=== PATIENT | male | born 1950 | race Caucasian/White ===

== ENCOUNTER 2018-05-18 09:31 | Observation (INO) ==
[2018-05-18] MEDS ORDERED: MIDAZOLAM HCL 1 MG/ML 2ML VIAL ONE (12:40)
[2018-05-18] MEDS ORDERED: HEPARIN (PORCINE) 1000 UNIT/ML 10 ML (CATH LAB USE ONLY) ONE (12:41)
[2018-05-18] MEDS ORDERED: NiCARDipine HCL INJ 2.5 MG/ML 10 ML AMP ONE (12:41)
[2018-05-18] MEDS ORDERED: fentaNYL citrate 100 MCG/2 ML VIAL ONE (12:41)
[2018-05-18] MEDS ORDERED: NITROGLYCERIN/D5W 100MCG/ML 20ML SYR ONE (12:42)
[2018-05-18] MEDS ORDERED: LIDOCAINE HCL 1% 20 ML VIAL ONE (12:46)
[2018-05-18] MEDS ORDERED: NOREPINEPHRINE BITARTRATE 1 MG/ML 4 ML VIAL (CATH LAB USE ONLY) ONE (14:02)
[2018-05-18] MEDS ORDERED: DOPamine 400MG / 250ML D5W (CATH LAB USE ONLY) ONE (14:03)
--- NOTE | 2018-05-18 15:32 | History & Physical Bridge Note ---
Date of Service May 18, 2018 History & Physical Bridge Note I have examined the patient, reviewed the History & Physical and in the interval since the performance of the History & Physical I have noted the following changes of clinical significance: no changes noted
--- NOTE | 2018-05-18 15:33 | Post Anesthesia Assessment ---
Date of Service May 18, 2018 Post Sedation Assessment Vital Signs Temp Pulse Resp BP Pulse Ox 05/18/18 09:52 36.5 C 99 H 16 145/89 H 97 Recovery Score Activity: Moves 4 extremities Respiration: Deep Breath/Cough Circulation: +/-20% PreAnes Value Consciousness: Fully Awake Oxygen Saturation: O2 needed for >90% Discharge Sedation Level of Care: Fast Track Phase II Post Sedation Plan On clinical assessment, the patient appears to have tolerated the sedation without complications. Patient is recovering as anticipated. Patient will continue to be monitored by nursing and may be discharged when sedation discharge criteria are met per below protocol. Upon Completions of procedure and additional 15 minutes continue every 5 minute vital signs and the P.A.R. score; then discharge to a Phase I or Fast Track to Phase II per the following guidelines: * Discharge Patient to appropriate Phase II area if PAR is 8 or greater or return to pre- procedure baseline. The post - procedure orders will be as directed. * If PAR score is less than 8 or not return to pre-procedure baseline then patient will follow Phase I monitoring till PAR is reached for Phase II. The Phase I may be done in procedure room or may call to secure a Phase I area. * If naloxone or flumazenil are used for reversal, hold in Phase I for continued monitoring from when last reversal dose was given for a minimum of 60 minutes or longer pending the nurse and/or physician discretion of patient condition before discharge to Phase II. Please call the Sedation Physician to re-evaluate and complete post-note for discharge to Phase II area. Do NOT discharge from procedure sedation or Phase 1 until post- sedation evaluation note is complete by procedure /sedation MD Sedation Discharge Instructions to be given to the patient at discharge to home.
--- NOTE | 2018-05-18 15:33 | Pre Anesthesia Assessment ---
Date of Service May 18, 2018 Pre Sedation Assessment Vital Signs Temp Pulse Resp BP Pulse Ox 05/18/18 09:52 36.5 C 99 H 16 145/89 H 97 Cardiovascular RRR, no murmur, no edema Respiratory normal respiratory effort, lungs clear to auscultation Pre-Sedation Airway Assessment Smoking Status: Never smoker Hx Sleep Apnea: No Hx Difficult Intubation: No Short, Thick Neck: No Thyromental Distance: > or= 3.5 Finger Breadths Oral Cavity: + WNL Mallampati Class: III ASA: ASA3 NPO Status Date of Last Intake of Fluids: 05/17/18 Time of Last Intake of Fluids: 23:59 Date of Last Intake of Solid Food: 05/17/18 Time of Last Intake of Solid Foods: 23:59 Procedure Planning Contraindications for Sedation: none Current Medications Reviewed: Yes Notes The planned sedation has been discussed with the patient. Informed Consent was obtained. I have identified the patient, determined the appropriateness of sedation and have assessed the patient immediately prior to the procedure. All medicine(s) and interventions are by my order.
[2018-05-18] MEDS ORDERED: ONDANSETRON INJ 2 MG/ML 2 ML VIAL IV PRN (15:34)
[2018-05-18] MEDS ORDERED: ACETAMINOPHEN 325 MG TAB PO PRN (15:34)
[2018-05-18] MEDS ORDERED: FUROSEMIDE 20 MG in SYRINGE 0 ML IV ONE (15:38)
[2018-05-18] MEDS ORDERED: NITROGLYCERIN 0.3 MG/1 TAB 100 TAB BTL SL PRN (15:45)
--- NOTE | 2018-05-18 15:56 | Cardiac Catheterization ---
Cardiac Cath Procedure Full Procedure Date May 18, 2018 Pre-Procedure Diagnosis Pre-Procedure Diagnosis: CAD AUC Score AUC Score: 7 Post-Procedure Diagnosis Post-Procedure Diagnosis: Severe CAD and Successful PCI Procedure(s) Performed Procedure(s) Performed: Coronary Angiography, PTCA and Drug Eluting Stent Armament Mechanic Brandon Singh MD [employer] Quality Control Technician(s) Samson Hassan Estimated Blood Loss Estimated Blood Loss: 15 Medication(s) Medication(s): Fentanyl, Heparin, Lidocaine 1%, Nicardipine, Nitroglycerin and Versed Summary of Findings Indication: Staged PCI of severe RCA disease Access: 6Fr left radial artery Catheters: JR4 guide -- PCI -- Antithrombotic therapy: Heparin, Ticagrelor Procedure: RCA cannulated with JR4 guide Open Cut Examiner 50 wire passed across lesion into distal vessel Mid to proximal lesion predilated with 2.5 and 2.75 compliant balloons Dilated lesion stented with 3.0 x 38 mm [place] KHRIS With the aide of a guideliner stent post-dilated with 3.5 noncompliant balloon IC vasodilators administered for spasm Post procedure LETA 3 flow, stent well expanded with minimal residual stenosis and no apparent cardiac complications. Arterial Closure: TR Band Summary: 1. Successful PCI of proximal to mid RCA with single KHRIS (3.0 x 38 [place] KHRIS; post-dilated with 3.5 NC). 2. Elevated left sided filling pressures. Recommendations: To PCU for continued monitoring Continue dual-antiplatelet therapy for at least 1 year, likely indefinitely Gentle diuresis Continue guideline directed medical therapy for cardiomyopathy Continue statin, and ASCVD risk factor modification Consult cardiac Rehab Hemodynamics Rest Ao:: 86/50/68 Final Ao: 103/59/78 LV: 90/30 Recommendations Recommendations: PCI without planned CABG Specimens Specimens: None Radiation Exposure (mGy) 2796 Contrast (mls) 70 opti Fluids (cc crystalloids) Fluids (cc crystalloids): 100 NS Drains Drains: None Anesthesia Moderate Procedural Complication(s) None Disposition PCU ACC Data: Director Trading Cardiac Status Clinical evaluation leading to the procedure CAD Presenation: STEMI Anginal Classification: CCS III Heart Failure: No Cardiogenic Shock within 24 Hours: No Cardiac Arrest within 24 Hours: No Imaging Studies Past 6 Months: Yes Stress Studies Past 6 Months: No Diagnostic Physicians Name: Brandon Singh MD Status: Elective Closure Device Percutaneous Entry Location: Radial Closure Device: Radial Band Recommendations: PCI without planned CABG PCI Indication: Staged PCI Lesion Segment Name: proximal to mid RCA Culprit Artery: No Stenosis Prior to Rx (%): 80-90% Chronic Total Occlusion: No IVUS: No FFR: No Pre-Procedure LETA Flow: 3 Previously Treated Lesion: No Lesion Complexity: Non-High/Non-C Lesion Length (mm): 35 Thrombus Present: No Bifurcation Lesion: No Guidewire Across Lesion: Stenosis Post-Procedure (%): 0 Post-Procedure LETA Flow : 3 Devices(s) Deployed: Yes Yes Intraprocedure Events Significant Disection: No Perforation: No
[2018-05-18] MEDS ORDERED: DIGOXIN 0.125 MG TAB PO SCH (16:00)
[2018-05-18] MEDS: TICAGRELOR 90 MG TAB PO SCH (19:41)
[2018-05-18] MEDS ORDERED: METOPROLOL TARTRATE 50 MG TAB PO SCH (20:00)
[2018-05-19 06:55] LABS: Basophils # (auto) 0.02 K/uL (0-0.2); Basophils % (auto) 0.2 %; Eosinophils # (auto) 0.09 K/uL (0-0.5); Eosinophils % (auto) 0.9 %; Hematocrit (blood only) 37.3 % (42-52); Hemoglobin 12.6 g/dL (14.0-18.0); Immature Granulocytes # (auto) 0.07 K/uL (0.00-0.02); Immature Granulocytes % (auto) 0.7 %; Lymphocytes # (auto) 1.82 K/uL (1.2-3.4); Lymphocytes % (auto) 19.1 %; Mean Corpuscular Hgb Conc 33.8 g/dL (32-36); Mean Corpuscular Volume 95.2 fL (80-100); Mean Platelet Volume 10.5 fL (7.4-10.4); Monocytes # (auto) 0.99 K/uL (0.11-0.59); Monocytes % (auto) 10.4 %; Neutrophils # (auto) 6.56 K/uL (1.4-6.5); Neutrophils % (auto) 68.7 %; Platelet Count 370 K/uL (130-400); RDW Coefficient of Variation 13.1 % (11.5-14.5); RDW Standard Deviation 44.3 fL (36.4-46.3); Red Blood Count 3.92 M/uL (4.7-6.1); White Blood Count 9.55 K/uL (4.8-10.8)
[2018-05-19 07:32] LABS: BUN Creatinine Ratio 22.1 (10-20); Calcium 8.5 mg/dl (8.5-10.1); Creatinine Clr Calc Pharmacy 85.1 ml/min; Est GFR (African American) 89.2; Potassium 3.8 mmol/L (3.5-5.1)
[2018-05-19] MEDS: TICAGRELOR 90 MG TAB PO SCH (08:26)
[2018-05-19] MEDS ORDERED: MULTIVITAMIN TAB PO SCH (09:00)
[2018-05-19] MEDS ORDERED: ASPIRIN 81 MG ECTAB PO SCH (09:00)
[2018-05-19] MEDS ORDERED: METOPROLOL SUCC 50MG EXT REL TAB PO SCH (09:00)
[2018-05-19] MEDS ORDERED: ATORVASTATIN 40 MG TAB PO SCH (09:00)
[2018-05-19] MEDS ORDERED: SPIRONOLACTONE 25 MG TAB PO SCH (09:00)
--- NOTE | 2018-05-20 11:56 | Discharge Summary ---
Date of Service May 19, 2018 Admission HPI Per Admitting Provider Patient was admitted on 05/09/2018 in the setting of anterior STEMI. He underwent primary PCI and drug-eluting stenting of the culprit LAD lesion during initial catheterization and then returned to the lab for PCI, drug- eluting stent of the complex circumflex obtuse marginal lesion on 05/11/2018. Course complicated by acute systolic heart failure requiring diuresis. Noted to have new severe LV dysfunction and discharged on guideline directed medical therapy with LifeVest in place. Patient returns today for staged PCI of residual high-grade RCA lesion. Specialty Data Cardiology PCI 05/18/2018: 1. Successful PCI of proximal to mid RCA with single KHRIS (3.0 x 38 [place] KHRIS; post-dilated with 3.5 NC). 2. Elevated left sided filling pressures. Discharge Data Procedures Performed Operation Date: 05/18/18 11:00 Actual Procedures p Drug Eluting Stent SGl Vessel - Iraj Singh MD s Cineradiography w/Routine Exam - Iraj Singh MD Hospital Course (1) Multi-vessel coronary artery stenosis: Patient underwent left heart catheterization via left radial artery. Was noted to have elevated filling pressures with LVEDP of 30. PCI of RCA was completed without complication. He had a single drug-eluting stent (3.0 x 38 mm [place] postdilated with 3.5 NC) placed from his mid to proximal RCA. Post procedure he was admitted to telemetry for further monitoring. He received 1 dose of IV Lasix for elevated left-sided filling pressures. His home metoprolol dose was increased from 50-100 mg daily due to sinus tachycardia. He was continued on dual antiplatelet therapy with aspirin and Brilinta. He remained asymptomatic during observation and had no significant arrhythmia on telemetry. He was discharged home on hospital day [address] He will follow-up with cardiology in 1 week. Discharge Instructions Home Medications MULTIPLE VITAMIN (MULTIVITAMIN) 1 tab PO DAILY #0 tab 01/18/12 [History Confirmed 05/18/18] aspirin [Ecotrin Low Strength] 81 mg PO QAM #30 tab 05/15/18 [Rx Confirmed 05/18] atorvastatin 80 mg PO QAM 30 Days #60 tab 05/15/18 [Rx Confirmed 05/18/18] digoxin 0.125 mg PO DAILY@1600 30 Days #30 tab 05/15/18 [Rx Confirmed 05/18/18] nitroglycerin [Nitrostat] 0.3 mg SUBLINGUAL UD #10 tab 05/15/18 [Rx Confirmed ] spironolactone 12.5 mg PO DAILY 30 Days #15 tab 05/15/18 [Rx Confirmed 05/18/18] ticagrelor [Brilinta] 90 mg PO BID 30 Days #60 tab 05/15/18 [Rx Confirmed ] metoprolol succinate [Toprol XL] 100 mg PO DAILY #30 tab 05/19/18 [Rx]
== END 2018-05-19 10:32 | disposition home or self-care (01) ==
LOC: 2E 09:31 → CC 09:31

== ENCOUNTER 2021-01-07 11:36 | Inpatient (IN) ==
[2021-01-07 12:27] LABS: Basophils # (auto) 0.03 K/uL (0-0.2); Basophils % (auto) 0.3 %; Eosinophils # (auto) 0.01 K/uL (0-0.5); Eosinophils % (auto) 0.1 %; Hematocrit (blood only) 38.7 % (42-52); Hemoglobin 13.4 g/dL (14.0-18.0); Immature Granulocytes # (auto) 0.02 K/uL (0.00-0.02); Immature Granulocytes % (auto) 0.2 %; Lymphocytes # (auto) 0.73 K/uL (1.2-3.4); Mean Corpuscular Hemoglobin 32.6 pg (25-34); Mean Corpuscular Hgb Conc 34.6 g/dL (32-36); Mean Corpuscular Volume 94.2 fL (80-100); Mean Platelet Volume 9.9 fL (7.4-10.4); Monocytes # (auto) 0.82 K/uL (0.11-0.59); Monocytes % (auto) 7.9 %; Neutrophils # (auto) 8.81 K/uL (1.4-6.5); Neutrophils % (auto) 84.5 %; Platelet Count 323 K/uL (130-400); RDW Coefficient of Variation 12.9 % (11.5-14.5); RDW Standard Deviation 44.5 fL (36.4-46.3); Red Blood Count 4.11 M/uL (4.7-6.1); White Blood Count 10.42 K/uL (4.8-10.8)
--- NOTE | 2021-01-07 12:36 | XRay Report ---
XR chest 1V portable INDICATION: MN ^Y ^Dyspnea . TECHNIQUE: Single frontal radiograph of the chest was obtained. Comparison: Comparison is made to chest one view 05/12/2018 FINDINGS: Diffuse interstitial thickening is noted with emphysematous changes most prominent in the upper lobes . The cardiomediastinal silhouette is normal. No evidence of pleural effusion or pneumothorax. IMPRESSION: Chronic emphysema and scarring without evidence of acute abnormality. ACT 112: Negative or not required by law. Electronically signed by: Wilfredo Holbrook M.D. 01/07/2021 12:34 PM
[2021-01-07 12:44] LABS: Alanine Aminotransferase 60 U/L (12-78); Albumin Level 2.8 gm/dl (3.4-5.0); Aspartate Aminotransferase 72 U/L (15-37); BUN Creatinine Ratio 14.5 (10-20); Blood Urea Nitrogen 15 mg/dl (7-18); Calcium 9.4 mg/dl (8.5-10.1); Carbon Dioxide 25 mmol/L (21-32); Chloride 108 mmol/L (98-107); Est GFR (African American) 83.9 ml/min; Est GFR (Non-African American) 72.4 ml/min; Glucose 109 mg/dl (70-99); Potassium 4.1 mmol/L (3.5-5.1); Sodium 139 mmol/L (136-145)
[2021-01-07 12:49] LABS: Albumin Globulin Ratio 0.6 (0.9-2); Alkaline Phosphatase 83 U/L (45-117); Bilirubin,Total 1.1 mg/dl (0.2-1); Globulin 4.7 gm/dl (2.5-4.0); NT Pro B Type Natriuretic Pept 1061 pg/ml (0-900); Total Protein 7.5 gm/dl (6.4-8.2); Troponin I 0.016 ng/ml (0-0.045)
--- NOTE | 2021-01-07 12:49 | Emergency Department Note ---
Impression & Plan COVID-19, Acute respiratory failure with hypoxia ED Provider Note INFORMANT: Patient ED PROVIDER(S): Jose Raul Payan MD CHIEF COMPLAINT: Shortness of breath PLAN: Disposition: Admitted Condition: Guarded Outpatient prescription management: none Referral: None MEDICAL DECISION MAKING: Patient presented with acute shortness of breath. He was placed in isolation. He underwent a work-up. He was given Solu-Medrol and DuoNeb. The patient was requiring significant nasal cannula oxygen which then was transitioned to anoxia mask. Patient then required transition to a nonrebreather. He was still having issues with maintaining saturations. CT imaging of the chest and chest x-ray p erformed. Findings consistent with a Covid pneumonia were noted. The patient also has no evidence of PE but there was a possible apical thrombus noted. Covid testing is positive. Patient has already received IV Solu-Medrol in an adequate dose. The patient did require transition to high flow oxygen. [facility] Patient was evaluated by the team in the ER and admitted for further management. Triage Nursing notes reviewed and agree them. Vital Signs: reviewed and remarkable for hypoxia Differential diagnosis: Reactive airway disease, pneumonia, pneumothorax, COPD, CHF, infections, cardiac ischemia, pulmonary embolism, musculoskeletal, gastrointestinal, as well as other pathologies. Diagnostics interpreted by me: ECG: Twelve-lead ECG reveals normal sinus rhythm at 97 bpm. Left atrial enlargement present. Right bundle branch block present. Anteroseptal infarct present. No ST elevation or depression. Cardiac Monitoring: Cardiac monitoring ordered by me: The patient was placed on continuous cardiac monitoring and observed. It revealed a normal sinus rhythm at 99 beats per minute without ectopy or evidence of dysrhythmia Imaging studies: Chest x-ray and CT scans as above. I refer you to the EMR for further details. HPI: The patient is a 70 year old male who presents to the Emergency Room with complaints of shortness of breath. This started 9 days ago and is worsening. The patient also notes the following associated symptoms, none. The patient has found no relieving factors. Current pain is rated as 0/10. Patient called ambulance today. When they arrived his pulse oximetry read 70% on room air. He was 88% on 6 L. After arrival in the ER he is 91% on 6 L nasal cannula. Patient is not immunized against Covid. No known exposure. No travel. He does have a cardiac history with an MO in the past. Pt denies LOC, headache, fevers, chills, diaphoresis, visual changes, neck pain, chest pain, nausea, vomiting, abdominal pain, back pain, melena, hematochezia, urinary symptoms, numbness, weakness, lymphadenopathy, rash, or other complaints. ROS: See above HPI for pertinent positives & negatives. A total of 10 systems reviewed and were otherwise negative. PAST MEDICAL HISTORY:See Below , CAD PAST SURGICAL HISTORY:See Below, FAMILY HISTORY:See Below SOCIAL HISTORY:See Below, quit smoking years ago HOME MEDICATIONS:See Below ALLERGIES:See Below VITALS:See Below PHYSICAL EXAMINATION: GENERAL: Awake, alert, dyspneic-appearing, in no distress HENT: Normocephalic, atraumatic. Oropharynx unremarkable. EYES: Normal conjunctiva. Sclera non-icteric. NECK: Inspection normal. Non-tender. Supple. No nuchal rigidity. FROM. No masses. RESPIRATORY: Few scattered crackles otherwise clear to auscultation. No wheezes. Increased respiratory effort. CARDIAC: Normal rate. Normal rhythm. No murmurs. No rubs. Extremities warm and well perfused. Pulses equal. No JVD. GI: Soft, non-distended. No tenderness to palpation. No rebound or guarding. No masses. RECTAL: Deferred. MUSCULOSKELETAL: Atraumatic. Chest examination reveals no tenderness. The back is symmetrical on inspection without obvious abnormality. There is no CVA tenderness to palpation. No joint edema. LOWER EXTREMITIES: Calves are equal size bilaterally and non-tender. No edema. No discoloration. NEURO: Normal sensorium. No sensory or motor deficits noted. SKIN: No rash or jaundice noted. CRITICAL CARE: I have personally spent greater than 35 minutes of critical care time in the direct management of this patient. This includes bedside care, interpretation of diagnostic studies, and testing, discussion with consultants, patient,and other required patient management activities. These minutes are in excess of all separately billable procedures. Jose Raul Payan MD Past Med/Surg History Medical History (Updated 01/07/21 @ 17:00 by Jose Raul Payan MD) Anxiety Borderline diabetes CAD (coronary artery disease) --Anterior STEMI 04/2018 post primary PCI with 2 KHRIS to proximal to mid LAD --post staged PCI to circumflex/OM and RCA 04/2018 2. Ischemic cardiomyopathy--EF 40-45% 04/2019 Chronic HFrEF (heart failure with reduced ejection fraction) HLD (hyperlipidemia) Ischemic cardiomyopathy Multi-vessel coronary artery stenosis Pre-diabetes Surgical History (Updated 01/07/21 @ 15:16 by Jelena Little PA-C) History of coronary artery stent placement History of hernia repair Family History (Updated 01/07/21 @ 14:10 by Jelena Little PA-C) Father Coronary heart disease Myocardial infarction Mother Diabetes Social History Smoking Status: Former smoker Years Smoked: 40; Smoking End Date: 1991; Second Hand Exposure: No; Do You Dip or Chew Tobacco: No; Hx Alcohol Use: Yes Hx Substance Use: No Preferred Language: Gambian Communication Ability: Effective Visual Impairment: No Limitations 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: 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 Beliefs That Will Affect Care: None Current Living Situation: Spouse current occupation: [employer] Safe at Home: Yes Assistive Devices: Glasses Allergies Allergies Allergy/AdvReac Type Severity Reaction Status Date / Time No Known Drug Allergies Allergy nkda Verified 01/07/21 12:57 Home Meds Home Medications Medication Instructions Recorded Confirmed Lactobacillus acidophilus 1 1,000 mmu cells PO DAILY PRN tab 12/06/18 01/07/21 billion cell tablet albuterol sulfate 90 mcg/actuation 2 puffs INHALATION ONCE PRN gm 12/06/18 01/07/21 aerosol inhaler cholecalciferol (vitamin D3) 25 1,000 units PO DAILY cap 12/06/18 01/07/21 mcg (1,000 unit) capsule clindamycin phosphate 1 % topical 1 appln TOPICAL BID PRN #1 ml 12/06/18 01/07/21 solution desonide 0.05 % lotion 1 appln TOPICAL BID PRN #1 ml 12/06/18 01/07/21 fluocinonide 0.05 % topical 1 appln TOPICAL BID PRN #3 gm 12/06/18 01/07/21 ointment fluticasone propionate 50 2 sprays INTRANASAL BID PRN #3 gm 12/06/18 01/07/21 mcg/actuation nasal spray,suspension hydrocortisone acetate 25 mg 25 mg [place] DAILY PRN ea 12/06/18 01/07/21 rectal suppository meclizine 25 mg tablet 25 mg PO TID PRN tab 12/06/18 01/07/21 mometasone 0.1 % topical ointment 1 appln TOPICAL BID PRN #1 gm 12/06/18 01/07/21 [id number]-lycopen-lutein See Rx Instructions PO DAILY 05/16/19 01/07/21 [Centrum Silver Men] aspirin 81 mg tablet,delayed 81 mg PO DAILY 11/14/19 01/07/21 release omega-3 fatty acids 1,000 mg 1,000 mg PO DAILY 12/15/20 01/07/21 capsule (Fish Oil Concentrate) acetaminophen 500 mg tablet 1,000 mg PO Q6H PRN 01/07/21 01/07/21 (Tylenol Extra Strength) furosemide 20 mg tablet 20 mg PO DAILY 01/07/21 01/07/21 Previous Rx's Medication Instructions Recorded nitroglycerin 0.3 mg sublingual 0.3 mg SUBLINGUAL UD #10 tab 05/15/18 tablet (Nitrostat) atorvastatin 80 mg tablet 80 mg PO DAILY #90 tab 02/10/20 lisinopril 10 mg tablet 10 mg PO DAILY #90 tab 03/17/20 metoprolol succinate 100 mg 100 mg PO DAILY #90 tab 10/05/20 tablet,extended release 24 hr (Toprol XL) ticagrelor 60 mg tablet 60 mg PO BID #180 tab 11/17/20 Results & Data (ED) Vital Signs Vital Signs - 24 hr 01/07/21 11:44 01/07/21 11:58 01/07/21 12:00 Temperature 36.9 C Temperature Source Oral Pulse Rate 99 H 100 H 99 H Pulse Rate [Apical] Pulse Rate from SpO2 Sensor 99 H 99 H Pulse Rhythm Regular Pulse Strength Normal Respiratory Rate 36 H 28 H 36 H Respiratory Effort / Characteristics Spontaneous Short of Breath SOB on Exertion Respiratory Depth Normal Respiratory Pattern Tachypnea Blood Pressure 134/76 134/76 131/87 Blood Pressure Mean 95 95 101 Blood Pressure Position Sitting Pulse Oximetry 88 L 86 L 93 Oxygen Delivery Method Nasal Cannula Room Air Nasal Cannula Oxygen Flow Rate 6 6 6 Fraction of Inspired Oxygen Sepsis Recent Fever Within 48 Hours No Sepsis New/Unexplained Change in Mental Status No Sepsis Action Taken by Nursing No Action Required Oxygen Flow Rate - Titration 6 Pulse Oximetry Post Tiitration 91 01/07/21 12:30 01/07/21 13:00 01/07/21 13:23 Temperature Temperature Source Pulse Rate 100 H 105 H Pulse Rate [Apical] 100 H Pulse Rate from SpO2 Sensor 99 H 94 H Pulse Rhythm Pulse Strength Respiratory Rate 33 H 39 H 24 Respiratory Effort / Characteristics Spontaneous Respiratory Depth Respiratory Pattern Blood Pressure 133/82 131/84 Blood Pressure Mean 99 99 Blood Pressure Position Pulse Oximetry 91 93 92 Oxygen Delivery Method Nasal Cannula Nasal Cannula Oxygen Flow Rate 6 6 6 Fraction of Inspired Oxygen Sepsis Recent Fever Within 48 Hours Sepsis New/Unexplained Change in Mental Status Sepsis Action Taken by Nursing Oxygen Flow Rate - Titration Pulse Oximetry Post Tiitration 01/07/21 13:30 01/07/21 14:12 01/07/21 14:30 Temperature Temperature Source Pulse Rate 105 H 116 H 109 H Pulse Rate [Apical] Pulse Rate from SpO2 Sensor 106 H 116 H 110 H Pulse Rhythm Pulse Strength Respiratory Rate 28 H 40 H 22 Respiratory Effort / Characteristics Respiratory Depth Respiratory Pattern Blood Pressure 125/82 Blood Pressure Mean 96 Blood Pressure Position Pulse Oximetry 86 L 96 87 L Oxygen Delivery Method Oxymask Oxygen Flow Rate 15 Fraction of Inspired Oxygen Sepsis Recent Fever Within 48 Hours Sepsis New/Unexplained Change in Mental Status Sepsis Action Taken by Nursing Oxygen Flow Rate - Titration Pulse Oximetry Post Tiitration 01/07/21 15:00 01/07/21 15:30 01/07/21 15:39 Temperature Temperature Source Pulse Rate 96 H 103 H Pulse Rate [Apical] 102 H Pulse Rate from SpO2 Sensor 97 H 102 H Pulse Rhythm Pulse Strength Respiratory Rate 44 H 26 H 28 H Respiratory Effort / Characteristics Spontaneous Respiratory Depth Respiratory Pattern Blood Pressure 139/75 131/78 Blood Pressure Mean 96 95 Blood Pressure Position Pulse Oximetry 91 93 92 Oxygen Delivery Method High Flow Nasal Cannula Oxygen Flow Rate 30 Fraction of Inspired Oxygen 80 Sepsis Recent Fever Within 48 Hours Sepsis New/Unexplained Change in Mental Status Sepsis Action Taken by Nursing Oxygen Flow Rate - Titration Pulse Oximetry Post Tiitration 01/07/21 16:00 01/07/21 16:30 Temperature Temperature Source Pulse Rate 102 H Pulse Rate [Apical] Pulse Rate from SpO2 Sensor 102 H Pulse Rhythm Pulse Strength Respiratory Rate 34 H Respiratory Effort / Characteristics Respiratory Depth Respiratory Pattern Blood Pressure 129/84 129/87 Blood Pressure Mean 99 101 Blood Pressure Position Pulse Oximetry 92 Oxygen Delivery Method Oxygen Flow Rate Fraction of Inspired Oxygen Sepsis Recent Fever Within 48 Hours Sepsis New/Unexplained Change in Mental Status Sepsis Action Taken by Nursing Oxygen Flow Rate - Titration Pulse Oximetry Post Tiitration Laboratory Data Result diagrams: 01/07/21 12:08 01/07/21 12:08 Lab Results 01/07/21 01/07/21 01/07/21 Range/Units 12:08 12:08 12:08 WBC 10.42 (4.8-10.8) K/uL RBC 4.11 L (4.7-6.1) M/uL Hgb 13.4 L (14.0-18.0) g/dL Hct 38.7 L (42-52) % MCV 94.2 (80-100) fL MCH 32.6 (25-34) pg MCHC 34.6 (32-36) g/dL RDW Std Deviation 44.5 (36.4-46.3) fL RDW Coeff of Tatiana 12.9 (11.5-14.5) % Plt Count 323 (130-400) K/uL MPV 9.9 (7.4-10.4) fL Immature Gran % (Auto) 0.2 % Neut % (Auto) 84.5 % Lymph % (Auto) 7.0 % [place] % (Auto) 7.9 % Eos % (Auto) 0.1 % Baso % (Auto) 0.3 % Neut # (Auto) 8.81 H (1.4-6.5) K/uL Lymph # (Auto) 0.73 L (1.2-3.4) K/uL [place] # (Auto) 0.82 H (0.11-0.59) K/uL Eos # (Auto) 0.01 (0-0.5) K/uL Baso # (Auto) 0.03 (0-0.2) K/uL Immature Gran # (Auto) 0.02 (0.00-0.02) K/uL ESR 60 H (0-20) mm/hr ABG pH (7.35-7.45) ABG pCO2 (35-46) mmHg ABG pO2 (80-95) mmHg ABG HCO3 (19-24) mmol/L ABG O2 Saturation (90-95) % ABG Base Excess (-9-1.8) mEq/L Keron Test (Pos) Barometric Pressure mm/Hg Oxygen Given Sodium 139 (136-145) mmol/L Potassium 4.1 (3.5-5.1) mmol/L Chloride 108 H (98-107) mmol/L Carbon Dioxide 25 (21-32) mmol/L Anion Gap 6.0 (3-11) BUN 15 (7-18) mg/dl Creatinine 1.04 (0.6-1.4) mg/dl Est Cr Clr Drug Dosing Not Reportable Est GFR ( Amer) 83.9 ml/min Est GFR (Non-Af Amer) 72.4 ml/min BUN/Creatinine Ratio 14.5 (10-20) Glucose 109 H (70-99) mg/dl Calcium 9.4 (8.5-10.1) mg/dl Total Bilirubin 1.1 H (0.2-1) mg/dl AST 72 H (15-37) U/L ALT 60 (12-78) U/L Alkaline Phosphatase 83 (45-117) U/L Troponin I 0.016 (0-0.045) ng/ml NT-Pro-B Natriuret Pep 1061 H (0-900) pg/ml Total Protein 7.5 (6.4-8.2) gm/dl Albumin 2.8 L (3.4-5.0) gm/dl Globulin 4.7 H (2.5-4.0) gm/dl Albumin/Globulin Ratio 0.6 L (0.9-2) Procalcitonin (0-0.5) ng/ml COVID-19 Eval Order SARS-CoV-2 (PCR) (Negative) 01/07/21 01/07/21 01/07/21 Range/Units 12:08 12:10 12:10 WBC (4.8-10.8) K/uL RBC (4.7-6.1) M/uL Hgb (14.0-18.0) g/dL Hct (42-52) % MCV (80-100) fL MCH (25-34) pg MCHC (32-36) g/dL RDW Std Deviation (36.4-46.3) fL RDW Coeff of Tatiana (11.5-14.5) % Plt Count (130-400) K/uL MPV (7.4-10.4) fL Immature Gran % (Auto) % Neut % (Auto) % Lymph % (Auto) % [place] % (Auto) % Eos % (Auto) % Baso % (Auto) % Neut # (Auto) (1.4-6.5) K/uL Lymph # (Auto) (1.2-3.4) K/uL [place] # (Auto) (0.11-0.59) K/uL Eos # (Auto) (0-0.5) K/uL Baso # (Auto) (0-0.2) K/uL Immature Gran # (Auto) (0.00-0.02) K/uL ESR (0-20) mm/hr ABG pH (7.35-7.45) ABG pCO2 (35-46) mmHg ABG pO2 (80-95) mmHg ABG HCO3 (19-24) mmol/L ABG O2 Saturation (90-95) % ABG Base Excess (-9-1.8) mEq/L Keron Test (Pos) Barometric Pressure mm/Hg Oxygen Given Sodium (136-145) mmol/L Potassium (3.5-5.1) mmol/L Chloride (98-107) mmol/L Carbon Dioxide (21-32) mmol/L Anion Gap (3-11) BUN (7-18) mg/dl Creatinine (0.6-1.4) mg/dl Est Cr Clr Drug Dosing Est GFR ( Amer) ml/min Est GFR (Non-Af Amer) ml/min BUN/Creatinine Ratio (10-20) Glucose (70-99) mg/dl Calcium (8.5-10.1) mg/dl Total Bilirubin (0.2-1) mg/dl AST (15-37) U/L ALT (12-78) U/L Alkaline Phosphatase (45-117) U/L Troponin I (0-0.045) ng/ml NT-Pro-B Natriuret Pep (0-900) pg/ml Total Protein (6.4-8.2) gm/dl Albumin (3.4-5.0) gm/dl Globulin (2.5-4.0) gm/dl Albumin/Globulin Ratio (0.9-2) Procalcitonin 0.09 (0-0.5) ng/ml COVID-19 Eval Order Covid19 at [facility] SARS-CoV-2 (PCR) POSITIVE A* (Negative) 01/07/21 Range/Units 16:06 WBC (4.8-10.8) K/uL RBC (4.7-6.1) M/uL Hgb (14.0-18.0) g/dL Hct (42-52) % MCV (80-100) fL MCH (25-34) pg MCHC (32-36) g/dL RDW Std Deviation (36.4-46.3) fL RDW Coeff of Tatiana (11.5-14.5) % Plt Count (130-400) K/uL MPV (7.4-10.4) fL Immature Gran % (Auto) % Neut % (Auto) % Lymph % (Auto) % [place] % (Auto) % Eos % (Auto) % Baso % (Auto) % Neut # (Auto) (1.4-6.5) K/uL Lymph # (Auto) (1.2-3.4) K/uL [place] # (Auto) (0.11-0.59) K/uL Eos # (Auto) (0-0.5) K/uL Baso # (Auto) (0-0.2) K/uL Immature Gran # (Auto) (0.00-0.02) K/uL ESR (0-20) mm/hr ABG pH 7.48 H (7.35-7.45) ABG pCO2 27 L (35-46) mmHg ABG pO2 89 (80-95) mmHg ABG HCO3 20 (19-24) mmol/L ABG O2 Saturation 97.4 H (90-95) % ABG Base Excess -2.1 (-9-1.8) mEq/L Keron Test POS (Pos) Barometric Pressure 736.2 mm/Hg Oxygen Given 15 Sodium (136-145) mmol/L Potassium (3.5-5.1) mmol/L Chloride (98-107) mmol/L Carbon Dioxide (21-32) mmol/L Anion Gap (3-11) BUN (7-18) mg/dl Creatinine (0.6-1.4) mg/dl Est Cr Clr Drug Dosing Est GFR ( Amer) ml/min Est GFR (Non-Af Amer) ml/min BUN/Creatinine Ratio (10-20) Glucose (70-99) mg/dl Calcium (8.5-10.1) mg/dl Total Bilirubin (0.2-1) mg/dl AST (15-37) U/L ALT (12-78) U/L Alkaline Phosphatase (45-117) U/L Troponin I (0-0.045) ng/ml NT-Pro-B Natriuret Pep (0-900) pg/ml Total Protein (6.4-8.2) gm/dl Albumin (3.4-5.0) gm/dl Globulin (2.5-4.0) gm/dl Albumin/Globulin Ratio (0.9-2) Procalcitonin (0-0.5) ng/ml COVID-19 Eval Order SARS-CoV-2 (PCR) (Negative) Administered Medications Discontinued Medications Albuterol (Albut/Ipratrop 3mg/0.5mg Neb 3 Ml Vial) 3 ml NEB NOW STA Stop: 01/07/21 12:51 Last Admin: 01/07/21 13:21 Dose: 3 ml Documented by: [id number] Furosemide (Furosemide 40 Mg/4 Ml Vial) 40 mg IV NOW STA Stop: 01/07/21 15:09 Last Admin: 01/07/21 16:34 Dose: 40 mg Documented by: [id number] Ioversol (Optiray 320 125ml) 120 ml IV ONCE ONE Stop: 01/07/21 14:01 Last Admin: 01/07/21 14:00 Dose: 120 ml Documented by: [id number] Methylprednisolone (Methylprednisolone 125 Mg/2 Ml Vial) 125 mg IV NOW STA Stop: 01/07/21 12:51 Last Admin: 01/07/21 13:47 Dose: 125 mg Documented by: [id number] Imaging Data Radiologist's Impression: Chest X-Ray 01/07/21 12:09 XR chest 1V portable INDICATION: MN ^Y ^Dyspnea . TECHNIQUE: Single frontal radiograph of the chest was obtained. Comparison: Comparison is made to chest one view 05/12/2018 FINDINGS: Diffuse interstitial thickening is noted with emphysematous changes most prominent in the upper lobes. The cardiomediastinal silhouette is normal. No evidence of pleural effusion or pneumothorax. IMPRESSION: Chronic emphysema and scarring without evidence of acute abnormality. ACT 112: Negative or not required by law. Electronically signed by: Wilfredo Holbrook M.D. 01/07/2021 12:34 PM Chest CTA 01/07/21 12:34 CT angio chest PE protocol CT DOSE: 558.40 mGycm HISTORY: 70 years-old Male with hypoxia, SOB. Acute shortness of breath with hypoxia TECHNIQUE: Multiple CTA images of the chest were obtained after the intravenous administration of 120 ml Optiray. Coronal and sagittal MIPS were obtained from the axial data set and were submitted for review. All measurements were obtained according to NASCET criteria. A dose lowering technique was utilized adhering to the principles of ALARA. COMPARISON: Chest radiograph of same day and also 05/12/2018, CTA chest 01/23/2012. FINDINGS: CTA: 1.9 x 1.0 cm hypodense focus is noted within the left ventricular apex on image 83 series 4. Myocardial thickening of the left ventricular apex is also noted with extensive coronary artery calcifications. Mild cardiomegaly. No thoracic aortic aneurysm or dissection. Descending thoracic aortic tortuosity. Unre markable pulmonary artery. No pulmonary emboli identified. CT CHEST: Unremarkable thyroid. Enlarged mediastinal lymph nodes include precarinal 2.3 x 1.5 cm lymph node. Enlarged right hilar lymph nodes measure up to 2.6 x 1.6 cm. No axillary adenopathy. No pneumothorax or pleural effusion. Emphysema with chronic fibrotic changes. Bronchial wall thickening suggestive of bronchitis. Intermixed bilateral groundglass densities with mild intralobular septal thickening. Mild linear scarring/atelectasis of the inferior segment lingula. 6 mm solid nodule of the right middle lobe on image 130 previously measured 4 mm and is suggestive of a benign lymph node. Mild tracheobronchial secretions. No acute process of the imaged upper abdomen. Tiny hiatal hernia with mild distal esophageal wall thickening. Unremarkable soft tissues. There is no acute fracture. Right shoulder rotator cuff calcific tendinosis. IMPRESSION: 1. No pulmonary emboli. 2. Emphysema with chronic fibrotic changes. 3. Intermixed groundglass opacities with intralobular septal thickening is suggestive of pulmonary edema versus a nonspecific infectious or inflammatory pneumonitis. 4. Mediastinal and hilar adenopathy. 5. Cardiomegaly with suggested thrombus of the left ventricular apex measuring up to 1.9 cm. Correlation with echocardiogram is recommended. ACT 112: Negative or not required by law. The above report was generated using voice recognition software. It may contain grammatical, syntax or spelling errors. Electronically signed by: Jm Timmons M.D. 01/07/2021 2:44 PM Discharge Plan Visit Data Chief Complaint: Shortness of Breath/Dyspnea Stated Complaint: SOB ED Provider: Jose Raul Payan Discharge Problem: COVID-19, Acute respiratory failure with hypoxia Discharge Instructions Interventions: ED Discharge Assessment Last Done: 01/07/21 16:34 Forms Stand Alone Forms: My [facility] [employer] Prescriptions Prescriptions: No Action atorvastatin 80 mg tablet 80 mg PO DAILY Qty: 90 RF: 3 lisinopril 10 mg tablet 10 mg PO DAILY Qty: 90 RF: 3 metoprolol succinate [Toprol XL] 100 mg tablet extended release 24 hr 100 mg PO DAILY Qty: 90 RF: 3 ticagrelor 60 mg tablet 60 mg PO BID Qty: 180 RF: 3 albuterol sulfate 90 mcg/actuation HFA aerosol inhaler 2 puffs inhalation ONCE PRN (Reason: Shortness Of Breath Or Wheezing) RF: 0 clindamycin phosphate 1 % solution 1 appln topical BID PRN (Reason: flare up) Qty: 1 RF: 0 desonide 0.05 % lotion 1 appln topical BID PRN (Reason: ..) Qty: 1 RF: 0 fluocinonide 0.05 % ointment 1 appln topical BID PRN (Reason: flare up) Qty: 3 RF: 0 fluticasone propionate 50 mcg/actuation spray,suspension 2 sprays intranasal BID PRN (Reason: allergies) Qty: 3 RF: 0 hydrocortisone acetate 25 mg suppository 25 mg [place] DAILY PRN (Reason: ..) RF: 0 mometasone 0.1 % ointment 1 appln topical BID PRN (Reason: flare up) Qty: 1 RF: 0 Lactobacillus acidophilus 1 billion cell tablet 1,000 mmu cells PO DAILY PRN (Reason: ..) RF: 0 cholecalciferol (vitamin D3) 1,000 unit capsule 1,000 units PO DAILY RF: 0 meclizine 25 mg tablet 25 mg PO TID PRN (Reason: dizzy) RF: 0 aspirin 81 mg tablet,delayed release (DR/EC) 81 mg PO DAILY RF: 0 [id number]-tna-QW-lycopen-lutein See Rx Instructions PO DAILY RF: 0 omega-3 fatty acids [Fish Oil Concentrate] 1,000 mg capsule 1,000 mg PO DAILY RF: 0 nitroglycerin [Nitrostat] 0.3 mg tablet, sublingual 0.3 mg Sublingual UD Qty: 10 RF: 1 acetaminophen [Tylenol Extra Strength] 500 mg Tablet 1,000 mg PO Q6H PRN (Reason: Pain) RF: 0 furosemide 20 mg tablet 20 mg PO DAILY RF: 0 Referrals Referrals: Robert Garcia MD [Primary Care Provider] -
[2021-01-07] MEDS ORDERED: ALBUT/IPRATROP 3MG/0.5MG NEB 3 ML VIAL NEB STA (12:50)
[2021-01-07] MEDS ORDERED: methylPREDNISolone 125 MG/2 ML VIAL IV STA (12:50)
[2021-01-07] MEDS ORDERED: OPTIRAY 320 125ml IV ONE (14:00)
--- NOTE | 2021-01-07 14:08 | History & Physical Report ---
Date of Service January 07, 2021 Assessment & Plan (1) Sepsis: Plan: Pt meets Sepsis criteria based on current vital signs including tachycardia and tachypnea. Evidence of viral infection 2/2 to covid -19. (2) COVID-19: (3) Acute respiratory failure with hypoxia: Plan: This is a 70-year-old male who has significant past medical history of CAD, chronic HFrEF, nonischemic cardiomyopathy, HTN, HLD, prediabetes who presents to ED secondary to URI x9 days. Pt meets Sepsis criteria based on current vital signs including tachycardia and tachypnea. Evidence of viral infection 2/2 to covid -19. Fluids not administered due to concern for pulmonary edema and blood pressure 120s systolic. 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 CT CHEST: 1. No pulmonary emboli. 2. Emphysema with chronic fibrotic changes. 3. Intermixed groundglass opacities with intralobular septal thickening is suggestive of pulmonary edema versus a nonspecific infectious or inflammatory pneumonitis. 4. Mediastinal and hilar adenopathy. 5. Cardiomegaly with suggested thrombus of the left ventricular apex measuring up to 1.9 cm. Correlation with echocardiogram is recommended. Pt with acute hypoxic respiratory failure and + Sars-COV2 admit to PCU covid unit currently requiring high flow nasal cannula, obtain ABG IV dexamethasone 6mg daily IV remdesivir 200mg x 1 now and 100mg daily Lovenox BID for dvt ppx consult pulmonlogy obtain STAT echo given concern for LV thrombus - discussed with Dr. Dalton who feels does not require IV heparin at this time unless actively embolizing. Feels it looks laminated. Per cards they discussed this with pt in past. Will not give IV heparin at this time. daily labs (4) CAD (coronary artery disease): (5) Chronic HFrEF (heart failure with reduced ejection fraction): (6) Ischemic cardiomyopathy: Plan: Follows [facility] [place] cardiology hx of Anterior STEMI 04/2018 with PCI and 2 KHRIS to prox to mid LAD; staged PCI to circumflex/OM Echo 04/2019 EF 40-45% strict I and O daily weights give 40mg IV lasix x 1 now given concern for pulm edema, elevated pro-bnp - re evaluate daily need for further IV diuresis hold home dose of 20mg of lasix - resume when appropriate continue ASA, brilinta, Statin, metoprolol and lisinopril stat echo ordered (7) Pre-diabetes: Plan: Last A1c 6.4 on 12/21/2020 Monitor fasting glucose with initiation of steroid (8) DVT prophylaxis: Plan: SQ Lovenox 40mg Q12h Dispo: PCU PCP: Jose FULL CODE - pt is hesitant on whether or not he would want to be intubated, but for now wishes for full code Pt was seen and examined in collaboration with Dr. Daniel, please see addendum Please contact via [place] text with questions or concerns to Jelena Paulino ([place]). History of Present Illness Chief Complaint: URI sx x 9 days. Primary Care Provider: Robert Garcia MD This is a 70-year-old male who has significant past medical history of CAD, chronic HFrEF, nonischemic cardiomyopathy, HTN, HLD, prediabetes who presents to ED secondary to URI x9 days. He complains of cough, occasionally productive, shortness of breath with exertion, wheezing, myalgias, fatigue and loss of appetite. He denies any documented fever, as well as chills, sweats, chest pain, lightheadedness, dizziness, hemoptysis, nausea, vomiting, abdominal pain, loss of taste or smell, change in his bowel or urinary habits. He was seen in clinic today due to URI symptoms and found to be hypoxic. He is not vaccinated and suspicion was high for Covid pneumonia; therefore directed to ED. He denies any known exposure or known sick contacts. He lives at home with his . In ED patient was found to be hypoxic requiring 15 L nonrebreather. Chest x-ray showed emphysematous changes but no acute cardiopulmonary disease. Chest CTA reveals intermixed ground glass opacities with interlobular septal thickening suggestive of pulmonary edema versus nonspecific infectious or inflammatory pneumonitis, mediastinal and hilar adenopathy, cardiomegaly with suggested thrombus of the left ventricular apex measuring up to 1.9 cm. In ED he received 125 mg dexamethasone as well as albuterol. He feels mildly improved since being in ED. Allergies Allergy/AdvReac Type Severity Reaction Status Date / Time No Known Drug Allergies Allergy nkda Verified 01/07/21 12:57 Home Medications Medication Instructions Recorded Confirmed Type nitroglycerin 0.3 mg sublingual 0.3 mg SUBLINGUAL UD #10 tab 05/15/18 01/07/21 Rx tablet (Nitrostat) Lactobacillus acidophilus 1 1,000 mmu cells PO DAILY PRN tab 12/06/18 01/07/21 History billion cell tablet albuterol sulfate 90 mcg/actuation 2 puffs INHALATION ONCE PRN gm 12/06/18 01/07/21 History aerosol inhaler cholecalciferol (vitamin D3) 25 1,000 units PO DAILY cap 12/06/18 01/07/21 History mcg (1,000 unit) capsule clindamycin phosphate 1 % topical 1 appln TOPICAL BID PRN #1 ml 12/06/18 01/07/21 History solution desonide 0.05 % lotion 1 appln TOPICAL BID PRN #1 ml 12/06/18 01/07/21 History fluocinonide 0.05 % topical 1 appln TOPICAL BID PRN #3 gm 12/06/18 01/07/21 History ointment fluticasone propionate 50 2 sprays INTRANASAL BID PRN #3 gm 12/06/18 01/07/21 History mcg/actuation nasal spray,suspension hydrocortisone acetate 25 mg 25 mg AL DAILY PRN ea 12/06/18 01/07/21 History rectal suppository meclizine 25 mg tablet 25 mg PO TID PRN tab 12/06/18 01/07/21 History mometasone 0.1 % topical ointment 1 appln TOPICAL BID PRN #1 gm 12/06/18 01/07/21 History cxhosxfe-kss-HT-lycopen-lutein See Rx Instructions PO DAILY 05/16/19 01/07/21 History [Centrum Silver Men] aspirin 81 mg tablet,delayed 81 mg PO DAILY 11/14/19 01/07/21 History release atorvastatin 80 mg tablet 80 mg PO DAILY #90 tab 02/10/20 01/07/21 Rx lisinopril 10 mg tablet 10 mg PO DAILY #90 tab 03/17/20 01/07/21 Rx metoprolol succinate 100 mg 100 mg PO DAILY #90 tab 10/05/20 01/07/21 Rx tablet,extended release 24 hr (Toprol XL) ticagrelor 60 mg tablet 60 mg PO BID #180 tab 11/17/20 01/07/21 Rx omega-3 fatty acids 1,000 mg 1,000 mg PO DAILY 12/15/20 01/07/21 History capsule (Fish Oil Concentrate) acetaminophen 500 mg tablet 1,000 mg PO Q6H PRN 01/07/21 01/07/21 History (Tylenol Extra Strength) furosemide 20 mg tablet 20 mg PO DAILY 01/07/21 01/07/21 History Past Med/Surg History Medical History (Updated 01/07/21 @ 17:00 by Jose Raul Payan MD) Anxiety Borderline diabetes CAD (coronary artery disease) --Anterior STEMI 04/2018 post primary PCI with 2 KHRIS to proximal to mid LAD --post staged PCI to circumflex/OM and RCA 04/2018 2. Ischemic cardiomyopathy--EF 40-45% 04/2019 Chronic HFrEF (heart failure with reduced ejection fraction) HLD (hyperlipidemia) Ischemic cardiomyopathy Multi-vessel coronary artery stenosis Pre-diabetes Surgical History (Updated 01/07/21 @ 15:16 by Jelena Little PA-C) History of coronary artery stent placement History of hernia repair Family History (Updated 01/07/21 @ 14:10 by Jelena Little PA-C) Father Coronary heart disease Myocardial infarction Mother Diabetes Social History Smoking Status: Former smoker Years Smoked: 40; Smoking End Date: 1991; Second Hand Exposure: No; Do You Dip or Chew Tobacco: No; Tobacco Cessation Education Requested by Patient: No Hx Alcohol Use: No Hx Substance Use: No Preferred Language: Pashto Communication Ability: Effective Visual Impairment: No Limitations Manager Metrology Required: No Beliefs That Will Affect Care: None Current Living Situation: Spouse current occupation: [employer] Other Information That Helps Us Care for You: No Feels Safe at Home: Yes Safety Concerns: Feels Safe At This Time Assistive Devices: Denture - Upper, Denture - Lower and Oxygen - Continuous Review of Systems Review of Systems: All systems reviewed & are unremarkable except as noted in HPI & below Physical Exam Physical Exam: Constitutional: WD/WN, vitals as above, NAD, sitting up in bed, pleasant, nontoxic but apprehensive, conversing easily Head: Normocephalic, Atraumatic Eyes: PERRL, conjunctivae normal, anicteric sclerae ENMT: external ear and nose normal, oropharynx normal Neck: trachea midline, no thyromegaly normal visual inspection Respiratory: on 15L non rebreather, normal respiratory effort, lungs clear to auscultation, bibasilar rales, no wheeze, or rhonchi. Normal insp/exp effort, no accessory muscle use Cardiovascular: RRR, no murmur, no edema Vessels: no JVD or carotid bruit Chest: normal inspection of chest Abdomen: normal bowel sounds, soft, nontender, no hepatosplenomegaly Musculoskeletal: no cyanosis or clubbing, extremities motor strength 5/5 Skin: no rashes, warm and dry normal turgor Neurologic: PERRL, EOMI, accommodation nl, no face palsy, no dysarthria CN's II-XI intact bilaterally and moves all extremities Psychiatric: A+Ox3, euthymic affect Lymphatic: no cervical or axillary lymphadenopathy : deferred Results & Data Results & Data ([facility]) Vital Signs (Past 12 Hours) Vital Signs Temp Pulse Pulse Resp BP Pulse Ox 01/07/21 13:30 105 H 28 H 125/82 86 L 01/07/21 13:23 100 H 24 92 01/07/21 13:00 105 H 39 H 131/84 93 01/07/21 12:30 100 H 33 H 133/82 91 01/07/21 12:00 99 H 36 H 131/87 93 01/07/21 11:58 36.9 C 100 H 28 H 134/76 86 L 01/07/21 11:44 99 H 36 H 134/76 88 L Diagnostic Findings Chest X-Ray 01/07/21 12:09 XR chest 1V portable INDICATION: MN ^Y ^Dyspnea . TECHNIQUE: Single frontal radiograph of the chest was obtained. Comparison: Comparison is made to chest one view 05/12/2018 FINDINGS: Diffuse interstitial thickening is noted with emphysematous changes most prominent in the upper lobes. The cardiomediastinal silhouette is normal. No evidence of pleural effusion or pneumothorax. IMPRESSION: Chronic emphysema and scarring without evidence of acute abnormality. ACT 112: Negative or not required by law. Electronically signed by: Wilfredo Holbrook M.D. 01/07/2021 12:34 PM Chest CTA 01/07/21 12:34 CT angio chest PE protocol CT DOSE: 558.40 mGycm HISTORY: 70 years-old Male with hypoxia, SOB. Acute shortness of breath with hypoxia TECHNIQUE: Multiple CTA images of the chest were obtained after the intravenous administration of 120 ml Optiray. Coronal and sagittal MIPS were obtained from the axial data set and were submitted for review. All measurements were obtained according to NASCET criteria. A dose lowering technique was utilized adhering to the principles of ALARA. COMPARISON: Chest radiograph of same day and also 05/12/2018, CTA chest 01/23/2012. FINDINGS: CTA: 1.9 x 1.0 cm hypodense focus is noted within the left ventricular apex on image 83 series 4. Myocardial thickening of the left ventricular apex is also noted with extensive coronary artery calcifications. Mild cardiomegaly. No thoracic aortic aneurysm or dissection. Descending thoracic aortic tortuosity. Unremarkable pulmonary artery. No pulmonary emboli identified. CT CHEST: Unremarkable thyroid. Enlarged mediastinal lymph nodes include precarinal 2.3 x 1.5 cm lymph node. Enlarged right hilar lymph nodes measure up to 2.6 x 1.6 cm. No axillary adenopathy. No pneumothorax or pleural effusion. Emphysema with chronic fibrotic changes. Bronchial wall thickening suggestive of bronchitis. Intermixed bilateral groundglass densities with mild intralobular septal thickening. Mild linear scarring/atelectasis of the inferior segment lingula. 6 mm solid nodule of the right middle lobe on image 130 previously measured 4 mm and is suggestive of a benign lymph node. Mild tracheobronchial secretions. No acute process of the imaged upper abdomen. Tiny hiatal hernia with mild distal esophageal wall thickening. Unremarkable soft tissues. There is no acute fracture. Right shoulder rotator cuff calcific tendinosis. IMPRESSION: 1. No pulmonary emboli. 2. Emphysema with chronic fibrotic changes. 3. Intermixed groundglass opacities with intralobular septal thickening is suggestive of pulmonary edema versus a nonspecific infectious or inflammatory pneumonitis. 4. Mediastinal and hilar adenopathy. 5. Cardiomegaly with suggested thrombus of the left ventricular apex measuring up to 1.9 cm. Correlation with echocardiogram is recommended. ACT 112: Negative or not required by law. The above report was generated using voice recognition software. It may contain grammatical, syntax or spelling errors. Electronically signed by: Jm Timmons M.D. 01/07/2021 2:44 PM Medications Administered Medication List Discontinued Medications Albuterol (Albut/Ipratrop 3mg/0.5mg Neb 3 Ml Vial) 3 ml NEB NOW STA Stop: 01/07/21 12:51 Last Admin: 01/07/21 13:21 Dose: 3 ml Documented by: [id number] Ioversol (Optiray 320 125ml) 120 ml IV ONCE ONE Stop: 01/07/21 14:01 Last Admin: 01/07/21 14:00 Dose: 120 ml Documented by: [id number] Methylprednisolone (Methylprednisolone 125 Mg/2 Ml Vial) 125 mg IV NOW STA Stop: 01/07/21 12:51 Last Admin: 01/07/21 13:47 Dose: 125 mg Documented by: [id number] ECG Rate (beats per minute): 97 Rhythm: normal sinus COVID-19 Results Results COVID-19 Adm Lab Results: RBC 4.11 M/uL (4.7-6.1) L 01/07/21 WBC 10.42 K/uL (4.8-10.8) 01/07/21 Hgb 13.4 g/dL (14.0-18.0) L 01/07/21 Hct 38.7 % (42-52) L 01/07/21 Plt Count 323 K/uL (130-400) 01/07/21 Neutrophils (%) (Auto) 84.5 % 01/07/21 Lymphocytes (%) (Auto) 7.0 % 01/07/21 Monocytes # (Auto) 0.82 K/uL (0.11-0.59) H 01/07/21 Eosinophils # (Auto) 0.01 K/uL (0-0.5) 01/07/21 Immature Granulocyte % (Auto) 0.2 % 01/07/21 Neutrophils # (Auto) 8.81 K/uL (1.4-6.5) H 01/07/21 Lymphocytes # (Auto) 0.73 K/uL (1.2-3.4) L 01/07/21 Monocytes # (Auto) 0.82 K/uL (0.11-0.59) H 01/07/21 Eosinophils # (Auto) 0.01 K/uL (0-0.5) 01/07/21 Basophils # (Auto) 0.03 K/uL (0-0.2) 01/07/21 Immature Granulocyte # (Auto) 0.02 K/uL (0.00-0.02) 01/07/21 Na 139 mmol/L (136-145) 01/07/21 K 4.1 mmol/L (3.5-5.1) 01/07/21 Cl 108 mmol/L (98-107) H 01/07/21 CO2 25 mmol/L (21-32) 01/07/21 Anion Gap 6.0 (3-11) 01/07/21 BUN 15 mg/dl (7-18) 01/07/21 Creatinine 1.04 mg/dl (0.6-1.4) 01/07/21 BUN/Creatinine Ratio 14.5 (10-20) 01/07/21 Glucose Level 109 mg/dl (70-99) H 01/07/21 Ca 9.4 mg/dl (8.5-10.1) 01/07/21 Total Bilirubin 1.1 mg/dl (0.2-1) H 01/07/21 AST/SGOT 72 U/L (15-37) H 01/07/21 ALT/SGPT 60 U/L (12-78) 01/07/21 Alkaline Phosphatase 83 U/L (45-117) 01/07/21 Total Protein 7.5 gm/dl (6.4-8.2) 01/07/21 Albumin 2.8 gm/dl (3.4-5.0) L 01/07/21 Globulin 4.7 gm/dl (2.5-4.0) H 01/07/21 Albumin/Globulin Ratio 0.6 (0.9-2) L 01/07/21 Troponin I 0.016 ng/ml (0-0.045) 01/07/21 MS-Dbi-M-Type Natriuretic Pep 1061 pg/ml (0-900) H 01/07/21 CRP 13.70 mg/dl (0-0.29) H 01/07/21 Procalcitonin 0.09 ng/ml (0-0.5) 01/07/21 COVID-19 PCR POSITIVE (Negative) A* 01/07/21 ABG pH 7.48 (7.35-7.45) H 01/07/21 ABG pCO2 27 mmHg (35-46) L 01/07/21 ABG pO2 89 mmHg (80-95) 01/07/21 ABG HCO3 20 mmol/L (19-24) 01/07/21 ABG O2 Saturation 97.4 % (90-95) H 01/07/21 ABG Base Excess -2.1 mEq/L (-9-1.8) 01/07/21 Chest X-Ray 01/07/21 Code Status & VTE Plan Code Status Full Code VTE Prophylaxis Plan VTE Prophylaxis will be ordered: Yes Supervising Physician Co-Signing Physician Notes Attending addendum: The patient was seen and examined in telemetry unit and in the Covid room He has been feeling a lot better and still requiring high flow oxygen to maintain saturation He denies any cough, chest pain and/or palpitation On examination Lying in bed without any acute distress Hemodynamically stable Chest-decreased breath sounds at the bases with occasional crackles Heart-S1-S2, regular Abdomen-benign Extremities-negative for any edema His admission labs, EKG and imaging studies reviewed Has COVID-19 pneumonia with increasing CRP Has been requiring high flow oxygen to maintain saturation 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
--- NOTE | 2021-01-07 14:46 | CT Scan Report ---
CT angio chest PE protocol CT DOSE: 558.40 mGycm HISTORY: 70 years-old Male with hypoxia, SOB. Acute shortness of breath with hypoxia TECHNIQUE: Multiple CTA images of the chest were obtained after the intravenous administration of 120 ml Optiray. Coronal and sagittal MIPS were obtained from the axial data set and were submitted for review. All measurements were obtained according to NASCET criteria. A dose lowering technique was u tilized adhering to the principles of ALARA. COMPARISON: Chest radiograph of same day and also 05/12/2018, CTA chest 01/23/2012. FINDINGS: CTA: 1.9 x 1.0 cm hypodense focus is noted within the left ventricular apex on image 83 series 4. Myocardi al thickening of the left ventricular apex is also noted with extensive coronary artery calcification s. Mild cardiomegaly. No thoracic aortic aneurysm or dissection. Descending thoracic aortic tortuosit y. Unremarkable pulmonary artery. No pulmonary emboli identified. CT CHEST: Unremarkable thyroid. Enlarged mediastinal lymph nodes include precarinal 2.3 x 1.5 cm lymph node. En larged right hilar lymph nodes measure up to 2.6 x 1.6 cm. No axillary adenopathy. No pneumothorax or pleural effusion. Emphysema with chronic fibrotic changes. Bronchial wall thickeni ng suggestive of bronchitis. Intermixed bilateral groundglass densities with mild intralobular septal thickening. Mild linear scarring/atelectasis of the inferior segment lingula. 6 mm solid nodule of t he right middle lobe on image 130 previously measured 4 mm and is suggestive of a benign lymph node. Mild tracheobronchial secretions. No acute process of the imaged upper abdomen. Tiny hiatal hernia with mild distal esophageal wall thi ckening. Unremarkable soft tissues. There is no acute fracture. Right shoulder rotator cuff calcific tendinosis. IMPRESSION: 1. No pulmonary emboli. 2. Emphysema with chronic fibrotic changes. 3. Intermixed groundglass opacities with intralobular septal thickening is suggestive of pulmonary ed anibal versus a nonspecific infectious or inflammatory pneumonitis. 4. Mediastinal and hilar adenopathy. 5. Cardiomegaly with suggested thrombus of the left ventricular apex measuring up to 1.9 cm. Correlat ion with echocardiogram is recommended. ACT 112: Negative or not required by law. The above report was generated using voice recognition software. It may contain grammatical, syntax o r spelling errors. Electronically signed by: Jm Timmons M.D. 01/07/2021 2:44 PM
[2021-01-07] MEDS ORDERED: REMDESIVIR 200 MG in SODIUM CHLORIDE 0.9% 210 ML IV STA (15:04)
[2021-01-07] MEDS ORDERED: FUROSEMIDE 40 MG/4 ML VIAL IV STA (15:08)
[2021-01-07 16:27] LABS: Base Excess ABG -2.1 mEq/L (-9-1.8); HCO3 ABG 20 mmol/L (19-24); Oxygen Saturation ABG 97.4 % (90-95); PCO2 ABG 27 mmHg (35-46); PO2 ABG 89 mmHg (80-95); pH ABG 7.48 (7.35-7.45)
[2021-01-07 16:44] LABS: Allen Test POS (Pos)
[2021-01-07] MEDS ORDERED: POLYETHYLENE (MIRALAX) 17 GM PACK PO PRN (17:30)
[2021-01-07] MEDS ORDERED: ALUMINUM/MAGNESIUM SUSP 30 ML UDC PO PRN (17:30)
[2021-01-07] MEDS ORDERED: ONDANSETRON INJ 2 MG/ML 2 ML VIAL IV PRN (17:30)
[2021-01-07] MEDS ORDERED: FLUTICASONE PROPIONATE NA SPR 16 GM BTL PRN (17:30)
[2021-01-07] MEDS ORDERED: MAGNESIUM HYDROXIDE SUSP 30 ML UDC PO PRN (17:30)
[2021-01-07] MEDS ORDERED: ACETAMINOPHEN 325 MG TAB PO PRN (17:30)
[2021-01-07] MEDS: ALBUTEROL HFA 8 GM INHALER INH SCH ×2 (18:13→21:11)
[2021-01-07] MEDS ORDERED: TOCILIZUMAB 400 MG, TOCILIZUMAB 200 MG, TOCILIZUMAB 80 MG in 0.9 % SODIUM CHLORIDE 66 ML IV ONE (20:00)
[2021-01-07] MEDS: guaiFENesin 600 MG TABCR PO SCH (21:00)
[2021-01-07] MEDS: ENOXAPARIN INJ 40 MG/0.4 ML SYR SQ SCH (21:44)
--- NOTE | 2021-01-07 23:23 | XCELERA ---
[id number]
[2021-01-08 06:22] LABS: Basophils # (auto) 0.03 K/uL (0-0.2); Basophils % (auto) 0.3 %; Hematocrit (blood only) 38.2 % (42-52); Hemoglobin 13.4 g/dL (14.0-18.0); Immature Granulocytes # (auto) 0.04 K/uL (0.00-0.02); Immature Granulocytes % (auto) 0.4 %; Lymphocytes # (auto) 0.91 K/uL (1.2-3.4); Lymphocytes % (auto) 8.1 %; Mean Corpuscular Hemoglobin 32.8 pg (25-34); Mean Corpuscular Hgb Conc 35.1 g/dL (32-36); Mean Corpuscular Volume 93.4 fL (80-100); Mean Platelet Volume 10.1 fL (7.4-10.4); Monocytes # (auto) 0.59 K/uL (0.11-0.59); Monocytes % (auto) 5.2 %; Neutrophils # (auto) 9.68 K/uL (1.4-6.5); Platelet Count 330 K/uL (130-400); RDW Standard Deviation 44.2 fL (36.4-46.3); Red Blood Count 4.09 M/uL (4.7-6.1); White Blood Count 11.25 K/uL (4.8-10.8)
--- NOTE | 2021-01-08 06:35 | Electrocardiogram Report ---
Test Reason : Blood Pressure : / mmHG Vent. Rate : 097 BPM Atrial Rate : 097 BPM P-R Int : 148 ms QRS Dur : 124 ms QT Int : 404 ms P-R-T Axes : 046 019 005 degrees QTc Int : 513 ms Normal sinus rhythm Possible Left atrial enlargement Right bundle branch block Anteroseptal infarct (cited on or before 09-MAY-2018) Abnormal ECG When compared with ECG of 18-MAY-2018 16:19, QRS axis Shifted left T wave inversion less evident in Anterior leads Confirmed by Darrick Dalton ([id number]) on 01/08/2021 6:34:34 AM Referred By: SELF Confirmed By:Darrick Dalton
[2021-01-08 07:00] LABS: BUN Creatinine Ratio 21.4 (10-20); Calcium 9.3 mg/dl (8.5-10.1); Creatinine Clr Calc Pharmacy 71.8 ml/min; Est GFR (African American) 85.9 ml/min; Est GFR (Non-African American) 74.1 ml/min; Magnesium 2.1 mg/dl (1.8-2.4); Potassium 3.3 mmol/L (3.5-5.1)
[2021-01-08] MEDS ORDERED: POTASSIUM CHLORIDE CRTAB 20 MEQ TABCR PO STA ×2 (07:18→09:37)
[2021-01-08] MEDS: ALBUTEROL HFA 8 GM INHALER INH SCH ×4 (07:31→19:43)
[2021-01-08] MEDS: CEROVITE ADV FORMULA TAB PO SCH (08:35)
[2021-01-08] MEDS: PANTOprazole 40 MG TAB PO SCH (08:35)
[2021-01-08] MEDS: CHOLECALCIFEROL 1,000 UNITS 25 MCG TAB PO SCH (08:35)
[2021-01-08] MEDS: lisinopril 10 MG TAB PO SCH (08:35)
[2021-01-08] MEDS: ASPIRIN 81 MG ECTAB PO SCH (08:35)
[2021-01-08] MEDS: METOPROLOL SUCC 50MG EXT REL TAB PO SCH (08:35)
[2021-01-08] MEDS: dexAMETHasone 6 MG in SYRINGE 0 ML IV SCH (08:35)
[2021-01-08] MEDS: OMEGA-3 (PURIFIED FISH OIL) 1 GM CAP PO SCH (08:36)
[2021-01-08] MEDS: guaiFENesin 600 MG TABCR PO SCH ×2 (08:36→21:02)
[2021-01-08] MEDS: ATORVASTATIN 40 MG TAB PO SCH (08:36)
[2021-01-08] MEDS: ENOXAPARIN INJ 40 MG/0.4 ML SYR SQ SCH ×2 (10:11→21:01)
[2021-01-08 11:15] LABS: Appearance Urine Clear (Clear); Bacteria Urine Automated Negative (Negative); Bilirubin Urine Negative (Negative); Blood Urine 1+ (Negative); Color Urine Dark Yellow; Glucose Urine UA Negative (Negative); Ketones Urine Negative (Negative); Leukocyte Esterase Urine Negative (Negative); Nitrite Urine Negative (Negative); Protein Urine 2+ (Negative); Specific Gravity Urine 1.034 (1.000-1.030); Urobilinogen Urine Negative (Negative)
--- NOTE | 2021-01-08 14:30 | Hospitalist Progress Note ---
Date of Service January 08, 2021 Assessment & Plan (1) Sepsis: Plan: Pt meets Sepsis criteria based on current vital signs including tachycardia and tachypnea. Evidence of viral infection 2/2 to covid -19. Fluids not administered due to concern for pulmonary edema and blood pressure 120s systolic. Given covid want to keep on snuff drier side. (2) COVID-19: Plan: As documented below (3) Acute respiratory failure with hypoxia: Plan: This is a 70-year-old male who has significant past medical history of CAD, chronic HFrEF, nonischemic cardiomyopathy, HTN, HLD, prediabetes who presents to ED secondary to URI x9 days. CT CHEST: 1. No pulmonary emboli. 2. Emphysema with chronic fibrotic changes. 3. Intermixed groundglass opacities with intralobular septal thickening is suggestive of pulmonary edema versus a nonspecific infectious or inflammatory pneumonitis. 4. Mediastinal and hilar adenopathy. 5. Cardiomegaly with suggested thrombus of the left ventricular apex measuring up to 1.9 cm. Correlation with echocardiogram is recommended. Pt with acute hypoxic respiratory failure and + Sars-COV2 Started with IV dexamethasone 6mg daily IV remdesivir 200mg x 1 now and 100mg daily Discussed with the pulmonology and Tocilizumab was administered as CRP was more than 13 Clinically a little better today and will continue current management (4) CAD (coronary artery disease): (5) Chronic HFrEF (heart failure with reduced ejection fraction): Plan: Remains euvolemic and will try to keep him on the snuff drier side (6) Ischemic cardiomyopathy: Plan: [place] [facility] [place] hx of Anterior STEMI 04/2018 with PCI and 2 KHRIS to prox to mid LAD; staged PCI to circumflex/OM Echo 04/2019 EF 40-45% give 40mg IV lasix x 1 now given concern for pulm edema, elevated pro-bnp - re evaluate daily need for further IV diuresis hold home dose of 20mg of lasix - resume when appropriate continue ASA, brilinta, Statin, metoprolol and lisinopril ECHO showed-grossly normal LV size H and mildly to moderately reduced systolic function. Akinetic apex with hypokinetic mid anteroseptum. No significant left ventricular hypertrophy. Small laminated apical thrombus suggested. Compared with prior study on 05/16/2019 apical thrombus is suggested on current study (7) Pre-diabetes: Plan: Last A1c 6.4 on 12/21/2020 Monitor fasting glucose with initiation of steroid (8) DVT prophylaxis: Plan: SQ Lovenox 40mg Q12h Dispo: PCU PCP: Jose FULL CODE - pt is hesitant on whether or not he would want to be intubated, but for now wishes for full code Admission and Anticipated Discharge Date Admission Date: January 07, 2021 Subjective 01/08/2021 The patient was seen and examined in telemetry unit and in the Covid room He has been feeling much better but is still requiring high flow nasal cannula oxygen to maintain saturation Still has cough and very shortness of breath with minimal exertion Review of Systems Review of Systems: All systems reviewed and are unremarkable except as noted below Respiratory: Mild to moderate shortness of breath at rest with cough Physical Exam Physical Exam: Lying in bed with moderate respiratory distress Constitutional: well developed, well nourished and + ill appearing Eyes: PERRL, conjunctivae normal, anicteric sclerae ENMT: external ear and nose normal, oropharynx normal Neck: trachea midline, no thyromegaly Respiratory: + respiratory distress (Mild to moderate respiratory distress at rest) Auscultation: + diminished lung sounds and + crackles (Bibasilar crackles) Cardiovascular: Rate/Rhythm: regular rate and regular rhythm; not tachycardic Heart Sounds: normal S1 and normal S2; no murmur Extremities: no edema Gastrointestinal (Abdomen): Inspection/Auscultation: normal bowel sounds; abdomen not distended Percussion/Palpation: abdomen soft; abdomen nontender Musculoskeletal: No acute arthritis in any joint Neurologic: Alert, awake and oriented x3. Generally weak but no focal sensory and motor deficit appreciated Psychiatric: A+Ox3, euthymic affect Lymphatic: no cervical or axillary lymphadenopathy Results & Data Results & Data ([facility]) Vital Signs (Past 12 Hours) Vital Signs Temp Pulse Pulse Resp BP Pulse Ox Pulse Ox 01/08/21 11:06 36.5 C 87 22 96/69 L 93 01/08/21 11:04 85 18 92 01/08/21 07:49 83 01/08/21 07:32 82 20 89 L 01/08/21 07:29 36.6 C 80 23 128/72 91 01/08/21 06:00 92 01/08/21 03:25 86 20 93 01/08/21 03:04 36.5 C 79 20 116/68 88 L Laboratory Results Short CBC 01/08/21 Range/Units 05:24 WBC 11.25 H (4.8-10.8) K/uL Hgb 13.4 L (14.0-18.0) g/dL Hct 38.2 L (42-52) % Plt Count 330 (130-400) K/uL BMP 01/08/21 05:24 Sodium 140 Potassium 3.3 L D Chloride 108 H Carbon Dioxide 23 BUN 22 H Creatinine 1.02 Glucose 161 H Calcium 9.3 Urine 01/08/21 Range/Units 10:30 Urine Color Dark Yellow Urine Appearance Clear (Clear) Urine pH 5.0 (4.5-7.5) Ur Specific [place] 1.034 H (1.000-1.030) Urine Protein 2+ H (Negative) Urine Glucose (UA) Negative (Negative) Medications Administered Current Inpatient Medications Acetaminophen (Acetaminophen 325 Mg Tab) 650 mg PO Q4H PRN PRN Reason: Pain or Fever Stop: 02/06/21 17:29 Al Hydrox/Mg Hydrox/Simethicone (Aluminum/Magnesium Susp 30 Ml Udc) 15 ml PO Q4H PRN PRN Reason: Dyspepsia Stop: 02/06/21 17:29 Albuterol (Albuterol Hfa 8 Gm Inhaler) 2 puffs INH Q4HWA [facility] Stop: 02/06/21 17:29 Last Admin: 01/08/21 11:02 Dose: 2 puffs Documented by: Aspirin (Aspirin 81 Mg Ectab) 81 mg PO DAILY [facility] Stop: 02/07/21 08:59 Last Admin: 01/08/21 08:35 Dose: 81 mg Documented by: Atorvastatin Calcium (Atorvastatin 40 Mg Tab) 80 mg PO DAILY KIM Stop: 02/07/21 08:59 Last Admin: 01/08/21 08:36 Dose: 80 mg Documented by: Enoxaparin Sodium (Enoxaparin Inj 40 Mg/0.4 Ml Syr) 40 mg SQ Q12H KIM Stop: 02/06/21 21:59 Last Admin: 01/08/21 10:11 Dose: 40 mg Documented by: Fish Oil ([place]-3 (Purified Fish Oil) 1 Gm Cap) 1 gm PO DAILY [facility] Stop: 02/07/21 08:59 Last Admin: 01/08/21 08:36 Dose: 1 gm Documented by: Fluticasone Propionate (Fluticasone Propionate Na Spr 16 Gm Btl) 2 sprays NA BID PRN PRN Reason: allergies Stop: 02/06/21 17:29 Guaifenesin (Guaifenesin 600 Mg Tabcr) 1,200 mg PO Q12 KIM Stop: 02/06/21 20:59 Last Admin: 01/08/21 08:36 Dose: 1,200 mg Documented by: Remdesivir 100 mg/ Sodium (Chloride) 250 mls @ 250 mls/hr IV Q24H KIM; Protocol Stop: 01/11/21 20:59 Dexamethasone 6 mg/ Syringe 1.5 mls @ 1 mls/min IV DAILY [facility] Stop: 01/18/21 08:59 Last Admin: 01/08/21 08:35 Dose: 1 mls/min Documented by: Lisinopril (Lisinopril 10 Mg Tab) 10 mg PO DAILY [facility] Stop: 02/07/21 08:59 Last Admin: 01/08/21 08:35 Dose: 10 mg Documented by: Magnesium Hydroxide (Magnesium Hydroxide Susp 30 Ml Udc) 30 ml PO Q12H PRN PRN Reason: Constipation Stop: 02/06/21 17:29 Metoprolol Succinate (Metoprolol Succ 50mg Ext Rel Tab) 100 mg PO DAILY [facility] Stop: 02/07/21 08:59 Last Admin: 01/08/21 08:35 Dose: 100 mg Documented by: Miscellaneous (Ticagrelor 60 Mg Tablet~Order Awaiting Action) 1 ea N/A QS [facility] Stop: 02/07/21 00:00 Last Admin: 01/08/21 08:35 Dose: Not Given Documented by: Multivitamins/Minerals (Cerovite Adv Formula Tab) 1 tab PO DAILY [facility] Stop: 02/07/21 08:59 Last Admin: 01/08/21 08:35 Dose: 1 tab Documented by: Ondansetron HCl (Ondansetron Inj 2 Mg/Ml 2 Ml Vial) 4 mg IV Q6H PRN PRN Reason: Nausea Stop: 02/06/21 17:29 Pantoprazole Sodium (Pantoprazole 40 Mg Tab) 40 mg PO QAM [facility] Stop: 02/07/21 08:59 Last Admin: 01/08/21 08:35 Dose: 40 mg Documented by: Polyethylene Glycol (Polyethylene (Miralax) 17 Gm Pack) 17 gm PO DAILY PRN PRN Reason: Constipation Stop: 02/06/21 17:29 Sodium Chloride (Sodium Chloride 0.9% 10ml Flush) 30 ml IV Q24H KIM Stop: 01/12/21 21:01 Vitamin D (Cholecalciferol 1,000 Units 25 Mcg Tab) 1,000 units PO DAILY [facility]IM Stop: 02/07/21 08:59 Last Admin: 01/08/21 08:35 Dose: 1,000 units Documented by:
[2021-01-08] MEDS: REMDESIVIR 100 MG in SODIUM CHLORIDE 0.9% 230 ML IV SCH (20:00)
[2021-01-08] MEDS: SODIUM CHLORIDE 0.9% 10ML FLUSH IV SCH (21:01)
[2021-01-08] MEDS: BRILINTA 60 MG PO SCH (21:02)
[2021-01-09 05:38] LABS: Basophils # (auto) 0.03 K/uL (0-0.2); Basophils % (auto) 0.2 %; Hemoglobin 13.6 g/dL (14.0-18.0); Immature Granulocytes # (auto) 0.07 K/uL (0.00-0.02); Immature Granulocytes % (auto) 0.4 %; Lymphocytes # (auto) 1.24 K/uL (1.2-3.4); Lymphocytes % (auto) 7.4 %; Mean Corpuscular Hemoglobin 32.7 pg (25-34); Mean Corpuscular Hgb Conc 34.9 g/dL (32-36); Mean Corpuscular Volume 93.8 fL (80-100); Mean Platelet Volume 9.8 fL (7.4-10.4); Monocytes # (auto) 0.63 K/uL (0.11-0.59); Monocytes % (auto) 3.8 %; Neutrophils # (auto) 14.82 K/uL (1.4-6.5); Neutrophils % (auto) 88.2 %; Platelet Count 405 K/uL (130-400); RDW Coefficient of Variation 13.1 % (11.5-14.5); RDW Standard Deviation 44.7 fL (36.4-46.3); Red Blood Count 4.16 M/uL (4.7-6.1); White Blood Count 16.79 K/uL (4.8-10.8)
[2021-01-09 05:50] LABS: Base Excess ABG -0.6 mEq/L (-9-1.8); HCO3 ABG 21 mmol/L (19-24); Oxygen Saturation ABG 90.1 % (90-95); PCO2 ABG 28 mmHg (35-46); PO2 ABG 56 mmHg (80-95)
[2021-01-09 06:19] LABS: Allen Test Pos (Pos)
[2021-01-09 06:20] LABS: Albumin Globulin Ratio 0.6 (0.9-2); Albumin Level 2.5 gm/dl (3.4-5.0); BUN Creatinine Ratio 31.3 (10-20); Bilirubin,Total 0.7 mg/dl (0.2-1); C Reactive Protein 9.05 mg/dl (0-0.29); Calcium 8.8 mg/dl (8.5-10.1); Creatinine Clr Calc Pharmacy 77.9 ml/min; Est GFR (African American) 94.8 ml/min; Est GFR (Non-African American) 81.8 ml/min; Globulin 4.4 gm/dl (2.5-4.0); Potassium 4.2 mmol/L (3.5-5.1); Total Protein 6.9 gm/dl (6.4-8.2)
[2021-01-09] MEDS: ALBUTEROL HFA 8 GM INHALER INH SCH ×4 (07:51→19:15)
[2021-01-09] MEDS ORDERED: FUROSEMIDE 40 MG in SYRINGE 0 ML IV ONE (08:15)
[2021-01-09] MEDS: lisinopril 10 MG TAB PO SCH (08:30)
[2021-01-09] MEDS: guaiFENesin 600 MG TABCR PO SCH ×2 (08:30→21:04)
[2021-01-09] MEDS: BRILINTA 60 MG PO SCH ×2 (08:30→21:05)
[2021-01-09] MEDS: METOPROLOL SUCC 50MG EXT REL TAB PO SCH (08:30)
[2021-01-09] MEDS: ATORVASTATIN 40 MG TAB PO SCH (08:30)
[2021-01-09] MEDS: PANTOprazole 40 MG TAB PO SCH (08:30)
[2021-01-09] MEDS: dexAMETHasone 6 MG in SYRINGE 0 ML IV SCH (08:30)
[2021-01-09] MEDS: OMEGA-3 (PURIFIED FISH OIL) 1 GM CAP PO SCH (08:30)
[2021-01-09] MEDS: CEROVITE ADV FORMULA TAB PO SCH (08:30)
[2021-01-09] MEDS: CHOLECALCIFEROL 1,000 UNITS 25 MCG TAB PO SCH (08:30)
[2021-01-09] MEDS: ASPIRIN 81 MG ECTAB PO SCH (08:30)
[2021-01-09] MEDS: ENOXAPARIN INJ 40 MG/0.4 ML SYR SQ SCH ×2 (12:13→21:05)
--- NOTE | 2021-01-09 13:58 | Hospitalist Progress Note ---
Date of Service January 09, 2021 Assessment & Plan (1) Sepsis: Plan: Pt meets Sepsis criteria based on current vital signs including tachycardia and tachypnea. Evidence of viral infection 2/2 to covid -19. Fluids not administered due to concern for pulmonary edema and blood pressure 120s systolic. 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 (2) COVID-19: Plan: As documented below (3) Acute respiratory failure with hypoxia: Plan: This is a 70-year-old male who has significant past medical history of CAD, chronic HFrEF, nonischemic cardiomyopathy, HTN, HLD, prediabetes who presents to ED secondary to URI x9 days. CT CHEST: 1. No pulmonary emboli. 2. Emphysema with chronic fibrotic changes. 3. Intermixed groundglass opacities with intralobular septal thickening is suggestive of pulmonary edema versus a nonspecific infectious or inflammatory pneumonitis. 4. Mediastinal and hilar adenopathy. 5. Cardiomegaly with suggested thrombus of the left ventricular apex measuring up to 1.9 cm. Correlation with echocardiogram is recommended. 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 Akinetic apex with hypokinetic mid anteroseptum. No significant left ventricular hypertrophy. Small laminated apical thrombus suggested. Compared with prior study on 05/16/2019 apical thrombus is suggested on current study (7) Pre-diabetes: Plan: Last A1c 6.4 on 12/21/2020 Monitor fasting glucose with initiation of steroid (8) DVT prophylaxis: Plan: SQ Lovenox 40mg Q12h Dispo: PCU PCP: Jose FULL CODE - pt is hesitant on whether or not he would want to be intubated, but for now wishes for full code Admission and Anticipated Discharge Date Admission Date: January 07, 2021 Subjective 01/08/2021 The patient was seen and examined in telemetry unit and in the Covid room He has been feeling much better but is still requiring high flow nasal cannula oxygen to maintain saturation Still has cough and very shortness of breath with minimal exertion 01/09/2021 The patient was seen and examined in telemetry unit and in the Covid room He has been feeling much better but is still requiring high flow oxygen of 50 L/min Still has cough and generalized weakness No fever and no chills Review of Systems Review of Systems: All systems reviewed and are unremarkable except as noted below Respiratory: Mild to moderate shortness of breath at rest with cough Physical Exam Physical Exam: Lying in bed with moderate respiratory distress Constitutional: well developed, well nourished and + ill appearing Eyes: PERRL, conjunctivae normal, anicteric sclerae ENMT: external ear and nose normal, oropharynx normal Neck: trachea midline, no thyromegaly Respiratory: + respiratory distress (Mild to moderate respiratory distress at rest) Auscultation: + diminished lung sounds and + crackles (Bibasilar crackles) Cardiovascular: Rate/Rhythm: regular rate and regular rhythm; not tachycardic Heart Sounds: normal S1 and normal S2; no murmur Extremities: no edema Gastrointestinal (Abdomen): Inspection/Auscultation: normal bowel sounds; abdomen not distended Percussion/Palpation: abdomen soft; abdomen nontender Musculoskeletal: No acute arthritis in any joint Neurologic: Alert, awake and oriented x3. Generally weak but no focal sensory and motor deficit appreciated Psychiatric: A+Ox3, euthymic affect Lymphatic: no cervical or axillary lymphadenopathy Results & Data Results & Data ([facility]) Vital Signs (Past 12 Hours) Vital Signs Temp Pulse Pulse Resp BP Pulse Ox Pulse Ox 01/09/21 11:26 36.6 C 88 20 98/76 L 89 L 01/09/21 11:20 87 32 H 92 01/09/21 11:18 85 32 H 91 01/09/21 07:51 93 H 32 H 92 01/09/21 07:30 36.5 C 80 28 H 107/69 92 01/09/21 06:00 90 01/09/21 03:08 36.9 C 75 22 106/63 95 01/09/21 02:27 84 22 90 Laboratory Results Short CBC 01/09/21 Range/Units 05:26 WBC 16.79 H (4.8-10.8) K/uL Hgb 13.6 L (14.0-18.0) g/dL Hct 39.0 L (42-52) % Plt Count 405 H (130-400) K/uL BMP 01/09/21 05:26 Sodium 140 Potassium 4.2 D Chloride 110 H Carbon Dioxide 23 BUN 29 H Creatinine 0.94 Glucose 137 H Calcium 8.8 Liver Function 01/09/21 Range/Units 05:26 Total Bilirubin 0.7 (0.2-1) mg/dl AST 61 H (15-37) U/L ALT 62 (12-78) U/L Alkaline Phosphatase 102 (45-117) U/L Albumin 2.5 L (3.4-5.0) gm/dl Medications Administered Current Inpatient Medications Acetaminophen (Acetaminophen 325 Mg Tab) 650 mg PO Q4H PRN PRN Reason: Pain or Fever Stop: 02/06/21 17:29 Al Hydrox/Mg Hydrox/Simethicone (Aluminum/Magnesium Susp 30 Ml Udc) 15 ml PO Q4H PRN PRN Reason: Dyspepsia Stop: 02/06/21 17:29 Albuterol (Albuterol Hfa 8 Gm Inhaler) 2 puffs INH Q4HWA [facility]IM Stop: 02/06/21 17:29 Last Admin: 01/09/21 11:17 Dose: 2 puffs Documented by: Aspirin (Aspirin 81 Mg Ectab) 81 mg PO DAILY KIM Stop: 02/07/21 08:59 Last Admin: 01/09/21 08:30 Dose: 81 mg Documented by: Atorvastatin Calcium (Atorvastatin 40 Mg Tab) 80 mg PO DAILY [facility] Stop: 02/07/21 08:59 Last Admin: 09/18/21 08:30 Dose: 80 mg Documented by: Enoxaparin Sodium (Enoxaparin Inj 40 Mg/0.4 Ml Syr) 40 mg SQ Q12H [facility]IM Stop: 02/06/21 21:59 Last Admin: 01/09/21 12:13 Dose: 40 mg Documented by: Fish Oil ([place]-3 (Purified Fish Oil) 1 Gm Cap) 1 gm PO DAILY [facility]IM Stop: 02/07/21 08:59 Last Admin: 01/09/21 08:30 Dose: 1 gm Documented by: Fluticasone Propionate (Fluticasone Propionate Na Spr 16 Gm Btl) 2 sprays NA BID PRN PRN Reason: allergies Stop: 02/06/21 17:29 Guaifenesin (Guaifenesin 600 Mg Tabcr) 1,200 mg PO Q12 KIM Stop: 02/06/21 20:59 Last Admin: 01/09/21 08:30 Dose: 1,200 mg Documented by: Remdesivir 100 mg/ Sodium (Chloride) 250 mls @ 250 mls/hr IV Q24H KIM; Protocol Stop: 01/11/21 20:59 Last Infusion: 01/09/21 07:43 Dose: Infused Documented by: Dexamethasone 6 mg/ Syringe 1.5 mls @ 1 mls/min IV DAILY [facility]IM Stop: 01/18/21 08:59 Last Admin: 01/09/21 08:30 Dose: 1 mls/min Documented by: Lisinopril (Lisinopril 10 Mg Tab) 10 mg PO DAILY [facility]IM Stop: 02/07/21 08:59 Last Admin: 01/09/21 08:30 Dose: 10 mg Documented by: Magnesium Hydroxide (Magnesium Hydroxide Susp 30 Ml Udc) 30 ml PO Q12H PRN PRN Reason: Constipation Stop: 02/06/21 17:29 Metoprolol Succinate (Metoprolol Succ 50mg Ext Rel Tab) 100 mg PO DAILY [facility]IM Stop: 02/07/21 08:59 Last Admin: 01/09/21 08:30 Dose: 100 mg Documented by: Multivitamins/Minerals (Cerovite Adv Formula Tab) 1 tab PO DAILY KIM Stop: 02/07/21 08:59 Last Admin: 01/09/21 08:30 Dose: 1 tab Documented by: Brilinta 60mg: Non- Formulary Patient's Own Med 1 ea PO BID KIM Stop: 02/07/21 20:59 Last Admin: 01/09/21 08:30 Dose: 1 ea Documented by: Ondansetron HCl (Ondansetron Inj 2 Mg/Ml 2 Ml Vial) 4 mg IV Q6H PRN PRN Reason: Nausea Stop: 02/06/21 17:29 Pantoprazole Sodium (Pantoprazole 40 Mg Tab) 40 mg PO QAM KIM Stop: 02/07/21 08:59 Last Admin: 01/09/21 08:30 Dose: 40 mg Documented by: Polyethylene Glycol (Polyethylene (Miralax) 17 Gm Pack) 17 gm PO DAILY PRN PRN Reason: Constipation Stop: 02/06/21 17:29 Sodium Chloride (Sodium Chloride 0.9% 10ml Flush) 30 ml IV Q24H KIM Stop: 01/12/21 21:01 Last Admin: 01/08/21 21:01 Dose: 30 ml Documented by: Vitamin D (Cholecalciferol 1,000 Units 25 Mcg Tab) 1,000 units PO DAILY [facility]IM Stop: 02/07/21 08:59 Last Admin: 01/09/21 08:30 Dose: 1,000 units Documented by:
[2021-01-09] MEDS: REMDESIVIR 100 MG in SODIUM CHLORIDE 0.9% 230 ML IV SCH (20:26)
[2021-01-09] MEDS: SODIUM CHLORIDE 0.9% 10ML FLUSH IV SCH (21:02)
[2021-01-10 06:57] LABS: BUN Creatinine Ratio 29.5 (10-20); Calcium 9.2 mg/dl (8.5-10.1); Creatinine Clr Calc Pharmacy 68.4 ml/min; Est GFR (African American) 81.1 ml/min; Magnesium 2.4 mg/dl (1.8-2.4); Potassium 3.9 mmol/L (3.5-5.1)
[2021-01-10 06:58] LABS: Phosphorus 3.6 mg/dl (2.5-4.9)
[2021-01-10] MEDS: ALBUTEROL HFA 8 GM INHALER INH SCH ×4 (07:14→19:05)
[2021-01-10] MEDS: ASPIRIN 81 MG ECTAB PO SCH (09:04)
[2021-01-10] MEDS: OMEGA-3 (PURIFIED FISH OIL) 1 GM CAP PO SCH (09:04)
[2021-01-10] MEDS: ATORVASTATIN 40 MG TAB PO SCH (09:04)
[2021-01-10] MEDS: CHOLECALCIFEROL 1,000 UNITS 25 MCG TAB PO SCH (09:04)
[2021-01-10] MEDS: dexAMETHasone 6 MG in SYRINGE 0 ML IV SCH (09:05)
[2021-01-10] MEDS: lisinopril 10 MG TAB PO SCH (09:05)
[2021-01-10] MEDS: guaiFENesin 600 MG TABCR PO SCH ×2 (09:05→21:32)
[2021-01-10] MEDS: PANTOprazole 40 MG TAB PO SCH (09:05)
[2021-01-10] MEDS: CEROVITE ADV FORMULA TAB PO SCH (09:05)
[2021-01-10] MEDS: ENOXAPARIN INJ 40 MG/0.4 ML SYR SQ SCH ×2 (09:05→21:31)
[2021-01-10] MEDS: METOPROLOL SUCC 50MG EXT REL TAB PO SCH (09:05)
[2021-01-10] MEDS: BRILINTA 60 MG PO SCH ×2 (09:06→21:33)
--- NOTE | 2021-01-10 13:23 | Hospitalist Progress Note ---
Date of Service January 10, 2021 Assessment & Plan (1) Sepsis: Plan: Pt meets Sepsis criteria based on current vital signs including tachycardia and tachypnea. Evidence of viral infection 2/2 to covid -19. Fluids not administered due to concern for pulmonary edema and blood pressure 120s systolic. Given covid want to keep on fish drier side. (2) COVID-19: Plan: As documented below (3) Acute respiratory failure with hypoxia: Plan: This is a 70-year-old male who has significant past medical history of CAD, chronic HFrEF, nonischemic cardiomyopathy, HTN, HLD, prediabetes who presents to ED secondary to URI x9 days. CT CHEST: 1. No pulmonary emboli. 2. Emphysema with chronic fibrotic changes. 3. Intermixed groundglass opacities with intralobular septal thickening is suggestive of pulmonary edema versus a nonspecific infectious or inflammatory pneumonitis. 4. Mediastinal and hilar adenopathy. 5. Cardiomegaly with suggested thrombus of the left ventricular apex measuring up to 1.9 cm. Correlation with echocardiogram is recommended. Pt with acute hypoxic respiratory failure and + Sars-COV2 Started with IV dexamethasone 6mg daily IV remdesivir 200mg x 1 now and 100mg daily Discussed with the pulmonology and Tocilizumab was administered as CRP was more than 13 CRP level is down to 9.05 with normal prolactin as of 01/09/2021 Clinically better but is still requiring high flow oxygen at 50 L/min to maintain saturation Condition has not been improved and is still requiring high flow oxygen as above but the patient clinically feels better We will continue current management (4) CAD (coronary artery disease): Plan: No acute cardiac symptoms (5) Chronic HFrEF (heart failure with reduced ejection fraction): Plan: Remains euvolemic and will try to keep him on the fish drier side (6) Ischemic cardiomyopathy: Plan: Follows [facility] cardiology hx of Anterior STEMI 04/2018 with PCI and 2 KHRIS to prox to mid LAD; staged PCI to circumflex/OM Echo 04/2019 EF 40-45% give 40mg IV lasix x 1 now given concern for pulm edema, elevated pro-bnp - re evaluate daily need for further IV diuresis hold home dose of 20mg of lasix - resume when appropriate continue ASA, brilinta, Statin, metoprolol and lisinopril ECHO showed-grossly normal LV size H and mildly to moderately reduced systolic function. Akinetic apex with hypokinetic mid anteroseptum. No significant left ventricular hypertrophy. Small laminated apical thrombus suggested. Compared with prior study on 05/16/2019 apical thrombus is suggested on current study No acute cardiac symptoms (7) Pre-diabetes: Plan: Last A1c 6.4 on 12/21/2020 Monitor fasting glucose with initiation of steroid (8) DVT prophylaxis: Plan: SQ Lovenox 40mg Q12h Dispo: PCU PCP: Jose FULL CODE - pt is hesitant on whether or not he would want to be intubated, but for now wishes for full code Admission and Anticipated Discharge Date Admission Date: January 07, 2021 Subjective 01/08/2021 The patient was seen and examined in telemetry unit and in the Covid room He has been feeling much better but is still requiring high flow nasal cannula oxygen to maintain saturation Still has cough and very shortness of breath with minimal exertion 01/09/2021 The patient was seen and examined in telemetry unit and in the Covid room He has been feeling much better but is still requiring high flow oxygen of 50 L/min Still has cough and generalized weakness No fever and no chills 01/10/2021 The patient was seen and examined in telemetry unit and in the Covid room He says that he feels much better but still requiring 50 L/min and 100% FiO2 to maintain saturation He has cough with nonproductive cough Denies any chest pain and/or palpitation Review of Systems Review of Systems: All systems reviewed and are unremarkable except as noted below Respiratory: Mild to moderate shortness of breath at rest with cough Physical Exam Physical Exam: Lying in bed with moderate respiratory distress Constitutional: well developed, well nourished and + ill appearing Eyes: PERRL, conjunctivae normal, anicteric sclerae ENMT: external ear and nose normal, oropharynx normal Neck: trachea midline, no thyromegaly Respiratory: + respiratory distress (Mild to moderate respiratory distress at rest) Auscultation: + diminished lung sounds and + crackles (Bibasilar crackles) Cardiovascular: Rate/Rhythm: regular rate and regular rhythm; not tachycardic Heart Sounds: normal S1 and normal S2; no murmur Extremities: no edema Gastrointestinal (Abdomen): Inspection/Auscultation: normal bowel sounds; abdomen not distended Percussion/Palpation: abdomen soft; abdomen nontender Musculoskeletal: No acute arthritis in any joint Neurologic: Alert, awake and oriented x3. Generally weak but no focal sensory and motor deficit appreciated Psychiatric: A+Ox3, euthymic affect Lymphatic: no cervical or axillary lymphadenopathy Results & Data Results & Data ([facility]) Vital Signs (Past 12 Hours) Vital Signs Temp Pulse Pulse Pulse Resp BP Pulse Ox 01/10/21 11:34 75 28 H 89 L 01/10/21 11:00 36.6 C 85 18 104/88 90 01/10/21 07:11 66 18 93 01/10/21 06:55 36.6 C 84 18 92/57 L 93 01/10/21 06:00 01/10/21 05:17 88 28 H 91 01/10/21 03:45 78 23 92 Pulse Ox 01/10/21 11:34 01/10/21 11:00 01/10/21 07:11 01/10/21 06:55 01/10/21 06:00 92 01/10/21 05:17 01/10/21 03:45 Laboratory Results [facility] 01/10/21 05:27 Sodium 140 Potassium 3.9 Chloride 107 Carbon Dioxide 26 BUN 32 H Creatinine 1.07 Glucose 109 H Calcium 9.2 Liver Function 01/10/21 Range/Units 05:27 AST 68 H (15-37) U/L ALT 71 (12-78) U/L Medications Administered Current Inpatient Medications Acetaminophen (Acetaminophen 325 Mg Tab) 650 mg PO Q4H PRN PRN Reason: Pain or Fever Stop: 02/06/21 17:29 Al Hydrox/Mg Hydrox/Simethicone (Aluminum/Magnesium Susp 30 Ml Udc) 15 ml PO Q4H PRN PRN Reason: Dyspepsia Stop: 02/06/21 17:29 Albuterol (Albuterol Hfa 8 Gm Inhaler) 2 puffs INH Q4HWA KIM Stop: 02/06/21 17:29 Last Admin: 01/10/21 11:34 Dose: 2 puffs Documented by: Aspirin (Aspirin 81 Mg Ectab) 81 mg PO DAILY [facility] Stop: 02/07/21 08:59 Last Admin: 01/10/21 09:04 Dose: 81 mg Documented by: Atorvastatin Calcium (Atorvastatin 40 Mg Tab) 80 mg PO DAILY [facility] Stop: 02/07/21 08:59 Last Admin: 01/10/21 09:04 Dose: 80 mg Documented by: Enoxaparin Sodium (Enoxaparin Inj 40 Mg/0.4 Ml Syr) 40 mg SQ Q12H KIM Stop: 02/06/21 21:59 Last Admin: 01/10/21 09:05 Dose: 40 mg Documented by: Fish Oil ([place]-3 (Purified Fish Oil) 1 Gm Cap) 1 gm PO DAILY KIM Stop: 02/07/21 08:59 Last Admin: 01/10/21 09:04 Dose: 1 gm Documented by: Fluticasone Propionate (Fluticasone Propionate Na Spr 16 Gm Btl) 2 sprays NA BID PRN PRN Reason: allergies Stop: 02/06/21 17:29 Last Admin: 01/09/21 21:03 Dose: 2 sprays Documented by: Guaifenesin (Guaifenesin 600 Mg Tabcr) 1,200 mg PO Q12 KIM Stop: 02/06/21 20:59 Last Admin: 01/10/21 09:05 Dose: 1,200 mg Documented by: Remdesivir 100 mg/ Sodium (Chloride) 250 mls @ 250 mls/hr IV Q24H [facility]; Protocol Stop: 01/11/21 20:59 Last Infusion: 01/09/21 22:27 Dose: Infused Documented by: Dexamethasone 6 mg/ Syringe 1.5 mls @ 1 mls/min IV DAILY [facility] Stop: 01/18/21 08:59 Last Admin: 01/10/21 09:05 Dose: 1 mls/min Documented by: Lisinopril (Lisinopril 10 Mg Tab) 10 mg PO DAILY KIM Stop: 02/07/21 08:59 Last Admin: 01/10/21 09:05 Dose: 10 mg Documented by: Magnesium Hydroxide (Magnesium Hydroxide Susp 30 Ml Udc) 30 ml PO Q12H PRN PRN Reason: Constipation Stop: 02/06/21 17:29 Metoprolol Succinate (Metoprolol Succ 50mg Ext Rel Tab) 100 mg PO DAILY [facility] Stop: 02/07/21 08:59 Last Admin: 01/10/21 09:05 Dose: 100 mg Documented by: Multivitamins/Minerals (Cerovite Adv Formula Tab) 1 tab PO DAILY [facility] Stop: 02/07/21 08:59 Last Admin: 01/10/21 09:05 Dose: 1 tab Documented by: Brilinta 60mg: Non- Formulary Patient's Own Med 1 ea PO BID KIM Stop: 02/07/21 20:59 Last Admin: 01/10/21 09:06 Dose: 1 ea Documented by: Ondansetron HCl (Ondansetron Inj 2 Mg/Ml 2 Ml Vial) 4 mg IV Q6H PRN PRN Reason: Nausea Stop: 02/06/21 17:29 Pantoprazole Sodium (Pantoprazole 40 Mg Tab) 40 mg PO QAM [facility] Stop: 02/07/21 08:59 Last Admin: 01/10/21 09:05 Dose: 40 mg Documented by: Polyethylene Glycol (Polyethylene (Miralax) 17 Gm Pack) 17 gm PO DAILY PRN PRN Reason: Constipation Stop: 02/06/21 17:29 Sodium Chloride (Sodium Chloride 0.9% 10ml Flush) 30 ml IV Q24H KIM Stop: 01/12/21 21:01 Last Admin: 01/09/21 21:02 Dose: 30 ml Documented by: Vitamin D (Cholecalciferol 1,000 Units 25 Mcg Tab) 1,000 units PO DAILY KIM Stop: 02/07/21 08:59 Last Admin: 01/10/21 09:04 Dose: 1,000 units Documented by:
[2021-01-10] MEDS: REMDESIVIR 100 MG in SODIUM CHLORIDE 0.9% 230 ML IV SCH (21:31)
[2021-01-10] MEDS: SODIUM CHLORIDE 0.9% 10ML FLUSH IV SCH (21:31)
[2021-01-11] MEDS: ALBUTEROL HFA 8 GM INHALER INH SCH ×4 (07:15→19:04)
[2021-01-11 07:34] LABS: Albumin Level 2.7 gm/dl (3.4-5.0); BUN Creatinine Ratio 28.6 (10-20); Calcium 9.1 mg/dl (8.5-10.1); Creatinine Clr Calc Pharmacy 75.5 ml/min; Est GFR (African American) 91.3 ml/min; Est GFR (Non-African American) 78.8 ml/min; Magnesium 2.7 mg/dl (1.8-2.4); Potassium 4.2 mmol/L (3.5-5.1)
[2021-01-11 07:38] LABS: Albumin Globulin Ratio 0.6 (0.9-2); Bilirubin,Total 0.9 mg/dl (0.2-1); C Reactive Protein 2.46 mg/dl (0-0.29); Globulin 4.2 gm/dl (2.5-4.0); Phosphorus 3.8 mg/dl (2.5-4.9); Total Protein 6.9 gm/dl (6.4-8.2)
[2021-01-11] MEDS: ATORVASTATIN 40 MG TAB PO SCH (08:31)
[2021-01-11] MEDS: ASPIRIN 81 MG ECTAB PO SCH (08:31)
[2021-01-11] MEDS: CHOLECALCIFEROL 1,000 UNITS 25 MCG TAB PO SCH (08:32)
[2021-01-11] MEDS: dexAMETHasone 6 MG in SYRINGE 0 ML IV SCH (08:32)
[2021-01-11] MEDS: PANTOprazole 40 MG TAB PO SCH (08:34)
[2021-01-11] MEDS: OMEGA-3 (PURIFIED FISH OIL) 1 GM CAP PO SCH (08:34)
[2021-01-11] MEDS: guaiFENesin 600 MG TABCR PO SCH ×2 (08:34→21:00)
[2021-01-11] MEDS: BRILINTA 60 MG PO SCH ×2 (08:35→21:16)
[2021-01-11] MEDS: METOPROLOL SUCC 50MG EXT REL TAB PO SCH (09:47)
[2021-01-11] MEDS: ENOXAPARIN INJ 40 MG/0.4 ML SYR SQ SCH ×2 (11:25→21:21)
[2021-01-11] MEDS: CEROVITE ADV FORMULA TAB PO SCH (11:26)
[2021-01-11] MEDS: lisinopril 10 MG TAB PO SCH (12:49)
--- NOTE | 2021-01-11 16:13 | Hospitalist Progress Note ---
Date of Service January 11, 2021 Assessment & Plan (1) Sepsis: Plan: Pt meets Sepsis criteria based on current vital signs including tachycardia and tachypnea. Evidence of viral infection 2/2 to covid -19. Fluids not administered due to concern for pulmonary edema and blood pressure 120s systolic. Given covid want to keep on port drier side. (2) COVID-19: Plan: As documented below (3) Acute respiratory failure with hypoxia: Plan: This is a 70-year-old male who has significant past medical history of CAD, chronic HFrEF, nonischemic cardiomyopathy, HTN, HLD, prediabetes who presents to ED secondary to URI x9 days. CT CHEST: 1. No pulmonary emboli. 2. Emphysema with chronic fibrotic changes. 3. Intermixed groundglass opacities with intralobular septal thickening is suggestive of pulmonary edema versus a nonspecific infectious or inflammatory pneumonitis. 4. Mediastinal and hilar adenopathy. 5. Cardiomegaly with suggested thrombus of the left ventricular apex measuring up to 1.9 cm. Correlation with echocardiogram is recommended. Pt with acute hypoxic respiratory failure and + Sars-COV2 Started with IV dexamethasone 6mg daily IV remdesivir 200mg x 1 now and 100mg daily Discussed with the pulmonology and Tocilizumab was administered as CRP was more than 13 CRP level is down to 9.05 with normal prolactin as of 01/09/2021 Clinically better but is still requiring high flow oxygen at 50 L/min to maintain saturation Condition has not been improved and is still requiring high flow oxygen as above but the patient clinically feels better Condition is a little worse today and requiring high flow nasal cannula oxygen at the rate of 60 L/min Trying proning as tolerated We will continue current management-electrolytes and inflammatory markers are down (4) CAD (coronary artery disease): Plan: No acute cardiac symptoms (5) Chronic HFrEF (heart failure with reduced ejection fraction): Plan: Remains euvolemic and will try to keep him on the port drier side (6) Ischemic cardiomyopathy: Plan: Follows [facility] cardiology hx of Anterior STEMI 04/2018 with PCI and 2 KHRIS to prox to mid LAD; staged PCI to circumflex/OM Echo 04/2019 EF 40-45% give 40mg IV lasix x 1 now given concern for pulm edema, elevated pro-bnp - re evaluate daily need for further IV diuresis hold home dose of 20mg of lasix - resume when appropriate continue ASA, brilinta, Statin, metoprolol and lisinopril ECHO showed-grossly normal LV size H and mildly to moderately reduced systolic function. Akinetic apex with hypokinetic mid anteroseptum. No significant left ventricular hypertrophy. Small laminated apical thrombus suggested. Compared with prior study on 05/16/2019 apical thrombus is suggested on current study No acute cardiac symptoms (7) Pre-diabetes: Plan: Last A1c 6.4 on 12/21/2020 Monitor fasting glucose with initiation of steroid (8) DVT prophylaxis: Plan: SQ Lovenox 40mg Q12h Dispo: PCU PCP: Jose FULL CODE - pt is hesitant on whether or not he would want to be intubated, but for now wishes for full code Will discuss with the family members Admission and Anticipated Discharge Date Admission Date: January 07, 2021 Subjective 01/08/2021 The patient was seen and examined in telemetry unit and in the Covid room He has been feeling much better but is still requiring high flow nasal cannula oxygen to maintain saturation Still has cough and very shortness of breath with minimal exertion 01/09/2021 The patient was seen and examined in telemetry unit and in the Covid room He has been feeling much better but is still requiring high flow oxygen of 50 L/min Still has cough and generalized weakness No fever and no chills 01/10/2021 The patient was seen and examined in telemetry unit and in the Covid room He says that he feels much better but still requiring 50 L/min and 100% FiO2 to maintain saturation He has cough with nonproductive cough Denies any chest pain and/or palpitation 01/11/2021 The patient was seen and examined in telemetry unit and in the Covid room He has been feeling well today and is still requiring high flow nasal cannula at 6 L/min to maintain saturation Any kind of activities make the saturation to go down to 70s Denies any pain in the chest, any abdominal pain, nausea and or vomiting Review of Systems Review of Systems: All systems reviewed and are unremarkable except as noted below Respiratory: Mild to moderate shortness of breath at rest with cough Physical Exam Physical Exam: Lying in bed with moderate respiratory distress Constitutional: well developed, well nourished and + ill appearing Eyes: PERRL, conjunctivae normal, anicteric sclerae ENMT: external ear and nose normal, oropharynx normal Neck: trachea midline, no thyromegaly Respiratory: + respiratory distress (Mild to moderate respiratory distress at rest) Auscultation: + diminished lung sounds and + crackles (Bibasilar crackles) Cardiovascular: Rate/Rhythm: regular rate and regular rhythm; not tachycardic Heart Sounds: normal S1 and normal S2; no murmur Extremities: no edema Gastrointestinal (Abdomen): Inspection/Auscultation: normal bowel sounds; abdomen not distended Percussion/Palpation: abdomen soft; abdomen nontender Musculoskeletal: No acute arthritis in any joint Neurologic: Alert, awake and oriented x3. Generally weak and lethargic Psychiatric: A+Ox3, euthymic affect Lymphatic: no cervical or axillary lymphadenopathy Results & Data Results & Data ([facility]) Vital Signs (Past 12 Hours) Vital Signs Temp Pulse Pulse Resp BP BP Pulse Ox 01/11/21 15:54 36.4 C L 82 22 103/51 L 94 01/11/21 15:29 69 26 H 88 L 01/11/21 11:44 101 H 24 91 01/11/21 11:24 36.5 C 95 H 22 97/69 L 92 01/11/21 09:47 103 H 104/71 86 L 01/11/21 07:16 100 H 24 91 01/11/21 07:13 36.5 C 91 H 24 97/53 L 96 01/11/21 06:00 01/11/21 04:19 36.8 C 74 21 109/64 95 Pulse Ox 01/11/21 15:54 01/11/21 15:29 01/11/21 11:44 01/11/21 11:24 01/11/21 09:47 01/11/21 07:16 01/11/21 07:13 01/11/21 06:00 92 01/11/21 04:19 Laboratory Results [facility] 01/11/21 05:52 Sodium 140 Potassium 4.2 Chloride 108 H Carbon Dioxide 22 BUN 28 H Creatinine 0.97 Glucose 102 H Calcium 9.1 Liver Function 01/11/21 Range/Units 05:52 Total Bilirubin 0.9 (0.2-1) mg/dl AST 78 H (15-37) U/L ALT 73 (12-78) U/L Alkaline Phosphatase 129 H (45-117) U/L Albumin 2.7 L (3.4-5.0) gm/dl Medications Administered Current Inpatient Medications Acetaminophen (Acetaminophen 325 Mg Tab) 650 mg PO Q4H PRN PRN Reason: Pain or Fever Stop: 02/06/21 17:29 Al Hydrox/Mg Hydrox/Simethicone (Aluminum/Magnesium Susp 30 Ml Udc) 15 ml PO Q4H PRN PRN Reason: Dyspepsia Stop: 02/06/21 17:29 Albuterol (Albuterol Hfa 8 Gm Inhaler) 2 puffs INH Q4HWA KIM Stop: 02/06/21 17:29 Last Admin: 01/11/21 15:29 Dose: 2 puffs Documented by: Aspirin (Aspirin 81 Mg Ectab) 81 mg PO DAILY KIM Stop: 02/07/21 08:59 Last Admin: 01/11/21 08:31 Dose: 81 mg Documented by: Atorvastatin Calcium (Atorvastatin 40 Mg Tab) 80 mg PO DAILY KIM Stop: 02/07/21 08:59 Last Admin: 01/11/21 08:31 Dose: 80 mg Documented by: Enoxaparin Sodium (Enoxaparin Inj 40 Mg/0.4 Ml Syr) 40 mg SQ Q12H KIM Stop: 02/06/21 21:59 Last Admin: 01/11/21 11:25 Dose: 40 mg Documented by: Fish Oil ([place]-3 (Purified Fish Oil) 1 Gm Cap) 1 gm PO DAILY KIM Stop: 02/07/21 08:59 Last Admin: 01/11/21 08:34 Dose: 1 gm Documented by: Fluticasone Propionate (Fluticasone Propionate Na Spr 16 Gm Btl) 2 sprays NA BID PRN PRN Reason: allergies Stop: 02/06/21 17:29 Last Admin: 01/09/21 21:03 Dose: 2 sprays Documented by: Guaifenesin (Guaifenesin 600 Mg Tabcr) 1,200 mg PO Q12 KIM Stop: 02/06/21 20:59 Last Admin: 01/11/21 08:34 Dose: 1,200 mg Documented by: Remdesivir 100 mg/ Sodium (Chloride) 250 mls @ 250 mls/hr IV Q24H KIM; Protocol Stop: 01/11/21 20:59 Last Infusion: 01/11/21 07:14 Dose: Infused Documented by: Dexamethasone 6 mg/ Syringe 1.5 mls @ 1 mls/min IV DAILY KIM Stop: 01/18/21 08:59 Last Admin: 01/11/21 08:32 Dose: 1 mls/min Documented by: Lisinopril (Lisinopril 10 Mg Tab) 10 mg PO DAILY KIM Stop: 02/07/21 08:59 Last Admin: 01/11/21 12:49 Dose: Not Given Documented by: Magnesium Hydroxide (Magnesium Hydroxide Susp 30 Ml Udc) 30 ml PO Q12H PRN PRN Reason: Constipation Stop: 02/06/21 17:29 Metoprolol Succinate (Metoprolol Succ 50mg Ext Rel Tab) 100 mg PO DAILY KIM Stop: 02/07/21 08:59 Last Admin: 01/11/21 09:47 Dose: 100 mg Documented by: Multivitamins/Minerals (Cerovite Adv Formula Tab) 1 tab PO DAILY KIM Stop: 02/07/21 08:59 Last Admin: 01/11/21 11:26 Dose: 1 tab Documented by: Brilinta 60mg: Non- Formulary Patient's Own Med 1 ea PO BID KIM Stop: 02/07/21 20:59 Last Admin: 01/11/21 08:35 Dose: 1 ea Documented by: Ondansetron HCl (Ondansetron Inj 2 Mg/Ml 2 Ml Vial) 4 mg IV Q6H PRN PRN Reason: Nausea Stop: 02/06/21 17:29 Pantoprazole Sodium (Pantoprazole 40 Mg Tab) 40 mg PO QAM KIM Stop: 02/07/21 08:59 Last Admin: 01/11/21 08:34 Dose: 40 mg Documented by: Polyethylene Glycol (Polyethylene (Miralax) 17 Gm Pack) 17 gm PO DAILY PRN PRN Reason: Constipation Stop: 02/06/21 17:29 Sodium Chloride (Sodium Chloride 0.9% 10ml Flush) 30 ml IV Q24H KIM Stop: 01/12/21 21:01 Last Admin: 01/10/21 21:31 Dose: 30 ml Documented by: Vitamin D (Cholecalciferol 1,000 Units 25 Mcg Tab) 1,000 units PO DAILY KIM Stop: 02/07/21 08:59 Last Admin: 01/11/21 08:32 Dose: 1,000 units Documented by:
[2021-01-11] MEDS ORDERED: FUROSEMIDE 40 MG/4 ML VIAL IV STA (17:43)
[2021-01-11] MEDS ORDERED: FUROSEMIDE 40 MG in SYRINGE 0 ML IV ONE (17:45)
[2021-01-11] MEDS: REMDESIVIR 100 MG in SODIUM CHLORIDE 0.9% 230 ML IV SCH (21:14)
[2021-01-11] MEDS: SODIUM CHLORIDE 0.9% 10ML FLUSH IV SCH (21:15)
[2021-01-12 06:23] LABS: Basophils # (auto) 0.02 K/uL (0-0.2); Basophils % (auto) 0.1 %; Eosinophils % (auto) 0.7 %; Hematocrit (blood only) 46.8 % (42-52); Hemoglobin 16.3 g/dL (14.0-18.0); Immature Granulocytes # (auto) 0.05 K/uL (0.00-0.02); Immature Granulocytes % (auto) 0.3 %; Lymphocytes # (auto) 0.56 K/uL (1.2-3.4); Lymphocytes % (auto) 3.7 %; Mean Corpuscular Hemoglobin 32.8 pg (25-34); Mean Corpuscular Hgb Conc 34.8 g/dL (32-36); Mean Corpuscular Volume 94.2 fL (80-100); Mean Platelet Volume 9.8 fL (7.4-10.4); Monocytes % (auto) 1.3 %; Neutrophils # (auto) 14.24 K/uL (1.4-6.5); Neutrophils % (auto) 93.9 %; Platelet Count 481 K/uL (130-400); RDW Coefficient of Variation 12.9 % (11.5-14.5); RDW Standard Deviation 44.3 fL (36.4-46.3); Red Blood Count 4.97 M/uL (4.7-6.1); White Blood Count 15.17 K/uL (4.8-10.8)
[2021-01-12 06:49] LABS: BUN Creatinine Ratio 26.5 (10-20); C Reactive Protein 1.71 mg/dl (0-0.29); Calcium 9.2 mg/dl (8.5-10.1); Creatinine Clr Calc Pharmacy 61.5 ml/min; Est GFR (African American) 71.3 ml/min; Est GFR (Non-African American) 61.5 ml/min; Potassium 4.1 mmol/L (3.5-5.1)
[2021-01-12] MEDS: ALBUTEROL HFA 8 GM INHALER INH SCH (07:24)
[2021-01-12] MEDS: guaiFENesin 600 MG TABCR PO SCH ×2 (09:12→22:08)
[2021-01-12] MEDS: METOPROLOL SUCC 50MG EXT REL TAB PO SCH (09:13)
[2021-01-12] MEDS: ATORVASTATIN 40 MG TAB PO SCH (09:13)
[2021-01-12] MEDS: ENOXAPARIN INJ 40 MG/0.4 ML SYR SQ SCH ×2 (09:13→22:08)
[2021-01-12] MEDS: CHOLECALCIFEROL 1,000 UNITS 25 MCG TAB PO SCH (09:13)
[2021-01-12] MEDS: dexAMETHasone 6 MG in SYRINGE 0 ML IV SCH (09:13)
[2021-01-12] MEDS: OMEGA-3 (PURIFIED FISH OIL) 1 GM CAP PO SCH (09:14)
[2021-01-12] MEDS: PANTOprazole 40 MG TAB PO SCH (09:14)
[2021-01-12] MEDS: lisinopril 10 MG TAB PO SCH (09:14)
[2021-01-12] MEDS: ASPIRIN 81 MG ECTAB PO SCH (09:14)
[2021-01-12] MEDS: CEROVITE ADV FORMULA TAB PO SCH (09:14)
[2021-01-12] MEDS: BRILINTA 60 MG PO SCH ×2 (09:50→22:06)
[2021-01-12] MEDS ORDERED: ALBUTEROL HFA 8 GM INHALER INH PRN (10:45)
--- NOTE | 2021-01-12 13:49 | Hospitalist Progress Note ---
Date of Service January 12, 2021 Assessment & Plan (1) Sepsis: Plan: Pt meets Sepsis criteria based on current vital signs including tachycardia and tachypnea. Evidence of viral infection 2/2 to covid -19. Fluids not administered due to concern for pulmonary edema and blood pressure 120s systolic. 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 (2) COVID-19: Plan: As documented below (3) Acute respiratory failure with hypoxia: Plan: This is a 70-year-old male who has significant past medical history of CAD, chronic HFrEF, nonischemic cardiomyopathy, HTN, HLD, prediabetes who presents to ED secondary to URI x9 days. CT CHEST: 1. No pulmonary emboli. 2. Emphysema with chronic fibrotic changes. 3. Intermixed groundglass opacities with intralobular septal thickening is suggestive of pulmonary edema versus a nonspecific infectious or inflammatory pneumonitis. 4. Mediastinal and hilar adenopathy. 5. Cardiomegaly with suggested thrombus of the left ventricular apex measuring up to 1.9 cm. Correlation with echocardiogram is recommended. Pt with acute hypoxic respiratory failure and + Sars-COV2 Started with IV dexamethasone 6mg daily IV remdesivir 200mg x 1 now and 100mg daily Discussed with the pulmonology and Tocilizumab was administered as CRP was more than 13 CRP level is down to 9.05 with normal prolactin as of 01/09/2021 Clinically better but is still requiring high flow oxygen at 50 L/min to maintain saturation Condition has not been improved and is still requiring high flow oxygen as above but the patient clinically feels better Condition is a little worse today and requiring high flow nasal cannula oxygen at the rate of 60 L/min Feels a little better but he still requires very high flow nasal cannula oxygen to maintain saturation Trying to be in prone position as much as he can can We will get chest x-ray and if needed will ask pulmonary to evaluate (4) CAD (coronary artery disease): Plan: No acute cardiac symptoms (5) Chronic HFrEF (heart failure with reduced ejection fraction): Plan: Remains euvolemic and will try to 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 Akinetic apex with hypokinetic mid anteroseptum. No significant left ventricular hypertrophy. Small laminated apical thrombus suggested. Compared with prior study on 05/16/2019 apical thrombus is suggested on current study No acute cardiac symptoms (7) Pre-diabetes: Plan: Last A1c 6.4 on 12/21/2020 Monitor fasting glucose with initiation of steroid (8) DVT prophylaxis: Plan: SQ Lovenox 40mg Q12h Dispo: PCU PCP: Jose FULL CODE - pt is hesitant on whether or not he would want to be intubated, but for now wishes for full code Will discuss with the family members Admission and Anticipated Discharge Date Admission Date: January 07, 2021 Subjective 01/08/2021 The patient was seen and examined in telemetry unit and in the Covid room He has been feeling much better but is still requiring high flow nasal cannula oxygen to maintain saturation Still has cough and very shortness of breath with minimal exertion 01/09/2021 The patient was seen and examined in telemetry unit and in the Covid room He has been feeling much better but is still requiring high flow oxygen of 50 L/min Still has cough and generalized weakness No fever and no chills 01/10/2021 The patient was seen and examined in telemetry unit and in the Covid room He says that he feels much better but still requiring 50 L/min and 100% FiO2 to maintain saturation He has cough with nonproductive cough Denies any chest pain and/or palpitation 01/11/2021 The patient was seen and examined in telemetry unit and in the Covid room He has been feeling well today and is still requiring high flow nasal cannula at 6 L/min to maintain saturation Any kind of activities make the saturation to go down to 70s Denies any pain in the chest, any abdominal pain, nausea and or vomiting 01/12/2021 The patient was seen and examined in telemetry unit and in the Covid room His condition has not improved and is still requiring high flow nasal cannula oxygen to maintain saturation He is saturation improves with prone position Denies any fever and/or chills and clinically feels better at rest and doing nothing Review of Systems Review of Systems: All systems reviewed and are unremarkable except as noted below Respiratory: Mild to moderate shortness of breath at rest with cough Physical Exam Physical Exam: Lying in bed with moderate respiratory distress Constitutional: well developed, well nourished and + ill appearing Eyes: PERRL, conjunctivae normal, anicteric sclerae ENMT: external ear and nose normal, oropharynx normal Neck: trachea midline, no thyromegaly Respiratory: + respiratory distress (Mild to moderate respiratory distress at rest) Auscultation: + diminished lung sounds and + crackles (Bibasilar crackles) Cardiovascular: Rate/Rhythm: regular rate and regular rhythm; not tachycardic Heart Sounds: normal S1 and normal S2; no murmur Extremities: no edema Gastrointestinal (Abdomen): Inspection/Auscultation: normal bowel sounds; abdomen not distended Percussion/Palpation: abdomen soft; abdomen nontender Musculoskeletal: No acute arthritis in any joint Neurologic: Alert, awake and oriented x3 Psychiatric: A+Ox3, euthymic affect Lymphatic: no cervical or axillary lymphadenopathy Results & Data Results & Data ([facility]) Vital Signs (Past 12 Hours) Vital Signs Temp Pulse Pulse Resp BP Pulse Ox 01/12/21 11:35 36.8 C 93 H 24 93/60 L 98 01/12/21 08:00 91 H 01/12/21 07:24 92 H 22 99 01/12/21 07:02 36.5 C 102 H 24 100/73 93 01/12/21 04:25 36.6 C 91 H 17 90/50 L 96 01/12/21 03:01 22 95 Laboratory Results Short CBC 01/12/21 Range/Units 05:29 WBC 15.17 H (4.8-10.8) K/uL Hgb 16.3 (14.0-18.0) g/dL Hct 46.8 (42-52) % Plt Count 481 H (130-400) K/uL BMP 01/12/21 05:29 Sodium 139 Potassium 4.1 Chloride 108 H Carbon Dioxide 24 BUN 32 H Creatinine 1.19 Glucose 136 H Calcium 9.2 Liver Function 01/12/21 Range/Units 05:29 AST 85 H (15-37) U/L ALT 79 H (12-78) U/L Medications Administered Current Inpatient Medications Acetaminophen (Acetaminophen 325 Mg Tab) 650 mg PO Q4H PRN PRN Reason: Pain or Fever Stop: 02/06/21 17:29 Al Hydrox/Mg Hydrox/Simethicone (Aluminum/Magnesium Susp 30 Ml Udc) 15 ml PO Q4H PRN PRN Reason: Dyspepsia Stop: 02/06/21 17:29 Albuterol (Albuterol Hfa 8 Gm Inhaler) 2 puffs INH Q4R PRN PRN Reason: Wheezing Stop: 02/11/21 10:44 Aspirin (Aspirin 81 Mg Ectab) 81 mg PO DAILY KIM Stop: 02/07/21 08:59 Last Admin: 01/12/21 09:14 Dose: 81 mg Documented by: Atorvastatin Calcium (Atorvastatin 40 Mg Tab) 80 mg PO DAILY KIM Stop: 02/07/21 08:59 Last Admin: 01/12/21 09:13 Dose: 80 mg Documented by: Enoxaparin Sodium (Enoxaparin Inj 40 Mg/0.4 Ml Syr) 40 mg SQ Q12H KIM Stop: 02/06/21 21:59 Last Admin: 01/12/21 09:13 Dose: 40 mg Documented by: Fish Oil ([place]-3 (Purified Fish Oil) 1 Gm Cap) 1 gm PO DAILY KIM Stop: 02/07/21 08:59 Last Admin: 01/12/21 09:14 Dose: 1 gm Documented by: Fluticasone Propionate (Fluticasone Propionate Na Spr 16 Gm Btl) 2 sprays NA BID PRN PRN Reason: allergies Stop: 02/06/21 17:29 Last Admin: 01/09/21 21:03 Dose: 2 sprays Documented by: Guaifenesin (Guaifenesin 600 Mg Tabcr) 1,200 mg PO Q12 KIM Stop: 02/06/21 20:59 Last Admin: 01/12/21 09:12 Dose: 1,200 mg Documented by: Dexamethasone 6 mg/ Syringe 1.5 mls @ 1 mls/min IV DAILY KIM Stop: 01/18/21 08:59 Last Admin: 01/12/21 09:13 Dose: 1 mls/min Documented by: Lisinopril (Lisinopril 10 Mg Tab) 10 mg PO DAILY KIM Stop: 02/07/21 08:59 Last Admin: 01/12/21 09:14 Dose: Not Given Documented by: Magnesium Hydroxide (Magnesium Hydroxide Susp 30 Ml Udc) 30 ml PO Q12H PRN PRN Reason: Constipation Stop: 02/06/21 17:29 Metoprolol Succinate (Metoprolol Succ 50mg Ext Rel Tab) 100 mg PO DAILY KIM Stop: 02/07/21 08:59 Last Admin: 01/12/21 09:13 Dose: 100 mg Documented by: Multivitamins/Minerals (Cerovite Adv Formula Tab) 1 tab PO DAILY KIM Stop: 02/07/21 08:59 Last Admin: 01/12/21 09:14 Dose: 1 tab Documented by: Brilinta 60mg: Non- Formulary Patient's Own Med 1 ea PO BID KIM Stop: 02/07/21 20:59 Last Admin: 01/12/21 09:50 Dose: 1 ea Documented by: Ondansetron HCl (Ondansetron Inj 2 Mg/Ml 2 Ml Vial) 4 mg IV Q6H PRN PRN Reason: Nausea Stop: 02/06/21 17:29 Pantoprazole Sodium (Pantoprazole 40 Mg Tab) 40 mg PO QAM KIM Stop: 02/07/21 08:59 Last Admin: 01/12/21 09:14 Dose: 40 mg Documented by: Polyethylene Glycol (Polyethylene (Miralax) 17 Gm Pack) 17 gm PO DAILY PRN PRN Reason: Constipation Stop: 02/06/21 17:29 Sodium Chloride (Sodium Chloride 0.9% 10ml Flush) 30 ml IV Q24H KIM Stop: 01/12/21 21:01 Last Admin: 01/11/21 21:15 Dose: 30 ml Documented by: Vitamin D (Cholecalciferol 1,000 Units 25 Mcg Tab) 1,000 units PO DAILY IKM Stop: 02/07/21 08:59 Last Admin: 01/12/21 09:13 Dose: 1,000 units Documented by:
--- NOTE | 2021-01-12 15:58 | XRay Report ---
SINGLE VIEW CHEST CLINICAL HISTORY: Covid pneumonia. FINDINGS: 2 AP, portable, upright chest radiographs are compared to chest x-ray and chest CT dated . The examination is degraded by portable technique and patient rotation. The heart is top nor mal in size noting atherosclerotic calcification of the thoracic aorta. Emphysema and chronic interst itial thickening are similar to previous. Asymmetric airspace opacities are again seen throughout bot h lungs. No large pleural effusion or pneumothorax is seen. The skeletal structures are osteopenic. T he bony thorax is grossly intact. IMPRESSION: 1. Emphysema. 2. Bilateral airspace opacities are unchanged. Differential considerations remain mild pulmonary dory a and/or an infectious/inflammatory pneumonitis. Clinical correlation will be required. Electronically signed by: Douglas Saavedra M.D. 01/12/2021 3:56 PM
[2021-01-12] MEDS: SODIUM CHLORIDE 0.9% 10ML FLUSH IV SCH (22:06)
[2021-01-12] MEDS ORDERED: LORazepam 0.25 MG/0.5 ML VIAL IV STA (23:15)
[2021-01-13 02:54] LABS: Allen Test Pos (Pos); Base Excess ABG -3.3 mEq/L (-9-1.8); HCO3 ABG 19 mmol/L (19-24); Oxygen Saturation ABG 95.5 % (90-95); PCO2 ABG 30 mmHg (35-46); PO2 ABG 74 mmHg (80-95); pH ABG 7.43 (7.35-7.45)
[2021-01-13] MEDS ORDERED: STAT IV Infusion **Titration per Protocol STA ×2 (04:28→04:30)
[2021-01-13] MEDS ORDERED: RAPID SEQUENCE INDUCTION BAG ONE (04:28)
[2021-01-13] MEDS: MIDAZOLAM HCL 125 MG/250 ML BAG IV PRN (05:15)
[2021-01-13] MEDS: MIDAZOLAM BOLUS FROM BAG IV PRN ×2 (05:15→06:24)
[2021-01-13] MEDS: fentaNYL DRIP 1,250 MCG/250 ML BAG IV SCH ×2 (05:15→23:45)
[2021-01-13] MEDS: NOREPINEPHRINE/D5W 8 MG/508 ML BAG IV SCH ×3 (05:25→18:52)
--- NOTE | 2021-01-13 05:54 | Procedure Note ---
Procedure Note Date of Service January 13, 2021 Note APC: Solomon Garza PA-C. Attending: Dr. White A time-out was completed verifying correct patient, procedure, site, positioning. Patient was evaluated and required intubation for hypoxic respiratory failure in the setting of COVID-19 pneumonia. Sedative agent used: Etomidate Paralysis agent used: Succinylcholine Emergent consent was implied given patients rapidly declining clinical status and need for airway protection. The patient was prepared in the appropriate fashion. Sedation was achieved utilizing etomidate and succinylcholine, per Dr. White administration. The patient was easily ventilated using [id number] to achieve adequate oxygenation. A 7.5 Persian endotracheal tube was placed using Glidescope to 22 cm at the lip. The stylette was removed and balloon was inflated with 10mL of air. Appropriate Colorimetric change was appreciated. Bilateral breath sounds were heard without air sounds in the abdomen. Dr. White was present for the entire procedure. Post Intubation Chest X-ray confirms placement without pneumothorax. Patient tolerated the procedure well and there were no immediate complications. Supervising Physician Co-Signing Physician Notes Physician Call Worker Person Supervision Note: I directly supervised Soolmon Garza PA-C during intubation. I was immediately available throughout the procedure. Pt was given succinylcholine 100 mg and etomidate 20 mg for RSI. ET tube placement was confirmed by auscultation, CO2 color changer and pulse oximetry. Chest x-ray was performed and reveals the ET tube in good position to my interpretation. Please refer to the procedure note for further details. Documented By: Karrie White MD Coding CPT Codes Resuscitation - Resuscitation: [id number] Endotracheal Intubation, emergency ([id number]) [facility] [place]Charges) Resuscitation Resuscitation: [id number] Endotracheal Intubation, emergency
--- NOTE | 2021-01-13 05:55 | Procedure Note ---
Procedure Note Date of Service January 13, 2021 Note Procedure: Arterial Line Placement Attending: Dr. Segura APC: Solomon Garza PA-C Indication: Hemodynamic monitoring Anesthesia: Lidocaine 1% Emergent Consent implied in the setting of clinical deterioration and need for close hemodynamic monitoring, ABG monitoring, frequent lab draws, etc. A time-out was completed verifying correct patient, procedure, site, positioning, and implant(s) or special equipment if applicable. Allens test was performed to ensure adequate perfusion. Patients RIGHT wrist was prepped and draped in the usual sterile fashion. Ultrasound guidance was used to aid needle placement. A 20g Arrow arterial line was introduced into the RIGHT Radial artery. Catheter was threaded, and the needle was removed with appropriate blood return. Good waveform was observed. The patient tolerated the procedure well. Confirmation of placement with ultrasound. Blood Loss: Minimal Complications: None Procedural Ultrasound Guidance: Procedure Date: 01/13/2021 Indication: Hemodynamic Monitoring, Frequent ABGs/Lab draws. Attending: Dr. Segura APC: Solomon Garza PA-C Artery Identified: YES Line confirmed in Artery with ultrasound: YES Complications: NONE Patient tolerated procedure: WELL Coding CPT Codes Tubes, Drains, and Vasc Access - Tubes, Drains, and Vasc Access: [id number] Place Catheter In Artery ([id number]) [facility] [place] Procedure Codes (Charges) Tubes, Drains, and Vasc Access Procedure 1: Tubes, Drains, and Vasc Access: [id number] Place Catheter In Artery
[2021-01-13 06:05] LABS: iSTAT Art Bld Gas pCO2 Correct 52 mmHg (35-46); iSTAT Arterial Blood Gas HCO3 23 meg/L (19-24); iSTAT Arterial Blood Gas pCO2 50 mmHg (35-46); iSTAT Arterial Blood Gas pH 7.27 (7.35-7.45); iSTAT Arterial Blood Gas pO2 86 mmHg (80-95); iSTAT Arterial Blood Gas pO2 C 91; iSTAT Carbon Dioxide 24 mmol/L (24-31); iSTAT FiO2 100 %; iSTAT Hematocrit 50 % (42-52); iSTAT Potassium 4.2 mmol/L (3.3-5.0); iSTAT Site Art Line; iSTAT Sodium 143 mmol/L (135-144)
[2021-01-13] MEDS ORDERED: ICU PROTOCOL FOR HYPERGLYCEMIA PRN (06:13)
[2021-01-13 06:46] LABS: Hematocrit (blood only) 48.2 % (42-52); Hemoglobin 16.6 g/dL (14.0-18.0); Mean Corpuscular Hemoglobin 33.1 pg (25-34); Mean Corpuscular Hgb Conc 34.4 g/dL (32-36); Mean Platelet Volume 10.3 fL (7.4-10.4); Platelet Count 535 K/uL (130-400); RDW Coefficient of Variation 13.2 % (11.5-14.5); Red Blood Count 5.02 M/uL (4.7-6.1); White Blood Count 20.77 K/uL (4.8-10.8)
--- NOTE | 2021-01-13 06:51 | Critical Care Consultation ---
Date of Consultation January 13, 2021 Assessment & Plan (1) Admitted to intensive care unit: Reason Critically Ill: 70-year-old male with COVID-19 pneumonia and worsening hypoxic respiratory failure requiring emergent endotracheal intubation for ongoing management of underlying illness. NEURO - * CAM ICU: Initially, the patient was somnolent after receiving Ativan, however on repeat assessment, the patient is awake, alert, and oriented and CAM negative. * Agitation: * Apparently, patient had not been compliant with proning previously and was agitated with attempts. He received Ativan which had not apparently help much. * Likely become encephalopathic in the setting of acuity disease as well as ongoing hypoxia and work of breathing. CARDIAC/VASCULAR - * Coronary artery disease: * Status post PTCI with KHRIS x4. * Continue current medications. * Echocardiogram earlier this visits demonstrates EF of 40 to 45% with apical thrombus. * Patient may require heparin drip given location of thrombus and risk for dislodgment with thromboembolic process. * Monitor on telemetry. RESPIRATORY - * Hypoxic respiratory failure in the setting of COVID-19 pneumonia: * Patient is maxed out on noninvasive therapies. * Clinically, the patient appears unwell. He is tachypneic and appears generally weak. * I am concerned the patient is progressing toward the point where he may likely respiratory arrest. Initially, patient was unwilling to undergo intubation, however he did agree after he reports becoming increasingly tired. * Patient intubated. Please see separate note. * Patient has already received Tocilizumab, remdesivir, and Decadron. * We will see how the patient improves with intubation. He may likely require proning therapy as well as aggressive ventilator settings. GI/NUTRITION - * Will place OG tube. * Start trickle feedings once in place. RENAL/LYTES - * No significant electrolyte derangements * Hold on IV fluids and a net negative fluid balance - * Silva in place - Strict I&Os. ENDO - * No history of diabetes or thyroid disease * BSGs per unit protocol. ISS --> gtt per unit policy. HEME - * Stable H&H ID - * COVID-19 pneumonia: * Recently finished remdesivir. Received Tocilizumab earlier in visit. LINES/IV ACCESS - * PIVs x2 * ET tube * Silva catheter * RIGHT radial arterial line DVT PROPHYLAXIS - * Lovenox * SCDs I have personally spent 80 minutes of critical care time in the direct management of this patient. This is a life/limb threatening event. This includes time spent evaluating patient, direct bedside care, chart review, placing orders, interpretation of diagnostic studies, discussion with consultants, patient, and family members, as well as other required patient management activities. This time is exclusive of all separately billable procedures, and teaching time and separate from and in addition to any other critical care service time. Thank you for allowing us to participate in the care of this patient. Please refer to my attending physician's documentation for any further recommendations. (2) Acute respiratory failure with hypoxia: (3) COVID-19: (4) Ischemic cardiomyopathy: (5) Chronic HFrEF (heart failure with reduced ejection fraction): (6) CAD (coronary artery disease): (7) Left ventricular apical thrombus: Supervising Physician Co-Signing Physician Notes I have seen and evaluated the patient and agree with the assessment and plan of Oumar Garza Consideration was given to pronation therapy however the patient's oxygen saturation has been consistently above 92% we will continue to observe the patient at this time. History of Present Illness Attending Physician: Jocelyn Daniel MD History of Present Illness Patient is a 70-year-old male with a significant past medical history of coronary artery disease status post PTCI with stenting x4, ischemic cardiomyopathy, hypertension, heart failure with reduced ejection fraction with an EF 40 to 45%, significant get his. Patient had to the emergency department on 01/07 with significant shortness of breath. The patient had been previously diagnosed with COVID-19 prior to arrival. Patient was found to be significantly hypoxic. He was initially placed on high flow and has been rotating between high flow and BiPAP. Patient had received Tocilizumab as well as remdesivir and is currently on steroids as well. Apparently, the patient has not been tolerating proning very well. He apparently does well when prone, however he refused to do so on most occasions. I was contacted by hospitalist as the patient was increasingly agitated and required dose of Ativan as he was pulling off his BiPAP mask which was causing desaturation. There was concern for possible need for intubation. Upon assessment bedside, the patient is somnolent, but does awaken and answer simple questions. He appears restless and tachypneic. I did contact the patient's , Constanza Mejia ([phone]), to provide update of his status. She reports that she was aware that he was not cooperating with proning or wearing his mask. We did discuss that he would likely require intubation. She agrees with any/all procedures necessary moving forward. I presented again at bedside and patient is more awake and talkative at this point. I explained the patient is requiring intubation at this point secondary to increasing oxygen requirement and work of breathing. Patient is adamant that he does not wish to be intubated this point. At this point, the patient is awake, alert, and oriented. He is, by all assessment, capable of making his own decisions. I stressed that it would be best to the patient underwent intubation at this time given his worsening respiratory status and risk for wearing out and need for intubation on more of an emergent basis. He still adamantly declines. We agreed that I would reassess him in 1 hour. Did receive phone call from nursing staff as the patient then reports that he is ready to be intubated and is concerned that his breathing pattern is changed as well. I presented immediately to bedside. Allergies Allergy/AdvReac Type Severity Reaction Status Date / Time No Known Drug Allergies Allergy nkda Verified 01/07/21 12:57 Home Medications Medication Instructions Recorded Confirmed Type nitroglycerin 0.3 mg sublingual 0.3 mg SUBLINGUAL UD #10 tab 05/15/18 01/07/21 Rx tablet (Nitrostat) Lactobacillus acidophilus 1 1,000 mmu cells PO DAILY PRN tab 12/06/18 01/07/21 History billion cell tablet albuterol sulfate 90 mcg/actuation 2 puffs INHALATION ONCE PRN gm 12/06/18 01/07/21 History aerosol inhaler cholecalciferol (vitamin D3) 25 1,000 units PO DAILY cap 12/06/18 01/07/21 History mcg (1,000 unit) capsule clindamycin phosphate 1 % topical 1 appln TOPICAL BID PRN #1 ml 12/06/18 01/07/21 History solution desonide 0.05 % lotion 1 appln TOPICAL BID PRN #1 ml 12/06/18 01/07/21 History fluocinonide 0.05 % topical 1 appln TOPICAL BID PRN #3 gm 12/06/18 01/07/21 History ointment fluticasone propionate 50 2 sprays INTRANASAL BID PRN #3 gm 12/06/18 01/07/21 History mcg/actuation nasal spray,suspension hydrocortisone acetate 25 mg 25 mg MA DAILY PRN ea 12/06/18 01/07/21 History rectal suppository meclizine 25 mg tablet 25 mg PO TID PRN tab 12/06/18 01/07/21 History mometasone 0.1 % topical ointment 1 appln TOPICAL BID PRN #1 gm 12/06/18 01/07/21 History duhrccjf-kdc-LL-lycopen-lutein See Rx Instructions PO DAILY 05/16/19 01/07/21 History [Centrum Silver Men] aspirin 81 mg tablet,delayed 81 mg PO DAILY 11/14/19 01/07/21 History release atorvastatin 80 mg tablet 80 mg PO DAILY #90 tab 02/10/20 01/07/21 Rx lisinopril 10 mg tablet 10 mg PO DAILY #90 tab 03/17/20 01/07/21 Rx metoprolol succinate 100 mg 100 mg PO DAILY #90 tab 10/05/20 01/07/21 Rx tablet,extended release 24 hr (Toprol XL) ticagrelor 60 mg tablet 60 mg PO BID #180 tab 11/17/20 01/07/21 Rx omega-3 fatty acids 1,000 mg 1,000 mg PO DAILY 12/15/20 01/07/21 History capsule (Fish Oil Concentrate) acetaminophen 500 mg tablet 1,000 mg PO Q6H PRN 01/07/21 01/07/21 History (Tylenol Extra Strength) furosemide 20 mg tablet 20 mg PO DAILY 01/07/21 01/07/21 History Patient History Medical History (Updated 01/13/21 @ 06:44 by Solomon Garza PA-C) Anxiety Borderline diabetes CAD (coronary artery disease) --Anterior STEMI 04/2018 post primary PCI with 2 KHRIS to proximal to mid LAD --post staged PCI to circumflex/OM and RCA 04/2018 2. Ischemic cardiomyopathy--EF 40-45% 04/2019 Chronic HFrEF (heart failure with reduced ejection fraction) HLD (hyperlipidemia) Ischemic cardiomyopathy Multi-vessel coronary artery stenosis Pre-diabetes Surgical History (Updated 01/07/21 @ 15:16 by Jelena Little PA-C) History of coronary artery stent placement History of hernia repair Family History (Updated 01/07/21 @ 14:10 by Jelena Little PA-C) Father Coronary heart disease Myocardial infarction Mother Diabetes Social History Smoking Status: Former smoker Years Smoked: 40; Smoking End Date: 1991; Second Hand Exposure: No; Do You Dip or Chew Tobacco: No; Tobacco Cessation Education Requested by Patient: No Hx Alcohol Use: No Hx Substance Use: No Preferred Language: Maldivian Communication Ability: Effective Visual Impairment: No Limitations 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 GENERAL - 70-year-old male appearing his stated age who is in moderate respiratory distress. Initially, patient was somnolent, but on reevaluation, he was awake, alert, and oriented and communicated well. SKIN - Without rashes. HEAD - NC/AT. EYES - PERRL with EOMI bilaterally. Sclera anicteric. EARS - No deformities of external structures noted on gross examination bilaterally. NOSE - Midline and without cyanosis. No epistaxis or purulent drainage noted. MOUTH/OROPHARYNX - Without perioral cyanosis. Buccal mucosa pink and dry. NECK - Neck with FROM. Supple to palpation. No lymphadenopathy noted. No nuchal rigidity. LUNGS -tachypneic with coarse breath sounds throughout. CARDIAC - RRR with S1/S2. No murmur, rubs, or gallops appreciated. ABDOMEN - Abdominal contour scaphoid without pulsations or visible masses. BS normoactive all four quadrants. No tenderness, palpable masses, hepatosplenomegaly, or ascites noted. EXTREMITIES - No clubbing or peripheral cyanosis. No pretibial edema present. +3/5 radial and dorsalis pedis pulses palpated throughout. +5/5 strength noted in UE/LE bilaterally. NEUROLOGIC - Cranial nerves II through XII grossly intact. Patellar reflexes +2/4. PSYCH - A&Ox3 and cooperates fully with examiner. Had lengthy discussion with the patient regarding risks and benefits of intubation. I stressed my concerns the patient is likely require intubation at this point secondary to worsening respiratory status. He initially declines, but eventually concedes as he had worsening breathing and poor oxygenation. Results & Data Results & Data ([facility]) Vital Signs (Past 12 Hours) Vital Signs Temp Pulse Pulse Resp BP BP Pulse Ox 01/13/21 05:47 34 H 01/13/21 05:10 115 H 36 H 94 01/13/21 03:32 105 H 36 H 95 01/13/21 02:18 98 H 34 H 93 01/12/21 22:13 37.2 C 89 24 109/62 91 01/12/21 21:59 90 26 H 95 01/12/21 19:29 88 22 94 01/12/21 18:40 36.4 C L 92 H 20 98/64 L 92 Coding Level of Care Code Critical Care 1st 30-74 mins Diagnoses Admitted to intensive care unit Z78.9 Acute respiratory failure with hypoxia J96.01 COVID-19 U07.1 Ischemic cardiomyopathy I25.5 Chronic HFrEF (heart failure with reduced ejection fraction) I50.22 CAD (coronary artery disease) I25.10 Left ventricular apical thrombus I51.3 Time Spent (min) 80
[2021-01-13 07:13] LABS: BUN Creatinine Ratio 34.3 (10-20); Calcium 9.3 mg/dl (8.5-10.1); Creatinine Clr Calc Pharmacy 57.6 ml/min; Est GFR (African American) 65.9 ml/min; Est GFR (Non-African American) 56.9 ml/min; Potassium 4.3 mmol/L (3.5-5.1)
[2021-01-13 07:19] LABS: Acanthocytes 1+; Basophils # (auto) 0.03 K/uL (0-0.2); Basophils % (auto) 0.1 %; Eosinophils # (auto) 0.01 K/uL (0-0.5); Immature Granulocytes # (auto) 0.13 K/uL (0.00-0.02); Immature Granulocytes % (auto) 0.6 %; Lymphocytes # (auto) 0.57 K/uL (1.2-3.4); Lymphocytes % (auto) 2.7 %; Monocytes # (auto) 0.27 K/uL (0.11-0.59); Monocytes % (auto) 1.3 %; Neutrophils # (auto) 19.76 K/uL (1.4-6.5); Neutrophils % (auto) 95.3 %; Toxic Granulation 1+
[2021-01-13] MEDS ORDERED: ETOMIDATE 2 MG/ML 20 ML VIAL IV ONE (08:06)
--- NOTE | 2021-01-13 09:20 | XRay Report ---
XR chest 1V portable HISTORY: 70 years-old Male s/p central line placement status post placement of a left IJ central ramón ous catheter COMPARISON: Chest radiograph of same day at 4:47 AM TECHNIQUE: Portable AP view of the chest FINDINGS: Endotracheal tube overlies the midline, 7 cm superior to the leroy. Enteric tube courses below the d iaphragm outside the [id number]. Left IJ central venous catheter has been placed with distal tip t erminating to the right of midline in the expected location of the brachiocephalic SVC confluence. No pneumothorax or large pleural effusion. Emphysema with bilateral reticular opacities redemonstrated, stable to mildly improved from comparison. Degenerative changes of the shoulders and spine. IMPRESSION: 1. Lines and tubes as above. No pneumothorax. 2. Emphysema with mildly improved reticular interstitial opacities. ACT 112: Negative or not required by law. The above report was generated using voice recognition software. It may contain grammatical, syntax o r spelling errors. Electronically signed by: Jm Timmons M.D. 01/13/2021 9:18 AM
--- NOTE | 2021-01-13 09:34 | XRay Report ---
XR KUB/Abdomen 1 view INDICATION: MN ^s/p OG tube placement. TECHNIQUE: 1 view of the abdomen was obtained. Comparison: None available at the time of this dictation. FINDINGS: Enteric tube side-port and tip are within the stomach. The osseous structures are grossly unremarkabl e. The bowel gas pattern is nonobstructive. A moderate amount of stool is noted within the large donna l. IMPRESSION: Satisfactory placement of enteric tube. ACT 112: Negative or not required by law. Electronically signed by: Wilfredo Holbrook M.D. 01/13/2021 9:32 AM
[2021-01-13] MEDS: guaiFENesin 600 MG TABCR PO SCH ×2 (10:08→20:45)
[2021-01-13] MEDS: lisinopril 10 MG TAB PO SCH (10:08)
[2021-01-13] MEDS: OMEGA-3 (PURIFIED FISH OIL) 1 GM CAP PO SCH (10:08)
--- NOTE | 2021-01-13 10:15 | Procedure Note ---
Procedure Note Date of Service January 13, 2021 Note Procedure date: Noted above Procedure: Central venous access Pre-procedure indication: Need for vasoactive medication administration Post-procedure Diagnosis: same as above Prior to Procedure: Informed Consent: Emergent consent implied. Attending Staff: Sophia Segura DO Resident/APC: Not applicable Skin Prep: Chlorhexidine Anesthesia: 4 mL 1% lidocaine without epinephrine The identity of the patient was confirmed and a bedside time out was performed. Description of Procedure: After sterile prep and sterile drape utilizing standard sterile technique the superficial skin of the left internal jugular area was anesthetized. The target vessel was identified with dynamic ultrasound guidance and entered with an 18-gauge needle. Dark venous blood return was noted. A guidewire was inserted through the needle and into the vessel. The needle was withdrawn and a skin dru was made. A tissue dilator was advanced via Seldinger technique and removed. A triple lumen catheter was inserted via Seldinger technique and the guidewire removed. All ports iesha and flushed easily. A Biopatch was placed, and the catheter was secured via silk suture. A sterile dressing was then applied. Complications: None Estimated blood loss: Trace Patient tolerated the procedure well. Coding
--- NOTE | 2021-01-13 10:30 | XRay Report ---
XR chest 1V portable CLINICAL HISTORY: s/p intubation COMPARISON STUDY: January 12, 2021 FINDINGS: No pneumothorax. No pleural effusion. Redemonstration of diffuse reticular and hazy opacities throughout bilateral lungs are unchanged sinc e prior. Cardiomediastinal silhouette is within normal limits in size. Menisci vasculature is obscured.. Aorta is calcified. Osseous structures: Degenerative changes of the spine. Interval placement of an the tracheal tube with tip projecting 5.0 cm above leroy. IMPRESSION: 1. Interval placement of endotracheal tube with tip projecting 5.1 cm above leroy. 2. Unchanged bilateral mixed reticular and hazy opacities throughout bilateral lungs which might rep resent pneumonia. ACT 112: Negative or not required by law. The above report was generated using voice recognition software. It may contain grammatical, syntax o r spelling errors. Electronically signed by: Jonelle Hernandez DO 01/13/2021 10:28 AM
[2021-01-13] MEDS ORDERED: Heparin IV Adult Wt-Based Standard WITH Bolus Protocol IV SCH (10:47)
[2021-01-13] MEDS ORDERED: GLUCAGON FOR INJ 1 MG VIAL SQ PRN (11:00)
[2021-01-13] MEDS ORDERED: CARBOHYDRATES FOR HYPOGLYCEMIA PO PRN (11:00)
[2021-01-13] MEDS ORDERED: GLUCOSE 10 TABS/TUBE PO PRN (11:00)
[2021-01-13] MEDS ORDERED: GLUCOSE 40% GEL 15 GM TUBE PO PRN (11:00)
[2021-01-13] MEDS ORDERED: DEXTROSE 50% 50 ML SYRINGE IV PRN (11:00)
[2021-01-13] MEDS ORDERED: HEPARIN SOD (PORCINE) 1000 UNIT/ML IV ONE (11:01)
[2021-01-13] MEDS ORDERED: ACETAMINOPHEN 1,000 MG/100 ML VIAL IV PRN (11:10)
[2021-01-13] MEDS: METOPROLOL SUCC 50MG EXT REL TAB PO SCH (11:29)
[2021-01-13] MEDS: ATORVASTATIN 40 MG TAB PO SCH (11:29)
[2021-01-13] MEDS: BRILINTA 60 MG PO SCH ×2 (11:29→20:45)
[2021-01-13] MEDS: dexAMETHasone 6 MG in SYRINGE 0 ML IV SCH (11:29)
[2021-01-13] MEDS: CHOLECALCIFEROL 1,000 UNITS 25 MCG TAB PO SCH (11:29)
[2021-01-13] MEDS: PANTOprazole 40 MG in SYRINGE 0 ML IV SCH (11:30)
[2021-01-13] MEDS: INSULIN ASPART 100 UNITS/ML 3 ML PEN SC SCH ×3 (11:30→20:32)
[2021-01-13] MEDS: CEROVITE ADV FORMULA TAB PO SCH (11:33)
[2021-01-13] MEDS: PANTOprazole 40 MG TAB PO SCH (11:33)
[2021-01-13] MEDS: ASPIRIN 81 MG ECTAB PO SCH (11:33)
[2021-01-13] MEDS: ENOXAPARIN INJ 40 MG/0.4 ML SYR SQ SCH (11:34)
[2021-01-13] MEDS: HEPARIN SODIUM/DEXTROSE 25,000 UNITS/500 ML BAG IV SCH (14:20)
--- NOTE | 2021-01-13 14:38 | Hospitalist Progress Note ---
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 He is not vaccinated against Covid and was found to have Covid in the ED and required 15 L nonrebreather. Is currently in the critical care unit for the following: #. Sepsis with shock requiring pressors #. COVID Pneumonia #. Acute Hypoxic Respiratory failure #. Leukocytosislikely secondary to steroid on the background of respiratory distress, procalcitonin negative. Patient meets sepsis criteria. 01/13 AM, patient desaturated and was tachypneic on high flow nasal cannula, became lethargic, and was intubated, currently on mechanical ventilation. Patient on Levophed Admitting CXR: Chronic emphysema and scaring without evidence of acute abnormality. Admitting CTA chest: No PE, emphysema with chronic fibrotic changes, findings suggestive of pulmonary edema versus inflammatory pneumonitis, cardiomegaly with left ventricular apex thrombus up to 1.9 cm. Admitting echo: Technically difficult study. Grossly normal LV size with mild to moderate reduced systolic function. EF 40 to 45%. Akinetic apex with small laminated apical thrombus. Status post remdesivir and Tocilizumab [01/07 CRP 13.7> trended down to 1.71 on 01/12], continue with dexamethasone 01/08 Continue with supportive management. Management per ICU care. #. Apical thrombus See imaging above Patient on heparin drip 01/13. #. CAD #. Chronic heart failure with reduced ejection fraction #. Ischemic cardiomyopathy Anterior STEMI 04/2018 with PCI and 2 KHRIS to proximal to mid LAD; staged PCI to circumflex/OM Echo 04/2019 EF 40 to 45% Admitting BNP 1061, lower than the previous BNP. Follow [facility] Currently being managed for sepsis criteria. Hold antihypertensives. #. Prediabetes 12/21/2020 A1c 6.4 Continue with insulin sliding scale #. DVT prophylaxis: Patient on heparin drip Disposition: Continue critical care Full code Patient's Constanza was updated on patient's condition on 01/13 and voiced understanding and agreement with plan of care. Admission and Anticipated Discharge Date Admission Date: January 07, 2021 Subjective Patient seen in ICU room, mechanically ventilated and sedated, ROS could not be obtained due to patient's condition. Physical Exam Physical Exam: GENERAL: Mechanical ventilation, sedation HEENT: No pallor, no icterus. Pupils equal, round and reactive to light. Oral mucosa dry. NECK: No JVD, no neck masses. HEART: S1 and S2 heard. Regular rate and rhythm. No murmur, no gallop. RESPIRATORY SYSTEM: Normal AP diameter. No accessory muscle use. No wheezing, no crackles. Decreased breath sounds bilateral. ABDOMEN: Soft, bowel sounds present, no distention. Neuro: Patient sedated. EXTREMITIES: No edema, no erythema seen. 01/13 left IJ and right radial art line. 01/13 mechanical ventilation and enteric tube placement Results & Data Results & Data ([facility]) Vital Signs (Past 12 Hours) Vital Signs Temp Pulse Resp BP Pulse Ox 01/13/21 14:02 37.8 C H 101 H 87/68 L 94 01/13/21 13:02 38.1 C H 99 H 109/68 94 01/13/21 12:39 101 H 39 H 93 01/13/21 12:02 38.1 C H 98 H 101/72 93 01/13/21 11:00 38.1 C H 104 H 92 01/13/21 10:00 97 H 100/71 93 01/13/21 09:30 94 H 93/65 L 93 01/13/21 09:13 91 H 01/13/21 09:01 94 H 24 100/70 92 01/13/21 08:31 94 H 20 103/67 95 01/13/21 08:01 93 H 22 98/59 L 94 01/13/21 07:31 93 H 26 H 91/64 L 93 01/13/21 07:10 91 H 38 H 92 01/13/21 07:01 91 H 39 H 97/63 L 94 01/13/21 06:46 91 H 35 H 97/68 L 86 L 01/13/21 06:31 93 H 29 H 86/62 L 94 01/13/21 06:15 89 25 H 89/66 L 87 L 01/13/21 06:13 37.6 C H 91 H 01/13/21 06:00 91 H 28 H 91/67 L 92 01/13/21 05:47 34 H 01/13/21 05:45 103 H 42 H 88/63 L 95 01/13/21 05:30 101 H 29 H 90/60 L 94 01/13/21 05:15 117 H 42 H 151/105 H 95 01/13/21 05:10 115 H 36 H 94 01/13/21 05:00 108 H 38 H 102/73 96 01/13/21 04:55 113 H 39 H 130/84 92 01/13/21 04:31 100 H 28 H 109/71 89 L 01/13/21 03:46 97 H 24 98/68 L 96 01/13/21 03:32 105 H 36 H 95 01/13/21 02:18 98 H 34 H 93
--- NOTE | 2021-01-13 14:38 | Communication Note ---
Date of Service: January 13, 2021 Patient oozing at CVL insertion site placed one 3-0 silk suture around the area and resterilized and redressed the triple-lumen. Oozing appears to be stopped at this time Coding Level of Care Code None
[2021-01-13] MEDS ORDERED: HEPARIN IV BOLUS 6,000 UNITS in SYRINGE 0 ML IV SCH (15:00)
[2021-01-13] MEDS: Double Conc 32mcg/mL; 16mg in 500mL IV SCH (18:52)
[2021-01-13] MEDS ORDERED: SODIUM BICARB 8.4% INJ 50 MEQ/50 ML SYR IV STA (20:07)
[2021-01-13 20:14] LABS: iSTAT Arterial Blood Gas HCO3 21 meg/L (19-24); iSTAT Arterial Blood Gas pCO2 53 mmHg (35-46); iSTAT Arterial Blood Gas pO2 80 mmHg (80-95); iSTAT Carbon Dioxide 22 mmol/L (24-31); iSTAT FiO2 90 %; iSTAT Site Art Line
[2021-01-13 20:42] LABS: Hematocrit (blood only) 47.9 % (42-52); Hemoglobin 16.3 g/dL (14.0-18.0); Mean Corpuscular Hemoglobin 33.2 pg (25-34); Mean Corpuscular Volume 97.6 fL (80-100); Mean Platelet Volume 10.2 fL (7.4-10.4); Platelet Count 477 K/uL (130-400); RDW Coefficient of Variation 13.2 % (11.5-14.5); RDW Standard Deviation 47.4 fL (36.4-46.3); Red Blood Count 4.91 M/uL (4.7-6.1)
[2021-01-13 20:52] LABS: INR 1.4 (0.9-1.1); Prothrombin Time 13.5 Seconds (9.0-12.0)
[2021-01-13 21:05] LABS: BUN Creatinine Ratio 23.7 (10-20); Calcium 8.7 mg/dl (8.5-10.1); Creatinine Clr Calc Pharmacy 24.7 ml/min; Est GFR (African American) 23.7 ml/min; Est GFR (Non-African American) 20.4 ml/min; Magnesium 2.9 mg/dl (1.8-2.4); Potassium 4.9 mmol/L (3.5-5.1)
[2021-01-13 21:39] LABS: Phosphorus 11.1 mg/dl (2.5-4.9)
[2021-01-13 21:55] LABS: Partial Thromboplastin Ratio > 5.3
[2021-01-13 21:58] LABS: Partial Thromboplastin Time > 139.0 Seconds (21.0-31.0)
[2021-01-14] MEDS: INSULIN ASPART 100 UNITS/ML 3 ML PEN SC SCH ×6 (00:03→23:12)
[2021-01-14 00:07] LABS: INR 1.4 (0.9-1.1); Prothrombin Time 13.5 Seconds (9.0-12.0)
[2021-01-14 00:38] LABS: Partial Thromboplastin Ratio > 5.3
[2021-01-14 00:45] LABS: Partial Thromboplastin Time > 139.0 Seconds (21.0-31.0)
[2021-01-14] MEDS ORDERED: SODIUM BICARB 8.4% INJ 50 MEQ/50 ML SYR IV ONE ×3 (01:42→10:19)
[2021-01-14 02:08] LABS: iSTAT Art Bld Gas pCO2 Correct 47 mmHg (35-46); iSTAT Art Bld Gas pH Corrected 7.399 (7.35-7.45); iSTAT Arterial Blood Gas HCO3 29 meg/L (19-24); iSTAT Arterial Blood Gas pCO2 46 mmHg (35-46); iSTAT Arterial Blood Gas pH 7.41 (7.35-7.45); iSTAT Arterial Blood Gas pO2 65 mmHg (80-95); iSTAT Arterial Blood Gas pO2 C 67; iSTAT Carbon Dioxide 30 mmol/L (24-31); iSTAT FiO2 90 %; iSTAT Hematocrit 46 % (42-52); iSTAT Hemoglobin 15.6 g/dl (14.0-18.0); iSTAT Site Art Line; iSTAT Sodium 144 mmol/L (135-144)
[2021-01-14 02:41] LABS: Partial Thromboplastin Time 52.9 Seconds (21.0-31.0)
[2021-01-14] MEDS: Double Conc 32mcg/mL; 16mg in 500mL IV SCH ×3 (02:54→16:26)
[2021-01-14] MEDS ORDERED: VANCOMYCIN CONSULT ACTIVE PRN (03:36)
[2021-01-14] MEDS ORDERED: VANCOMYCIN HCL 1,750 MG in SODIUM CHLORIDE 0.9% 500 ML IV ONE (03:45)
[2021-01-14] MEDS ORDERED: CEFEPIME 2,000 MG in SYRINGE 0 ML IV STA (03:48)
[2021-01-14 03:51] LABS: iSTAT Art Bld Gas pCO2 Correct 46 mmHg (35-46); iSTAT Art Bld Gas pH Corrected 7.363 (7.35-7.45); iSTAT Arterial Blood Gas HCO3 26 meg/L (19-24); iSTAT Arterial Blood Gas pCO2 45 mmHg (35-46); iSTAT Arterial Blood Gas pH 7.37 (7.35-7.45); iSTAT Arterial Blood Gas pO2 78 mmHg (80-95); iSTAT Arterial Blood Gas pO2 C 81; iSTAT Carbon Dioxide 27 mmol/L (24-31); iSTAT FiO2 90 %; iSTAT Hematocrit 48 % (42-52); iSTAT Hemoglobin 16.3 g/dl (14.0-18.0); iSTAT Potassium 4.2 mmol/L (3.3-5.0); iSTAT Site Art Line; iSTAT Sodium 141 mmol/L (135-144)
[2021-01-14 04:14] LABS: Hematocrit (blood only) 48.2 % (42-52); Hemoglobin 16.4 g/dL (14.0-18.0); Mean Corpuscular Hemoglobin 33.3 pg (25-34); Mean Corpuscular Volume 97.8 fL (80-100); Mean Platelet Volume 10.4 fL (7.4-10.4); Platelet Count 465 K/uL (130-400); RDW Coefficient of Variation 13.2 % (11.5-14.5); RDW Standard Deviation 47.3 fL (36.4-46.3); Red Blood Count 4.93 M/uL (4.7-6.1); White Blood Count 24.77 K/uL (4.8-10.8)
[2021-01-14] MEDS ORDERED: CEFEPIME CONSULT ACTIVE PRN (04:33)
[2021-01-14 04:34] LABS: Albumin Level 2.6 gm/dl (3.4-5.0); BUN Creatinine Ratio 25.3 (10-20); Bilirubin Direct 0.2 mg/dl (0-0.2); Calcium 8.4 mg/dl (8.5-10.1); Creatinine Clr Calc Pharmacy 24.3 ml/min; Est GFR (African American) 23.2 ml/min; Magnesium 2.7 mg/dl (1.8-2.4); Potassium 4.3 mmol/L (3.5-5.1)
[2021-01-14 04:48] LABS: Basophils # (auto) 0.04 K/uL (0-0.2); Basophils % (auto) 0.2 %; Dohle Bodies 2+; Echinocytes 1+; Eosinophils # (auto) 0.01 K/uL (0-0.5); Immature Granulocytes # (auto) 0.39 K/uL (0.00-0.02); Immature Granulocytes % (auto) 1.6 %; Lymphocytes # (auto) 0.66 K/uL (1.2-3.4); Lymphocytes % (auto) 2.7 %; Monocytes # (auto) 0.03 K/uL (0.11-0.59); Monocytes % (auto) 0.1 %; Neutrophils # (auto) 23.64 K/uL (1.4-6.5); Neutrophils % (auto) 95.4 %; Pappenheimer Bodies 1+; Toxic Granulation 3+
[2021-01-14 04:55] LABS: Bilirubin,Total 0.6 mg/dl (0.2-1); C Reactive Protein 4.5 mg/dl (0-0.29); Total Protein 6.6 gm/dl (6.4-8.2); Troponin I 0.08 ng/ml (0-0.045)
--- NOTE | 2021-01-14 06:52 | Critical Care Progress Note ---
Date of Service January 14, 2021 Assessment & Plan (1) Admitted to intensive care unit: Plan: Reason Critically Ill: 70-year-old male with COVID-19 pneumonia and worsening hypoxic respiratory failure requiring emergent endotracheal intubation for ongoing management of underlying illness. NEURO - Sedation with Versed and fentanyl CARDIAC/VASCULAR - Coronary artery disease: Status post PTCI with KHRIS x4. Continue current medications. Echocardiogram earlier this visits demonstrates EF of 40 to 45% with apical thrombus. Apical thrombus Patient requires heparin drip given location of thrombus and risk for dislo dgment with thromboembolic process. Monitor on telemetry. RESPIRATORY - Hypoxic respiratory failure in the setting of COVID-19 pneumonia: Patient intubated. Patient has already received Tocilizumab, remdesivir, and Decadron. Ventilator settings reviewed: ARDS[employer] guidelines high PEEP low FiO2 GI/NUTRITION - Will place OG tube. No trickle tube feeding secondary to high vasoactive medication requirement RENAL/LYTES - Acute kidney injury Baseline appears to be 1.0 -Nephrology consult appears to have metabolic acidosis - Silva in place - Strict I&Os. ENDO - No history of diabetes or thyroid disease BSGs per unit protocol. ISS --> gtt per unit policy. HEME - Stable H&H DVT prophylaxis: Heparin ID - COVID-19 pneumonia: Recently finished remdesivir. Received Tocilizumab earlier in visit. LINES/IV ACCESS - PIVs x2 ET tube Silva catheter RIGHT radial arterial line Admission and Anticipated Discharge Date Admission Date: January 07, 2021 Subjective No overnight events Physical Exam Physical Exam: General: Sedated. nontoxic. Skin: Warm, dry, Head: Atraumatic Ears, nose, mouth and throat: airway obscured by endotracheal tube Cardiovascular: Normal peripheral perfusion Respiratory: no respiratory distress Gastrointestinal: Non distended Musculoskeletal: No deformity Results & Data Results & Data ([facility]) Vital Signs (Past 12 Hours) Vital Signs Temp Pulse Resp BP Pulse Ox 01/14/21 06:02 37.6 C H 123 H 39 H 92/77 L 93 01/14/21 05:02 37.7 C H 118 H 40 H 93/74 L 96 01/14/21 04:02 37.9 C H 119 H 36 H 106/74 93 01/14/21 03:02 37.6 C H 109 H 36 H 106/78 93 01/14/21 02:02 37.6 C H 112 H 40 H 95/74 L 92 01/14/21 01:02 37.4 C 107 H 40 H 109/76 93 01/14/21 00:02 37.1 C 105 H 34 H 109/82 92 01/14/21 00:00 98 H 40 H 92 01/13/21 23:02 37.0 C 99 H 34 H 108/69 95 01/13/21 22:02 37.0 C 94 H 34 H 107/68 96 01/13/21 21:02 37.0 C 94 H 34 H 112/68 94 01/13/21 20:12 89 36 H 95 01/13/21 20:02 37.2 C 87 34 H 108/73 94 01/13/21 19:55 37.2 C 91 H 34 H 78/54 L 92 01/13/21 19:02 37.3 C 93 H 100/59 L 94 Laboratory Results 01/14/21 01/14/21 01/14/21 Range/Units 09:07 07:51 04:02 WBC (4.8-10.8) K/uL RBC (4.7-6.1) M/uL Hgb (14.0-18.0) g/dL POC Hgb (14.0-18.0) g/dl Hct (42-52) % POC Hct (42-52) % MCV (80-100) fL MCH (25-34) pg MCHC (32-36) g/dL RDW Std Deviation (36.4-46.3) fL RDW Coeff of Tatiana (11.5-14.5) % Plt Count (130-400) K/uL MPV (7.4-10.4) fL Immature Gran % (Auto) % Neut % (Auto) % Lymph % (Auto) % [place] % (Auto) % Eos % (Auto) % Baso % (Auto) % Neut # (Auto) (1.4-6.5) K/uL Lymph # (Auto) (1.2-3.4) K/uL [place] # (Auto) (0.11-0.59) K/uL Eos # (Auto) (0-0.5) K/uL Baso # (Auto) (0-0.2) K/uL Immature Gran # (Auto) (0.00-0.02) K/uL Toxic Granulation Dohle Bodies Pappenheimer Bodies Echinocytes PT (9.0-12.0) Seconds INR (0.9-1.1) APTT 98.9 H* PTT Ratio 3.8 Sample Site POC pH (7.35-7.45) POC pCO2 (35-46) mmHg POC pO2 (80-95) mmHg POC HCO3 (19-24) jackie/L POC Total CO2 (24-31) mmol/L POC Base Excess (-9-1.8) jackie/L ABG pH (Temp Correct) (7.35-7.45) ABG pCO2 (Temp Corrct (35-46) mmHg POC ABG pO2 at Pt Temp POC ABG O2 Sat (90-95) % Keron Test O2 Delivery Device POC O2 Rate Minute Ventilation POC FiO2 % Tidal Volume PEEP POC Sodium (135-144) mmol/L Sodium (136-145) mmol/L POC Potassium (3.3-5.0) mmol/L Potassium (3.5-5.1) mmol/L Chloride (98-107) mmol/L Carbon Dioxide (21-32) mmol/L Anion Gap (3-11) BUN (7-18) mg/dl Creatinine (0.6-1.4) mg/dl Est Cr Clr Drug Dosing ml/min Est GFR ( Amer) ml/min Est GFR (Non-Af Amer) ml/min BUN/Creatinine Ratio (10-20) Glucose (70-99) mg/dl POC Glucose (70-99) mg/dl POC Glucose (other) 213 H (70-99) mg/dl Lactate (0.4-2.0) mmol/L Calcium (8.5-10.1) mg/dl Phosphorus (2.5-4.9) mg/dl Magnesium (1.8-2.4) mg/dl Total Bilirubin (0.2-1) mg/dl Direct Bilirubin (0-0.2) mg/dl AST (15-37) U/L ALT (12-78) U/L Alkaline Phosphatase (45-117) U/L Troponin I (0-0.045) ng/ml C-Reactive Protein (0-0.29) mg/dl NT-Pro-B Natriuret Pep (0-900) pg/ml Total Protein (6.4-8.2) gm/dl Albumin (3.4-5.0) gm/dl Procalcitonin 1.00 H (0-0.5) ng/ml Random Cortisol mcg/dl Nasal Screen MRSA (PCR) (Negative) 01/14/21 01/14/21 01/14/21 Range/Units 04:02 04:02 04:02 WBC 24.77 H (4.8-10.8) K/uL RBC 4.93 (4.7-6.1) M/uL Hgb 16.4 (14.0-18.0) g/dL POC Hgb (14.0-18.0) g/dl Hct 48.2 (42-52) % POC Hct (42-52) % MCV 97.8 (80-100) fL MCH 33.3 (25-34) pg MCHC 34.0 (32-36) g/dL RDW Std Deviation 47.3 H (36.4-46.3) fL RDW Coeff of Tatiana 13.2 (11.5-14.5) % Plt Count 465 H (130-400) K/uL MPV 10.4 (7.4-10.4) fL Immature Gran % (Auto) 1.6 % Neut % (Auto) 95.4 % Lymph % (Auto) 2.7 % [place] % (Auto) 0.1 % Eos % (Auto) 0.0 % Baso % (Auto) 0.2 % Neut # (Auto) 23.64 H (1.4-6.5) K/uL Lymph # (Auto) 0.66 L (1.2-3.4) K/uL [place] # (Auto) 0.03 L (0.11-0.59) K/uL Eos # (Auto) 0.01 (0-0.5) K/uL Baso # (Auto) 0.04 (0-0.2) K/uL Immature Gran # (Auto) 0.39 H (0.00-0.02) K/uL Toxic Granulation 3+ Dohle Bodies 2+ Pappenheimer Bodies 1+ Echinocytes 1+ PT (9.0-12.0) Seconds INR (0.9-1.1) APTT PTT Ratio Sample Site POC pH (7.35-7.45) POC pCO2 (35-46) mmHg POC pO2 (80-95) mmHg POC HCO3 (19-24) jackie/L POC Total CO2 (24-31) mmol/L POC Base Excess (-9-1.8) jackie/L ABG pH (Temp Correct) (7.35-7.45) ABG pCO2 (Temp Corrct (35-46) mmHg POC ABG pO2 at Pt Temp POC ABG O2 Sat (90-95) % Keron Test O2 Delivery Device POC O2 Rate Minute Ventilation POC FiO2 % Tidal Volume PEEP POC Sodium (135-144) mmol/L Sodium 135 L (136-145) mmol/L POC Potassium (3.3-5.0) mmol/L Potassium 4.3 (3.5-5.1) mmol/L Chloride 105 (98-107) mmol/L Carbon Dioxide 22 (21-32) mmol/L Anion Gap 8.0 (3-11) BUN 76 H (7-18) mg/dl Creatinine 3.01 H (0.6-1.4) mg/dl Est Cr Clr Drug Dosing 24.3 ml/min Est GFR ( Amer) 23.2 ml/min Est GFR (Non-Af Amer) 20.0 ml/min BUN/Creatinine Ratio 25.3 H (10-20) Glucose 198 H (70-99) mg/dl POC Glucose (70-99) mg/dl POC Glucose (other) (70-99) mg/dl Lactate 5.6 H* (0.4-2.0) mmol/L Calcium 8.4 L (8.5-10.1) mg/dl Phosphorus 8.3 H D (2.5-4.9) mg/dl Magnesium 2.7 H (1.8-2.4) mg/dl Total Bilirubin 0.6 (0.2-1) mg/dl Direct Bilirubin 0.2 (0-0.2) mg/dl AST 48 H (15-37) U/L ALT 67 (12-78) U/L Alkaline Phosphatase 144 H (45-117) U/L Troponin I 0.080 H* (0-0.045) ng/ml C-Reactive Protein 4.50 H (0-0.29) mg/dl NT-Pro-B Natriuret Pep 84935 H (0-900) pg/ml Total Protein 6.6 (6.4-8.2) gm/dl Albumin 2.6 L (3.4-5.0) gm/dl Procalcitonin (0-0.5) ng/ml Random Cortisol mcg/dl Nasal Screen MRSA (PCR) (Negative) 01/14/21 01/14/21 01/14/21 Range/Units 03:45 03:30 02:11 WBC (4.8-10.8) K/uL RBC (4.7-6.1) M/uL Hgb (14.0-18.0) g/dL POC Hgb 16.3 (14.0-18.0) g/dl Hct (42-52) % POC Hct 48 (42-52) % MCV (80-100) fL MCH (25-34) pg MCHC (32-36) g/dL RDW Std Deviation (36.4-46.3) fL RDW Coeff of Tatiana (11.5-14.5) % Plt Count (130-400) K/uL MPV (7.4-10.4) fL Immature Gran % (Auto) % Neut % (Auto) % Lymph % (Auto) % [place] % (Auto) % Eos % (Auto) % Baso % (Auto) % Neut # (Auto) (1.4-6.5) K/uL Lymph # (Auto) (1.2-3.4) K/uL [place] # (Auto) (0.11-0.59) K/uL Eos # (Auto) (0-0.5) K/uL Baso # (Auto) (0-0.2) K/uL Immature Gran # (Auto) (0.00-0.02) K/uL Toxic Granulation Dohle Bodies Pappenheimer Bodies Echinocytes PT (9.0-12.0) Seconds INR (0.9-1.1) APTT 52.9 H* PTT Ratio 2.0 Sample Site Art Line POC pH 7.37 (7.35-7.45) POC pCO2 45 (35-46) mmHg POC pO2 78 L (80-95) mmHg POC HCO3 26 H (19-24) jackie/L POC Total CO2 27 (24-31) mmol/L POC Base Excess 1.0 (-9-1.8) jackie/L ABG pH (Temp Correct) 7.363 (7.35-7.45) ABG pCO2 (Temp Corrct 46 (35-46) mmHg POC ABG pO2 at Pt Temp 81 POC ABG O2 Sat 95.0 (90-95) % Keron Test NA O2 Delivery Device Ventilator POC O2 Rate 34 Minute Ventilation 16.9 POC FiO2 90 % Tidal Volume 450 PEEP 10 POC Sodium 141 (135-144) mmol/L Sodium (136-145) mmol/L POC Potassium 4.2 (3.3-5.0) mmol/L Potassium (3.5-5.1) mmol/L Chloride (98-107) mmol/L Carbon Dioxide (21-32) mmol/L Anion Gap (3-11) BUN (7-18) mg/dl Creatinine (0.6-1.4) mg/dl Est Cr Clr Drug Dosing ml/min Est GFR ( Amer) ml/min Est GFR (Non-Af Amer) ml/min BUN/Creatinine Ratio (10-20) Glucose (70-99) mg/dl POC Glucose (70-99) mg/dl POC Glucose (other) 183 H (70-99) mg/dl Lactate (0.4-2.0) mmol/L Calcium (8.5-10.1) mg/dl Phosphorus (2.5-4.9) mg/dl Magnesium (1.8-2.4) mg/dl Total Bilirubin (0.2-1) mg/dl Direct Bilirubin (0-0.2) mg/dl AST (15-37) U/L ALT (12-78) U/L Alkaline Phosphatase (45-117) U/L Troponin I (0-0.045) ng/ml C-Reactive Protein (0-0.29) mg/dl NT-Pro-B Natriuret Pep (0-900) pg/ml Total Protein (6.4-8.2) gm/dl Albumin (3.4-5.0) gm/dl Procalcitonin (0-0.5) ng/ml Random Cortisol mcg/dl Nasal Screen MRSA (PCR) (Negative) 01/14/21 01/13/21 01/13/21 Range/Units 01:54 23:54 23:47 WBC (4.8-10.8) K/uL RBC (4.7-6.1) M/uL Hgb (14.0-18.0) g/dL POC Hgb 15.6 (14.0-18.0) g/dl Hct (42-52) % POC Hct 46 (42-52) % MCV (80-100) fL MCH (25-34) pg MCHC (32-36) g/dL RDW Std Deviation (36.4-46.3) fL RDW Coeff of Tatiana (11.5-14.5) % Plt Count (130-400) K/uL MPV (7.4-10.4) fL Immature Gran % (Auto) % Neut % (Auto) % Lymph % (Auto) % [place] % (Auto) % Eos % (Auto) % Baso % (Auto) % Neut # (Auto) (1.4-6.5) K/uL Lymph # (Auto) (1.2-3.4) K/uL [place] # (Auto) (0.11-0.59) K/uL Eos # (Auto) (0-0.5) K/uL Baso # (Auto) (0-0.2) K/uL Immature Gran # (Auto) (0.00-0.02) K/uL Toxic Granulation Dohle Bodies Pappenheimer Bodies Echinocytes PT (9.0-12.0) Seconds INR (0.9-1.1) APTT > 139.0 H* PTT Ratio > 5.3 Sample Site Art Line POC pH 7.41 (7.35-7.45) POC pCO2 46 (35-46) mmHg POC pO2 65 L (80-95) mmHg POC HCO3 29 H (19-24) jackie/L POC Total CO2 30 (24-31) mmol/L POC Base Excess 4.0 H (-9-1.8) jackie/L ABG pH (Temp Correct) 7.399 (7.35-7.45) ABG pCO2 (Temp Corrct 47 H (35-46) mmHg POC ABG pO2 at Pt Temp 67 POC ABG O2 Sat 92.0 (90-95) % Keron Test NA O2 Delivery Device Ventilator POC O2 Rate 34 Minute Ventilation POC FiO2 90 % Tidal Volume 450 PEEP 10 POC Sodium 144 (135-144) mmol/L Sodium (136-145) mmol/L POC Potassium 4.0 (3.3-5.0) mmol/L Potassium (3.5-5.1) mmol/L Chloride (98-107) mmol/L Carbon Dioxide (21-32) mmol/L Anion Gap (3-11) BUN (7-18) mg/dl Creatinine (0.6-1.4) mg/dl Est Cr Clr Drug Dosing ml/min Est GFR ( Amer) ml/min Est GFR (Non-Af Amer) ml/min BUN/Creatinine Ratio (10-20) Glucose (70-99) mg/dl POC Glucose (70-99) mg/dl POC Glucose (other) 183 H (70-99) mg/dl Lactate (0.4-2.0) mmol/L Calcium (8.5-10.1) mg/dl Phosphorus (2.5-4.9) mg/dl Magnesium (1.8-2.4) mg/dl Total Bilirubin (0.2-1) mg/dl Direct Bilirubin (0-0.2) mg/dl AST (15-37) U/L ALT (12-78) U/L Alkaline Phosphatase (45-117) U/L Troponin I (0-0.045) ng/ml C-Reactive Protein (0-0.29) mg/dl NT-Pro-B Natriuret Pep (0-900) pg/ml Total Protein (6.4-8.2) gm/dl Albumin (3.4-5.0) gm/dl Procalcitonin (0-0.5) ng/ml Random Cortisol mcg/dl Nasal Screen MRSA (PCR) (Negative) 01/13/21 01/13/21 01/13/21 Range/Units 23:47 23:47 23:47 WBC (4.8-10.8) K/uL RBC (4.7-6.1) M/uL Hgb (14.0-18.0) g/dL POC Hgb (14.0-18.0) g/dl Hct (42-52) % POC Hct (42-52) % MCV (80-100) fL MCH (25-34) pg MCHC (32-36) g/dL RDW Std Deviation (36.4-46.3) fL RDW Coeff of Tatiana (11.5-14.5) % Plt Count (130-400) K/uL MPV (7.4-10.4) fL Immature Gran % (Auto) % Neut % (Auto) % Lymph % (Auto) % [place] % (Auto) % Eos % (Auto) % Baso % (Auto) % Neut # (Auto) (1.4-6.5) K/uL Lymph # (Auto) (1.2-3.4) K/uL [place] # (Auto) (0.11-0.59) K/uL Eos # (Auto) (0-0.5) K/uL Baso # (Auto) (0-0.2) K/uL Immature Gran # (Auto) (0.00-0.02) K/uL Toxic Granulation Dohle Bodies Pappenheimer Bodies Echinocytes PT 13.5 H (9.0-12.0) Seconds INR 1.4 H (0.9-1.1) APTT PTT Ratio Sample Site POC pH (7.35-7.45) POC pCO2 (35-46) mmHg POC pO2 (80-95) mmHg POC HCO3 (19-24) jackie/L POC Total CO2 (24-31) mmol/L POC Base Excess (-9-1.8) jackie/L ABG pH (Temp Correct) (7.35-7.45) ABG pCO2 (Temp Corrct (35-46) mmHg POC ABG pO2 at Pt Temp POC ABG O2 Sat (90-95) % Keron Test O2 Delivery Device POC O2 Rate Minute Ventilation POC FiO2 % Tidal Volume PEEP POC Sodium (135-144) mmol/L Sodium (136-145) mmol/L POC Potassium (3.3-5.0) mmol/L Potassium (3.5-5.1) mmol/L Chloride (98-107) mmol/L Carbon Dioxide (21-32) mmol/L Anion Gap (3-11) BUN (7-18) mg/dl Creatinine (0.6-1.4) mg/dl Est Cr Clr Drug Dosing ml/min Est GFR ( Amer) ml/min Est GFR (Non-Af Amer) ml/min BUN/Creatinine Ratio (10-20) Glucose (70-99) mg/dl POC Glucose (70-99) mg/dl POC Glucose (other) (70-99) mg/dl Lactate 5.5 H* (0.4-2.0) mmol/L Calcium (8.5-10.1) mg/dl Phosphorus (2.5-4.9) mg/dl Magnesium (1.8-2.4) mg/dl Total Bilirubin (0.2-1) mg/dl Direct Bilirubin (0-0.2) mg/dl AST (15-37) U/L ALT (12-78) U/L Alkaline Phosphatase (45-117) U/L Troponin I (0-0.045) ng/ml C-Reactive Protein (0-0.29) mg/dl NT-Pro-B Natriuret Pep (0-900) pg/ml Total Protein (6.4-8.2) gm/dl Albumin (3.4-5.0) gm/dl Procalcitonin 1.24 H (0-0.5) ng/ml Random Cortisol mcg/dl Nasal Screen MRSA (PCR) (Negative) 01/13/21 01/13/21 01/13/21 Range/Units 21:20 20:30 20:30 WBC (4.8-10.8) K/uL RBC (4.7-6.1) M/uL Hgb (14.0-18.0) g/dL POC Hgb (14.0-18.0) g/dl Hct (42-52) % POC Hct (42-52) % MCV (80-100) fL MCH (25-34) pg MCHC (32-36) g/dL RDW Std Deviation (36.4-46.3) fL RDW Coeff of Tatiana (11.5-14.5) % Plt Count (130-400) K/uL MPV (7.4-10.4) fL Immature Gran % (Auto) % Neut % (Auto) % Lymph % (Auto) % [place] % (Auto) % Eos % (Auto) % Baso % (Auto) % Neut # (Auto) (1.4-6.5) K/uL Lymph # (Auto) (1.2-3.4) K/uL [place] # (Auto) (0.11-0.59) K/uL Eos # (Auto) (0-0.5) K/uL Baso # (Auto) (0-0.2) K/uL Immature Gran # (Auto) (0.00-0.02) K/uL Toxic Granulation Dohle Bodies Pappenheimer Bodies Echinocytes PT (9.0-12.0) Seconds INR (0.9-1.1) APTT > 139.0 H* PTT Ratio > 5.3 Sample Site POC pH (7.35-7.45) POC pCO2 (35-46) mmHg POC pO2 (80-95) mmHg POC HCO3 (19-24) jackie/L POC Total CO2 (24-31) mmol/L POC Base Excess (-9-1.8) jackie/L ABG pH (Temp Correct) (7.35-7.45) ABG pCO2 (Temp Corrct (35-46) mmHg POC ABG pO2 at Pt Temp POC ABG O2 Sat (90-95) % Keron Test O2 Delivery Device POC O2 Rate Minute Ventilation POC FiO2 % Tidal Volume PEEP POC Sodium (135-144) mmol/L Sodium (136-145) mmol/L POC Potassium (3.3-5.0) mmol/L Potassium (3.5-5.1) mmol/L Chloride (98-107) mmol/L Carbon Dioxide (21-32) mmol/L Anion Gap (3-11) BUN (7-18) mg/dl Creatinine (0.6-1.4) mg/dl Est Cr Clr Drug Dosing ml/min Est GFR ( Amer) ml/min Est GFR (Non-Af Amer) ml/min BUN/Creatinine Ratio (10-20) Glucose (70-99) mg/dl POC Glucose (70-99) mg/dl POC Glucose (other) (70-99) mg/dl Lactate 5.4 H* (0.4-2.0) mmol/L Calcium (8.5-10.1) mg/dl Phosphorus (2.5-4.9) mg/dl Magnesium (1.8-2.4) mg/dl Total Bilirubin (0.2-1) mg/dl Direct Bilirubin (0-0.2) mg/dl AST (15-37) U/L ALT (12-78) U/L Alkaline Phosphatase (45-117) U/L Troponin I (0-0.045) ng/ml C-Reactive Protein (0-0.29) mg/dl NT-Pro-B Natriuret Pep (0-900) pg/ml Total Protein (6.4-8.2) gm/dl Albumin (3.4-5.0) gm/dl Procalcitonin (0-0.5) ng/ml Random Cortisol 37.15 mcg/dl Nasal Screen MRSA (PCR) (Negative) 01/13/21 01/13/21 01/13/21 Range/Units 20:30 20:30 20:30 WBC 28.10 H (4.8-10.8) K/uL RBC 4.91 (4.7-6.1) M/uL Hgb 16.3 (14.0-18.0) g/dL POC Hgb (14.0-18.0) g/dl Hct 47.9 (42-52) % POC Hct (42-52) % MCV 97.6 (80-100) fL MCH 33.2 (25-34) pg MCHC 34.0 (32-36) g/dL RDW Std Deviation 47.4 H (36.4-46.3) fL RDW Coeff of Tatiana 13.2 (11.5-14.5) % Plt Count 477 H (130-400) K/uL MPV 10.2 (7.4-10.4) fL Immature Gran % (Auto) % Neut % (Auto) % Lymph % (Auto) % [place] % (Auto) % Eos % (Auto) % Baso % (Auto) % Neut # (Auto) (1.4-6.5) K/uL Lymph # (Auto) (1.2-3.4) K/uL [place] # (Auto) (0.11-0.59) K/uL Eos # (Auto) (0-0.5) K/uL Baso # (Auto) (0-0.2) K/uL Immature Gran # (Auto) (0.00-0.02) K/uL Toxic Granulation Dohle Bodies Pappenheimer Bodies Echinocytes PT 13.5 H (9.0-12.0) Seconds INR 1.4 H (0.9-1.1) APTT PTT Ratio Sample Site POC pH (7.35-7.45) POC pCO2 (35-46) mmHg POC pO2 (80-95) mmHg POC HCO3 (19-24) jackie/L POC Total CO2 (24-31) mmol/L POC Base Excess (-9-1.8) jackie/L ABG pH (Temp Correct) (7.35-7.45) ABG pCO2 (Temp Corrct (35-46) mmHg POC ABG pO2 at Pt Temp POC ABG O2 Sat (90-95) % Keron Test O2 Delivery Device POC O2 Rate Minute Ventilation POC FiO2 % Tidal Volume PEEP POC Sodium (135-144) mmol/L Sodium 137 (136-145) mmol/L POC Potassium (3.3-5.0) mmol/L Potassium 4.9 (3.5-5.1) mmol/L Chloride 104 (98-107) mmol/L Carbon Dioxide 20 L (21-32) mmol/L Anion Gap 13.0 H (3-11) BUN 70 H D (7-18) mg/dl Creatinine 2.96 H D (0.6-1.4) mg/dl Est Cr Clr Drug Dosing 24.7 ml/min Est GFR ( Amer) 23.7 ml/min Est GFR (Non-Af Amer) 20.4 ml/min BUN/Creatinine Ratio 23.7 H (10-20) Glucose 225 H (70-99) mg/dl POC Glucose (70-99) mg/dl POC Glucose (other) (70-99) mg/dl Lactate (0.4-2.0) mmol/L Calcium 8.7 (8.5-10.1) mg/dl Phosphorus 11.1 H (2.5-4.9) mg/dl Magnesium 2.9 H (1.8-2.4) mg/dl Total Bilirubin (0.2-1) mg/dl Direct Bilirubin (0-0.2) mg/dl AST (15-37) U/L ALT (12-78) U/L Alkaline Phosphatase (45-117) U/L Troponin I (0-0.045) ng/ml C-Reactive Protein (0-0.29) mg/dl NT-Pro-B Natriuret Pep (0-900) pg/ml Total Protein (6.4-8.2) gm/dl Albumin (3.4-5.0) gm/dl Procalcitonin (0-0.5) ng/ml Random Cortisol mcg/dl Nasal Screen MRSA (PCR) (Negative) 01/13/21 01/13/21 01/13/21 Range/Units 20:30 20:01 18:57 WBC (4.8-10.8) K/uL RBC (4.7-6.1) M/uL Hgb (14.0-18.0) g/dL POC Hgb (14.0-18.0) g/dl Hct (42-52) % POC Hct (42-52) % MCV (80-100) fL MCH (25-34) pg MCHC (32-36) g/dL RDW Std Deviation (36.4-46.3) fL RDW Coeff of Tatiana (11.5-14.5) % Plt Count (130-400) K/uL MPV (7.4-10.4) fL Immature Gran % (Auto) % Neut % (Auto) % Lymph % (Auto) % [place] % (Auto) % Eos % (Auto) % Baso % (Auto) % Neut # (Auto) (1.4-6.5) K/uL Lymph # (Auto) (1.2-3.4) K/uL [place] # (Auto) (0.11-0.59) K/uL Eos # (Auto) (0-0.5) K/uL Baso # (Auto) (0-0.2) K/uL Immature Gran # (Auto) (0.00-0.02) K/uL Toxic Granulation Dohle Bodies Pappenheimer Bodies Echinocytes PT (9.0-12.0) Seconds INR (0.9-1.1) APTT Cancelled PTT Ratio Cancelled Sample Site Art Line POC pH 7.20 L (7.35-7.45) POC pCO2 53 H (35-46) mmHg POC pO2 80 (80-95) mmHg POC HCO3 21 (19-24) jackie/L POC Total CO2 22 L (24-31) mmol/L POC Base Excess -8.0 (-9-1.8) jackie/L ABG pH (Temp Correct) (7.35-7.45) ABG pCO2 (Temp Corrct (35-46) mmHg POC ABG pO2 at Pt Temp POC ABG O2 Sat 92.0 (90-95) % Keron Test NA O2 Delivery Device Ventilator POC O2 Rate 34 Minute Ventilation POC FiO2 90 % Tidal Volume 450 PEEP 10 POC Sodium (135-144) mmol/L Sodium (136-145) mmol/L POC Potassium (3.3-5.0) mmol/L Potassium (3.5-5.1) mmol/L Chloride (98-107) mmol/L Carbon Dioxide (21-32) mmol/L Anion Gap (3-11) BUN (7-18) mg/dl Creatinine (0.6-1.4) mg/dl Est Cr Clr Drug Dosing ml/min Est GFR ( Amer) ml/min Est GFR (Non-Af Amer) ml/min BUN/Creatinine Ratio (10-20) Glucose (70-99) mg/dl POC Glucose 225 H (70-99) mg/dl POC Glucose (other) (70-99) mg/dl Lactate (0.4-2.0) mmol/L Calcium (8.5-10.1) mg/dl Phosphorus (2.5-4.9) mg/dl Magnesium (1.8-2.4) mg/dl Total Bilirubin (0.2-1) mg/dl Direct Bilirubin (0-0.2) mg/dl AST (15-37) U/L ALT (12-78) U/L Alkaline Phosphatase (45-117) U/L Troponin I (0-0.045) ng/ml C-Reactive Protein (0-0.29) mg/dl NT-Pro-B Natriuret Pep (0-900) pg/ml Total Protein (6.4-8.2) gm/dl Albumin (3.4-5.0) gm/dl Procalcitonin (0-0.5) ng/ml Random Cortisol mcg/dl Nasal Screen MRSA (PCR) (Negative) 01/13/21 01/13/21 01/13/21 Range/Units 17:02 14:40 11:19 WBC (4.8-10.8) K/uL RBC (4.7-6.1) M/uL Hgb (14.0-18.0) g/dL POC Hgb (14.0-18.0) g/dl Hct (42-52) % POC Hct (42-52) % MCV (80-100) fL MCH (25-34) pg MCHC (32-36) g/dL RDW Std Deviation (36.4-46.3) fL RDW Coeff of Tatiana (11.5-14.5) % Plt Count (130-400) K/uL MPV (7.4-10.4) fL Immature Gran % (Auto) % Neut % (Auto) % Lymph % (Auto) % [place] % (Auto) % Eos % (Auto) % Baso % (Auto) % Neut # (Auto) (1.4-6.5) K/uL Lymph # (Auto) (1.2-3.4) K/uL [place] # (Auto) (0.11-0.59) K/uL Eos # (Auto) (0-0.5) K/uL Baso # (Auto) (0-0.2) K/uL Immature Gran # (Auto) (0.00-0.02) K/uL Toxic Granulation Dohle Bodies Pappenheimer Bodies Echinocytes PT (9.0-12.0) Seconds INR (0.9-1.1) APTT PTT Ratio Sample Site POC pH (7.35-7.45) POC pCO2 (35-46) mmHg POC pO2 (80-95) mmHg POC HCO3 (19-24) jackie/L POC Total CO2 (24-31) mmol/L POC Base Excess (-9-1.8) jackie/L ABG pH (Temp Correct) (7.35-7.45) ABG pCO2 (Temp Corrct (35-46) mmHg POC ABG pO2 at Pt Temp POC ABG O2 Sat (90-95) % Keron Test O2 Delivery Device POC O2 Rate Minute Ventilation POC FiO2 % Tidal Volume PEEP POC Sodium (135-144) mmol/L Sodium (136-145) mmol/L POC Potassium (3.3-5.0) mmol/L Potassium (3.5-5.1) mmol/L Chloride (98-107) mmol/L Carbon Dioxide (21-32) mmol/L Anion Gap (3-11) BUN (7-18) mg/dl Creatinine (0.6-1.4) mg/dl Est Cr Clr Drug Dosing ml/min Est GFR ( Amer) ml/min Est GFR (Non-Af Amer) ml/min BUN/Creatinine Ratio (10-20) Glucose (70-99) mg/dl POC Glucose 243 H 186 H (70-99) mg/dl POC Glucose (other) (70-99) mg/dl Lactate (0.4-2.0) mmol/L Calcium (8.5-10.1) mg/dl Phosphorus (2.5-4.9) mg/dl Magnesium (1.8-2.4) mg/dl Total Bilirubin (0.2-1) mg/dl Direct Bilirubin (0-0.2) mg/dl AST (15-37) U/L ALT (12-78) U/L Alkaline Phosphatase (45-117) U/L Troponin I (0-0.045) ng/ml C-Reactive Protein (0-0.29) mg/dl NT-Pro-B Natriuret Pep (0-900) pg/ml Total Protein (6.4-8.2) gm/dl Albumin (3.4-5.0) gm/dl Procalcitonin (0-0.5) ng/ml Random Cortisol mcg/dl Nasal Screen MRSA (PCR) Negative (Negative) Critical Care Time I have personally spent 65 minutes of critical care time in the direct management of this patient. This is a life/limb threatening event. This includes time spent evaluating patient, direct bedside care, chart review, placing orders, interpretation of diagnostic studies, discussion with consultants, patient, and/or family members regarding treatment decisions, as well as other required patient management activities. This time is exclusive of all separately billable procedures, and teaching time and separate from and in addition to any other critical care service time.
[2021-01-14 07:46] LABS: Phosphorus 8.3 mg/dl (2.5-4.9)
--- NOTE | 2021-01-14 07:54 | XRay Report ---
SINGLE VIEW CHEST CLINICAL HISTORY: Respiratory failure. FINDINGS: An AP, portable, upright chest radiograph is compared to study dated 01/13/2021. Correlation is made with chest CT dated 01/07/2022. The examination is degraded by portable technique and patient rotation. An endotracheal tube, an enteric tube, and a left internal jugular central venous catheter are unchanged in position. The cardiomediastinal silhouette is unremarkable noting atherosclerotic c alcification of the thoracic aorta. Advanced emphysema is again noted. There is airspace consolidatio n in the right mid to lower lung. Scarring/atelectasis is seen at both lung bases. No pneumothorax is seen. The skeletal structures are osteopenic. The bony thorax is grossly intact. IMPRESSION: 1. Stable lines and tubes. 2. There is increasing airspace consolidation in the right mid to lower lung. Correlate clinically fo r evidence of pneumonia/aspiration pneumonitis. Radiographic follow-up to resolution is recommended. 3. Emphysema. ACT 112: Negative or not required by law. Electronically signed by: Douglas Saavedra M.D. 01/14/2021 7:52 AM
[2021-01-14] MEDS: CHOLECALCIFEROL 1,000 UNITS 25 MCG TAB PO SCH (07:57)
[2021-01-14] MEDS: METOPROLOL SUCC 50MG EXT REL TAB PO SCH (07:57)
[2021-01-14] MEDS: dexAMETHasone 6 MG in SYRINGE 0 ML IV SCH (07:57)
[2021-01-14] MEDS: OMEGA-3 (PURIFIED FISH OIL) 1 GM CAP PO SCH (07:57)
[2021-01-14] MEDS: lisinopril 10 MG TAB PO SCH (07:57)
[2021-01-14] MEDS: ATORVASTATIN 40 MG TAB PO SCH (07:57)
[2021-01-14] MEDS: MULTI VIT W/MINERALS LIQUID 15 ML UDP PO SCH (07:57)
[2021-01-14] MEDS: ASPIRIN 81 MG CHEW PO SCH (07:58)
[2021-01-14] MEDS: guaiFENesin 600 MG TABCR PO SCH (08:02)
[2021-01-14] MEDS: BRILINTA 60 MG PO SCH (08:03)
[2021-01-14] MEDS: MIDAZOLAM HCL 125 MG/250 ML BAG IV PRN (09:08)
[2021-01-14 09:40] LABS: Partial Thromboplastin Ratio 3.8
[2021-01-14 09:49] LABS: Partial Thromboplastin Time 98.9 Seconds (21.0-31.0)
--- NOTE | 2021-01-14 10:04 | Billing Data ---
Date of Service January 14, 2021 Coding Level of Care Code Critical Care 05 23- mins
[2021-01-14] MEDS ORDERED: NOREPINEPHRINE BIT INJ 4 MG in DEXTROSE 5% 250 ML IV ONE (10:15)
[2021-01-14] MEDS ORDERED: STAT IV Infusion **Titration per Protocol STA ×2 (10:21→14:47)
[2021-01-14] MEDS ORDERED: INSULIN PROTOCOL GOAL RANGE ONE (10:21)
[2021-01-14] MEDS ORDERED: NovoLIN-R BOLUS FROM BAG IV ONE (10:30)
[2021-01-14] MEDS: INSULIN REGULAR 250 UNITS in SODIUM CHLORIDE 0.9% 247.5 ML IV SCH (11:29)
[2021-01-14] MEDS: PANTOprazole 40 MG in SYRINGE 0 ML IV SCH (11:32)
--- NOTE | 2021-01-14 12:11 | Nephrology Consultation ---
Date of Consultation January 14, 2021 Assessment & Plan (1) Acute kidney injury: * Oliguric CHARMAINE. Clinical picture is c/w sepsis related to COVID infection resulting in ATN. Patient is net 1L volume negative since admission. CXR this morning does not show significant vascular congestion. Suspect that HD will become necessary within the next 24 - 48 hours. Plan of care discussed w/ ICU attending. He will contact patient's family and discuss prognosis and plan of care. Consultation w/ Palliative Care is also being considered. Will await decision from ICU team/family conference (2) COVID-19: * Received Dexamethasone, Remdesivir and Tocilizumab (3) Admitted to intensive care unit: * Mechanically ventilated, requires Levophed gtt for BP support - prognosis is guarded (4) Left ventricular apical thrombus: * On heparin gtt (5) Ischemic cardiomyopathy: History of Present Illness Reason for Consultation: CHARMAINE Attending Physician: Nicanor Quintanilla MD History of Present Illness Mr. Mejia is a 70 year old white male who is seen at the request of Dr. Segura for evaluation of CHARMAINE and consideration toward HD. Medical records in the EMR were reviewed today and are summarized as follows: Mr. Mejia has a documented history of ASCVD s/p PCI x4, ischemic CMP w/ LVEF 40 - 45% and HTN. He declined vaccination for COVID-19. He presented to [facility] EMD 01/07 with a 9 day history of cough and progressive dyspnea. Creatinine was 1.0. Mr. Mejia was found to be markedly hypoxemic and required O2 at 15 L/min FM. COVID-19 testing was +. Treatment was provided w/ Dexamethasone, Remdesivir and Tocilizumab. CTA of the chest revealed ground glass opacities suggestive of inflammatory pneumonitis, no PE. Incidental finding of an LV thrombus was made. IV heparin was started. Despite these measures and prone positioning, Mr. Mejia's medical condition deteriorated. On 01/13 he required transfer to the ICU, initiation of mechanical ventilation and pressor support. He has become oliguric and creatinine has risen to 3.0. Allergies Allergy/AdvReac Type Severity Reaction Status Date / Time No Known Drug Allergies Allergy nkda Verified 01/07/21 12:57 Home Medications Medication Instructions Recorded Confirmed Type nitroglycerin 0.3 mg sublingual 0.3 mg SUBLINGUAL UD #10 tab 05/15/18 01/07/21 Rx tablet (Nitrostat) Lactobacillus acidophilus 1 1,000 mmu cells PO DAILY PRN tab 12/06/18 01/07/21 History billion cell tablet albuterol sulfate 90 mcg/actuation 2 puffs INHALATION ONCE PRN gm 12/06/18 01/07/21 History aerosol inhaler cholecalciferol (vitamin D3) 25 1,000 units PO DAILY cap 12/06/18 01/07/21 Hi story mcg (1,000 unit) capsule clindamycin phosphate 1 % topical 1 appln TOPICAL BID PRN #1 ml 12/06/18 01/07/21 History solution desonide 0.05 % lotion 1 appln TOPICAL BID PRN #1 ml 12/06/18 01/07/21 History fluocinonide 0.05 % topical 1 appln TOPICAL BID PRN #3 gm 12/06/18 01/07/21 History ointment fluticasone propionate 50 2 sprays INTRANASAL BID PRN #3 gm 12/06/18 01/07/21 History mcg/actuation nasal spray,suspension hydrocortisone acetate 25 mg 25 mg KS DAILY PRN ea 12/06/18 01/07/21 History rectal suppository meclizine 25 mg tablet 25 mg PO TID PRN tab 12/06/18 01/07/21 History mometasone 0.1 % topical ointment 1 appln TOPICAL BID PRN #1 gm 12/06/18 01/07/21 History hraepofj-jdi-SJ-lycopen-lutein See Rx Instructions PO DAILY 05/16/19 01/07/21 History [Centrum Silver Men] aspirin 81 mg tablet,delayed 81 mg PO DAILY 11/14/19 01/07/21 History release atorvastatin 80 mg tablet 80 mg PO DAILY #90 tab 02/10/20 01/07/21 Rx lisinopril 10 mg tablet 10 mg PO DAILY #90 tab 03/17/20 01/07/21 Rx metoprolol succinate 100 mg 100 mg PO DAILY #90 tab 10/05/20 01/07/21 Rx tablet,extended release 24 hr (Toprol XL) ticagrelor 60 mg tablet 60 mg PO BID #180 tab 11/17/20 01/07/21 Rx omega-3 fatty acids 1,000 mg 1,000 mg PO DAILY 12/15/20 01/07/21 History capsule (Fish Oil Concentrate) acetaminophen 500 mg tablet 1,000 mg PO Q6H PRN 01/07/21 01/07/21 History (Tylenol Extra Strength) furosemide 20 mg tablet 20 mg PO DAILY 01/07/21 01/07/21 History Patient History Medical History (Updated 01/14/21 @ 11:59 by Duc Munoz MD) Anxiety Borderline diabetes CAD (coronary artery disease) --Anterior STEMI 04/2018 post primary PCI with 2 KHRIS to proximal to mid LAD --post staged PCI to circumflex/OM and RCA 04/2018 2. Ischemic cardiomyopathy--EF 40-45% 04/2019 Chronic HFrEF (heart failure with reduced ejection fraction) HLD (hyperlipidemia) Ischemic cardiomyopathy Multi-vessel coronary artery stenosis Pre-diabetes Surgical History (Updated 01/07/21 @ 15:16 by Jelena Little PA-C) History of coronary artery stent placement History of hernia repair Family History (Updated 01/07/21 @ 14:10 by Jelena Little PA-C) Father Coronary heart disease Myocardial infarction Mother Diabetes Social History Smoking Status: Former smoker Years Smoked: 40; Smoking End Date: 1991; Second Hand Exposure: No; Do You Dip or Chew Tobacco: No; Tobacco Cessation Education Requested by Patient: No Hx Alcohol Use: No Hx Substance Use: No Preferred Language: Luxembourgish Communication Ability: Effective Visual Impairment: No Limitations Refrigeration Installer Required: No Beliefs That Will Affect Care: None marital status: Current Living Situation: Spouse current occupation: [email or web address] Other Information That Helps Us Care for You: No Feels Safe at Home: Yes Safety Concerns: Feels Safe At This Time Assistive Devices: Oxygen - Continuous Review of Systems Review of Systems: Unobtainable due to endotracheal tube Physical Exam Constitutional: Sedated. Receiving mechanical ventilation. SaO2 94% on 90% FiO2 Eyes: PERRL, conjunctivae normal, anicteric sclerae ENMT: orotracheally intubated Respiratory: coarse BS bilaterally Cardiovascular: RRR, no murmur, no edema Gastrointestinal (Abdomen): Inspection/Auscultation: + hypoactive bowel sounds Genitourinary: Silva catheter in place with small volume of clear, yellow urine Results & Data ([facility]) Vital Signs (Past 12 Hours) Vital Signs Temp Pulse Resp BP Pulse Ox 01/14/21 11:16 97 H 35 H 94 01/14/21 08:19 125 H 38 H 93 01/14/21 06:02 37.6 C H 123 H 39 H 92/77 L 93 01/14/21 05:02 37.7 C H 118 H 40 H 93/74 L 96 01/14/21 04:02 37.9 C H 119 H 36 H 106/74 93 01/14/21 03:02 37.6 C H 109 H 36 H 106/78 93 01/14/21 02:02 37.6 C H 112 H 40 H 95/74 L 92 01/14/21 01:02 37.4 C 107 H 40 H 109/76 93 01/14/21 00:02 37.1 C 105 H 34 H 109/82 92 01/14/21 00:00 98 H 40 H 92 Laboratory Results Laboratory Tests 01/14/21 01/14/21 01/14/21 04:02 04:02 04:02 WBC 24.77 H Hgb 16.4 Hct 48.2 Plt Count 465 H Sodium 135 L Potassium 4.3 Chloride 105 Carbon Dioxide 22 BUN 76 H Creatinine 3.01 H Glucose 198 H Lactate 5.6 H* Calcium 8.4 L Phosphorus 8.3 H D Magnesium 2.7 H Troponin I 0.080 H* NT-Pro-B Natriuret Pep 76763 H Albumin 2.6 L PG Care Time/CCT Total # of Minutes Spent Total Time Spent with Patient: Total time spent is greater than 50% in coordination of care (as documented) at patient's floor/unit and/or counseling patient: Coding Level of Care Code 25273 Inpt Consult Level 5 Diagnoses Acute kidney injury N17.9 COVID-19 U07.1 Admitted to intensive care unit Z78.9 Ischemic cardiomyopathy I25.5 Left ventricular apical thrombus I51.3
[2021-01-14 13:05] LABS: Appearance Urine Turbid (Clear); Bilirubin Urine Negative (Negative); Blood Urine 3+ (Negative); Color Urine Dark Yellow; Epithelial Cell Urine Auto >30 /lpf (0-5); Glucose Urine UA Negative (Negative); Ketones Urine Trace (Negative); Leukocyte Esterase Urine Negative (Negative); Nitrite Urine Negative (Negative); Protein Urine Trace (Negative); Urobilinogen Urine Negative (Negative)
[2021-01-14 13:20] LABS: Mucus Urine Present (None Prsent); RBC Urine Automated >30 /hpf (0-4)
[2021-01-14 13:21] LABS: Amorphous Sediment Urine Present (None Prsent); Bacteria Urine Automated 1+ (Negative)
[2021-01-14 13:22] LABS: Calcium Oxalate Crystals Urine Present (None Prsent)
[2021-01-14] MEDS ORDERED: SODIUM BICARBONATE 8.4% 150 MEQ in WATER, STERILE 1,000 ML IV SCH (15:00)
[2021-01-14] MEDS: VASOPRESSIN 20 UNITS in 0.9 % SODIUM CHLORIDE 100 ML IV SCH ×2 (15:15→23:33)
[2021-01-14] MEDS: HEPARIN SODIUM/DEXTROSE 25,000 UNITS/500 ML BAG IV SCH (17:22)
--- NOTE | 2021-01-14 17:52 | Hospitalist Progress Note ---
Date of Service January 14, 2021 Assessment & Plan (1) Left ventricular apical thrombus: (2) Sepsis: (3) Acute respiratory failure with hypoxia: Plan: 70-year-old male with PMH of CAD, chronic HFrEF, nonischemic CM, HTN, HLD, prediabetes presented to the ED 01/07 secondary to URI for 9 days [facility] and hypoxic in the clinic on the day of arrival. He is not vaccinated against Covid and was found to have Covid in the ED and required 15 L nonrebreather. Is currently in the critical care unit for the following: #. Sepsis with shock requiring pressors #. COVID Pneumonia #. Acute Hypoxic Respiratory failure #. Leukocytosis, pro-Red uptrending 01/13 Patient meets sepsis criteria. 01/13 AM, patient desaturated and was tachypneic on high flow nasal cannula, became lethargic, and was intubated, currently on mechanical ventilation. Patient on Levophed Admitting CXR: Chronic emphysema and scaring without evidence of acute abnormality. Admitting CTA chest: No PE, emphysema with chronic fibrotic changes, findings suggestive of pulmonary edema versus inflammatory pneumonitis, cardiomegaly with left ventricular apex thrombus up to 1.9 cm. Admitting echo: Technically difficult study. Grossly normal LV size with mild to moderate reduced systolic function. EF 40 to 45%. Akinetic apex with small laminated apical thrombus. Status post remdesivir and Tocilizumab [01/07 CRP 13.7> trended down to 1.71 on 01/12], continue with dexamethasone 01/08 Continue with supportive management. On IV antibiotics Cefepime 01/14. Management per ICU care. #. CHARMAINE Baseline creatinine around one, creatinine uptrending. Nephrology consulted plan for hemodialysis. #. Apical thrombus See imaging above Patient on heparin drip 01/13. #. CAD #. Chronic heart failure with reduced ejection fraction #. Ischemic cardiomyopathy Anterior STEMI 04/2018 with PCI and 2 KHRIS to proximal to mid LAD; staged PCI to circumflex/OM Echo 04/2019 EF 40 to 45% Admitting BNP 1061, lower than the previous BNP. Follows [facility] cardiology Currently being managed for sepsis criteria. Hold antihypertensives. #. Prediabetes 12/21/2020 A1c 6.4 Continue with insulin sliding scale #. DVT prophylaxis: Patient on heparin drip Disposition: Continue critical care Full code Patient's Constanza was updated on patient's condition on 01/13 and voiced understanding and agreement with plan of care. Admission and Anticipated Discharge Date Admission Date: January 07, 2021 Subjective Patient lying in bed, mechanically intubated and sedated. ROS not accessible. Physical Exam Physical Exam: GENERAL: Mechanical ventilation, sedation HEENT: No pallor, no icterus. Pupils equal, round and reactive to light. Oral mucosa dry. NECK: No JVD, no neck masses. HEART: S1 and S2 heard. Regular rate and rhythm. No murmur, no gallop. RESPIRATORY SYSTEM: Normal AP diameter. No accessory muscle use. No wheezing, no crackles. Decreased breath sounds bilateral. ABDOMEN: Soft, bowel sounds present, no distention. Neuro: Patient sedated. EXTREMITIES: No edema, no erythema seen. 01/13 left IJ and right radial art line. 01/13 mechanical ventilation and enteric tube placement Results & Data Results & Data ([facility]) Vital Signs (Past 12 Hours) Vital Signs Temp Pulse Resp BP Pulse Ox 01/14/21 16:02 37.3 C 90 132/83 96 01/14/21 16:00 83 01/14/21 15:20 75 36 H 95 01/14/21 15:02 37.4 C 106 H 110/69 95 01/14/21 14:02 37.5 C 102 H 97/63 L 96 01/14/21 13:02 37.6 C H 103 H 91/67 L 95 01/14/21 12:02 37.5 C 105 H 106/76 95 01/14/21 11:16 97 H 35 H 94 01/14/21 11:02 37.6 C H 99 H 131/94 97 01/14/21 10:03 37.4 C 102 H 73/52 L 94 01/14/21 09:02 37.6 C H 121 H 101/70 92 01/14/21 08:19 125 H 38 H 93 01/14/21 08:02 37.5 C 125 H 99/74 L 93 01/14/21 07:02 37.6 C H 124 H 103/89 92 01/14/21 06:02 37.6 C H 123 H 39 H 92/77 L 93
[2021-01-14 20:07] LABS: BUN Creatinine Ratio 25.6 (10-20); Creatinine Clr Calc Pharmacy 21.8 ml/min; Est GFR (African American) 20.3 ml/min; Est GFR (Non-African American) 17.5 ml/min; Potassium 4.1 mmol/L (3.5-5.1)
[2021-01-14] MEDS: TICAGRELOR 90 MG TAB PO SCH (23:11)
[2021-01-15] MEDS ORDERED: CEFEPIME 1,000 MG in SYRINGE 0 ML IV SCH
[2021-01-15] MEDS: Double Conc 32mcg/mL; 16mg in 500mL IV SCH ×3 (00:14→19:53)
[2021-01-15] MEDS: fentaNYL DRIP 1,250 MCG/250 ML BAG IV SCH (00:47)
[2021-01-15 01:24] LABS: Partial Thromboplastin Time 78.3 Seconds (21.0-31.0)
[2021-01-15] MEDS ORDERED: CEFEPIME 2,000 MG in SYRINGE 0 ML IV SCH ×2 (04:00→09:00)
[2021-01-15 04:31] LABS: iSTAT Art Bld Gas pCO2 Correct 49 mmHg (35-46); iSTAT Art Bld Gas pH Corrected 7.395 (7.35-7.45); iSTAT Arterial Blood Gas HCO3 30 meg/L (19-24); iSTAT Arterial Blood Gas pCO2 48 mmHg (35-46); iSTAT Arterial Blood Gas pO2 71 mmHg (80-95); iSTAT Arterial Blood Gas pO2 C 73; iSTAT Carbon Dioxide 31 mmol/L (24-31); iSTAT FiO2 70 %; iSTAT Hematocrit 42 % (42-52); iSTAT Hemoglobin 14.3 g/dl (14.0-18.0); iSTAT Potassium 3.7 mmol/L (3.3-5.0); iSTAT Site Art Line; iSTAT Sodium 137 mmol/L (135-144)
[2021-01-15 05:12] LABS: Hematocrit (blood only) 41.1 % (42-52); Hemoglobin 14.9 g/dL (14.0-18.0); Mean Corpuscular Hemoglobin 33.9 pg (25-34); Mean Corpuscular Hgb Conc 36.3 g/dL (32-36); Mean Corpuscular Volume 93.6 fL (80-100); Mean Platelet Volume 10.9 fL (7.4-10.4); Platelet Count 318 K/uL (130-400); RDW Standard Deviation 44.5 fL (36.4-46.3); Red Blood Count 4.39 M/uL (4.7-6.1); White Blood Count 21.34 K/uL (4.8-10.8)
[2021-01-15 05:43] LABS: BUN Creatinine Ratio 35.5 (10-20); Creatinine Clr Calc Pharmacy 33.3 ml/min; Est GFR (African American) 33.9 ml/min; Est GFR (Non-African American) 29.3 ml/min; Magnesium 2.9 mg/dl (1.8-2.4); Potassium 3.9 mmol/L (3.5-5.1)
[2021-01-15 05:54] LABS: Basophils # (auto) 0.04 K/uL (0-0.2); Basophils % (auto) 0.2 %; Eosinophils # (auto) 0.02 K/uL (0-0.5); Eosinophils % (auto) 0.1 %; Immature Granulocytes # (auto) 0.15 K/uL (0.00-0.02); Immature Granulocytes % (auto) 0.7 %; Lymphocytes # (auto) 0.82 K/uL (1.2-3.4); Lymphocytes % (auto) 3.8 %; Monocytes # (auto) 0.21 K/uL (0.11-0.59); Neutrophils % (auto) 94.2 %; Toxic Granulation 1+
[2021-01-15] MEDS: VASOPRESSIN 20 UNITS in 0.9 % SODIUM CHLORIDE 100 ML IV SCH ×2 (07:28→15:29)
--- NOTE | 2021-01-15 08:49 | Critical Care Progress Note ---
Date of Service January 15, 2021 Assessment & Plan (1) Admitted to intensive care unit: Plan: Reason Critically Ill: 70-year-old male with COVID-19 pneumonia and worsening hypoxic respiratory failure requiring emergent endotracheal intubation for ongoing management of underlying illness. NEURO - Sedation with Versed and fentanyl CARDIAC/VASCULAR - Coronary artery disease: Status post PTCI with KHRIS x4. Continue current medications. Echocardiogram earlier this visits demonstrates EF of 40 to 45% with apical thrombus. Apical thrombus Patient requires heparin drip given location of thrombus and risk for dislo dgment with thromboembolic process. Monitor on telemetry. RESPIRATORY - Hypoxic respiratory failure in the setting of COVID-19 pneumonia: Patient intubated. Patient has already received Tocilizumab, remdesivir, and Decadron. Ventilator settings reviewed: AR[employer] guidelines high PEEP low FiO2 GI/NUTRITION - Will place OG tube. No trickle tube feeding secondary to high vasoactive medication requirement RENAL/LYTES - Acute kidney injury Baseline appears to be 1.0: Improving -Nephrology consult reviewed holding dialysis at this time - consented for temporary HD catheter -Discontinue bicarbonate infusion - Silva in place - Strict I&Os. ENDO - No history of diabetes or thyroid disease BSGs per unit protocol. ISS --> gtt per unit policy. HEME - Stable H&H DVT prophylaxis: Heparin ID - COVID-19 pneumonia: Recently finished remdesivir. Received Tocilizumab earlier in visit. Day 2 cefepime transition to ceftriaxone empiric 7 days of therapy LINES/IV ACCESS - PIVs x2 ET tube Silva catheter RIGHT radial arterial line Admission and Anticipated Discharge Date Admission Date: January 07, 2021 Subjective No overnight events Review of Systems Review of Systems: Unobtainable due to endotracheal tube Physical Exam Physical Exam: General: Sedated. nontoxic. Skin: Warm, dry, Head: Atraumatic Ears, nose, mouth and throat: airway obscured by endotracheal tube Cardiovascular: Normal peripheral perfusion Respiratory: no respiratory distress Gastrointestinal: Non distended Musculoskeletal: No deformity Results & Data Results & Data ([facility]) Vital Signs (Past 12 Hours) Vital Signs Temp Pulse Resp BP Pulse Ox 01/15/21 07:02 37.3 C 69 136/74 92 01/15/21 06:02 37.4 C 72 130/65 93 01/15/21 05:02 37.5 C 80 117/77 91 01/15/21 04:02 37.4 C 78 115/71 93 01/15/21 03:40 80 37 H 91 01/15/21 03:02 37.4 C 75 137/77 94 01/15/21 02:02 37.5 C 75 102/62 89 L 01/15/21 01:02 37.5 C 70 138/77 94 01/15/21 00:02 37.3 C 68 129/72 91 01/14/21 23:02 37.4 C 80 128/74 92 01/14/21 22:40 79 36 H 91 01/14/21 22:02 37.4 C 78 124/73 91 01/14/21 21:02 37.4 C 79 97/72 L 92 Laboratory Results 01/15/21 01/15/21 01/15/21 Range/Units 08:37 06:31 04:54 WBC (4.8-10.8) K/uL RBC (4.7-6.1) M/uL Hgb (14.0-18.0) g/dL POC Hgb (14.0-18.0) g/dl Hct (42-52) % POC Hct (42-52) % MCV (80-100) fL MCH (25-34) pg MCHC (32-36) g/dL RDW Std Deviation (36.4-46.3) fL RDW Coeff of Tatiana (11.5-14.5) % Plt Count (130-400) K/uL MPV (7.4-10.4) fL Immature Gran % (Auto) % Neut % (Auto) % Lymph % (Auto) % Kendall % (Auto) % Eos % (Auto) % Baso % (Auto) % Neut # (Auto) (1.4-6.5) K/uL Lymph # (Auto) (1.2-3.4) K/uL Kendall # (Auto) (0.11-0.59) K/uL Eos # (Auto) (0-0.5) K/uL Baso # (Auto) (0-0.2) K/uL Immature Gran # (Auto) (0.00-0.02) K/uL Toxic Granulation PT Pending INR Pending APTT Pending (21.0-31.0) Seconds PTT Ratio Pending Sample Site POC pH (7.35-7.45) POC pCO2 (35-46) mmHg POC pO2 (80-95) mmHg POC HCO3 (19-24) jackie/L POC Total CO2 (24-31) mmol/L POC Base Excess (-9-1.8) jackie/L ABG pH (Temp Correct) (7.35-7.45) ABG pCO2 (Temp Corrct (35-46) mmHg POC ABG pO2 at Pt Temp POC ABG O2 Sat (90-95) % Keron Test O2 Delivery Device POC O2 Rate Minute Ventilation POC FiO2 % Tidal Volume PEEP POC Sodium (135-144) mmol/L Sodium 137 (136-145) mmol/L POC Potassium (3.3-5.0) mmol/L Potassium 3.9 (3.5-5.1) mmol/L Chloride 99 (98-107) mmol/L Carbon Dioxide 27 (21-32) mmol/L Anion Gap 11.0 (3-11) BUN 78 H (7-18) mg/dl Creatinine 2.20 H D (0.6-1.4) mg/dl Est Cr Clr Drug Dosing 33.3 ml/min Est GFR ( Amer) 33.9 ml/min Est GFR (Non-Af Amer) 29.3 ml/min BUN/Creatinine Ratio 35.5 H (10-20) Glucose 114 H (70-99) mg/dl POC Glucose (other) 112 H (70-99) mg/dl Lactate (0.4-2.0) mmol/L Calcium 8.0 L (8.5-10.1) mg/dl Phosphorus 5.0 H D (2.5-4.9) mg/dl Magnesium 2.9 H (1.8-2.4) mg/dl Urine Color Urine Appearance (Clear) Urine pH (4.5-7.5) Ur Specific [place] (1.000-1.030) Urine Protein (Negative) Urine Glucose (UA) (Negative) Urine Ketones (Negative) Urine Blood (Negative) Urine Nitrite (Negative) Urine Bilirubin (Negative) Urine Urobilinogen (Negative) Ur Leukocyte Esterase (Negative) Urine WBC (Auto) (0-5) /hpf Urine RBC (Auto) (0-4) /hpf U Hyaline Cast (Auto) (0-5) /lpf U Epithel Cells (Auto) (0-5) /lpf Urine Bacteria (Auto) (Negative) Calcium Oxalate Crystal (None Prsent) Amorphous Sediment (None Prsent) Granular Casts (0) /lpf Urine Mucus (None Prsent) Urine Yeast 01/15/21 01/15/21 01/15/21 Range/Units 04:54 04:34 04:14 WBC 21.34 H (4.8-10.8) K/uL RBC 4.39 L (4.7-6.1) M/uL Hgb 14.9 (14.0-18.0) g/dL POC Hgb 14.3 (14.0-18.0) g/dl Hct 41.1 L (42-52) % POC Hct 42 (42-52) % MCV 93.6 (80-100) fL MCH 33.9 (25-34) pg MCHC 36.3 H (32-36) g/dL RDW Std Deviation 44.5 (36.4-46.3) fL RDW Coeff of Tatiana 13.0 (11.5-14.5) % Plt Count 318 (130-400) K/uL MPV 10.9 H (7.4-10.4) fL Immature Gran % (Auto) 0.7 % Neut % (Auto) 94.2 % Lymph % (Auto) 3.8 % Kendall % (Auto) 1.0 % Eos % (Auto) 0.1 % Baso % (Auto) 0.2 % Neut # (Auto) 20.10 H (1.4-6.5) K/uL Lymph # (Auto) 0.82 L (1.2-3.4) K/uL Kendall # (Auto) 0.21 (0.11-0.59) K/uL Eos # (Auto) 0.02 (0-0.5) K/uL Baso # (Auto) 0.04 (0-0.2) K/uL Immature Gran # (Auto) 0.15 H (0.00-0.02) K/uL Toxic Granulation 1+ PT INR APTT (21.0-31.0) Seconds PTT Ratio Sample Site Art Line POC pH 7.40 (7.35-7.45) POC pCO2 48 H (35-46) mmHg POC pO2 71 L (80-95) mmHg POC HCO3 30 H (19-24) jackie/L POC Total CO2 31 (24-31) mmol/L POC Base Excess 5.0 H (-9-1.8) jackie/L ABG pH (Temp Correct) 7.395 (7.35-7.45) ABG pCO2 (Temp Corrct 49 H (35-46) mmHg POC ABG pO2 at Pt Temp 73 POC ABG O2 Sat 94.0 (90-95) % Keron Test NA O2 Delivery Device Ventilator POC O2 Rate 34 Minute Ventilation 14.9 POC FiO2 70 % Tidal Volume 450 PEEP 10 POC Sodium 137 (135-144) mmol/L Sodium (136-145) mmol/L POC Potassium 3.7 (3.3-5.0) mmol/L Potassium (3.5-5.1) mmol/L Chloride (98-107) mmol/L Carbon Dioxide (21-32) mmol/L Anion Gap (3-11) BUN (7-18) mg/dl Creatinine (0.6-1.4) mg/dl Est Cr Clr Drug Dosing ml/min Est GFR ( Amer) ml/min Est GFR (Non-Af Amer) ml/min BUN/Creatinine Ratio (10-20) Glucose (70-99) mg/dl POC Glucose (other) 115 H (70-99) mg/dl Lactate (0.4-2.0) mmol/L Calcium (8.5-10.1) mg/dl Phosphorus (2.5-4.9) mg/dl Magnesium (1.8-2.4) mg/dl Urine Color Urine Appearance (Clear) Urine pH (4.5-7.5) Ur Specific [place] (1.000-1.030) Urine Protein (Negative) Urine Glucose (UA) (Negative) Urine Ketones (Negative) Urine Blood (Negative) Urine Nitrite (Negative) Urine Bilirubin (Negative) Urine Urobilinogen (Negative) Ur Leukocyte Esterase (Negative) Urine WBC (Auto) (0-5) /hpf Urine RBC (Auto) (0-4) /hpf U Hyaline Cast (Auto) (0-5) /lpf U Epithel Cells (Auto) (0-5) /lpf Urine Bacteria (Auto) (Negative) Calcium Oxalate Crystal (None Prsent) Amorphous Sediment (None Prsent) Granular Casts (0) /lpf Urine Mucus (None Prsent) Urine Yeast 01/15/21 01/15/21 01/15/21 Range/Units 03:34 02:35 01:35 WBC (4.8-10.8) K/uL RBC (4.7-6.1) M/uL Hgb (14.0-18.0) g/dL POC Hgb (14.0-18.0) g/dl Hct (42-52) % POC Hct (42-52) % MCV (80-100) fL MCH (25-34) pg MCHC (32-36) g/dL RDW Std Deviation (36.4-46.3) fL RDW Coeff of Tatiana (11.5-14.5) % Plt Count (130-400) K/uL MPV (7.4-10.4) fL Immature Gran % (Auto) % Neut % (Auto) % Lymph % (Auto) % Kendall % (Auto) % Eos % (Auto) % Baso % (Auto) % Neut # (Auto) (1.4-6.5) K/uL Lymph # (Auto) (1.2-3.4) K/uL Kendall # (Auto) (0.11-0.59) K/uL Eos # (Auto) (0-0.5) K/uL Baso # (Auto) (0-0.2) K/uL Immature Gran # (Auto) (0.00-0.02) K/uL Toxic Granulation PT INR APTT (21.0-31.0) Seconds PTT Ratio Sample Site POC pH (7.35-7.45) POC pCO2 (35-46) mmHg POC pO2 (80-95) mmHg POC HCO3 (19-24) jackie/L POC Total CO2 (24-31) mmol/L POC Base Excess (-9-1.8) jackie/L ABG pH (Temp Correct) (7.35-7.45) ABG pCO2 (Temp Corrct (35-46) mmHg POC ABG pO2 at Pt Temp POC ABG O2 Sat (90-95) % Keron Test O2 Delivery Device POC O2 Rate Minute Ventilation POC FiO2 % Tidal Volume PEEP POC Sodium (135-144) mmol/L Sodium (136-145) mmol/L POC Potassium (3.3-5.0) mmol/L Potassium (3.5-5.1) mmol/L Chloride (98-107) mmol/L Carbon Dioxide (21-32) mmol/L Anion Gap (3-11) BUN (7-18) mg/dl Creatinine (0.6-1.4) mg/dl Est Cr Clr Drug Dosing ml/min Est GFR ( Amer) ml/min Est GFR (Non-Af Amer) ml/min BUN/Creatinine Ratio (10-20) Glucose (70-99) mg/dl POC Glucose (other) 118 H 112 H 107 H (70-99) mg/dl Lactate (0.4-2.0) mmol/L Calcium (8.5-10.1) mg/dl Phosphorus (2.5-4.9) mg/dl Magnesium (1.8-2.4) mg/dl Urine Color Urine Appearance (Clear) Urine pH (4.5-7.5) Ur Specific [place] (1.000-1.030) Urine Protein (Negative) Urine Glucose (UA) (Negative) Urine Ketones (Negative) Urine Blood (Negative) Urine Nitrite (Negative) Urine Bilirubin (Negative) Urine Urobilinogen (Negative) Ur Leukocyte Esterase (Negative) Urine WBC (Auto) (0-5) /hpf Urine RBC (Auto) (0-4) /hpf U Hyaline Cast (Auto) (0-5) /lpf U Epithel Cells (Auto) (0-5) /lpf Urine Bacteria (Auto) (Negative) Calcium Oxalate Crystal (None Prsent) Amorphous Sediment (None Prsent) Granular Casts (0) /lpf Urine Mucus (None Prsent) Urine Yeast 01/15/21 01/15/21 01/14/21 Range/Units 00:45 00:33 Unknown WBC (4.8-10.8) K/uL RBC (4.7-6.1) M/uL Hgb (14.0-18.0) g/dL POC Hgb (14.0-18.0) g/dl Hct (42-52) % POC Hct (42-52) % MCV (80-100) fL MCH (25-34) pg MCHC (32-36) g/dL RDW Std Deviation (36.4-46.3) fL RDW Coeff of Tatiana (11.5-14.5) % Plt Count (130-400) K/uL MPV (7.4-10.4) fL Immature Gran % (Auto) % Neut % (Auto) % Lymph % (Auto) % Kendall % (Auto) % Eos % (Auto) % Baso % (Auto) % Neut # (Auto) (1.4-6.5) K/uL Lymph # (Auto) (1.2-3.4) K/uL Kendall # (Auto) (0.11-0.59) K/uL Eos # (Auto) (0-0.5) K/uL Baso # (Auto) (0-0.2) K/uL Immature Gran # (Auto) (0.00-0.02) K/uL Toxic Granulation PT INR APTT 78.3 H* (21.0-31.0) Seconds PTT Ratio 3.0 Sample Site POC pH (7.35-7.45) POC pCO2 (35-46) mmHg POC pO2 (80-95) mmHg POC HCO3 (19-24) jackie/L POC Total CO2 (24-31) mmol/L POC Base Excess (-9-1.8) jackie/L ABG pH (Temp Correct) (7.35-7.45) ABG pCO2 (Temp Corrct (35-46) mmHg POC ABG pO2 at Pt Temp POC ABG O2 Sat (90-95) % Keron Test O2 Delivery Device POC O2 Rate Minute Ventilation POC FiO2 % Tidal Volume PEEP POC Sodium (135-144) mmol/L Sodium (136-145) mmol/L POC Potassium (3.3-5.0) mmol/L Potassium (3.5-5.1) mmol/L Chloride (98-107) mmol/L Carbon Dioxide (21-32) mmol/L Anion Gap (3-11) BUN (7-18) mg/dl Creatinine (0.6-1.4) mg/dl Est Cr Clr Drug Dosing ml/min Est GFR ( Amer) ml/min Est GFR (Non-Af Amer) ml/min BUN/Creatinine Ratio (10-20) Glucose (70-99) mg/dl POC Glucose (other) 94 (70-99) mg/dl Lactate (0.4-2.0) mmol/L Calcium (8.5-10.1) mg/dl Phosphorus (2.5-4.9) mg/dl Magnesium (1.8-2.4) mg/dl Urine Color Dark Yellow Urine Appearance Turbid A (Clear) Urine pH 5.0 (4.5-7.5) Ur Specific [place] 1.020 (1.000-1.030) Urine Protein Trace H (Negative) Urine Glucose (UA) Negative (Negative) Urine Ketones Trace H (Negative) Urine Blood 3+ H (Negative) Urine Nitrite Negative (Negative) Urine Bilirubin Negative (Negative) Urine Urobilinogen Negative (Negative) Ur Leukocyte Esterase Negative (Negative) Urine WBC (Auto) 10-30 H (0-5) /hpf Urine RBC (Auto) >30 H (0-4) /hpf U Hyaline Cast (Auto) 5-10 H (0-5) /lpf U Epithel Cells (Auto) >30 H (0-5) /lpf Urine Bacteria (Auto) 1+ H (Negative) Calcium Oxalate Crystal Present A (None Prsent) Amorphous Sediment Present A (None Prsent) Granular Casts 1-5 H (0) /lpf Urine Mucus Present A (None Prsent) Urine Yeast Not Reportable 01/14/21 01/14/21 01/14/21 Range/Units 23:45 21:36 19:42 WBC (4.8-10.8) K/uL RBC (4.7-6.1) M/uL Hgb (14.0-18.0) g/dL POC Hgb (14.0-18.0) g/dl Hct (42-52) % POC Hct (42-52) % MCV (80-100) fL MCH (25-34) pg MCHC (32-36) g/dL RDW Std Deviation (36.4-46.3) fL RDW Coeff of Tatiana (11.5-14.5) % Plt Count (130-400) K/uL MPV (7.4-10.4) fL Immature Gran % (Auto) % Neut % (Auto) % Lymph % (Auto) % Kendall % (Auto) % Eos % (Auto) % Baso % (Auto) % Neut # (Auto) (1.4-6.5) K/uL Lymph # (Auto) (1.2-3.4) K/uL Kendall # (Auto) (0.11-0.59) K/uL Eos # (Auto) (0-0.5) K/uL Baso # (Auto) (0-0.2) K/uL Immature Gran # (Auto) (0.00-0.02) K/uL Toxic Granulation PT INR APTT (21.0-31.0) Seconds PTT Ratio Sample Site POC pH (7.35-7.45) POC pCO2 (35-46) mmHg POC pO2 (80-95) mmHg POC HCO3 (19-24) jackie/L POC Total CO2 (24-31) mmol/L POC Base Excess (-9-1.8) jackie/L ABG pH (Temp Correct) (7.35-7.45) ABG pCO2 (Temp Corrct (35-46) mmHg POC ABG pO2 at Pt Temp POC ABG O2 Sat (90-95) % Keron Test O2 Delivery Device POC O2 Rate Minute Ventilation POC FiO2 % Tidal Volume PEEP POC Sodium (135-144) mmol/L Sodium (136-145) mmol/L POC Potassium (3.3-5.0) mmol/L Potassium (3.5-5.1) mmol/L Chloride (98-107) mmol/L Carbon Dioxide (21-32) mmol/L Anion Gap (3-11) BUN (7-18) mg/dl Creatinine (0.6-1.4) mg/dl Est Cr Clr Drug Dosing ml/min Est GFR ( Amer) ml/min Est GFR (Non-Af Amer) ml/min BUN/Creatinine Ratio (10-20) Glucose (70-99) mg/dl POC Glucose (other) 98 111 H (70-99) mg/dl Lactate 4.7 H* (0.4-2.0) mmol/L Calcium (8.5-10.1) mg/dl Phosphorus (2.5-4.9) mg/dl Magnesium (1.8-2.4) mg/dl Urine Color Urine Appearance (Clear) Urine pH (4.5-7.5) Ur Specific [place] (1.000-1.030) Urine Protein (Negative) Urine Glucose (UA) (Negative) Urine Ketones (Negative) Urine Blood (Negative) Urine Nitrite (Negative) Urine Bilirubin (Negative) Urine Urobilinogen (Negative) Ur Leukocyte Esterase (Negative) Urine WBC (Auto) (0-5) /hpf Urine RBC (Auto) (0-4) /hpf U Hyaline Cast (Auto) (0-5) /lpf U Epithel Cells (Auto) (0-5) /lpf Urine Bacteria (Auto) (Negative) Calcium Oxalate Crystal (None Prsent) Amorphous Sediment (None Prsent) Granular Casts (0) /lpf Urine Mucus (None Prsent) Urine Yeast 01/14/21 01/14/21 01/14/21 Range/Units 19:42 19:37 17:33 WBC (4.8-10.8) K/uL RBC (4.7-6.1) M/uL Hgb (14.0-18.0) g/dL POC Hgb (14.0-18.0) g/dl Hct (42-52) % POC Hct (42-52) % MCV (80-100) fL MCH (25-34) pg MCHC (32-36) g/dL RDW Std Deviation (36.4-46.3) fL RDW Coeff of Tatiana (11.5-14.5) % Plt Count (130-400) K/uL MPV (7.4-10.4) fL Immature Gran % (Auto) % Neut % (Auto) % Lymph % (Auto) % Kendall % (Auto) % Eos % (Auto) % Baso % (Auto) % Neut # (Auto) (1.4-6.5) K/uL Lymph # (Auto) (1.2-3.4) K/uL Kendall # (Auto) (0.11-0.59) K/uL Eos # (Auto) (0-0.5) K/uL Baso # (Auto) (0-0.2) K/uL Immature Gran # (Auto) (0.00-0.02) K/uL Toxic Granulation PT INR APTT (21.0-31.0) Seconds PTT Ratio Sample Site POC pH (7.35-7.45) POC pCO2 (35-46) mmHg POC pO2 (80-95) mmHg POC HCO3 (19-24) jackie/L POC Total CO2 (24-31) mmol/L POC Base Excess (-9-1.8) jackie/L ABG pH (Temp Correct) (7.35-7.45) ABG pCO2 (Temp Corrct (35-46) mmHg POC ABG pO2 at Pt Temp POC ABG O2 Sat (90-95) % Keron Test O2 Delivery Device POC O2 Rate Minute Ventilation POC FiO2 % Tidal Volume PEEP POC Sodium (135-144) mmol/L Sodium 137 (136-145) mmol/L POC Potassium (3.3-5.0) mmol/L Potassium 4.1 (3.5-5.1) mmol/L Chloride 102 (98-107) mmol/L Carbon Dioxide 25 (21-32) mmol/L Anion Gap 10.0 (3-11) BUN 86 H (7-18) mg/dl Creatinine 3.36 H D (0.6-1.4) mg/dl Est Cr Clr Drug Dosing 21.8 ml/min Est GFR ( Amer) 20.3 ml/min Est GFR (Non-Af Amer) 17.5 ml/min BUN/Creatinine Ratio 25.6 H (10-20) Glucose 127 H (70-99) mg/dl POC Glucose (other) 127 H 153 H (70-99) mg/dl Lactate (0.4-2.0) mmol/L Calcium 8.0 L (8.5-10.1) mg/dl Phosphorus (2.5-4.9) mg/dl Magnesium (1.8-2.4) mg/dl Urine Color Urine Appearance (Clear) Urine pH (4.5-7.5) Ur Specific [place] (1.000-1.030) Urine Protein (Negative) Urine Glucose (UA) (Negative) Urine Ketones (Negative) Urine Blood (Negative) Urine Nitrite (Negative) Urine Bilirubin (Negative) Urine Urobilinogen (Negative) Ur Leukocyte Esterase (Negative) Urine WBC (Auto) (0-5) /hpf Urine RBC (Auto) (0-4) /hpf U Hyaline Cast (Auto) (0-5) /lpf U Epithel Cells (Auto) (0-5) /lpf Urine Bacteria (Auto) (Negative) Calcium Oxalate Crystal (None Prsent) Amorphous Sediment (None Prsent) Granular Casts (0) /lpf Urine Mucus (None Prsent) Urine Yeast 09/23/21 09/23/21 09/23/21 Range/Units 17:26 16:34 15:28 WBC (4.8-10.8) K/uL RBC (4.7-6.1) M/uL Hgb (14.0-18.0) g/dL POC Hgb (14.0-18.0) g/dl Hct (42-52) % POC Hct (42-52) % MCV (80-100) fL MCH (25-34) pg MCHC (32-36) g/dL RDW Std Deviation (36.4-46.3) fL RDW Coeff of Tatiana (11.5-14.5) % Plt Count (130-400) K/uL MPV (7.4-10.4) fL Immature Gran % (Auto) % Neut % (Auto) % Lymph % (Auto) % Kendall % (Auto) % Eos % (Auto) % Baso % (Auto) % Neut # (Auto) (1.4-6.5) K/uL Lymph # (Auto) (1.2-3.4) K/uL Kendall # (Auto) (0.11-0.59) K/uL Eos # (Auto) (0-0.5) K/uL Baso # (Auto) (0-0.2) K/uL Immature Gran # (Auto) (0.00-0.02) K/uL Toxic Granulation PT INR APTT 79.0 H* (21.0-31.0) Seconds PTT Ratio 3.0 Sample Site POC pH (7.35-7.45) POC pCO2 (35-46) mmHg POC pO2 (80-95) mmHg POC HCO3 (19-24) jackie/L POC Total CO2 (24-31) mmol/L POC Base Excess (-9-1.8) jackie/L ABG pH (Temp Correct) (7.35-7.45) ABG pCO2 (Temp Corrct (35-46) mmHg POC ABG pO2 at Pt Temp POC ABG O2 Sat (90-95) % Keron Test O2 Delivery Device POC O2 Rate Minute Ventilation POC FiO2 % Tidal Volume PEEP POC Sodium (135-144) mmol/L Sodium (136-145) mmol/L POC Potassium (3.3-5.0) mmol/L Potassium (3.5-5.1) mmol/L Chloride (98-107) mmol/L Carbon Dioxide (21-32) mmol/L Anion Gap (3-11) BUN (7-18) mg/dl Creatinine (0.6-1.4) mg/dl Est Cr Clr Drug Dosing ml/min Est GFR ( Amer) ml/min Est GFR (Non-Af Amer) ml/min BUN/Creatinine Ratio (10-20) Glucose (70-99) mg/dl POC Glucose (other) 161 H 176 H (70-99) mg/dl Lactate (0.4-2.0) mmol/L Calcium (8.5-10.1) mg/dl Phosphorus (2.5-4.9) mg/dl Magnesium (1.8-2.4) mg/dl Urine Color Urine Appearance (Clear) Urine pH (4.5-7.5) Ur Specific [place] (1.000-1.030) Urine Protein (Negative) Urine Glucose (UA) (Negative) Urine Ketones (Negative) Urine Blood (Negative) Urine Nitrite (Negative) Urine Bilirubin (Negative) Urine Urobilinogen (Negative) Ur Leukocyte Esterase (Negative) Urine WBC (Auto) (0-5) /hpf Urine RBC (Auto) (0-4) /hpf U Hyaline Cast (Auto) (0-5) /lpf U Epithel Cells (Auto) (0-5) /lpf Urine Bacteria (Auto) (Negative) Calcium Oxalate Crystal (None Prsent) Amorphous Sediment (None Prsent) Granular Casts (0) /lpf Urine Mucus (None Prsent) Urine Yeast 01/14/21 01/14/21 01/14/21 Range/Units 14:03 12:46 11:42 WBC (4.8-10.8) K/uL RBC (4.7-6.1) M/uL Hgb (14.0-18.0) g/dL POC Hgb (14.0-18.0) g/dl Hct (42-52) % POC Hct (42-52) % MCV (80-100) fL MCH (25-34) pg MCHC (32-36) g/dL RDW Std Deviation (36.4-46.3) fL RDW Coeff of Tatiana (11.5-14.5) % Plt Count (130-400) K/uL MPV (7.4-10.4) fL Immature Gran % (Auto) % Neut % (Auto) % Lymph % (Auto) % Kendall % (Auto) % Eos % (Auto) % Baso % (Auto) % Neut # (Auto) (1.4-6.5) K/uL Lymph # (Auto) (1.2-3.4) K/uL Kendall # (Auto) (0.11-0.59) K/uL Eos # (Auto) (0-0.5) K/uL Baso # (Auto) (0-0.2) K/uL Immature Gran # (Auto) (0.00-0.02) K/uL Toxic Granulation PT INR APTT (21.0-31.0) Seconds PTT Ratio Sample Site POC pH (7.35-7.45) POC pCO2 (35-46) mmHg POC pO2 (80-95) mmHg POC HCO3 (19-24) jackie/L POC Total CO2 (24-31) mmol/L POC Base Excess (-9-1.8) jackie/L ABG pH (Temp Correct) (7.35-7.45) ABG pCO2 (Temp Corrct (35-46) mmHg POC ABG pO2 at Pt Temp POC ABG O2 Sat (90-95) % Keron Test O2 Delivery Device POC O2 Rate Minute Ventilation POC FiO2 % Tidal Volume PEEP POC Sodium (135-144) mmol/L Sodium (136-145) mmol/L POC Potassium (3.3-5.0) mmol/L Potassium (3.5-5.1) mmol/L Chloride (98-107) mmol/L Carbon Dioxide (21-32) mmol/L Anion Gap (3-11) BUN (7-18) mg/dl Creatinine (0.6-1.4) mg/dl Est Cr Clr Drug Dosing ml/min Est GFR ( Amer) ml/min Est GFR (Non-Af Amer) ml/min BUN/Creatinine Ratio (10-20) Glucose (70-99) mg/dl POC Glucose (other) 184 H 197 H 226 H (70-99) mg/dl Lactate (0.4-2.0) mmol/L Calcium (8.5-10.1) mg/dl Phosphorus (2.5-4.9) mg/dl Magnesium (1.8-2.4) mg/dl Urine Color Urine Appearance (Clear) Urine pH (4.5-7.5) Ur Specific [place] (1.000-1.030) Urine Protein (Negative) Urine Glucose (UA) (Negative) Urine Ketones (Negative) Urine Blood (Negative) Urine Nitrite (Negative) Urine Bilirubin (Negative) Urine Urobilinogen (Negative) Ur Leukocyte Esterase (Negative) Urine WBC (Auto) (0-5) /hpf Urine RBC (Auto) (0-4) /hpf U Hyaline Cast (Auto) (0-5) /lpf U Epithel Cells (Auto) (0-5) /lpf Urine Bacteria (Auto) (Negative) Calcium Oxalate Crystal (None Prsent) Amorphous Sediment (None Prsent) Granular Casts (0) /lpf Urine Mucus (None Prsent) Urine Yeast 01/14/21 Range/Units 09:07 WBC (4.8-10.8) K/uL RBC (4.7-6.1) M/uL Hgb (14.0-18.0) g/dL POC Hgb (14.0-18.0) g/dl Hct (42-52) % POC Hct (42-52) % MCV (80-100) fL MCH (25-34) pg MCHC (32-36) g/dL RDW Std Deviation (36.4-46.3) fL RDW Coeff of Tatiana (11.5-14.5) % Plt Count (130-400) K/uL MPV (7.4-10.4) fL Immature Gran % (Auto) % Neut % (Auto) % Lymph % (Auto) % Kendall % (Auto) % Eos % (Auto) % Baso % (Auto) % Neut # (Auto) (1.4-6.5) K/uL Lymph # (Auto) (1.2-3.4) K/uL Kendall # (Auto) (0.11-0.59) K/uL Eos # (Auto) (0-0.5) K/uL Baso # (Auto) (0-0.2) K/uL Immature Gran # (Auto) (0.00-0.02) K/uL Toxic Granulation PT INR APTT 98.9 H* (21.0-31.0) Seconds PTT Ratio 3.8 Sample Site POC pH (7.35-7.45) POC pCO2 (35-46) mmHg POC pO2 (80-95) mmHg POC HCO3 (19-24) jackie/L POC Total CO2 (24-31) mmol/L POC Base Excess (-9-1.8) jackie/L ABG pH (Temp Correct) (7.35-7.45) ABG pCO2 (Temp Corrct (35-46) mmHg POC ABG pO2 at Pt Temp POC ABG O2 Sat (90-95) % Keron Test O2 Delivery Device POC O2 Rate Minute Ventilation POC FiO2 % Tidal Volume PEEP POC Sodium (135-144) mmol/L Sodium (136-145) mmol/L POC Potassium (3.3-5.0) mmol/L Potassium (3.5-5.1) mmol/L Chloride (98-107) mmol/L Carbon Dioxide (21-32) mmol/L Anion Gap (3-11) BUN (7-18) mg/dl Creatinine (0.6-1.4) mg/dl Est Cr Clr Drug Dosing ml/min Est GFR ( Amer) ml/min Est GFR (Non-Af Amer) ml/min BUN/Creatinine Ratio (10-20) Glucose (70-99) mg/dl POC Glucose (other) (70-99) mg/dl Lactate (0.4-2.0) mmol/L Calcium (8.5-10.1) mg/dl Phosphorus (2.5-4.9) mg/dl Magnesium (1.8-2.4) mg/dl Urine Color Urine Appearance (Clear) Urine pH (4.5-7.5) Ur Specific [place] (1.000-1.030) Urine Protein (Negative) Urine Glucose (UA) (Negative) Urine Ketones (Negative) Urine Blood (Negative) Urine Nitrite (Negative) Urine Bilirubin (Negative) Urine Urobilinogen (Negative) Ur Leukocyte Esterase (Negative) Urine WBC (Auto) (0-5) /hpf Urine RBC (Auto) (0-4) /hpf U Hyaline Cast (Auto) (0-5) /lpf U Epithel Cells (Auto) (0-5) /lpf Urine Bacteria (Auto) (Negative) Calcium Oxalate Crystal (None Prsent) Amorphous Sediment (None Prsent) Granular Casts (0) /lpf Urine Mucus (None Prsent) Urine Yeast Coding Level of Care Code Critical Care 1st 30-74 mins Diagnoses Admitted to intensive care unit Z78.9
[2021-01-15 09:07] LABS: INR 1.2 (0.9-1.1); Partial Thromboplastin Ratio 2.2; Prothrombin Time 11.8 Seconds (9.0-12.0)
[2021-01-15] MEDS: INSULIN ASPART 100 UNITS/ML 3 ML PEN SC SCH ×4 (09:15→20:58)
--- NOTE | 2021-01-15 09:23 | Nephrology Progress Note ---
Date of Service January 15, 2021 Assessment & Plan (1) Acute kidney injury: Plan: * Urine microscopy reveals granular casts suggestive of ATN. Urine volume 1200 cc last 24 hours. Creatinine has improved from 3.2 to 2.2. Patient appears to be entering recovery phase of ATN * Volume status is acceptable. Patient remains 1L net negative * Electrolyte balance is acceptable * No acute indication for HD today. Will monitor (2) COVID-19: Plan: * Received Dexamethasone, Remdesivir and Tocilizumab * Oxygen requirements have improved from 90 to 70% FiO2 (3) Admitted to intensive care unit: Plan: * Mechanically ventilated, requires Levophed and Vasopressin gtts for BP support * Prognosis remains guarded. DNR status (4) Left ventricular apical thrombus: Plan: * On heparin gtt (5) Ischemic cardiomyopathy: Admission and Anticipated Discharge Date Admission Date: January 07, 2021 Subjective Mr. Mejia was seen in the ICU this morning. Exam was withheld due to respiratory isolation for COVID. Plan of care reviewed with ICU team. Review of Systems Review of Systems: Unobtainable due to endotracheal tube Results & Data ([facility]) Vital Signs (Past 12 Hours) Vital Signs Temp Pulse Resp BP Pulse Ox 01/15/21 07:02 37.3 C 69 136/74 92 01/15/21 06:02 37.4 C 72 130/65 93 01/15/21 05:02 37.5 C 80 117/77 91 01/15/21 04:02 37.4 C 78 115/71 93 01/15/21 03:40 80 37 H 91 01/15/21 03:02 37.4 C 75 137/77 94 01/15/21 02:02 37.5 C 75 102/62 89 L 01/15/21 01:02 37.5 C 70 138/77 94 01/15/21 00:02 37.3 C 68 129/72 91 01/14/21 23:02 37.4 C 80 128/74 92 01/14/21 22:40 79 36 H 91 01/14/21 22:02 37.4 C 78 124/73 91 Laboratory Results Laboratory Tests 01/14/21 01/15/21 01/15/21 Unknown 04:14 04:54 WBC 21.34 H Hgb 14.9 POC Hgb 14.3 POC Hct 42 Sodium Potassium Chloride Carbon Dioxide BUN Creatinine Glucose Calcium Phosphorus Magnesium Urine Color Dark Yellow Urine Appearance Turbid A Urine pH 5.0 Ur Specific [place] 1.020 Urine Protein Trace H Urine Glucose (UA) Negative Urine Ketones Trace H Urine Blood 3+ H Urine Nitrite Negative Urine Bilirubin Negative Urine WBC (Auto) 10-30 H Urine RBC (Auto) >30 H U Hyaline Cast (Auto) 5-10 H Calcium Oxalate Crystal Present A Granular Casts 1-5 H 01/15/21 04:54 WBC Hgb POC Hgb POC Hct Sodium 137 Potassium 3.9 Chloride 99 Carbon Dioxide 27 BUN 78 H Creatinine 2.20 H D Glucose 114 H Calcium 8.0 L Phosphorus 5.0 H D Magnesium 2.9 H Urine Color Urine Appearance Urine pH Ur Specific [place] Urine Protein Urine Glucose (UA) Urine Ketones Urine Blood Urine Nitrite Urine Bilirubin Urine WBC (Auto) Urine RBC (Auto) U Hyaline Cast (Auto) Calcium Oxalate Crystal Granular Casts Laboratory Tests 01/15/21 04:14 Sample Site Art Line POC pH 7.40 POC pCO2 48 H POC pO2 71 L POC HCO3 30 H O2 Delivery Device Ventilator POC FiO2 70 Tidal Volume 450 PEEP 10 Diagnostic Findings 01/14/21 CXR: Stable lines and tubes. There is increasing airspace consolidation in the right mid to lower lung. Correlate clinically for evidence of pneumonia/aspiration pneumonitis. Radiographic follow-up to resolution is rec ommended. Emphysema. PG Care Time/CCT Total # of Minutes Spent Total Time Spent with Patient: Total time spent is greater than 50% in coordination of care (as documented) at patient's floor/unit and/or counseling patient: Coding Level of Care Code 23210 Subseq Hosp Care Lvl 3 Diagnoses Acute kidney injury N17.9 COVID-19 U07.1 Admitted to intensive care unit Z78.9 Left ventricular apical thrombus I51.3 Ischemic cardiomyopathy I25.5
[2021-01-15 09:24] LABS: Partial Thromboplastin Time 58.4 Seconds (21.0-31.0)
[2021-01-15] MEDS ORDERED: MIDAZOLAM HCL 1 MG/ML 2ML VIAL IV PRN (10:12)
[2021-01-15] MEDS: ATORVASTATIN 40 MG TAB PO SCH (11:45)
[2021-01-15] MEDS: ASPIRIN 81 MG CHEW PO SCH (11:45)
[2021-01-15] MEDS: CHOLECALCIFEROL 1,000 UNITS 25 MCG TAB PO SCH (11:45)
[2021-01-15] MEDS: MULTI VIT W/MINERALS LIQUID 15 ML UDP PO SCH (11:46)
[2021-01-15] MEDS: dexAMETHasone 6 MG in SYRINGE 0 ML IV SCH (11:46)
[2021-01-15] MEDS: TICAGRELOR 90 MG TAB PO SCH ×2 (11:46→20:58)
[2021-01-15] MEDS: PANTOprazole 40 MG in SYRINGE 0 ML IV SCH (11:47)
[2021-01-15] MEDS: cefTRIAXone SODIUM 2,000 MG in DEXTROSE 5% 50 ML IV SCH (11:49)
[2021-01-15] MEDS: MIDAZOLAM HCL 1 MG/ML 2ML VIAL IV PRN ×3 (14:21→18:44)
--- NOTE | 2021-01-15 16:41 | Hospitalist Progress Note ---
Date of Service January 15, 2021 Assessment & Plan (1) Left ventricular apical thrombus: (2) Sepsis: (3) Acute respiratory failure with hypoxia: Plan: 70-year-old male with PMH of CAD, chronic HFrEF, nonischemic CM, HTN, HLD, prediabetes presented to the ED 01/07 secondary to URI for 9 days [employer]VIS[employer] and hypoxic in the clinic on the day of arrival. He is not vaccinated against Covid and was found to have Covid in the ED and required 15 L nonrebreather. Is currently in the critical care unit for the following: #. Sepsis with shock requiring pressors #. COVID Pneumonia #. Acute Hypoxic Respiratory failure #. Leukocytosis, pro-Red uptrended 01/13 Patient meets sepsis criteria. 01/13 AM, patient desaturated and was tachypneic on high flow nasal cannula, became lethargic, and was intubated, currently on mechanical ventilation. Patient on Levophed Admitting CXR: Chronic emphysema and scaring without evidence of acute abnormality. Admitting CTA chest: No PE, emphysema with chronic fibrotic changes, findings suggestive of pulmonary edema versus inflammatory pneumonitis, cardiomegaly with left ventricular apex thrombus up to 1.9 cm. Admitting echo: Technically difficult study. Grossly normal LV size with mild to moderate reduced systolic function. EF 40 to 45%. Akinetic apex with small laminated apical thrombus. Status post remdesivir and Tocilizumab [01/07 CRP 13.7> trended down to 1.71 on 01/12], continue with dexamethasone 01/08 Continue with supportive management. On IV antibiotics Cefepime 01/14--- 01/15 ceftriaxone. Patient requiring 2 pressors currently. Tube feeding not started due to pressors requirement. Management per ICU care. #. CHARMAINE #. ATN Baseline creatinine around one, creatinine up trended to 3, downtrending UA revealing granular casts suggestive of ATN, patient making urine and creatinine improving Nephrology on board: Recovery phase of ATN, no indication of hemodialysis today. Electrolytes level acceptable. #. Apical thrombus See imaging above Patient on heparin drip 01/13. #. CAD #. Chronic heart failure with reduced ejection fraction #. Ischemic cardiomyopathy Anterior STEMI 04/2018 with PCI and 2 KHRIS to proximal to mid LAD; staged PCI to circumflex/OM Echo 04/2019 EF 40 to 45% Admitting BNP 1061, lower than the previous BNP. Follows [facility] cardiology Currently being managed for sepsis criteria. Hold antihypertensives. #. Prediabetes 12/21/2020 A1c 6.4 Patient on insulin drip per unit protocol. #. DVT prophylaxis: Patient on heparin drip Disposition: Continue critical care Full code Patient's Constanza was updated on patient's condition on 01/13 and voiced understanding and agreement with plan of care. Per critical care's discussion with the family, he is DNR/DNI for any new events but wants everything done at present. Admission and Anticipated Discharge Date Admission Date: January 07, 2021 Subjective Patient was lying in bed, mechanically intubated and sedated. Per RN no acute worsening/events overnight. Patient currently on 2 pressors [Levophed and vasopressin], fentanyl sedation, heparin drip, insulin drip, NG suction, left IJ and right art line. Patient has been making urine and creatinine improving trend, hence less likely will need hemodialysis. Physical Exam Physical Exam: GENERAL: Mechanical ventilation, sedation HEENT: No pallor, no icterus. Pupils equal, round and reactive to light. Oral mucosa dry. NECK: No JVD, no neck masses. HEART: S1 and S2 heard. Regular rate and rhythm. No murmur, no gallop. RESPIRATORY SYSTEM: Normal AP diameter. No accessory muscle use. No wheezing, no crackles. Decreased breath sounds bilateral. ABDOMEN: Soft, bowel sounds present, no distention. Neuro: Patient sedated. EXTREMITIES: No edema, no erythema seen. 01/13 left IJ and right radial art line. 01/13 mechanical ventilation and enteric tube placement NG suction in situ. Results & Data Results & Data ([facility]) Vital Signs (Past 12 Hours) Vital Signs Temp Pulse Resp BP Pulse Ox 01/15/21 16:02 37.2 C 103 H 143/90 H 89 L 01/15/21 16:00 82 138/58 L 01/15/21 15:02 37.4 C 80 135/79 91 01/15/21 14:02 37.4 C 82 124/76 90 01/15/21 13:02 37.4 C 81 129/76 89 L 01/15/21 12:02 37.2 C 80 142/91 H 90 01/15/21 12:00 80 143/59 H 01/15/21 11:15 69 36 H 90 01/15/21 11:02 37.3 C 70 137/69 89 L 01/15/21 10:02 37.3 C 72 133/73 89 L 01/15/21 09:02 37.3 C 73 132/72 90 01/15/21 08:30 71 36 H 90 01/15/21 08:02 37.3 C 72 123/73 90 01/15/21 08:00 78 137/56 L 01/15/21 07:02 37.3 C 69 136/74 92 01/15/21 06:02 37.4 C 72 130/65 93 01/15/21 05:02 37.5 C 80 117/77 91
[2021-01-15] MEDS ORDERED: METOPROLOL TARTRATE 1 MG/ML VIAL IV ONE (18:25)
[2021-01-15] MEDS ORDERED: AMIODARONE 150MG / 100ML D5W IV ONE (18:26)
[2021-01-15] MEDS ORDERED: AMIODARONE 360MG / 200ML D5W IV ONE (18:27)
[2021-01-15] MEDS ORDERED: METOPROLOL TARTRATE 1 MG/ML VIAL IV STA (18:37)
[2021-01-15] MEDS ORDERED: 0.2 MICRON FILTER SET 1 EA IV ONE (18:38)
[2021-01-15] MEDS ORDERED: AMIODARONE / D5W 150 MG/100 ML BAG IV STA (18:38)
[2021-01-15] MEDS ORDERED: STAT IV Infusion **Titration per Protocol STA ×2 (18:38→21:02)
[2021-01-15] MEDS ORDERED: AMIODARONE IV BOLUS & DRIP IV STA (18:38)
[2021-01-15] MEDS ORDERED: AMIODARONE / D5W 360 MG/200 ML BAG IV ONE (18:49)
[2021-01-15] MEDS ORDERED: dilTIAZem HCL 125 MG in DEXTROSE 5% 100 ML IV SCH (21:15)
[2021-01-16] MEDS: VASOPRESSIN 20 UNITS in 0.9 % SODIUM CHLORIDE 100 ML IV SCH ×3 (00:35→16:55)
[2021-01-16] MEDS: AMIODARONE / D5W 360 MG/200 ML BAG IV SCH ×2 (00:46→12:03)
[2021-01-16] MEDS: MIDAZOLAM HCL 1 MG/ML 2ML VIAL IV PRN ×6 (01:38→22:49)
[2021-01-16] MEDS ORDERED: METOPROLOL TARTRATE 1 MG/ML VIAL IV STA (01:42)
[2021-01-16] MEDS: fentaNYL DRIP 1,250 MCG/250 ML BAG IV SCH (01:44)
[2021-01-16] MEDS: Double Conc 32mcg/mL; 16mg in 500mL IV SCH ×5 (03:37→11:29)
[2021-01-16] MEDS: HEPARIN SODIUM/DEXTROSE 25,000 UNITS/500 ML BAG IV SCH ×3 (03:38→11:02)
[2021-01-16 04:09] LABS: iSTAT Allen Test Pass; iSTAT Art Bld Gas pCO2 Correct 49 mmHg (35-46); iSTAT Art Bld Gas pH Corrected 7.412 (7.35-7.45); iSTAT Arterial Blood Gas HCO3 31 meg/L (19-24); iSTAT Arterial Blood Gas pCO2 49 mmHg (35-46); iSTAT Arterial Blood Gas pH 7.41 (7.35-7.45); iSTAT Arterial Blood Gas pO2 74 mmHg (80-95); iSTAT Arterial Blood Gas pO2 C 74; iSTAT Carbon Dioxide 32 mmol/L (24-31); iSTAT FiO2 50 %; iSTAT Hematocrit 43 % (42-52); iSTAT Hemoglobin 14.6 g/dl (14.0-18.0); iSTAT Potassium 3.7 mmol/L (3.3-5.0); iSTAT Site Art Line; iSTAT Sodium 136 mmol/L (135-144)
[2021-01-16] MEDS: METOPROLOL TARTRATE 1 MG/ML VIAL IV SCH ×5 (04:11→19:47)
[2021-01-16 05:56] LABS: Hematocrit (blood only) 41.5 % (42-52); Hemoglobin 14.4 g/dL (14.0-18.0); Mean Corpuscular Hgb Conc 34.7 g/dL (32-36); Platelet Count 312 K/uL (130-400); RDW Standard Deviation 45.4 fL (36.4-46.3); Red Blood Count 4.37 M/uL (4.7-6.1); White Blood Count 16.83 K/uL (4.8-10.8)
[2021-01-16 06:15] LABS: INR 1.2 (0.9-1.1); Partial Thromboplastin Ratio 1.7; Partial Thromboplastin Time 44.8 Seconds (21.0-31.0); Prothrombin Time 11.8 Seconds (9.0-12.0)
[2021-01-16 06:40] LABS: BUN Creatinine Ratio 47.3 (10-20); Calcium 8.4 mg/dl (8.5-10.1); Creatinine Clr Calc Pharmacy 57.6 ml/min; Est GFR (African American) 65.9 ml/min; Est GFR (Non-African American) 56.9 ml/min; Magnesium 2.8 mg/dl (1.8-2.4); Phosphorus 3.4 mg/dl (2.5-4.9); Potassium 3.5 mmol/L (3.5-5.1)
[2021-01-16 07:02] LABS: Basophils # (auto) 0.02 K/uL (0-0.2); Basophils % (auto) 0.1 %; Eosinophils # (auto) 0.01 K/uL (0-0.5); Eosinophils % (auto) 0.1 %; Immature Granulocytes # (auto) 0.13 K/uL (0.00-0.02); Immature Granulocytes % (auto) 0.8 %; Lymphocytes # (auto) 0.81 K/uL (1.2-3.4); Lymphocytes % (auto) 4.8 %; Monocytes # (auto) 0.37 K/uL (0.11-0.59); Monocytes % (auto) 2.2 %; Neutrophils # (auto) 15.49 K/uL (1.4-6.5); Toxic Granulation 2+
--- NOTE | 2021-01-16 08:41 | XRay Report ---
XR chest 1V portable HISTORY: 70 years-old Male Resp failure acute respiratory failure COMPARISON: Chest radiograph 01/14/2021 TECHNIQUE: Portable AP view of the chest FINDINGS: Endotracheal tube overlies the midline, 7.2 cm superior to the leroy. Left IJ central venous cathete r distal tip is noted in the distribution of the brachiocephalic vein. Enteric tube courses below the diaphragm outside the [id number]. Emphysema. No pneumothorax. Trace right pleural effusion sugges greg. Right greater than left interstitial opacities with right lung base consolidation has mildly imp roved from comparison. Degenerative changes of the shoulders and spine. IMPRESSION: 1. Lines and tubes as above. 2. Right greater than left pulmonary opacities have mildly improved from comparison. 3. Emphysema. ACT 112: Negative or not required by law. The above report was generated using voice recognition software. It may contain grammatical, syntax o r spelling errors. Electronically signed by: Jm Timmons M.D. 01/16/2021 8:40 AM
[2021-01-16] MEDS: INSULIN ASPART 100 UNITS/ML 3 ML PEN SC SCH ×4 (08:42→20:37)
[2021-01-16] MEDS: ATORVASTATIN 40 MG TAB PO SCH (08:47)
[2021-01-16] MEDS: CHOLECALCIFEROL 1,000 UNITS 25 MCG TAB PO SCH (08:47)
[2021-01-16] MEDS: dexAMETHasone 6 MG in SYRINGE 0 ML IV SCH (08:48)
[2021-01-16] MEDS: ASPIRIN 81 MG CHEW PO SCH (08:48)
[2021-01-16] MEDS: TICAGRELOR 90 MG TAB PO SCH ×2 (08:48→20:41)
[2021-01-16] MEDS: MULTI VIT W/MINERALS LIQUID 15 ML UDP PO SCH (08:49)
[2021-01-16] MEDS: INSULIN REGULAR 250 UNITS in SODIUM CHLORIDE 0.9% 247.5 ML IV SCH ×2 (09:09→12:00)
--- NOTE | 2021-01-16 09:37 | Critical Care Progress Note ---
Date of Service January 16, 2021 Assessment & Plan (1) Admitted to intensive care unit: Plan: Reason Critically Ill: 70-year-old male with COVID-19 pneumonia and worsening hypoxic respiratory failure requiring emergent endotracheal intubation for ongoing management of underlying illness. NEURO - Sedation with Versed and fentanyl CARDIAC/VASCULAR - Coronary artery disease: Status post PTCI with KHRIS x4. Continue current medications. Echocardiogram earlier this visits demonstrates EF of 40 to 45% with apical thrombus. Apical thrombus Patient requires heparin drip given location of thrombus and risk for dislo dgment with thromboembolic process. Monitor on telemetry. Atrial fibrillation with rapid ventricular response -Amiodarone infusion -Beta-jose 5 mg IV every 4 -Diltiazem did not have significant effect Hypotension -On norepinephrine and vasopressin RESPIRATORY - Hypoxic respiratory failure in the setting of COVID-19 pneumonia: Patient intubated 01/13 Patient has already received Tocilizumab, remdesivir, and Decadron. Ventilator settings reviewed: ARDSnet guidelines high PEEP low FiO2 -Wean as tolerated GI/NUTRITION - Will place OG tube. No trickle tube feeding secondary to high vasoactive medication requirement RENAL/LYTES - Acute kidney injury Baseline appears to be 1.0: Improving -Nephrology consult reviewed holding dialysis at this time - consented for temporary HD catheter - Silva in place - Strict I&Os. ENDO - No history of diabetes or thyroid disease BSGs per unit protocol. ISS --> gtt per unit policy. HEME - Stable H&H DVT prophylaxis: Heparin ID - COVID-19 pneumonia: Recently finished remdesivir. Received Tocilizumab earlier in visit. Day 3 cefepime transition to ceftriaxone empiric 7 days of therapy LINES/IV ACCESS - PIVs x2 ET tube Silva catheter RIGHT radial arterial line Admission and Anticipated Discharge Date Admission Date: January 07, 2021 Supervising Physician Co-Signing Physician Notes I have personally spent 45 minutes of critical care time in the direct management of this patient. This is a life/limb threatening event. This includes time spent evaluating patient, direct bedside care, chart review, placing orders, interpretation of diagnostic studies, discussion with consultants, patient, and/or family members regarding treatment decisions, as well as other required patient management activities. This time is exclusive of all separately billable procedures, and teaching time and separate from and in addition to any other critical care service time. Subjective Patient experienced atrial fibrillation with rapid ventricular response Review of Systems Review of Systems: Unobtainable due to endotracheal tube Physical Exam Physical Exam: General: Sedated. nontoxic. Skin: Warm, dry, Head: Atraumatic Ears, nose, mouth and throat: airway obscured by endotracheal tube Cardiovascular: Normal peripheral perfusion Respiratory: no respiratory distress Gastrointestinal: Non distended Musculoskeletal: No deformity Results & Data Results & Data ([facility]) Vital Signs (Past 12 Hours) Vital Signs Temp Pulse Resp BP Pulse Ox 01/16/21 08:46 114 H 157/76 H 01/16/21 07:48 109 H 35 H 92 01/16/21 06:02 37.1 C 106 H 130/87 92 01/16/21 05:02 37.1 C 100 H 103/76 93 01/16/21 04:30 90 37 H 92 01/16/21 04:02 36.9 C 124 H 67/48 L 91 01/16/21 03:02 37.1 C 117 H 97/74 L 90 01/16/21 02:02 37.0 C 130 H 99/75 L 90 01/16/21 01:02 36.8 C 129 H 103/83 89 L 01/16/21 00:02 37.0 C 128 H 124/105 H 89 L 01/15/21 23:50 140 H 38 H 91 01/15/21 23:02 37.0 C 127 H 107/81 90 01/15/21 22:02 37.1 C 122 H 117/85 90 Laboratory Results 01/16/21 01/16/21 01/16/21 Range/Units 05:38 05:35 05:35 WBC (4.8-10.8) K/uL RBC (4.7-6.1) M/uL Hgb (14.0-18.0) g/dL POC Hgb (14.0-18.0) g/dl Hct (42-52) % POC Hct (42-52) % MCV (80-100) fL MCH (25-34) pg MCHC (32-36) g/dL RDW Std Deviation (36.4-46.3) fL RDW Coeff of Tatiana (11.5-14.5) % Plt Count (130-400) K/uL MPV (7.4-10.4) fL Immature Gran % (Auto) % Neut % (Auto) % Lymph % (Auto) % [place] % (Auto) % Eos % (Auto) % Baso % (Auto) % Neut # (Auto) (1.4-6.5) K/uL Lymph # (Auto) (1.2-3.4) K/uL [place] # (Auto) (0.11-0.59) K/uL Eos # (Auto) (0-0.5) K/uL Baso # (Auto) (0-0.2) K/uL Immature Gran # (Auto) (0.00-0.02) K/uL Toxic Granulation PT 11.8 (9.0-12.0) Seconds INR 1.2 H (0.9-1.1) APTT 44.8 H (21.0-31.0) Seconds PTT Ratio 1.7 Sample Site POC pH (7.35-7.45) POC pCO2 (35-46) mmHg POC pO2 (80-95) mmHg POC HCO3 (19-24) jackie/L POC Total CO2 (24-31) mmol/L POC Base Excess (-9-1.8) jackie/L ABG pH (Temp Correct) (7.35-7.45) ABG pCO2 (Temp Corrct (35-46) mmHg POC ABG pO2 at Pt Temp POC ABG O2 Sat (90-95) % Keron Test O2 Delivery Device POC O2 Rate POC FiO2 % Tidal Volume PEEP POC Sodium (135-144) mmol/L Sodium 132 L (136-145) mmol/L POC Potassium (3.3-5.0) mmol/L Potassium 3.5 (3.5-5.1) mmol/L Chloride 99 (98-107) mmol/L Carbon Dioxide 30 (21-32) mmol/L Anion Gap 3.0 (3-11) BUN 60 H (7-18) mg/dl Creatinine 1.27 D (0.6-1.4) mg/dl Est Cr Clr Drug Dosing 57.6 ml/min Est GFR ( Amer) 65.9 ml/min Est GFR (Non-Af Amer) 56.9 ml/min BUN/Creatinine Ratio 47.3 H (10-20) Glucose 162 H (70-99) mg/dl POC Glucose (other) 160 H (70-99) mg/dl Calcium 8.4 L (8.5-10.1) mg/dl Phosphorus 3.4 D (2.5-4.9) mg/dl Magnesium 2.8 H (1.8-2.4) mg/dl 01/16/21 01/16/21 01/16/21 Range/Units 05:35 03:56 03:34 WBC 16.83 H (4.8-10.8) K/uL RBC 4.37 L (4.7-6.1) M/uL Hgb 14.4 (14.0-18.0) g/dL POC Hgb 14.6 (14.0-18.0) g/dl Hct 41.5 L (42-52) % POC Hct 43 (42-52) % MCV 95.0 (80-100) fL MCH 33.0 (25-34) pg MCHC 34.7 (32-36) g/dL RDW Std Deviation 45.4 (36.4-46.3) fL RDW Coeff of Tatiana 13.0 (11.5-14.5) % Plt Count 312 (130-400) K/uL MPV 11.0 H (7.4-10.4) fL Immature Gran % (Auto) 0.8 % Neut % (Auto) 92.0 % Lymph % (Auto) 4.8 % [place] % (Auto) 2.2 % Eos % (Auto) 0.1 % Baso % (Auto) 0.1 % Neut # (Auto) 15.49 H (1.4-6.5) K/uL Lymph # (Auto) 0.81 L (1.2-3.4) K/uL [place] # (Auto) 0.37 (0.11-0.59) K/uL Eos # (Auto) 0.01 (0-0.5) K/uL Baso # (Auto) 0.02 (0-0.2) K/uL Immature Gran # (Auto) 0.13 H (0.00-0.02) K/uL Toxic Granulation 2+ PT (9.0-12.0) Seconds INR (0.9-1.1) APTT (21.0-31.0) Seconds PTT Ratio Sample Site Art Line POC pH 7.41 (7.35-7.45) POC pCO2 49 H (35-46) mmHg POC pO2 74 L (80-95) mmHg POC HCO3 31 H (19-24) jackie/L POC Total CO2 32 H (24-31) mmol/L POC Base Excess 6.0 H (-9-1.8) jackie/L ABG pH (Temp Correct) 7.412 (7.35-7.45) ABG pCO2 (Temp Corrct 49 H (35-46) mmHg POC ABG pO2 at Pt Temp 74 POC ABG O2 Sat 95.0 (90-95) % Keron Test Pass O2 Delivery Device Ventilator POC O2 Rate 34 POC FiO2 50 % Tidal Volume 450 PEEP 14 POC Sodium 136 (135-144) mmol/L Sodium (136-145) mmol/L POC Potassium 3.7 (3.3-5.0) mmol/L Potassium (3.5-5.1) mmol/L Chloride (98-107) mmol/L Carbon Dioxide (21-32) mmol/L Anion Gap (3-11) BUN (7-18) mg/dl Creatinine (0.6-1.4) mg/dl Est Cr Clr Drug Dosing ml/min Est GFR ( Amer) ml/min Est GFR (Non-Af Amer) ml/min BUN/Creatinine Ratio (10-20) Glucose (70-99) mg/dl POC Glucose (other) 172 H (70-99) mg/dl Calcium (8.5-10.1) mg/dl Phosphorus (2.5-4.9) mg/dl Magnesium (1.8-2.4) mg/dl 01/16/21 01/16/21 01/15/21 Range/Units 01:30 00:32 23:41 WBC (4.8-10.8) K/uL RBC (4.7-6.1) M/uL Hgb (14.0-18.0) g/dL POC Hgb (14.0-18.0) g/dl Hct (42-52) % POC Hct (42-52) % MCV (80-100) fL MCH (25-34) pg MCHC (32-36) g/dL RDW Std Deviation (36.4-46.3) fL RDW Coeff of Tatiana (11.5-14.5) % Plt Count (130-400) K/uL MPV (7.4-10.4) fL Immature Gran % (Auto) % Neut % (Auto) % Lymph % (Auto) % [place] % (Auto) % Eos % (Auto) % Baso % (Auto) % Neut # (Auto) (1.4-6.5) K/uL Lymph # (Auto) (1.2-3.4) K/uL [place] # (Auto) (0.11-0.59) K/uL Eos # (Auto) (0-0.5) K/uL Baso # (Auto) (0-0.2) K/uL Immature Gran # (Auto) (0.00-0.02) K/uL Toxic Granulation PT (9.0-12.0) Seconds INR (0.9-1.1) APTT (21.0-31.0) Seconds PTT Ratio Sample Site POC pH (7.35-7.45) POC pCO2 (35-46) mmHg POC pO2 (80-95) mmHg POC HCO3 (19-24) jackie/L POC Total CO2 (24-31) mmol/L POC Base Excess (-9-1.8) jackie/L ABG pH (Temp Correct) (7.35-7.45) ABG pCO2 (Temp Corrct (35-46) mmHg POC ABG pO2 at Pt Temp POC ABG O2 Sat (90-95) % Kerno Test O2 Delivery Device POC O2 Rate POC FiO2 % Tidal Volume PEEP POC Sodium (135-144) mmol/L Sodium (136-145) mmol/L POC Potassium (3.3-5.0) mmol/L Potassium (3.5-5.1) mmol/L Chloride (98-107) mmol/L Carbon Dioxide (21-32) mmol/L Anion Gap (3-11) BUN (7-18) mg/dl Creatinine (0.6-1.4) mg/dl Est Cr Clr Drug Dosing ml/min Est GFR ( Amer) ml/min Est GFR (Non-Af Amer) ml/min BUN/Creatinine Ratio (10-20) Glucose (70-99) mg/dl POC Glucose (other) 177 H 177 H 179 H (70-99) mg/dl Calcium (8.5-10.1) mg/dl Phosphorus (2.5-4.9) mg/dl Magnesium (1.8-2.4) mg/dl 01/15/21 01/15/21 01/15/21 Range/Units 22:33 21:30 20:33 WBC (4.8-10.8) K/uL RBC (4.7-6.1) M/uL Hgb (14.0-18.0) g/dL POC Hgb (14.0-18.0) g/dl Hct (42-52) % POC Hct (42-52) % MCV (80-100) fL MCH (25-34) pg MCHC (32-36) g/dL RDW Std Deviation (36.4-46.3) fL RDW Coeff of Tatiana (11.5-14.5) % Plt Count (130-400) K/uL MPV (7.4-10.4) fL Immature Gran % (Auto) % Neut % (Auto) % Lymph % (Auto) % [place] % (Auto) % Eos % (Auto) % Baso % (Auto) % Neut # (Auto) (1.4-6.5) K/uL Lymph # (Auto) (1.2-3.4) K/uL [place] # (Auto) (0.11-0.59) K/uL Eos # (Auto) (0-0.5) K/uL Baso # (Auto) (0-0.2) K/uL Immature Gran # (Auto) (0.00-0.02) K/uL Toxic Granulation PT (9.0-12.0) Seconds INR (0.9-1.1) APTT (21.0-31.0) Seconds PTT Ratio Sample Site POC pH (7.35-7.45) POC pCO2 (35-46) mmHg POC pO2 (80-95) mmHg POC HCO3 (19-24) jackie/L POC Total CO2 (24-31) mmol/L POC Base Excess (-9-1.8) jackie/L ABG pH (Temp Correct) (7.35-7.45) ABG pCO2 (Temp Corrct (35-46) mmHg POC ABG pO2 at Pt Temp POC ABG O2 Sat (90-95) % Keron Test O2 Delivery Device POC O2 Rate POC FiO2 % Tidal Volume PEEP POC Sodium (135-144) mmol/L Sodium (136-145) mmol/L POC Potassium (3.3-5.0) mmol/L Potassium (3.5-5.1) mmol/L Chloride (98-107) mmol/L Carbon Dioxide (21-32) mmol/L Anion Gap (3-11) BUN (7-18) mg/dl Creatinine (0.6-1.4) mg/dl Est Cr Clr Drug Dosing ml/min Est GFR ( Amer) ml/min Est GFR (Non-Af Amer) ml/min BUN/Creatinine Ratio (10-20) Glucose (70-99) mg/dl POC Glucose (other) 181 H 182 H 185 H (70-99) mg/dl Calcium (8.5-10.1) mg/dl Phosphorus (2.5-4.9) mg/dl Magnesium (1.8-2.4) mg/dl 01/15/21 01/15/21 01/15/21 Range/Units 19:33 18:36 14:28 WBC (4.8-10.8) K/uL RBC (4.7-6.1) M/uL Hgb (14.0-18.0) g/dL POC Hgb (14.0-18.0) g/dl Hct (42-52) % POC Hct (42-52) % MCV (80-100) fL MCH (25-34) pg MCHC (32-36) g/dL RDW Std Deviation (36.4-46.3) fL RDW Coeff of Tatiana (11.5-14.5) % Plt Count (130-400) K/uL MPV (7.4-10.4) fL Immature Gran % (Auto) % Neut % (Auto) % Lymph % (Auto) % [place] % (Auto) % Eos % (Auto) % Baso % (Auto) % Neut # (Auto) (1.4-6.5) K/uL Lymph # (Auto) (1.2-3.4) K/uL [place] # (Auto) (0.11-0.59) K/uL Eos # (Auto) (0-0.5) K/uL Baso # (Auto) (0-0.2) K/uL Immature Gran # (Auto) (0.00-0.02) K/uL Toxic Granulation PT (9.0-12.0) Seconds INR (0.9-1.1) APTT (21.0-31.0) Seconds PTT Ratio Sample Site POC pH (7.35-7.45) POC pCO2 (35-46) mmHg POC pO2 (80-95) mmHg POC HCO3 (19-24) jackie/L POC Total CO2 (24-31) mmol/L POC Base Excess (-9-1.8) jackie/L ABG pH (Temp Correct) (7.35-7.45) ABG pCO2 (Temp Corrct (35-46) mmHg POC ABG pO2 at Pt Temp POC ABG O2 Sat (90-95) % Keron Test O2 Delivery Device POC O2 Rate POC FiO2 % Tidal Volume PEEP POC Sodium (135-144) mmol/L Sodium (136-145) mmol/L POC Potassium (3.3-5.0) mmol/L Potassium (3.5-5.1) mmol/L Chloride (98-107) mmol/L Carbon Dioxide (21-32) mmol/L Anion Gap (3-11) BUN (7-18) mg/dl Creatinine (0.6-1.4) mg/dl Est Cr Clr Drug Dosing ml/min Est GFR ( Amer) ml/min Est GFR (Non-Af Amer) ml/min BUN/Creatinine Ratio (10-20) Glucose (70-99) mg/dl POC Glucose (other) 189 H 187 H 142 H (70-99) mg/dl Calcium (8.5-10.1) mg/dl Phosphorus (2.5-4.9) mg/dl Magnesium (1.8-2.4) mg/dl 01/15/21 01/15/21 Range/Units 10:53 08:47 WBC (4.8-10.8) K/uL RBC (4.7-6.1) M/uL Hgb (14.0-18.0) g/dL POC Hgb (14.0-18.0) g/dl Hct (42-52) % POC Hct (42-52) % MCV (80-100) fL MCH (25-34) pg MCHC (32-36) g/dL RDW Std Deviation (36.4-46.3) fL RDW Coeff of Tatiana (11.5-14.5) % Plt Count (130-400) K/uL MPV (7.4-10.4) fL Immature Gran % (Auto) % Neut % (Auto) % Lymph % (Auto) % [place] % (Auto) % Eos % (Auto) % Baso % (Auto) % Neut # (Auto) (1.4-6.5) K/uL Lymph # (Auto) (1.2-3.4) K/uL [place] # (Auto) (0.11-0.59) K/uL Eos # (Auto) (0-0.5) K/uL Baso # (Auto) (0-0.2) K/uL Immature Gran # (Auto) (0.00-0.02) K/uL Toxic Granulation PT (9.0-12.0) Seconds INR (0.9-1.1) APTT (21.0-31.0) Seconds PTT Ratio Sample Site POC pH (7.35-7.45) POC pCO2 (35-46) mmHg POC pO2 (80-95) mmHg POC HCO3 (19-24) jackie/L POC Total CO2 (24-31) mmol/L POC Base Excess (-9-1.8) jackie/L ABG pH (Temp Correct) (7.35-7.45) ABG pCO2 (Temp Corrct (35-46) mmHg POC ABG pO2 at Pt Temp POC ABG O2 Sat (90-95) % Keron Test O2 Delivery Device POC O2 Rate POC FiO2 % Tidal Volume PEEP POC Sodium (135-144) mmol/L Sodium (136-145) mmol/L POC Potassium (3.3-5.0) mmol/L Potassium (3.5-5.1) mmol/L Chloride (98-107) mmol/L Carbon Dioxide (21-32) mmol/L Anion Gap (3-11) BUN (7-18) mg/dl Creatinine (0.6-1.4) mg/dl Est Cr Clr Drug Dosing ml/min Est GFR ( Amer) ml/min Est GFR (Non-Af Amer) ml/min BUN/Creatinine Ratio (10-20) Glucose (70-99) mg/dl POC Glucose (other) 114 H 111 H (70-99) mg/dl Calcium (8.5-10.1) mg/dl Phosphorus (2.5-4.9) mg/dl Magnesium (1.8-2.4) mg/dl Coding Level of Care Code Critical Care 1st 30-74 mins Diagnoses Admitted to intensive care unit Z78.9
--- NOTE | 2021-01-16 10:45 | Nephrology Progress Note ---
Date of Service January 16, 2021 Assessment & Plan (1) Acute kidney injury: (2) Acute respiratory failure with hypoxia: (3) COVID-19: Plan: 70 y o M with Respiratory failure due to COVID pneumonia, requiring intubation. Developed CHARMAINE secondary to ATN, now improving, cr down to 1.2. Respiratory acidosis with metabolic compensation. UO decent. --continue to monitor with Hemodynamic support. No need for bicarb at this time. Will follow Admission and Anticipated Discharge Date Admission Date: January 07, 2021 Subjective Mr. Mejia remained intubated but FiO2 lower. had an episode of A fib with RVR. Decent UO. BP stable. Cr improved, acidosis resolved. Physical Exam Physical Exam: direct physical exam was not done due to COVID isolation. Results & Data ([facility]) Vital Signs (Past 12 Hours) Vital Signs Temp Pulse Resp BP Pulse Ox 01/16/21 08:46 114 H 157/76 H 01/16/21 08:00 119 H 01/16/21 07:48 109 H 35 H 92 01/16/21 06:02 37.1 C 106 H 130/87 92 01/16/21 05:02 37.1 C 100 H 103/76 93 01/16/21 04:30 90 37 H 92 01/16/21 04:02 36.9 C 124 H 67/48 L 91 01/16/21 03:02 37.1 C 117 H 97/74 L 90 01/16/21 02:02 37.0 C 130 H 99/75 L 90 01/16/21 01:02 36.8 C 129 H 103/83 89 L 01/16/21 00:02 37.0 C 128 H 124/105 H 89 L 01/15/21 23:50 140 H 38 H 91 01/15/21 23:02 37.0 C 127 H 107/81 90 PG Care Time/CCT Total # of Minutes Spent Total Time Spent with Patient: Total time spent is greater than 50% in coordination of care (as documented) at patient's floor/unit and/or counseling patient: Coding Level of Care Code 52168 Subseq Hosp Care Lvl 2 Diagnoses Acute kidney injury N17.9 Acute respiratory failure with hypoxia J96.01 COVID-19 U07.1
[2021-01-16] MEDS: PANTOprazole 40 MG in SYRINGE 0 ML IV SCH (10:50)
[2021-01-16] MEDS: cefTRIAXone SODIUM 2,000 MG in DEXTROSE 5% 50 ML IV SCH (12:00)
[2021-01-16 13:33] LABS: Partial Thromboplastin Ratio 1.8
[2021-01-16 13:45] LABS: Partial Thromboplastin Time 48.6 Seconds (21.0-31.0)
--- NOTE | 2021-01-16 15:27 | Hospitalist Progress Note ---
Date of Service January 16, 2021 Assessment & Plan (1) Left ventricular apical thrombus: (2) Sepsis: (3) Acute respiratory failure with hypoxia: Plan: 70-year-old male with PMH of CAD, chronic HFrEF, nonischemic CM, HTN, HLD, prediabetes presented to the ED 01/07 secondary to URI for 9 days [employer] and hypoxic in the clinic on the day of arrival. He is not vaccinated against Covid and was found to have Covid in the ED and required 15 L nonrebreather. Is currently in the critical care unit for the following: #. Sepsis with shock requiring pressors #. COVID Pneumonia #. Acute Hypoxic Respiratory failure #. Leukocytosis, pro-Red uptrended 01/13 Patient meets sepsis criteria. 01/13 AM, patient desaturated and was tachypneic on high flow nasal cannula, became lethargic, and was intubated, currently on mechanical ventilation. Patient on Levophed Admitting CXR: Chronic emphysema and scaring without evidence of acute abnormality. Admitting CTA chest: No PE, emphysema with chronic fibrotic changes, findings suggestive of pulmonary edema versus inflammatory pneumonitis, cardiomegaly with left ventricular apex thrombus up to 1.9 cm. Admitting echo: Technically difficult study. Grossly normal LV size with mild to moderate reduced systolic function. EF 40 to 45%. Akinetic apex with small laminated apical thrombus. Status post remdesivir and Tocilizumab [01/07 CRP 13.7> trended down to 1.71 on 01/12], continue with dexamethasone 01/08 Continue with supportive management. On IV antibiotics Cefepime 01/14--- 01/15 ceftriaxone. WBC trending down. Patient requiring 2 pressors currently. Tube feeding not started due to multiple pressors requirement. Management per ICU care. #. CHARMAINE #. ATN Baseline creatinine around one, creatinine up trended to 3, downtrending UA revealing granular casts suggestive of ATN, patient making urine and creatinine improving Nephrology on board: Recovery phase of ATN, no indication of hemodialysis today. Electrolytes level acceptable. #. Apical thrombus See imaging above Patient on heparin drip 01/13. #. Afib RVR Patient on IV metoprolol and amiodarone 01/16 #. CAD #. Chronic heart failure with reduced ejection fraction #. Ischemic cardiomyopathy Anterior STEMI 04/2018 with PCI and 2 KHRIS to proximal to mid LAD; staged PCI to circumflex/OM Echo 04/2019 EF 40 to 45% Admitting BNP 1061, lower than the previous BNP. Follows [facility] cardiology Currently being managed for sepsis criteria. Hold antihypertensives. #. Prediabetes 12/21/2020 A1c 6.4 Patient on insulin drip per unit protocol. #. DVT prophylaxis: Patient on heparin drip Disposition: Continue critical care Full code Patient's Constanza was updated on patient's condition on 01/13 and voiced understanding and agreement with plan of care. Per critical care's discussion with the family, he is DNR/DNI for any new events but wants everything done at present. Admission and Anticipated Discharge Date Admission Date: January 07, 2021 Subjective Patient was lying in bed, mechanically ventilated and sedated. ROS not assessable. Physical Exam Physical Exam: GENERAL: Mechanical ventilation, sedation HEENT: No pallor, no icterus. Pupils equal, round. Oral mucosa dry. NECK: No JVD, no neck masses. HEART: S1 and S2 heard. Regular rate and rhythm. No murmur, no gallop. RESPIRATORY SYSTEM: Normal AP diameter. No accessory muscle use. No wheezing, no crackles. Decreased breath sounds bilateral. ABDOMEN: Soft, bowel sounds present, no distention. Neuro: Patient sedated. EXTREMITIES: No edema, no erythema seen. 01/13 left IJ and right radial art line. 01/13 mechanical ventilation and enteric tube placement NG suction in situ. Results & Data Results & Data ([facility]) Vital Signs (Past 12 Hours) Vital Signs Temp Pulse Resp BP Pulse Ox 01/16/21 14:57 37.3 C 101 H 118/73 92 01/16/21 13:57 37.4 C 88 106/61 93 01/16/21 12:57 37.4 C 83 132/97 94 01/16/21 12:01 107 H 135/68 01/16/21 11:57 37.3 C 100 H 122/90 93 01/16/21 10:57 37.2 C 113 H 93/76 L 91 01/16/21 10:55 106 H 35 H 92 01/16/21 09:57 37.2 C 97 H 135/96 94 01/16/21 08:57 37.0 C 100 H 143/94 H 93 01/16/21 08:46 114 H 157/76 H 01/16/21 08:00 119 H 01/16/21 07:48 109 H 35 H 92 01/16/21 07:30 36.9 C 100 H 92 01/16/21 07:05 36.5 C 127 H 91 01/16/21 06:02 37.1 C 106 H 130/87 92 01/16/21 05:02 37.1 C 100 H 103/76 93 01/16/21 04:30 90 37 H 92 01/16/21 04:02 36.9 C 124 H 67/48 L 91
[2021-01-17] MEDS: METOPROLOL TARTRATE 1 MG/ML VIAL IV SCH ×6 (00:20→21:22)
[2021-01-17] MEDS: AMIODARONE / D5W 360 MG/200 ML BAG IV SCH ×2 (00:23→12:00)
[2021-01-17] MEDS: MIDAZOLAM HCL 1 MG/ML 2ML VIAL IV PRN ×2 (01:29→03:39)
[2021-01-17] MEDS ORDERED: VECURONIUM BROMIDE 10 MG VIAL IV ONE ×2 (01:39→04:07)
[2021-01-17] MEDS: Double Conc 32mcg/mL; 16mg in 500mL IV SCH ×6 (01:46→18:07)
[2021-01-17] MEDS: VASOPRESSIN 20 UNITS in 0.9 % SODIUM CHLORIDE 100 ML IV SCH ×3 (01:46→17:54)
[2021-01-17] MEDS ORDERED: VECURONIUM BROMIDE 10 MG VIAL IV STA ×2 (01:51→04:31)
[2021-01-17] MEDS: fentaNYL DRIP 1,250 MCG/250 ML BAG IV SCH ×2 (02:05→15:28)
[2021-01-17 02:45] LABS: iSTAT Arterial Blood Gas HCO3 33 meg/L (19-24); iSTAT Arterial Blood Gas pCO2 72 mmHg (35-46); iSTAT Arterial Blood Gas pH 7.27 (7.35-7.45); iSTAT Arterial Blood Gas pO2 93 mmHg (80-95); iSTAT Carbon Dioxide 36 mmol/L (24-31); iSTAT FiO2 100 %; iSTAT Site Art Line
[2021-01-17] MEDS ORDERED: STAT IV Infusion **Titration per Protocol STA ×2 (03:35→04:36)
[2021-01-17] MEDS: DEXMEDETOMIDINE HCL 200 MCG in SODIUM CHLORIDE 0.9% 48 ML IV SCH ×4 (03:54→19:35)
[2021-01-17] MEDS ORDERED: CISATRACURIUM BESYLATE IV SOLN 2 MG/ML 10 ML VIAL IV STA (04:36)
[2021-01-17] MEDS ORDERED: CISATRACURIUM BESYLATE 40 MG in 0.9 % SODIUM CHLORIDE 80 ML IV SCH (05:00)
[2021-01-17 05:53] LABS: Hemoglobin 14.8 g/dL (14.0-18.0); Mean Corpuscular Hemoglobin 32.7 pg (25-34); Mean Corpuscular Hgb Conc 33.6 g/dL (32-36); Mean Corpuscular Volume 97.3 fL (80-100); Mean Platelet Volume 11.1 fL (7.4-10.4); Platelet Count 285 K/uL (130-400); RDW Coefficient of Variation 13.2 % (11.5-14.5); Red Blood Count 4.52 M/uL (4.7-6.1); White Blood Count 10.97 K/uL (4.8-10.8)
[2021-01-17 06:00] LABS: Basophils # (auto) 0.04 K/uL (0-0.2); Basophils % (auto) 0.4 %; Eosinophils # (auto) 0.01 K/uL (0-0.5); Eosinophils % (auto) 0.1 %; Immature Granulocytes # (auto) 0.13 K/uL (0.00-0.02); Immature Granulocytes % (auto) 1.2 %; Lymphocytes # (auto) 0.69 K/uL (1.2-3.4); Lymphocytes % (auto) 6.3 %; Monocytes # (auto) 0.27 K/uL (0.11-0.59); Monocytes % (auto) 2.5 %; Neutrophils # (auto) 9.83 K/uL (1.4-6.5); Neutrophils % (auto) 89.5 %; Partial Thromboplastin Time 53.2 Seconds (21.0-31.0)
[2021-01-17 06:02] LABS: BUN Creatinine Ratio 42.3 (10-20); Calcium 8.2 mg/dl (8.5-10.1); Creatinine Clr Calc Pharmacy 57.6 ml/min; Est GFR (African American) 65.9 ml/min; Est GFR (Non-African American) 56.9 ml/min; Magnesium 2.7 mg/dl (1.8-2.4); Potassium 3.8 mmol/L (3.5-5.1)
[2021-01-17 06:12] LABS: iSTAT Arterial Blood Gas HCO3 33 meg/L (19-24); iSTAT Arterial Blood Gas pCO2 83 mmHg (35-46); iSTAT Arterial Blood Gas pH 7.21 (7.35-7.45); iSTAT Arterial Blood Gas pO2 80 mmHg (80-95); iSTAT Carbon Dioxide 35 mmol/L (24-31); iSTAT FiO2 60 %; iSTAT Site Art Line
[2021-01-17 06:14] LABS: Phosphorus 4.6 mg/dl (2.5-4.9)
[2021-01-17] MEDS: CISATRACURIUM BESYLATE 40 MG in 0.9 % SODIUM CHLORIDE 80 ML IV SCH ×3 (06:14→19:34)
[2021-01-17] MEDS ORDERED: POTASSIUM CHLORIDE / WTR 20 MEQ/100 ML PLCT IV ONE (06:30)
[2021-01-17 06:36] LABS: iSTAT Arterial Blood Gas HCO3 31 meg/L (19-24); iSTAT Arterial Blood Gas pCO2 67 mmHg (35-46); iSTAT Arterial Blood Gas pH 7.28 (7.35-7.45); iSTAT Arterial Blood Gas pO2 77 mmHg (80-95); iSTAT Carbon Dioxide 33 mmol/L (24-31); iSTAT Site Art Line
--- NOTE | 2021-01-17 06:48 | Electrocardiogram Report ---
Test Reason : Blood Pressure : / mmHG Vent. Rate : 174 BPM Atrial Rate : 170 BPM P-R Int : 000 ms QRS Dur : 124 ms QT Int : 262 ms P-R-T Axes : 000 081 -13 degrees QTc Int : 445 ms Atrial fibrillation with rapid ventricular response Right bundle branch block Possible Anteroseptal infarct (cited on or before 09-MAY-2018) T wave abnormality, consider inferior ischemia Abnormal ECG When compared with ECG of 07-JAN-2021 11:58, Atrial fibrillation has replaced Sinus rhythm Vent. rate has increased BY 77 BPM T wave inversion more evident in Inferior leads Confirmed by Darrick Dalton ([id number]) on 01/17/2021 6:47:49 AM Referred By: REFERRED SELF Confirmed By:Darrick Dalton
--- NOTE | 2021-01-17 07:00 | XRay Report ---
SINGLE VIEW CHEST CLINICAL HISTORY: Hypoxia. FINDINGS: An AP, portable, upright chest radiograph is compared to study dated 01/16/2021. Correlation is made with chest CT dated 01/07/2022. The examination is degraded by portable technique and patient rotation. An endotracheal tube, an enteric tube, and a left internal jugular central venous catheter are unchanged in position. The cardiomediastinal silhouette is unremarkable noting atherosclerotic c alcification of the thoracic aorta. Advanced emphysema is again noted. Multifocal airspace consolidat ion is again seen throughout the right lung, greatest at the right lung base. There are increasing op acities at the left lung base. Suspect trace right pleural effusion. No pneumothorax is seen. The ske letal structures are osteopenic. The bony thorax is grossly intact. IMPRESSION: 1. Stable lines and tubes. 2. Airspace consolidation throughout the right lung is unchanged from yesterday, and there increasing opacities at the left lung base. 3. Emphysema. 4. Suspect a small right pleural effusion. ACT 112: Negative or not required by law. Electronically signed by: Douglas Saavedra M.D. 01/17/2021 6:58 AM
[2021-01-17] MEDS: INSULIN ASPART 100 UNITS/ML 3 ML PEN SC SCH ×4 (07:14→21:22)
[2021-01-17] MEDS: ARTIFICIAL TEARS OP OINT 3.5 GM TUBE OP SCH ×5 (07:14→21:20)
[2021-01-17] MEDS: MULTI VIT W/MINERALS LIQUID 15 ML UDP PO SCH (08:39)
--- NOTE | 2021-01-17 08:39 | Critical Care Progress Note ---
Date of Service January 17, 2021 Assessment & Plan (1) Admitted to intensive care unit: Plan: Reason Critically Ill: 70-year-old male with COVID-19 pneumonia and worsening hypoxic respiratory failure requiring emergent endotracheal intubation for ongoing management of underlying illness. NEURO - Sedation with Versed and fentanyl -Neuromuscular blockade with cis atracurium CARDIAC/VASCULAR - Coronary artery disease: Status post PTCI with KHRIS x4. Continue current medications. Echocardiogram earlier this visits demonstrates EF of 40 to 45% with apical thrombus. Apical thrombus Patient requires heparin drip. Monitor on telemetry. Atrial fibrillation with rapid ventricular response -Amiodarone infusion -Beta-jose 5 mg IV every 4 -Diltiazem did not have significant effect Hypotension -On norepinephrine -vasopressin has been able to be discontinued -Random cortisol 37 on 01/13 RESPIRATORY - Hypoxic respiratory failure in the setting of COVID-19 pneumonia: Patient intubated 01/13 day 5 Patient has already received Tocilizumab, remdesivir, and Decadron. Ventilator settings reviewed: ARDSnet guidelines high PEEP low FiO2 -Pronation therapy with neuromuscular blockade started 01/17 GI/NUTRITION - Will place OG tube. No trickle tube feeding secondary to high vasoactive medication requirement RENAL/LYTES - Acute kidney injury Baseline appears to be 1.0: Improving -Nephrology consult reviewed holding dialysis at this time - consented for temporary HD catheter -Generally looking for euvolemic to slightly negative fluid balance - Silva in place - Strict I&Os. ENDO - No history of diabetes or thyroid disease BSGs per unit protocol. ISS --> gtt per unit policy. HEME - Stable H&H DVT prophylaxis: Heparin ID - COVID-19 pneumonia: Recently finished remdesivir. Received Tocilizumab earlier in visit. Febrile illness -Day 4 ceftriaxone empiric 7 days of therapy LINES/IV ACCESS - PIVs x2 Central venous catheter ET tube Silva catheter RIGHT radial arterial line I have updated the patient's Constanza Mejia [phone] of condition and prognosis. I am very concerned of a grim prognosis. We will continue the current level of care. I feel the patient would benefit from a palliative care consult moving forward given the multi-system organ dysfunction and high expected morbidity and mortality. Admission and Anticipated Discharge Date Admission Date: January 07, 2021 Supervising Physician Co-Signing Physician Notes I have personally spent 45 minutes of critical care time in the direct management of this patient. This is a life/limb threatening event. This includes time spent evaluating patient, direct bedside care, chart review, placing orders, interpretation of diagnostic studies, discussion with consultants, patient, and/or family members regarding treatment decisions, as well as other required patient management activities. This time is exclusive of all separately billable procedures, and teaching time and separate from and in addition to any other critical care service time. Subjective Overnight patient had worsening hypoxia which prompted pronation and neuromuscular blockade Physical Exam Physical Exam: General: In prone position. GCS: 3 TP Skin: Warm, dry, Head: Atraumatic Ears, nose, mouth and throat: airway obscured by endotracheal tube Cardiovascular: Normal peripheral perfusion, bedside monitor reviewed Respiratory: Ventilator settings reviewed Results & Data Results & Data ([facility]) Vital Signs (Past 12 Hours) Vital Signs Temp Pulse Resp BP Pulse Ox 01/17/21 07:15 72 118/50 L 01/17/21 05:55 34 H 01/17/21 05:00 34 H 01/17/21 04:57 37.6 C H 79 129/72 91 01/17/21 04:00 38.0 C H 82 74/50 L 92 01/17/21 03:57 37.9 C H 84 69/50 L 93 01/17/21 03:55 75 34 H 92 01/17/21 02:57 37.9 C H 103 H 94/71 L 87 L 01/17/21 01:57 37.8 C H 91 H 109/71 92 01/17/21 00:57 37.2 C 93 H 141/92 H 87 L 01/16/21 23:57 37.4 C 102 H 143/92 H 87 L 01/16/21 22:57 37.4 C 90 100/81 85 L 01/16/21 22:30 93 H 37 H 87 L 01/16/21 21:57 37.4 C 132 H 137/100 89 L 01/16/21 20:57 37.5 C 118 H 96/78 L 88 L Laboratory Results 01/17/21 01/17/21 01/17/21 Range/Units 07:24 06:23 05:57 WBC (4.8-10.8) K/uL RBC (4.7-6.1) M/uL Hgb (14.0-18.0) g/dL Hct (42-52) % MCV (80-100) fL MCH (25-34) pg MCHC (32-36) g/dL RDW Std Deviation (36.4-46.3) fL RDW Coeff of Tatiana (11.5-14.5) % Plt Count (130-400) K/uL MPV (7.4-10.4) fL Immature Gran % (Auto) % Neut % (Auto) % Lymph % (Auto) % [place] % (Auto) % Eos % (Auto) % Baso % (Auto) % Neut # (Auto) (1.4-6.5) K/uL Lymph # (Auto) (1.2-3.4) K/uL [place] # (Auto) (0.11-0.59) K/uL Eos # (Auto) (0-0.5) K/uL Baso # (Auto) (0-0.2) K/uL Immature Gran # (Auto) (0.00-0.02) K/uL APTT (21.0-31.0) Seconds PTT Ratio Sample Site Art Line Art Line POC pH 7.28 L 7.21 L (7.35-7.45) POC pCO2 67 H 83 H (35-46) mmHg POC pO2 77 L 80 (80-95) mmHg POC HCO3 31 H 33 H (19-24) jackie/L POC Total CO2 33 H 35 H (24-31) mmol/L POC Base Excess 4.0 H 5.0 H (-9-1.8) jackie/L POC ABG O2 Sat 93.0 92.0 (90-95) % Keron Test NA NA O2 Delivery Device Ventilator POC O2 Rate 34 POC FiO2 60 % Tidal Volume PEEP 18 Sodium (136-145) mmol/L Potassium (3.5-5.1) mmol/L Chloride (98-107) mmol/L Carbon Dioxide (21-32) mmol/L Anion Gap (3-11) BUN (7-18) mg/dl Creatinine (0.6-1.4) mg/dl Est Cr Clr Drug Dosing ml/min Est GFR ( Amer) ml/min Est GFR (Non-Af Amer) ml/min BUN/Creatinine Ratio (10-20) Glucose (70-99) mg/dl POC Glucose 90 (70-99) mg/dl POC Glucose (other) (70-99) mg/dl Calcium (8.5-10.1) mg/dl Phosphorus (2.5-4.9) mg/dl Magnesium (1.8-2.4) mg/dl 01/17/21 01/17/21 01/17/21 Range/Units 05:21 05:21 05:21 WBC 10.97 H (4.8-10.8) K/uL RBC 4.52 L (4.7-6.1) M/uL Hgb 14.8 (14.0-18.0) g/dL Hct 44.0 (42-52) % MCV 97.3 (80-100) fL MCH 32.7 (25-34) pg MCHC 33.6 (32-36) g/dL RDW Std Deviation 47.0 H (36.4-46.3) fL RDW Coeff of Tatiana 13.2 (11.5-14.5) % Plt Count 285 (130-400) K/uL MPV 11.1 H (7.4-10.4) fL Immature Gran % (Auto) 1.2 % Neut % (Auto) 89.5 % Lymph % (Auto) 6.3 % [place] % (Auto) 2.5 % Eos % (Auto) 0.1 % Baso % (Auto) 0.4 % Neut # (Auto) 9.83 H (1.4-6.5) K/uL Lymph # (Auto) 0.69 L (1.2-3.4) K/uL [place] # (Auto) 0.27 (0.11-0.59) K/uL Eos # (Auto) 0.01 (0-0.5) K/uL Baso # (Auto) 0.04 (0-0.2) K/uL Immature Gran # (Auto) 0.13 H (0.00-0.02) K/uL APTT 53.2 H* (21.0-31.0) Seconds PTT Ratio 2.0 Sample Site POC pH (7.35-7.45) POC pCO2 (35-46) mmHg POC pO2 (80-95) mmHg POC HCO3 (19-24) jackie/L POC Total CO2 (24-31) mmol/L POC Base Excess (-9-1.8) jackie/L POC ABG O2 Sat (90-95) % Keron Test O2 Delivery Device POC O2 Rate POC FiO2 % Tidal Volume PEEP Sodium 137 (136-145) mmol/L Potassium 3.8 (3.5-5.1) mmol/L Chloride 99 (98-107) mmol/L Carbon Dioxide 29 (21-32) mmol/L Anion Gap 9.0 (3-11) BUN 54 H (7-18) mg/dl Creatinine 1.27 (0.6-1.4) mg/dl Est Cr Clr Drug Dosing 57.6 ml/min Est GFR ( Amer) 65.9 ml/min Est GFR (Non-Af Amer) 56.9 ml/min BUN/Creatinine Ratio 42.3 H (10-20) Glucose 119 H (70-99) mg/dl POC Glucose (70-99) mg/dl POC Glucose (other) (70-99) mg/dl Calcium 8.2 L (8.5-10.1) mg/dl Phosphorus 4.6 D (2.5-4.9) mg/dl Magnesium 2.7 H (1.8-2.4) mg/dl 01/17/21 01/17/21 01/17/21 Range/Units 04:38 03:29 02:30 WBC (4.8-10.8) K/uL RBC (4.7-6.1) M/uL Hgb (14.0-18.0) g/dL Hct (42-52) % MCV (80-100) fL MCH (25-34) pg MCHC (32-36) g/dL RDW Std Deviation (36.4-46.3) fL RDW Coeff of Tatiana (11.5-14.5) % Plt Count (130-400) K/uL MPV (7.4-10.4) fL Immature Gran % (Auto) % Neut % (Auto) % Lymph % (Auto) % [place] % (Auto) % Eos % (Auto) % Baso % (Auto) % Neut # (Auto) (1.4-6.5) K/uL Lymph # (Auto) (1.2-3.4) K/uL [place] # (Auto) (0.11-0.59) K/uL Eos # (Auto) (0-0.5) K/uL Baso # (Auto) (0-0.2) K/uL Immature Gran # (Auto) (0.00-0.02) K/uL APTT (21.0-31.0) Seconds PTT Ratio Sample Site POC pH (7.35-7.45) POC pCO2 (35-46) mmHg POC pO2 (80-95) mmHg POC HCO3 (19-24) jackie/L POC Total CO2 (24-31) mmol/L POC Base Excess (-9-1.8) jackie/L POC ABG O2 Sat (90-95) % Keron Test O2 Delivery Device POC O2 Rate POC FiO2 % Tidal Volume PEEP Sodium (136-145) mmol/L Potassium (3.5-5.1) mmol/L Chloride (98-107) mmol/L Carbon Dioxide (21-32) mmol/L Anion Gap (3-11) BUN (7-18) mg/dl Creatinine (0.6-1.4) mg/dl Est Cr Clr Drug Dosing ml/min Est GFR ( Amer) ml/min Est GFR (Non-Af Amer) ml/min BUN/Creatinine Ratio (10-20) Glucose (70-99) mg/dl POC Glucose (70-99) mg/dl POC Glucose (other) 125 H 128 H 136 H (70-99) mg/dl Calcium (8.5-10.1) mg/dl Phosphorus (2.5-4.9) mg/dl Magnesium (1.8-2.4) mg/dl 01/17/21 01/17/21 01/17/21 Range/Units 02:27 01:37 01:05 WBC (4.8-10.8) K/uL RBC (4.7-6.1) M/uL Hgb (14.0-18.0) g/dL Hct (42-52) % MCV (80-100) fL MCH (25-34) pg MCHC (32-36) g/dL RDW Std Deviation (36.4-46.3) fL RDW Coeff of Tatiana (11.5-14.5) % Plt Count (130-400) K/uL MPV (7.4-10.4) fL Immature Gran % (Auto) % Neut % (Auto) % Lymph % (Auto) % [place] % (Auto) % Eos % (Auto) % Baso % (Auto) % Neut # (Auto) (1.4-6.5) K/uL Lymph # (Auto) (1.2-3.4) K/uL [place] # (Auto) (0.11-0.59) K/uL Eos # (Auto) (0-0.5) K/uL Baso # (Auto) (0-0.2) K/uL Immature Gran # (Auto) (0.00-0.02) K/uL APTT (21.0-31.0) Seconds PTT Ratio Sample Site Art Line POC pH 7.27 L (7.35-7.45) POC pCO2 72 H (35-46) mmHg POC pO2 93 (80-95) mmHg POC HCO3 33 H (19-24) jackie/L POC Total CO2 36 H (24-31) mmol/L POC Base Excess 7.0 H (-9-1.8) jackie/L POC ABG O2 Sat 96.0 H (90-95) % Keron Test NA O2 Delivery Device Ventilator POC O2 Rate 34 POC FiO2 100 % Tidal Volume 450 PEEP 18 Sodium (136-145) mmol/L Potassium (3.5-5.1) mmol/L Chloride (98-107) mmol/L Carbon Dioxide (21-32) mmol/L Anion Gap (3-11) BUN (7-18) mg/dl Creatinine (0.6-1.4) mg/dl Est Cr Clr Drug Dosing ml/min Est GFR ( Amer) ml/min Est GFR (Non-Af Amer) ml/min BUN/Creatinine Ratio (10-20) Glucose (70-99) mg/dl POC Glucose (70-99) mg/dl POC Glucose (other) 148 H 77 (70-99) mg/dl Calcium (8.5-10.1) mg/dl Phosphorus (2.5-4.9) mg/dl Magnesium (1.8-2.4) mg/dl 01/16/21 01/16/21 01/16/21 Range/Units 20:34 16:47 12:57 WBC (4.8-10.8) K/uL RBC (4.7-6.1) M/uL Hgb (14.0-18.0) g/dL Hct (42-52) % MCV (80-100) fL MCH (25-34) pg MCHC (32-36) g/dL RDW Std Deviation (36.4-46.3) fL RDW Coeff of Tatiana (11.5-14.5) % Plt Count (130-400) K/uL MPV (7.4-10.4) fL Immature Gran % (Auto) % Neut % (Auto) % Lymph % (Auto) % [place] % (Auto) % Eos % (Auto) % Baso % (Auto) % Neut # (Auto) (1.4-6.5) K/uL Lymph # (Auto) (1.2-3.4) K/uL [place] # (Auto) (0.11-0.59) K/uL Eos # (Auto) (0-0.5) K/uL Baso # (Auto) (0-0.2) K/uL Immature Gran # (Auto) (0.00-0.02) K/uL APTT 48.6 H* (21.0-31.0) Seconds PTT Ratio 1.8 Sample Site POC pH (7.35-7.45) POC pCO2 (35-46) mmHg POC pO2 (80-95) mmHg POC HCO3 (19-24) jackie/L POC Total CO2 (24-31) mmol/L POC Base Excess (-9-1.8) jackie/L POC ABG O2 Sat (90-95) % Keron Test O2 Delivery Device POC O2 Rate POC FiO2 % Tidal Volume PEEP Sodium (136-145) mmol/L Potassium (3.5-5.1) mmol/L Chloride (98-107) mmol/L Carbon Dioxide (21-32) mmol/L Anion Gap (3-11) BUN (7-18) mg/dl Creatinine (0.6-1.4) mg/dl Est Cr Clr Drug Dosing ml/min Est GFR ( Amer) ml/min Est GFR (Non-Af Amer) ml/min BUN/Creatinine Ratio (10-20) Glucose (70-99) mg/dl POC Glucose (70-99) mg/dl POC Glucose (other) 115 H 127 H (70-99) mg/dl Calcium (8.5-10.1) mg/dl Phosphorus (2.5-4.9) mg/dl Magnesium (1.8-2.4) mg/dl 01/16/21 Range/Units 12:26 WBC (4.8-10.8) K/uL RBC (4.7-6.1) M/uL Hgb (14.0-18.0) g/dL Hct (42-52) % MCV (80-100) fL MCH (25-34) pg MCHC (32-36) g/dL RDW Std Deviation (36.4-46.3) fL RDW Coeff of Tatiana (11.5-14.5) % Plt Count (130-400) K/uL MPV (7.4-10.4) fL Immature Gran % (Auto) % Neut % (Auto) % Lymph % (Auto) % [place] % (Auto) % Eos % (Auto) % Baso % (Auto) % Neut # (Auto) (1.4-6.5) K/uL Lymph # (Auto) (1.2-3.4) K/uL [place] # (Auto) (0.11-0.59) K/uL Eos # (Auto) (0-0.5) K/uL Baso # (Auto) (0-0.2) K/uL Immature Gran # (Auto) (0.00-0.02) K/uL APTT (21.0-31.0) Seconds PTT Ratio Sample Site POC pH (7.35-7.45) POC pCO2 (35-46) mmHg POC pO2 (80-95) mmHg POC HCO3 (19-24) jackie/L POC Total CO2 (24-31) mmol/L POC Base Excess (-9-1.8) jackie/L POC ABG O2 Sat (90-95) % Keron Test O2 Delivery Device POC O2 Rate POC FiO2 % Tidal Volume PEEP Sodium (136-145) mmol/L Potassium (3.5-5.1) mmol/L Chloride (98-107) mmol/L Carbon Dioxide (21-32) mmol/L Anion Gap (3-11) BUN (7-18) mg/dl Creatinine (0.6-1.4) mg/dl Est Cr Clr Drug Dosing ml/min Est GFR ( Amer) ml/min Est GFR (Non-Af Amer) ml/min BUN/Creatinine Ratio (10-20) Glucose (70-99) mg/dl POC Glucose (70-99) mg/dl POC Glucose (other) 145 H (70-99) mg/dl Calcium (8.5-10.1) mg/dl Phosphorus (2.5-4.9) mg/dl Magnesium (1.8-2.4) mg/dl Coding Level of Care Code Critical Care 1st 30-74 mins Diagnoses Admitted to intensive care unit Z78.9
[2021-01-17] MEDS: ATORVASTATIN 40 MG TAB PO SCH (08:40)
[2021-01-17] MEDS: ASPIRIN 81 MG CHEW PO SCH (08:40)
[2021-01-17] MEDS: CHOLECALCIFEROL 1,000 UNITS 25 MCG TAB PO SCH (08:40)
[2021-01-17] MEDS: TICAGRELOR 90 MG TAB PO SCH ×2 (08:40→21:23)
[2021-01-17] MEDS: dexAMETHasone 6 MG in SYRINGE 0 ML IV SCH (08:41)
[2021-01-17] MEDS: HEPARIN SODIUM/DEXTROSE 25,000 UNITS/500 ML BAG IV SCH (09:40)
--- NOTE | 2021-01-17 09:44 | Nephrology Progress Note ---
Date of Service January 17, 2021 Assessment & Plan (1) Acute kidney injury: (2) Acute respiratory failure with hypoxia: (3) COVID-19: Plan: 70 y o M with Respiratory failure due to COVID pneumonia, requiring intubation. Developed CHARMAINE secondary to ATN, now improving, cr down to 1.2. Respiratory acidosis with metabolic compensation. UO decent. --continue to monitor with Hemodynamic support. No need for bicarb at this time. Will be available if renal function, electrolyte worsen again. Admission and Anticipated Discharge Date Admission Date: January 07, 2021 Subjective Mr. Mejia remained intubated and had worsening hypoxia overnight, now on prone position. became febrile again. Decent UO. BP stable. Cr stable. acidosis resolved. Physical Exam Physical Exam: direct physical exam was not done due to COVID isolation. Results & Data ([facility]) Vital Signs (Past 12 Hours) Vital Signs Temp Pulse Resp BP Pulse Ox 01/17/21 07:15 68 34 H 118/50 L 94 01/17/21 05:55 34 H 01/17/21 05:00 34 H 01/17/21 04:57 37.6 C H 79 129/72 91 01/17/21 04:00 38.0 C H 82 74/50 L 92 01/17/21 03:57 37.9 C H 84 69/50 L 93 01/17/21 03:55 75 34 H 92 01/17/21 02:57 37.9 C H 103 H 94/71 L 87 L 01/17/21 01:57 37.8 C H 91 H 109/71 92 01/17/21 00:57 37.2 C 93 H 141/92 H 87 L 01/16/21 23:57 37.4 C 102 H 143/92 H 87 L 01/16/21 22:57 37.4 C 90 100/81 85 L 01/16/21 22:30 93 H 37 H 87 L 01/16/21 21:57 37.4 C 132 H 137/100 89 L PG Care Time/CCT Total # of Minutes Spent Total Time Spent with Patient: Total time spent is greater than 50% in coordination of care (as documented) at patient's floor/unit and/or counseling patient: Coding Level of Care Code 83849 Subseq Hosp Care Lvl 1 Diagnoses Acute kidney injury N17.9 Acute respiratory failure with hypoxia J96.01 COVID-19 U07.1
[2021-01-17] MEDS: INSULIN REGULAR 250 UNITS in SODIUM CHLORIDE 0.9% 247.5 ML IV SCH (10:55)
[2021-01-17] MEDS: PANTOprazole 40 MG in SYRINGE 0 ML IV SCH (10:57)
[2021-01-17] MEDS: cefTRIAXone SODIUM 2,000 MG in DEXTROSE 5% 50 ML IV SCH (12:02)
--- NOTE | 2021-01-17 16:44 | Hospitalist Progress Note ---
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 He is not vaccinated against Covid and was found to have Covid in the ED and required 15 L nonrebreather. Is currently in the critical care unit for the following: #. Sepsis with shock requiring pressors #. COVID Pneumonia #. Acute Hypoxic Respiratory failure #. Leukocytosis, pro-Red uptrended 01/13 Patient meets sepsis criteria. 01/13 AM, patient desaturated and was tachypneic on high flow nasal cannula, became lethargic, and was intubated, currently on mechanical ventilation. Patient on Levophed Admitting CXR: Chronic emphysema and scaring without evidence of acute abnormality. Admitting CTA chest: No PE, emphysema with chronic fibrotic changes, findings suggestive of pulmonary edema versus inflammatory pneumonitis, cardiomegaly with left ventricular apex thrombus up to 1.9 cm. Admitting echo: Technically difficult study. Grossly normal LV size with mild to moderate reduced systolic function. EF 40 to 45%. Akinetic apex with small laminated apical thrombus. Status post remdesivir and Tocilizumab [01/07 CRP 13.7> trended down to 1.71 on 01/12], continue with dexamethasone 01/08 Continue with supportive management. On IV antibiotics Cefepime 01/14--- 01/15 ceftriaxone. WBC trending down though he became febrile. Patient requiring 2 pressors currently. Tube feeding not started due to multiple pressors requirement. Management per ICU care. #. CHARMAINE #. ATN Baseline creatinine around one, creatinine up trended to 3, downtrending UA revealing granular casts suggestive of ATN, patient making urine and creatinine improving Nephrology on board #. Apical thrombus See imaging above Patient on heparin drip 01/13. #. Afib RVR Patient on IV metoprolol and amiodarone 01/16 #. CAD #. Chronic heart failure with reduced ejection fraction #. Ischemic cardiomyopathy Anterior STEMI 04/2018 with PCI and 2 KHRIS to proximal to mid LAD; staged PCI to circumflex/OM Echo 04/2019 EF 40 to 45% Admitting BNP 1061, lower than the previous BNP. Follows [facility] cardiology Currently being managed for sepsis criteria. Hold antihypertensives. #. Prediabetes 12/21/2020 A1c 6.4 Patient on insulin drip per unit protocol. #. DVT prophylaxis: Patient on heparin drip Disposition: Continue critical care Full code Patient currently in amiodarone drip, heparin drip, insulin drip, fentanyl, Precedex, cisatracurium, Levophed, vasopressin. He has urinary catheter in situ, NG tube in situ, intubated, prone position. Multisystem organ failure, guarded prognosis. Management per critical care team. Patient's Constanza was updated on patient's condition on 01/13 and voiced understanding and agreement with plan of care. Per critical care's discussion with the family, he is DNR/DNI for any new events but wants everything done at present. Admission and Anticipated Discharge Date Admission Date: January 07, 2021 Subjective Since sedated and intubated, had hypoxic event overnight per RN requiring Nimbex and prone positioning to improve his SaO2. He developed fever again. ROS not assessable. Physical Exam Physical Exam: GENERAL: Mechanical ventilation, sedation HEENT: No pallor, no icterus. Pupils equal, round. Oral mucosa dry. NECK: No JVD, no neck masses. HEART: S1 and S2 heard. Regular rate and rhythm. No murmur, no gallop. RESPIRATORY SYSTEM: Normal AP diameter. No accessory muscle use. No wheezing. Decreased breath sounds bilateral. ABDOMEN: Soft, bowel sounds present, no distention. Neuro: Patient sedated. EXTREMITIES: No edema, no erythema seen. 01/13 left IJ and right radial art line. 01/13 mechanical ventilation and enteric tube placement NG suction in situ. Results & Data Results & Data ([facility]) Vital Signs (Past 12 Hours) Vital Signs Temp Pulse Resp BP Pulse Ox 01/17/21 16:00 64 01/17/21 15:29 72 141/50 H 01/17/21 15:25 74 34 H 94 01/17/21 12:33 37.6 C H 73 113/62 93 01/17/21 12:01 68 141/72 H 01/17/21 12:00 68 01/17/21 11:57 37.8 C H 68 141/72 H 93 01/17/21 10:57 37.8 C H 69 112/65 94 01/17/21 10:35 67 34 H 93 01/17/21 09:57 37.8 C H 69 126/72 94 01/17/21 08:57 37.8 C H 70 117/74 93 01/17/21 08:00 68 01/17/21 07:57 37.8 C H 70 104/58 L 91 01/17/21 07:15 68 34 H 118/50 L 94 01/17/21 07:01 37.7 C H 69 113/68 93 01/17/21 06:57 37.7 C H 68 71/48 L 01/17/21 05:57 37.6 C H 80 118/68 92 01/17/21 05:55 34 H 01/17/21 05:00 34 H 01/17/21 04:57 37.6 C H 79 129/72 91
[2021-01-17] MEDS ORDERED: ETOMIDATE 2 MG/ML 20 ML VIAL IV ONE (20:08)
[2021-01-18 00:09] LABS: iSTAT Arterial Blood Gas HCO3 31 meg/L (19-24); iSTAT Arterial Blood Gas pCO2 48 mmHg (35-46); iSTAT Arterial Blood Gas pH 7.41 (7.35-7.45); iSTAT Arterial Blood Gas pO2 63 mmHg (80-95); iSTAT Carbon Dioxide 32 mmol/L (24-31); iSTAT FiO2 50 %; iSTAT Site Art Line
[2021-01-18] MEDS: AMIODARONE / D5W 360 MG/200 ML BAG IV SCH ×3 (00:18→22:17)
[2021-01-18] MEDS: DEXMEDETOMIDINE HCL 200 MCG in SODIUM CHLORIDE 0.9% 48 ML IV SCH (00:32)
[2021-01-18] MEDS: METOPROLOL TARTRATE 1 MG/ML VIAL IV SCH (01:23)
[2021-01-18] MEDS: ARTIFICIAL TEARS OP OINT 3.5 GM TUBE OP SCH ×6 (01:24→19:56)
[2021-01-18] MEDS: fentaNYL DRIP 1,250 MCG/250 ML BAG IV SCH ×4 (01:54→23:57)
[2021-01-18] MEDS: VASOPRESSIN 20 UNITS in 0.9 % SODIUM CHLORIDE 100 ML IV SCH ×3 (01:54→16:48)
[2021-01-18 04:19] LABS: iSTAT Arterial Blood Gas HCO3 28 meg/L (19-24); iSTAT Arterial Blood Gas pCO2 42 mmHg (35-46); iSTAT Arterial Blood Gas pH 7.43 (7.35-7.45); iSTAT Arterial Blood Gas pO2 73 mmHg (80-95); iSTAT Carbon Dioxide 29 mmol/L (24-31); iSTAT FiO2 50 %; iSTAT Site Art Line
[2021-01-18] MEDS: CISATRACURIUM BESYLATE 40 MG in 0.9 % SODIUM CHLORIDE 80 ML IV SCH ×6 (05:15→20:29)
[2021-01-18 05:22] LABS: Hemoglobin 13.4 g/dL (14.0-18.0); Mean Corpuscular Hgb Conc 33.5 g/dL (32-36); Mean Corpuscular Volume 98.5 fL (80-100); Mean Platelet Volume 11.2 fL (7.4-10.4); Platelet Count 236 K/uL (130-400); RDW Coefficient of Variation 13.2 % (11.5-14.5); RDW Standard Deviation 47.3 fL (36.4-46.3); Red Blood Count 4.06 M/uL (4.7-6.1)
[2021-01-18 05:42] LABS: BUN Creatinine Ratio 47.6 (10-20); Creatinine Clr Calc Pharmacy 74.7 ml/min; Est GFR (African American) 90.2 ml/min; Est GFR (Non-African American) 77.8 ml/min; Magnesium 2.4 mg/dl (1.8-2.4); Partial Thromboplastin Ratio 2.3
[2021-01-18 05:59] LABS: Phosphorus 2.4 mg/dl (2.5-4.9)
[2021-01-18 06:02] LABS: Partial Thromboplastin Time 59.5 Seconds (21.0-31.0)
[2021-01-18 06:05] LABS: Basophils # (auto) 0.01 K/uL (0-0.2); Basophils % (auto) 0.1 %; Immature Granulocytes # (auto) 0.11 K/uL (0.00-0.02); Immature Granulocytes % (auto) 0.7 %; Lymphocytes # (auto) 0.99 K/uL (1.2-3.4); Lymphocytes % (auto) 6.6 %; Monocytes # (auto) 0.33 K/uL (0.11-0.59); Monocytes % (auto) 2.2 %; Neutrophils # (auto) 13.46 K/uL (1.4-6.5); Neutrophils % (auto) 90.4 %; Toxic Granulation 1+
[2021-01-18] MEDS ORDERED: SODIUM PHOSPHATE 3 MMOL/1 ML INFUSION IV STA (07:53)
[2021-01-18] MEDS: Double Conc 32mcg/mL; 16mg in 500mL IV SCH ×2 (08:00→13:21)
[2021-01-18] MEDS: INSULIN ASPART 100 UNITS/ML 3 ML PEN SC SCH ×4 (08:01→20:14)
[2021-01-18] MEDS: TICAGRELOR 90 MG TAB PO SCH ×2 (08:02→20:13)
[2021-01-18] MEDS: MULTI VIT W/MINERALS LIQUID 15 ML UDP PO SCH (08:02)
[2021-01-18] MEDS: ASPIRIN 81 MG CHEW PO SCH (08:02)
[2021-01-18] MEDS: ATORVASTATIN 40 MG TAB PO SCH (08:03)
[2021-01-18] MEDS: CHOLECALCIFEROL 1,000 UNITS 25 MCG TAB PO SCH (08:03)
[2021-01-18] MEDS ORDERED: SODIUM PHOSPHATE 15 MMOL in SODIUM CHLORIDE 0.9% 250 ML IV ONE (08:15)
[2021-01-18] MEDS ORDERED: FUROSEMIDE 20 MG in SYRINGE 0 ML IV ONE (08:30)
--- NOTE | 2021-01-18 10:17 | Palliative Care Consultation ---
Date of Consultation January 18, 2021 Assessment & Plan (1) Palliative care encounter: This is a 70 year old patient who presented to the [facility] on 01/07 with hypoxia. He was intubated and transferred to the ICU on 01/13. He has since been treated not only for COVID-19 PNA, but also chronic management of his CAD, apical thrombus, and new onset of Atrial Fibrillation with RVR. He has received pronation therapy while on the ventilator and has required vasoactive support, including Levophed and Vasopressin. Additionally, he has required Precedex for sedation and Nimbex for neuromusclar blockade. Palliative Medicine was consulted to discuss overall goals of care with the family. I talked with the patients , Constanza, on the phone. She said she just is not sure what she thinks about all of this. She keeps going back and forth with how aggressive to be with his care, but for now would like to continue with aggressive measures, short of CPR/defibrillation. We did discuss all of his current medications in detail and I answered questions to help her with decision making. He is currently on a Heparin gtt, Amiodarone gtt, Insulin gtt, Protonix gtt, Precedex, and Nimbex at 1mcg/kg. She stated that he was fully independent prior to this medical event. When he went into his PCP an X-ray was performed and she noted that he had some fluid in his lungs and a cough that just would 'not go away'. His was told originally that things were moving in the right direction and his fluid was removed, but does understand that his condition has shifted over the past few days. He does have a DNR and we confirmed that he would not chest compressions, defibrillation, etc. For right now, she is feeling realistic in that she does understand that his prognosis is grim and knows that she may need to make a decision regarding his withdraw of care. They do not have any children together. Drake's brother and sister in law have been really supportive with the situation. She isn't sure if he would want a tracheostomy or not in this situation. She is frustrated right now trying to figure out the financial piece at home with passwords, etc to get things in line, but has been considering his senior care goals and plans. For now, continue care and we will take things on an every few days basis to determine which direction things appear to be going. Palliative will follow. (2) Pneumonia due to COVID-19 virus: (3) Sepsis: (4) Acute on chronic renal failure: History of Present Illness Reason for Consultation: Goals of care Requesting Physician: Dr. Segura Attending Physician: Nicanor Quintanilla MD History of Present Illness This is a 70 year old patient who presented to the [facility] on 01/07 with hypoxia. He was intubated and transferred to the ICU on 01/13. He has since been treated not only for COVID-19 PNA, but also chronic management of his CAD, apical thrombus, and new onset of Atrial Fibrillation with RVR. He has received pronation therapy while on the ventilator and has required vasoactive support, including Levophed and Vasopressin. Additionally, he has required Precedex for sedation and Nimbex for neuromusclar blockade. Palliative Medicine was consulted to discuss overall goals of care with the family. Please see A/P for further details. Thanks for involving Palliative Medicine with this individual. Allergies Allergy/AdvReac Type Severity Reaction Status Date / Time No Known Drug Allergies Allergy nkda Verified 01/07/21 12:57 Home Medications Medication Instructions Recorded Confirmed Type nitroglycerin 0.3 mg sublingual 0.3 mg SUBLINGUAL UD #10 tab 05/15/18 01/07/21 Rx tablet (Nitrostat) Lactobacillus acidophilus 1 1,000 mmu cells PO DAILY PRN tab 12/06/18 01/07/21 History billion cell tablet albuterol sulfate 90 mcg/actuation 2 puffs INHALATION ONCE PRN gm 12/06/18 01/07/21 History aerosol inhaler cholecalciferol (vitamin D3) 25 1,000 units PO DAILY cap 12/06/18 01/07/21 History mcg (1,000 unit) capsule clindamycin phosphate 1 % topical 1 appln TOPICAL BID PRN #1 ml 12/06/18 01/07/21 History solution desonide 0.05 % lotion 1 appln TOPICAL BID PRN #1 ml 12/06/18 01/07/21 History fluocinonide 0.05 % topical 1 appln TOPICAL BID PRN #3 gm 12/06/18 01/07/21 History ointment fluticasone propionate 50 2 sprays INTRANASAL BID PRN #3 gm 12/06/18 01/07/21 History mcg/actuation nasal spray,suspension hydrocortisone acetate 25 mg 25 mg MN DAILY PRN ea 12/06/18 01/07/21 History rectal suppository meclizine 25 mg tablet 25 mg PO TID PRN tab 12/06/18 01/07/21 History mometasone 0.1 % topical ointment 1 appln TOPICAL BID PRN #1 gm 12/06/18 01/07/21 History [id number]-VF-lycopen-lutein See Rx Instructions PO DAILY 05/16/19 01/07/21 History [Centrum Silver Men] aspirin 81 mg tablet,delayed 81 mg PO DAILY 11/14/19 01/07/21 History release atorvastatin 80 mg tablet 80 mg PO DAILY #90 tab 02/10/20 01/07/21 Rx lisinopril 10 mg tablet 10 mg PO DAILY #90 tab 03/17/20 01/07/21 Rx metoprolol succinate 100 mg 100 mg PO DAILY #90 tab 10/05/20 01/07/21 Rx tablet,extended release 24 hr (Toprol XL) ticagrelor 60 mg tablet 60 mg PO BID #180 tab 11/17/20 01/07/21 Rx omega-3 fatty acids 1,000 mg 1,000 mg PO DAILY 12/15/20 01/07/21 History capsule (Fish Oil Concentrate) acetaminophen 500 mg tablet 1,000 mg PO Q6H PRN 01/07/21 01/07/21 History (Tylenol Extra Strength) furosemide 20 mg tablet 20 mg PO DAILY 01/07/21 01/07/21 History Patient History Medical History (Updated 01/18/21 @ 10:16 by JAKUB Dugan) Acute on chronic renal failure Anxiety Borderline diabetes CAD (coronary artery disease) --Anterior STEMI 04/2018 post primary PCI with 2 KHRIS to proximal to mid LAD --post staged PCI to circumflex/OM and RCA 04/2018 2. Ischemic cardiomyopathy--EF 40-45% 04/2019 Chronic HFrEF (heart failure with reduced ejection fraction) HLD (hyperlipidemia) Ischemic cardiomyopathy Multi-vessel coronary artery stenosis Palliative care encounter Pneumonia due to COVID-19 virus Pre-diabetes Surgical History History of coronary artery stent placement History of hernia repair Family History Father Coronary heart disease Myocardial infarction Mother Diabetes Social History Smoking Status: Former smoker Years Smoked: 40; Smoking End Date: 1991; Second Hand Exposure: No; Do You Dip or Chew Tobacco: No; Tobacco Cessation Education Requested by Patient: No Hx Alcohol Use: No Hx Substance Use: No Preferred Language: Bangladeshi Communication Ability: Effective Visual Impairment: No Limitations 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 Required: No Beliefs That Will Affect Care: None marital status: Current Living Situation: Spouse current occupation: [employer] Other Information That Helps Us Care for You: No Feels Safe at Home: Yes Safety Concerns: Feels Safe At This Time Assistive Devices: Oxygen - Continuous Review of Systems Review of Systems: [place] System Assessment Scale: Pain AD: 0/3 (on paralytic) SOB AD: 0/3 Anxiety: 0/3 Palliative Performance Scale: 30% Physical Exam Constitutional: + ill appearing, + frail appearing and + mechanically ventilated ENMT: Mouth: + dry oral mucous membranes Respiratory: Auscultation: + diminished lung sounds and + rhonchi Cardiovascular: Rate/Rhythm: regular rate and regular rhythm Heart Sounds: normal S1 and normal S2 Extremities: normal capillary refill and + edema Gastrointestinal (Abdomen): Inspection/Auscultation: abdomen normal to inspection Skin: + pallor Psychiatric: Orientation: + not alert on parlaytics Results & Data ([facility]) Vital Signs (Past 12 Hours) Vital Signs Temp Pulse Resp BP Pulse Ox 01/18/21 08:00 64 01/18/21 07:45 64 34 H 93 01/18/21 06:33 37.4 C 65 115/74 95 01/18/21 05:33 37.5 C 62 106/67 95 01/18/21 04:33 37.4 C 64 103/68 97 01/18/21 04:10 64 34 H 93 01/18/21 04:00 64 103/68 01/18/21 03:34 37.5 C 65 97/62 L 93 01/18/21 02:34 37.4 C 67 115/73 93 01/18/21 01:33 37.1 C 71 143/83 H 92 01/18/21 00:33 37.4 C 68 110/71 92 01/18/21 00:00 80 01/17/21 23:34 37.4 C 69 99/63 L 91 01/17/21 23:26 79 35 H 92 01/17/21 23:04 37.3 C 79 150/84 H 92 01/17/21 22:34 37.4 C 68 132/77 97 PG Care Time/CCT Total # of Minutes Spent Total Time Spent with Patient: Total time spent is greater than 50% in coordination of care (as documented) at patient's floor/unit and/or counseling patient: 100 minutes with > 50% of that time spent assessing the patient, discu ssing goals of care with family and collaborating with IDT Coding Level of Care Code 66522 Inpt Consult Level 3 Diagnoses Palliative care encounter Z51.5 Pneumonia due to COVID-19 virus U07.1; J12.82 Sepsis A41.9 Acute on chronic renal failure N17.9; N18.9 Time Spent (min) 100
[2021-01-18] MEDS: INSULIN REGULAR 250 UNITS in SODIUM CHLORIDE 0.9% 247.5 ML IV SCH (11:01)
[2021-01-18] MEDS: PANTOprazole 40 MG in SYRINGE 0 ML IV SCH (11:05)
[2021-01-18] MEDS: HEPARIN SODIUM/DEXTROSE 25,000 UNITS/500 ML BAG IV SCH (11:08)
[2021-01-18] MEDS: cefTRIAXone SODIUM 2,000 MG in DEXTROSE 5% 50 ML IV SCH (11:44)
[2021-01-18] MEDS ORDERED: METOPROLOL TARTRATE 1 MG/ML VIAL IV STA ×2 (11:58→17:26)
[2021-01-18] MEDS ORDERED: METOPROLOL TARTRATE 1 MG/ML VIAL IV ONE ×2 (11:59→17:29)
[2021-01-18] MEDS: TUBE FEEDING WATER FLUSH OG SCH ×3 (12:16→19:56)
[2021-01-18] MEDS: PEPTAMEN INTENSE VHP 1.0 CAL 1,000 ML BAG OG SCH (13:23)
[2021-01-18] MEDS ORDERED: STAT IV Infusion **Titration per Protocol STA (13:26)
[2021-01-18] MEDS ORDERED: PROPOFOL BOLUS FROM BAG IV PRN (13:26)
--- NOTE | 2021-01-18 13:30 | Critical Care Progress Note ---
Date of Service January 18, 2021 Assessment & Plan (1) Pneumonia due to COVID-19 virus: (2) COVID-19: (3) Acute respiratory failure with hypoxia: (4) Chronic HFrEF (heart failure with reduced ejection fraction): (5) Left ventricular apical thrombus: (6) Acute kidney injury: Plan: Reason Critically Ill: 70-year-old male with COVID-19 pneumonia and worsening hypoxic respiratory failure requiring emergent endotracheal intubation for ongoing management of underlying illness. NEURO - Sedation : On fentanyl and Precedex -Neuromuscular blockade with cis atracurium CARDIAC/VASCULAR - Coronary artery disease: Status post PTCI with KHRIS x4. Continue current medications. Echocardiogram earlier this visits demonstrates EF of 40 to 45% with apical thr ombus. Apical thrombus Patient requires heparin drip. Monitor on telemetry. Atrial fibrillation with rapid ventricular response -Amiodarone infusion -Metoprolol 5 mg IV every 4 hours as needed Labile blood pressure Bouts of hypotension with episodic hypotension --> could be from underlying COVID-19 as well as sedation -On norepinephrine to keep MAP greater than 65 -Random cortisol 37 on 01/13 RESPIRATORY - Acute hypoxic respiratory failure in the setting of COVID-19 pneumonia: Patient intubated 01/13 Patient has already received Tocilizumab, remdesivir, and Decadron. Ventilator settings reviewed: ARDSnet guidelines high PEEP low FiO2 -Pronation therapy with neuromuscular blockade started 01/17 GI/NUTRITION - Trickle feeds RENAL/LYTES - Acute kidney injury Baseline appears to be 1.0: Improved -Nephrology on board - consented for temporary HD catheter Replace electrolytes as needed - Strict I&Os. ENDO - No history of diabetes or thyroid disease BSGs per unit protocol. ISS --> gtt per unit policy. HEME - Stable H&H DVT prophylaxis: Heparin ID - COVID-19 pneumonia: Recently finished remdesivir. Received Tocilizumab earlier in visit. Febrile illness -Day 5 ceftriaxone empiric 7 days of therapy --Prophylaxis VTE: Heparin drip GI: Protonix Lines: Right IJ, right radial positive Silva Diet: Trophic feeds Plan: In/out: +2.3 L, urine output 1516, patient is positive for liter since coming to the hospital AB.43/42/73 on 14 of PEEP 40% FiO2 --> I went down on the respiratory to 70, change the vent setting to volume control assist control, decrease the PEEP to 12 Dose of Lasix given to the patient [Feeds for the patient We will try to wean PEEP off to 10 if possible. If the patient still is on PEEP greater than 12 with proning again. Patient has bouts of A. fib with RVR. He is already on amiodarone drip If he still goes into A. fib we will consider giving digoxin Hypophosphatemia being replaced by sodium Phos DC Precedex and start the patient on propofol Patient's Constanza Mejia [phone] I have personally spent 44 minutes of critical care time in the direct management of this patient. This is a life/limb threatening event. This includes time spent evaluating patient, direct bedside care, chart review, placing orders, interpretation of diagnostic studies, discussion with consultants, patient, and family members, as well as other required patient management activities. This time is exclusive of all separately billable procedures, and teaching time and separate from and in addition to any other critical care service time. Please note the above document was generated using voice recognition software. It may contain grammatical, syntax or spelling errors. Admission and Anticipated Discharge Date Admission Date: January 07, 2021 Subjective Patient seen and examined at bedside. No acute distress. Patient was on amiodarone 0.5, Precedex, heparin drip and low-dose Levophed 0.02 He is also paralyzed on Nimbex Patient was prone yesterday. Currently supine Review of Systems Review of Systems: Unobtainable due to mental health condition and Unobtainable due to endotracheal tube Physical Exam Physical Exam: Constitutional: No acute distress HEENT: PERRLA, positive ETT Respiratory system: Decreased air entry bilaterally, no wheeze, rhonchi, posi tive crackles bilaterally CVS: S1-S2 positive, no murmurs or gallops Abdomen: Soft, nontender, nondistended, positive bowel sounds x4 Extremities: +2 pulses bilaterally radialis/ dorsalis pedis, no cyanosis, no edema Neuro: Paralyzed and sedated Psych: Unable to assess G/U: Positive Silva Skin: no rashes, warm and dry Lymphatic: no cervical or axillary lymphadenopathy Results & Data Results & Data ([facility]) Vital Signs (Past 12 Hours) Vital Signs Temp Pulse Resp BP Pulse Ox 01/18/21 13:01 37.2 C 113 H 74/55 L 88 L 01/18/21 12:31 37.0 C 119 H 107/86 93 01/18/21 12:16 155 H 102/54 L 01/18/21 12:06 37.1 C 114 H 85/54 L 91 01/18/21 12:00 113 H 01/18/21 11:40 141 H 30 H 94 01/18/21 11:36 37.1 C 140 H 116/70 95 01/18/21 11:14 37.1 C 95 H 159/88 H 91 01/18/21 10:34 37.4 C 57 L 90/57 L 91 01/18/21 09:33 37.4 C 61 88/59 L 92 01/18/21 08:33 37.6 C H 62 90/61 L 90 01/18/21 08:00 64 01/18/21 07:45 64 34 H 93 01/18/21 07:34 37.5 C 64 93/60 L 96 01/18/21 06:33 37.4 C 65 115/74 95 01/18/21 05:33 37.5 C 62 106/67 95 01/18/21 04:33 37.4 C 64 103/68 97 01/18/21 04:10 64 34 H 93 01/18/21 04:00 64 103/68 01/18/21 03:34 37.5 C 65 97/62 L 93 01/18/21 02:34 37.4 C 67 115/73 93 01/18/21 01:33 37.1 C 71 143/83 H 92 01/18/21 05:04 01/18/21 05:04 Coding Level of Care Code Critical Care 1st -74 mins Diagnoses Pneumonia due to COVID-19 virus U07.1; J12.82 COVID-19 U07.1 Acute respiratory failure with hypoxia J96.01 Chronic HFrEF (heart failure with reduced ejection fraction) I50.22 Left ventricular apical thrombus I51.3 Acute kidney injury N17.9 Time Spent (min) 44
[2021-01-18] MEDS: propofoL 1,000 MG/100 ML VIAL IV SCH ×2 (14:20→23:57)
--- NOTE | 2021-01-18 17:28 | Hospitalist Progress Note ---
Date of Service January 18, 2021 Assessment & Plan (1) Left ventricular apical thrombus: (2) Sepsis: (3) Acute respiratory failure with hypoxia: Plan: 70-year-old male with PMH of CAD, chronic HFrEF, nonischemic CM, HTN, HLD, prediabetes presented to the ED 01/07 secondary to URI for 9 days [employer] and hypoxic in the clinic on the day of arrival. He is not vaccinated against Covid and was found to have Covid in the ED and required 15 L nonrebreather. Is currently in the critical care unit for the following: #. Sepsis with shock requiring pressors #. COVID Pneumonia #. Acute Hypoxic Respiratory failure #. Leukocytosis, pro-Red uptrended 01/13 Patient meets sepsis criteria. 01/13 AM, patient desaturated and was tachypneic on high flow nasal cannula, became lethargic, and was intubated, currently on mechanical ventilation. Patient on Levophed Admitting CXR: Chronic emphysema and scaring without evidence of acute abnormality. Admitting CTA chest: No PE, emphysema with chronic fibrotic changes, findings suggestive of pulmonary edema versus inflammatory pneumonitis, cardiomegaly with left ventricular apex thrombus up to 1.9 cm. Admitting echo: Technically difficult study. Grossly normal LV size with mild to moderate reduced systolic function. EF 40 to 45%. Akinetic apex with small laminated apical thrombus. Status post remdesivir and Tocilizumab [01/07 CRP 13.7> trended down to 1.71 on 01/12], continue with dexamethasone 01/08 Continue with supportive management. On IV antibiotics Cefepime 01/14--- 01/15 ceftriaxone. Patient requiring 2 pressors currently. Tube feeding started 01/18. Management per ICU care. #. CHARMAINE #. ATN Baseline creatinine around one, creatinine up trended to 3, downtrending UA revealing granular casts suggestive of ATN, patient making urine and creatinine improving Nephrology on board #. Apical thrombus See imaging above Patient on heparin drip 01/13. #. Afib RVR Patient on IV metoprolol and amiodarone 01/16 #. CAD #. Chronic heart failure with reduced ejection fraction #. Ischemic cardiomyopathy Anterior STEMI 04/2018 with PCI and 2 KHRIS to proximal to mid LAD; staged PCI to circumflex/OM Echo 04/2019 EF 40 to 45% Admitting BNP 1061, lower than the previous BNP. Follows [facility] cardiology Currently being managed for sepsis criteria. Hold antihypertensives. #. Prediabetes 12/21/2020 A1c 6.4 Patient on insulin drip per unit protocol. #. DVT prophylaxis: Patient on heparin drip Disposition: Continue critical care Full code Patient currently in amiodarone drip, heparin drip, insulin drip, fentanyl, propofol, cisatracurium, Levophed, vasopressin. He has urinary catheter in situ, NG tube in situ, intubated, supine position. Multisystem organ failure, guarded prognosis. Management per critical care team. Patient's Constanza was updated on patient's condition on 01/13 and voiced understanding and agreement with plan of care. Per critical care's discussion with the family, he is DNR/DNI for any new events but wants everything done at present. Palliative care on board. Admission and Anticipated Discharge Date Admission Date: January 07, 2021 Subjective Patient was lying in bed, sedated and intubated and on mechanical ventilation. Per RN, he had an episode of A. fib with RVR and received a dose of metoprolol today. Overnight no acute worsening of the symptoms. ROS not assessable. Physical Exam Physical Exam: GENERAL: Mechanical ventilation, sedation HEENT: No pallor, no icterus. Pupils equal, round. Oral mucosa dry. NECK: No JVD, no neck masses. HEART: S1 and S2 heard. Regular rate and rhythm. No murmur, no gallop. RESPIRATORY SYSTEM: Normal AP diameter. No accessory muscle use. No wheezing. Decreased breath sounds bilateral. ABDOMEN: Soft, bowel sounds present, no distention. Neuro: Patient sedated. EXTREMITIES: No edema, no erythema seen. 01/13 left IJ and right radial art line. 01/13 mechanical ventilation and enteric tube placement NG in situ; trickle feeds started 01/18 at 10 mL an hour. Results & Data Results & Data ([facility]) Vital Signs (Past 12 Hours) Vital Signs Temp Pulse Resp BP Pulse Ox 01/18/21 16:36 114 H 92 01/18/21 15:07 120 H 30 H 90 01/18/21 14:18 37.1 C 136 H 140/93 92 01/18/21 14:01 37.1 C 103 H 76/62 L 88 L 01/18/21 13:46 37.1 C 112 H 116/77 90 01/18/21 13:31 37.0 C 135 H 132/91 91 01/18/21 13:16 37.2 C 114 H 87/64 L 88 L 01/18/21 13:01 37.2 C 113 H 74/55 L 88 L 01/18/21 12:31 37.0 C 119 H 107/86 93 01/18/21 12:16 155 H 102/54 L 01/18/21 12:06 37.1 C 114 H 85/54 L 91 01/18/21 12:00 113 H 01/18/21 11:40 141 H 30 H 94 01/18/21 11:36 37.1 C 140 H 116/70 95 01/18/21 11:14 37.1 C 95 H 159/88 H 91 01/18/21 10:34 37.4 C 57 L 90/57 L 91 01/18/21 09:33 37.4 C 61 88/59 L 92 01/18/21 08:33 37.6 C H 62 90/61 L 90 01/18/21 08:00 64 01/18/21 07:45 64 34 H 93 01/18/21 07:34 37.5 C 64 93/60 L 96 01/18/21 06:33 37.4 C 65 115/74 95 01/18/21 05:33 37.5 C 62 106/67 95
[2021-01-19] MEDS: VASOPRESSIN 20 UNITS in 0.9 % SODIUM CHLORIDE 100 ML IV SCH ×3 (00:18→23:37)
[2021-01-19] MEDS: ARTIFICIAL TEARS OP OINT 3.5 GM TUBE OP SCH ×6 (00:33→20:02)
[2021-01-19] MEDS: TUBE FEEDING WATER FLUSH OG SCH ×7 (00:33→23:38)
[2021-01-19] MEDS: CISATRACURIUM BESYLATE 40 MG in 0.9 % SODIUM CHLORIDE 80 ML IV SCH ×5 (01:01→10:15)
[2021-01-19] MEDS: fentaNYL DRIP 1,250 MCG/250 ML BAG IV SCH ×2 (01:44→10:44)
[2021-01-19 02:26] LABS: Hematocrit (blood only) 39.2 % (42-52); Hemoglobin 12.9 g/dL (14.0-18.0); Mean Corpuscular Hemoglobin 32.7 pg (25-34); Mean Corpuscular Hgb Conc 32.9 g/dL (32-36); Mean Corpuscular Volume 99.2 fL (80-100); Mean Platelet Volume 11.3 fL (7.4-10.4); Platelet Count 250 K/uL (130-400); RDW Coefficient of Variation 13.4 % (11.5-14.5); RDW Standard Deviation 48.4 fL (36.4-46.3); Red Blood Count 3.95 M/uL (4.7-6.1); White Blood Count 20.18 K/uL (4.8-10.8)
[2021-01-19 02:43] LABS: Partial Thromboplastin Time 53.5 Seconds (21.0-31.0)
[2021-01-19 02:56] LABS: Basophilic Stippling 1+; Basophils # (auto) 0.03 K/uL (0-0.2); Basophils % (auto) 0.1 %; Echinocytes 1+; Eosinophils # (auto) 0.02 K/uL (0-0.5); Eosinophils % (auto) 0.1 %; Immature Granulocytes # (auto) 0.43 K/uL (0.00-0.02); Immature Granulocytes % (auto) 2.1 %; Lymphocytes # (auto) 1.22 K/uL (1.2-3.4); Monocytes # (auto) 0.37 K/uL (0.11-0.59); Monocytes % (auto) 1.8 %; Neutrophils # (auto) 18.11 K/uL (1.4-6.5); Neutrophils % (auto) 89.9 %; Ovalocytes 1+; Pappenheimer Bodies 1+; Toxic Granulation 2+
[2021-01-19] MEDS: propofoL 1,000 MG/100 ML VIAL IV SCH ×3 (03:03→15:15)
[2021-01-19 03:09] LABS: BUN Creatinine Ratio 49.4 (10-20); Calcium 7.9 mg/dl (8.5-10.1); Creatinine Clr Calc Pharmacy 81.3 ml/min; Est GFR (African American) 99.9 ml/min; Est GFR (Non-African American) 86.2 ml/min; Magnesium 2.5 mg/dl (1.8-2.4); Phosphorus 2.9 mg/dl (2.5-4.9); Potassium 3.8 mmol/L (3.5-5.1)
[2021-01-19 03:35] LABS: iSTAT Art Bld Gas pCO2 Correct 52 mmHg (35-46); iSTAT Art Bld Gas pH Corrected 7.403 (7.35-7.45); iSTAT Arterial Blood Gas HCO3 33 meg/L (19-24); iSTAT Arterial Blood Gas pCO2 53 mmHg (35-46); iSTAT Arterial Blood Gas pO2 59 mmHg (80-95); iSTAT Arterial Blood Gas pO2 C 58; iSTAT Carbon Dioxide 34 mmol/L (24-31); iSTAT FiO2 50 %; iSTAT Hematocrit 38 % (42-52); iSTAT Hemoglobin 12.9 g/dl (14.0-18.0); iSTAT Potassium 3.7 mmol/L (3.3-5.0); iSTAT Site Art Line; iSTAT Sodium 136 mmol/L (135-144)
[2021-01-19] MEDS: TICAGRELOR 90 MG TAB PO SCH ×2 (07:18→20:05)
[2021-01-19] MEDS: MULTI VIT W/MINERALS LIQUID 15 ML UDP PO SCH (07:18)
[2021-01-19] MEDS: CHOLECALCIFEROL 1,000 UNITS 25 MCG TAB PO SCH (07:19)
[2021-01-19] MEDS: INSULIN ASPART 100 UNITS/ML 3 ML PEN SC SCH ×5 (07:19→20:04)
[2021-01-19] MEDS: ATORVASTATIN 40 MG TAB PO SCH (07:19)
[2021-01-19] MEDS: ASPIRIN 81 MG CHEW PO SCH (07:19)
[2021-01-19] MEDS ORDERED: FUROSEMIDE 40 MG in SYRINGE 0 ML IV ONE ×2 (08:00→09:19)
--- NOTE | 2021-01-19 08:39 | XRay Report ---
XR chest 1V portable HISTORY: Respiratory failure. COMPARISON: Chest 01/17/2021. FINDINGS: Endotracheal tube terminates 5.5 cm from the leroy. A gastric tube terminates below the di aphragm. The tip is not included on this study. Left jugular central venous catheter is unchanged in position likely terminates in the left brachiocephalic vein. No pneumothorax. Trace bilateral pleural fusions. No change in the patchy airspace opacities seen throughout the lungs most pronounced within the right lower lobe. The heart is normal in size. IMPRESSION: 1. Satisfactory support line placement. 2. No change in the patchy bilateral airspace opacities likely representing a pneumonia. 3. Trace bilateral pleural effusions. ACT 112: Negative or not required by law. Electronically signed by: Jimmie Gonzales M.D. 01/19/2021 8:37 AM
--- NOTE | 2021-01-19 09:20 | Critical Care Progress Note ---
Date of Service January 19, 2021 Assessment & Plan (1) Pneumonia due to COVID-19 virus: (2) COVID-19: (3) Acute respiratory failure with hypoxia: (4) Chronic HFrEF (heart failure with reduced ejection fraction): (5) Left ventricular apical thrombus: (6) Acute kidney injury: Plan: Reason Critically Ill: 70-year-old male with COVID-19 pneumonia and worsening hypoxic respiratory failure requiring emergent endotracheal intubation for ongoing management of underlying illness. NEURO - Sedation : On fentanyl and Precedex -Neuromuscular blockade with cis atracurium CARDIAC/VASCULAR - Coronary artery disease: Status post PTCI with KHRIS x4. Continue current medications. Echocardiogram earlier this visits demonstrates EF of 40 to 45% with apical thr ombus. Ventricular apical thrombus On heparin drip Monitor on telemetry. Atrial fibrillation with rapid ventricular response -Amiodarone infusion -Metoprolol 5 mg IV every 4 hours as needed Labile blood pressure Bouts of hypotension with episodic hypotension --> could be from underlying COVID-19 as well as sedation -On norepinephrine to keep MAP greater than 65 -Random cortisol 37 on 01/13 RESPIRATORY - Acute hypoxic respiratory failure in the setting of COVID-19 pneumonia: Patient intubated 01/13 Patient has already received Tocilizumab, remdesivir, and Decadron. Ventilator settings reviewed: ARDSnet guidelines high PEEP low FiO2 -Pronation therapy with neuromuscular blockade started 01/17 GI/NUTRITION - Trickle feeds RENAL/LYTES - Acute kidney injury Baseline appears to be 1.0: Improved -Nephrology on board - consented for temporary HD catheter Replace electrolytes as needed - Strict I&Os. ENDO - No history of diabetes or thyroid disease BSGs per unit protocol. ISS --> gtt per unit policy. HEME - Stable H&H DVT prophylaxis: Heparin ID - COVID-19 pneumonia: Recently finished remdesivir. Received Tocilizumab earlier in visit. Febrile illness -Day 5 ceftriaxone empiric 7 days of therapy --Prophylaxis VTE: Heparin drip GI: Protonix Lines: Right IJ, right radial positive Silva Diet: Trophic feeds Plan: In/out: +1033, urine output 1974 AB.40/52/58 on PEEP of 10, 50% 40mg of lasix given We will give digoxin loading and repeated if need be Cardiology has been consulted to see if it is okay to cardiovert the patient while the patient has LV thrombus. We will give another 150 mg of amiodarone bolus The patient still does not improve then we will cardiovert with 150 J followed by 200 J if need be. I will change the vasopressors from Levophed to phenylephrine. 20 mg of potassium given to the patient Patient is still on low-dose insulin drip. Pharmacy has been consulted to manage it. Patient WBC went up to 20,000 today. No significant change on the infiltrates. Continue to monitor Patient's Constanza Mejia [phone] I have personally spent 38 minutes of critical care time in the direct management of this patient. This is a life/limb threatening event. This includes time spent evaluating patient, direct bedside care, chart review, placing orders, interpretation of diagnostic studies, discussion with consultants, patient, and family members, as well as other required patient management activities. This time is exclusive of all separately billable procedures, and teaching time and separate from and in addition to any other critical care service time. Please note the above document was generated using voice recognition software. It may contain grammatical, syntax or spelling errors. Admission and Anticipated Discharge Date Admission Date: January 07, 2021 Subjective Patient seen and examined at bedside. No acute distress, no adverse events ove rnight On propofol 20 and fentanyl 100 Patient was just taken off the paralysis. Afebrile. Still having bouts of A. fib with RVR On Levophed 0.12 and vasopressin 0.04 Review of Systems Review of Systems: Unobtainable due to endotracheal tube Physical Exam Physical Exam: Constitutional: No acute distress HEENT: PERRLA, positive ETT Respiratory system: Decreased air entry bilaterally, no wheeze, rhonchi, positive crackles bilaterally CVS: S1-S2 positive, no murmurs or gallops Abdomen: Soft, nontender, nondistended, positive bowel sounds x4 Extremities: +2 pulses bilaterally radialis/ dorsalis pedis, no cyanosis, no edema Neuro: Paralyzed and sedated Psych: Unable to assess G/U: Positive Silva Skin: no rashes, warm and dry Lymphatic: no cervical or axillary lymphadenopathy Results & Data Results & Data ([facility]) Vital Signs (Past 12 Hours) Vital Signs Temp Pulse Resp BP Pulse Ox 01/19/21 08:07 130 H 30 H 89 L 01/19/21 05:56 36.5 C 102 H 93/67 L 88 L 01/19/21 05:26 36.5 C 116 H 85/63 L 88 L 01/19/21 04:56 36.5 C 106 H 114/79 91 01/19/21 04:26 36.6 C 104 H 94/66 L 91 01/19/21 03:56 36.6 C 107 H 93/73 L 89 L 01/19/21 03:26 36.6 C 100 H 104/75 89 L 01/19/21 02:56 36.7 C 105 H 93/68 L 89 L 01/19/21 02:46 99 H 30 H 89 L 01/19/21 02:26 36.7 C 102 H 88/67 L 88 L 01/19/21 01:56 36.7 C 113 H 84/65 L 88 L 01/19/21 01:26 36.7 C 126 H 106/85 92 01/19/21 00:43 108 H 30 H 89 L 01/19/21 00:32 36.7 C 99 H 94/68 L 90 01/19/21 00:10 36.7 C 101 H 75/52 L 87 L 01/18/21 23:56 36.7 C 101 H 94/73 L 88 L 01/18/21 23:26 36.7 C 103 H 87/69 L 88 L 01/18/21 23:18 89 01/18/21 22:56 36.8 C 99 H 98/71 L 89 L 01/18/21 22:26 36.8 C 105 H 90/65 L 89 L 01/19/21 02:01 01/19/21 02:01 Coding Level of Care Code Critical Care 1st 30-74 mins Diagnoses Pneumonia due to COVID-19 virus U07.1; J12.82 COVID-19 U07.1 Acute respiratory failure with hypoxia J96.01 Chronic HFrEF (heart failure with reduced ejection fraction) I50.22 Left ventricular apical thrombus I51.3 Acute kidney injury N17.9 Time Spent (min) 38
[2021-01-19] MEDS ORDERED: PHARMACY GLYCEMIC MGMT CONSULT PRN (09:46)
[2021-01-19] MEDS ORDERED: STAT IV Infusion **Titration per Protocol STA ×2 (10:27→15:58)
[2021-01-19] MEDS ORDERED: POTASSIUM CHLORIDE / WTR 20 MEQ/100 ML PLCT IV ONE (10:30)
[2021-01-19] MEDS: cefTRIAXone SODIUM 2,000 MG in DEXTROSE 5% 50 ML IV SCH (10:39)
[2021-01-19] MEDS: PANTOprazole 40 MG in SYRINGE 0 ML IV SCH (10:39)
[2021-01-19] MEDS: PHENYLEPHRINE HCL 20 MG in DEXTROSE 5% 500 ML IV SCH ×3 (10:43→23:37)
[2021-01-19] MEDS: INSULIN REGULAR 250 UNITS in SODIUM CHLORIDE 0.9% 247.5 ML IV SCH (10:44)
[2021-01-19] MEDS: AMIODARONE / D5W 360 MG/200 ML BAG IV SCH ×2 (10:45→23:37)
[2021-01-19] MEDS: HEPARIN SODIUM/DEXTROSE 25,000 UNITS/500 ML BAG IV SCH ×2 (10:49→10:52)
--- NOTE | 2021-01-19 11:02 | Palliative Care Progress Note ---
Date of Service January 19, 2021 Assessment & Plan (1) Palliative care encounter: Plan: Today, the patient has been having labile heart rates ranging from 60-140. The goal today is to remove the paralytic and have him to remain on Fentanyl and Propofol. Additionally, he will be switched to Neosynephrine. Vent settings: FiO2 70% and PEEP 10, goal to wean to 8 and monitor for how he tolerates changes. I talked with the patients , Constanza, on the phone at [phone]. She was grateful for communication about Drake and his current progression. She said that she has been sorting through financials, etc at home and trying to process the whole situation. We discussed his neurologic status and discussed to see how things go over the next 24-48 hours neurologically prior to making decisions regarding compassionate withdraw of care vs tracheostomy. I asked if she felt that Drake would want a tracheostomy and she does not think that they will proceed with a tracheostomy, but wants to see how the next day goes. She is prepared to make a decision to withdraw care. Conversation held with ICU turning machine set up operator indicates that if his neurologic status does not improve, he is not a good tracheostomy candidate, which was discussed in detail with Constanza and she does understand that if his neuro function is not improving, his quality of life would be impacted and likely not have a meaningful recovery. He does have a DNR and we confirmed yesterday that he would not chest compressions, defibrillation, etc. They do not have any children together. Drake's brother and sister in law have been really supportive with the situation. Palliative will follow and continue to assist with decision making over the next day or two. (2) Pneumonia due to COVID-19 virus: (3) Sepsis: (4) Acute on chronic renal failure: Admission and Anticipated Discharge Date Admission Date: January 07, 2021 Subjective Pt remains in ICU intubated, sedated and paralytic on board. Patient continues to have rapid atrial fibrillation and is labile with his HR ranging 60-140. FiO2 70% and PEEP 10 Please see A/P for further details. Review of Systems Review of Systems: Deferred as pt on paralytic. Physical Exam Constitutional: + ill appearing, + frail appearing and + mechanically ventilated ENMT: Mouth: + dry oral mucous membranes Respiratory: Auscultation: + diminished lung sounds and + rhonchi Cardiovascular: Rate/Rhythm: regular rate and regular rhythm Heart Sounds: normal S1 and normal S2 Extremities: normal capillary refill and + edema Gastrointestinal (Abdomen): Inspection/Auscultation: abdomen normal to inspection Skin: + pallor Psychiatric: Orientation: + not alert Results & Data ([place]) Vital Signs (Past 12 Hours) Vital Signs Temp Pulse Resp BP Pulse Ox 01/19/21 10:02 36.8 C 122 H 96/56 L 88 L 01/19/21 09:11 36.8 C 103 H 87/58 L 87 L 01/19/21 08:10 36.7 C 151 H 150/100 H 89 L 01/19/21 08:07 130 H 30 H 89 L 01/19/21 07:24 36.5 C 135 H 161/98 H 92 01/19/21 05:56 36.5 C 102 H 93/67 L 88 L 01/19/21 05:26 36.5 C 116 H 85/63 L 88 L 01/19/21 04:56 36.5 C 106 H 114/79 91 01/19/21 04:26 36.6 C 104 H 94/66 L 91 01/19/21 03:56 36.6 C 107 H 93/73 L 89 L 01/19/21 03:26 36.6 C 100 H 104/75 89 L 01/19/21 02:56 36.7 C 105 H 93/68 L 89 L 01/19/21 02:46 99 H 30 H 89 L 01/19/21 02:26 36.7 C 102 H 88/67 L 88 L 01/19/21 01:56 36.7 C 113 H 84/65 L 88 L 01/19/21 01:26 36.7 C 126 H 106/85 92 01/19/21 00:43 108 H 30 H 89 L 01/19/21 00:32 36.7 C 99 H 94/68 L 90 01/19/21 00:10 36.7 C 101 H 75/52 L 87 L 01/18/21 23:56 36.7 C 101 H 94/73 L 88 L 01/18/21 23:26 36.7 C 103 H 87/69 L 88 L 01/18/21 23:18 89 PG Care Time/CCT Total # of Minutes Spent Total Time Spent with Patient: Total time spent is greater than 50% in coordination of care (as documented) at patient's floor/unit and/or counseling patient: 35 minutes with > 50% of that time spent assessing the patient, discussing goals of care with family and collaborating with IDT Coding Level of Care Code 01531 Subseq Hosp Care Lvl 3 Diagnoses Palliative care encounter Z51.5 Pneumonia due to COVID-19 virus U07.1; J12.82 Sepsis A41.9 Acute on chronic renal failure N17.9; N18.9 Time Spent (min) 35
[2021-01-19] MEDS ORDERED: INSULIN GLARGINE SOLOSTAR 100 UNITS/ML 3 ML PEN SC ONE (11:15)
[2021-01-19] MEDS ORDERED: DIGOXIN 500 MCG/2 ML AMP IV STA (11:44)
[2021-01-19] MEDS ORDERED: DIGOXIN IV STA (12:02)
--- NOTE | 2021-01-19 13:56 | Pharmacy Report ---
Pharmacy Glycemic Short Note 2 - Date of Service January 19, 2021 - Glycemic Short BSG Results (Last 24 hours): 01/18/21 01/18/21 01/18/21 14:17 17:42 22:28 Glucose POC Glucose (other) 145 H 144 H 137 H 01/19/21 01/19/21 01/19/21 01:37 02:01 06:02 Glucose 133 H POC Glucose (other) 132 H 144 H 01/19/21 11:21 Glucose POC Glucose (other) 135 H OUTPATIENT ANTIDIABETIC REGIMEN: * N/a * A1c 6.4% 12/21/20 ASSESSMENT: * Pt has been maintained on insulin infusion for the past four days, rates have been steady at 1.9 units/hr with BSGs in goal range * Will stop nimbex today, still requiring pressors and tachycardic. * Will give 1x dose of lantus this morning, may wean off insulin infusion if able, however low tolerance to restart/continue as patient still with significant pressor doses. PLAN FOR INPATIENT GLYCEMIC CONTROL: * Hold outpatient oral diabetes medications * Basal insulin * Lantus 35 units x 1 * Continue insulin infusion for now- monitor for possible transition * If able to transition- may start: * Bolus insulin * NovoLog per scale ACHS or Q6hrs while NPO * Goal Range: Low 120 mg/dL - High 160 mg/dL * Correction Factor: 20 mg/dL/unit * Nutritional / Prandial insulin per carb ratio of 1 unit per 9 grams CHO consumed
[2021-01-19] MEDS ORDERED: METOPROLOL TARTRATE 1 MG/ML VIAL IV STA (14:21)
[2021-01-19] MEDS ORDERED: AMIODARONE / D5W 150 MG/100 ML BAG IV STA (14:48)
[2021-01-19] MEDS ORDERED: 0.2 MICRON FILTER SET 1 EA IV ONE (14:48)
[2021-01-19] MEDS ORDERED: INSULIN INFUSION~PENDING ORDER SCH (16:00)
[2021-01-19] MEDS ORDERED: NOREPINEPHRINE/D5W 8 MG/508 ML BAG IV SCH (16:00)
[2021-01-19] MEDS ORDERED: NOREPINEPHRINE/D5W 8 MG/508 ML IV ONE (16:02)
--- NOTE | 2021-01-19 17:19 | Cardiology Consultation ---
Date of Consultation January 19, 2021 Assessment & Plan (1) Atrial fibrillation with rapid ventricular response: (2) CAD (coronary artery disease): (3) Ischemic cardiomyopathy: (4) Left ventricular apical thrombus: (5) Chronic HFrEF (heart failure with reduced ejection fraction): ASSESSMENT/PLAN: 1. Atrial fibrillation with RVR: Appears to be a new diagnosis for him. He is unstable with rapid heart rates, especially given his COVID-19 pneumonia. He is on heparin drip for anticoagulation/stroke risk reduction. As he is unstable with his AFib with RVR, recommend trying to achieve sinus rhythm. Can undergo electrical DC cardioversion if necessary. Blood pressure at the time of my assessment was low-normal with systolic blood pressure mostly in the 100s via arterial line. Therefore, recommended another amiodarone bolus of 150 mg as he continues to have intermittent spurts of sinus rhythm but quickly reverts to AFib with RVR. Therefore, with out more antiarrhythmic medication, it is likely that even with cardioversion, he will quickly revert back to AFib. Hopefully with more amiodarone, can sustain sinus rhythm with cardioversion. He may perhaps convert chemically as well. Can continue to use digoxin as needed to improve heart rate, in an attempt to stabilize blood pressure. Continue anticoagulation for stroke risk reduction. 2. Left ventricular apical thrombus: LV thrombus is not a contraindication for cardioversion. It appeared laminated and may be more of a chronic issue. Thromboembolic potential decreases with time. Overall, he is at increased risk of clot formation however with COVID-19. Continue anticoagulation therapy. 3. Ischemic cardiomyopathy: Most recent LV systolic function was mildly to moderately reduced with evidence of prior LAD infarct. Usual cardiomyopathy/heart failure medications have been held as he is requiring pre ssor support. 4. Chronic heart failure with reduced EF: He does not appear to be significantly hypervolemic. Not on usual heart failure medications due to requiring pressor support. 5. Multivessel CAD s/p LAD, Cx, RCA PCI: Continue aspirin 81 mg daily. Continue statin therapy. No acute issue. 6. Acute respiratory /COVID-19 pneumonia: As per critical care team. 7. Disposition: Patient care communicated with Dr. Coles and Dr. Hawthorne of the critical care team. Please call with other questions or concerns. Can continue to manage along with you for his AFib. 50 minutes critical care time spent managing this patient, include patient evaluation, chart review, review of studies, and coordinating care with critical care team. History of Present Illness Reason for Consultation: "AFib RVR, apical thrombus. Planning to cardiovert. Requesting Physician: Dr. Hawthorne Attending Physician: Nicanor Quintanilla MD History of Present Illness Mr. Mejia is a 70-year-old gentleman with a history significant for multivessel CAD (s/p PCI of LAD, Cx, RCA), anterior STEMI (April 2018), ischemic cardiomyopathy, systolic CHF, apical thrombus, hypertension, and dyslipidemia. His primary fuel cell designer is Dr. Singh. Today's history was obtained via chart review, and in discussion with critical care service, Dr. Hawthorne and Dr. Coles. Patient himself was unable to give history as he is currently on mechanical ventilator. He was hospitalized on 01/07/2021 for sepsis and acute respiratory failure with hypoxia with COVID-19 pneumonia. He has received Decadron, remdesivir, and Toci lizumab. He was intubated on 01/13/2021 and remains on mechanical ventilation. He presented in sinus rhythm but has since developed AFib with RVR. When in AFib with RVR, he has become hypotensive. There have been brief episodes of sinus rhythm where he would spontaneously convert and critical care service has reported that when this occurs, his blood pressure significantly improved any actually becomes hypertensive. While mostly in AFib with RVR, he is now requiring pressor support. He had been on Levophed, but he is now on norepinephrine. Cardiology was asked to assist in management of his atrial fibrillation with rapid ventricular response, also with a question of possible cardioversion and in the setting of LV apical thrombus. He has been on anticoagulation in the form of heparin drip. He has received digoxin 420 mcg on 01/19/2021 at 12:57 p.m.. When reviewing telemetry, he continues to have intermittent episodes of sinus, including just before noon today but quickly reverts back to AFib with RVR. Patient is unable to provide any history or review of systems as he is currently sedated with propofol. He has had the following studies/procedures: 1. Cardiac catheterization 05/09/2018: Proximal LAD 100% (acute). Mid circumflex 95%. Large OM2 ostial 90%. Ostial/proximal RCA 50%. Late proximal RCA 90%. Mid RCA 60-70%. EF 40-45%. Underwent PCI of ostial to mid LAD with 3.5 x 22 and 3 x 22 mm overlapping lawson stents. 2. Cardiac catheterization 05/11/2018: PCI of circumflex into OM2 with 3 x 15 mm lawson KHRIS. PTCA of OM 3 ostium. 3. Cardiac catheterization 05/18/2018: PCI of proximal to mid RCA with 3 x 38 mm lawson KHRIS, post dilated 3.5 NC. 4. Echo 01/07/2021: Mildly to moderately reduced LV systolic function. EF 40- 45%. Akinetic apex with hypokinetic mid anteroseptum. Small laminated apical thrombus suggested. Limited 2D echo. Review of systems: Unobtainable. Family history: Unobtainable. Social history: Unobtainable from patient. Reportedly former smoker, quitting in 1991. . Allergies Allergy/AdvReac Type Severity Reaction Status Date / Time No Known Drug Allergies Allergy nkda Verified 01/07/21 12:57 Home Medications Medication Instructions Recorded Confirmed Type nitroglycerin 0.3 mg sublingual 0.3 mg SUBLINGUAL UD #10 tab 05/15/18 01/07/21 Rx tablet (Nitrostat) Lactobacillus acidophilus 1 1,000 mmu cells PO DAILY PRN tab 12/06/18 01/07/21 History billion cell tablet albuterol sulfate 90 mcg/actuation 2 puffs INHALATION ONCE PRN gm 12/06/18 01/07/21 History aerosol inhaler cholecalciferol (vitamin D3) 25 1,000 units PO DAILY cap 12/06/18 01/07/21 History mcg (1,000 unit) capsule clindamycin phosphate 1 % topical 1 appln TOPICAL BID PRN #1 ml 12/06/18 01/07/21 History solution desonide 0.05 % lotion 1 appln TOPICAL BID PRN #1 ml 12/06/18 01/07/21 History fluocinonide 0.05 % topical 1 appln TOPICAL BID PRN #3 gm 12/06/18 01/07/21 History ointment fluticasone propionate 50 2 sprays INTRANASAL BID PRN #3 gm 12/06/18 01/07/21 History mcg/actuation nasal spray,suspension hydrocortisone acetate 25 mg 25 mg [place] DAILY PRN ea 12/06/18 01/07/21 History rectal suppository meclizine 25 mg tablet 25 mg PO TID PRN tab 12/06/18 01/07/21 History mometasone 0.1 % topical ointment 1 appln TOPICAL BID PRN #1 gm 12/06/18 01/07/21 History [id number]-ZO-lycopen-lutein See Rx Instructions PO DAILY 05/16/19 01/07/21 History [Centrum Silver Men] aspirin 81 mg tablet,delayed 81 mg PO DAILY 11/14/19 01/07/21 History release atorvastatin 80 mg tablet 80 mg PO DAILY #90 tab 02/10/20 01/07/21 Rx lisinopril 10 mg tablet 10 mg PO DAILY #90 tab 03/17/20 01/07/21 Rx metoprolol succinate 100 mg 100 mg PO DAILY #90 tab 10/05/20 01/07/21 Rx tablet,extended release 24 hr (Toprol XL) ticagrelor 60 mg tablet 60 mg PO BID #180 tab 11/17/20 01/07/21 Rx omega-3 fatty acids 1,000 mg 1,000 mg PO DAILY 12/15/20 01/07/21 History capsule (Fish Oil Concentrate) acetaminophen 500 mg tablet 1,000 mg PO Q6H PRN 01/07/21 01/07/21 History (Tylenol Extra Strength) furosemide 20 mg tablet 20 mg PO DAILY 01/07/21 01/07/21 History Patient History Medical History (Updated 01/19/21 @ 17:10 by Darrick Dalton MD) Acute on chronic renal failure Anxiety Borderline diabetes CAD (coronary artery disease) --Anterior STEMI 04/2018 post primary PCI with 2 KHRIS to proximal to mid LAD --post staged PCI to circumflex/OM and RCA 04/2018 2. Ischemic cardiomyopathy--EF 40-45% 04/2019 Chronic HFrEF (heart failure with reduced ejection fraction) HLD (hyperlipidemia) Ischemic cardiomyopathy Multi-vessel coronary artery stenosis Palliative care encounter Pneumonia due to COVID-19 virus Pre-diabetes Surgical History History of coronary artery stent placement History of hernia repair Family History Father Coronary heart disease Myocardial infarction Mother Diabetes Social History Smoking Status: Former smoker Years Smoked: 40; Smoking End Date: 1991; Second Hand Exposure: No; Do You Dip or Chew Tobacco: No; Tobacco Cessation Education Requested by Patient: No Hx Alcohol Use: No Hx Substance Use: No Preferred Language: [place] Citizen Communication Ability: Effective Visual Impairment: No Limitations 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 Sedated on mechanical ventilator. Neck: No appreciable JVD. Normal carotid upstrokes bilaterally. Cardiac: PMI was nonpalpable. No ventricular heave. Irregularly irregular and tachycardic. Normal S1-S2. No murmurs, rubs, or gallops. Pulmonary: Decreased breath sounds, but otherwise clear to anterior auscultation. Abdomen: Soft, nondistended, with hypoactive bowel sounds. No bruits noted. Extremities: Right radial arterial line. Faint left radial pulse. Cool feet but no cyanosis. No significant pitting edema. Psychiatric: Cannot assess. Results & Data ([facility]) Vital Signs (Past 12 Hours) Vital Signs Temp Pulse Resp BP Pulse Ox 01/19/21 15:40 132 H 28 H 91 01/19/21 14:02 36.6 C 135 H 89/64 L 85 L 01/19/21 13:03 36.5 C 135 H 87 L 01/19/21 12:57 138 H 01/19/21 12:52 36.4 C L 134 H 104/77 89 L 01/19/21 12:30 36.6 C 132 H 69/52 L 90 01/19/21 12:03 36.6 C 133 H 83 L 01/19/21 11:36 103 H 24 88 L 01/19/21 11:19 36.8 C 127 H 99/68 L 92 01/19/21 11:03 36.8 C 125 H 77/53 L 87 L 01/19/21 10:02 36.8 C 122 H 96/56 L 88 L 01/19/21 09:11 36.8 C 103 H 87/58 L 87 L 01/19/21 08:10 36.7 C 151 H 150/100 H 89 L 01/19/21 08:07 130 H 30 H 89 L 01/19/21 07:24 36.5 C 135 H 161/98 H 92 01/19/21 05:56 36.5 C 102 H 93/67 L 88 L 01/19/21 05:26 36.5 C 116 H 85/63 L 88 L 01/19/21 04:56 36.5 C 106 H 114/79 91 Intake & Output 01/17/21 01/18/21 01/19/21 01/20/21 06:59 06:59 06:59 06:59 Intake Total 2452.670 / 2452.670 3834.150 / 3834.372 3019.690 / 3019.690 1759.263 / 1759.263 Output Total 2010 1576 / 1576 1974 / 1974 800 / 800 Balance 441.670 / 573.531 9604.150 / 2258.372 1044.690 / 1044.690 959.263 / 959.263 Weight 186 lb 4.65 oz 185 lb 10.067 oz 190 lb 4.143 oz Laboratory Results Laboratory Results - last 24 hr 01/18/21 01/18/21 01/19/21 17:42 22:28 01:37 WBC RBC Hgb POC Hgb Hct POC Hct MCV MCH MCHC RDW Std Deviation RDW Coeff of Tatiana Plt Count MPV Immature Gran % (Auto) Neut % (Auto) Lymph % (Auto) Will % (Auto) Eos % (Auto) Baso % (Auto) Neut # (Auto) Lymph # (Auto) Will # (Auto) Eos # (Auto) Baso # (Auto) Immature Gran # (Auto) Toxic Granulation Basophilic Stippling Pappenheimer Bodies Ovalocytes Echinocytes APTT PTT Ratio Sample Site POC pH POC pCO2 POC pO2 POC HCO3 POC Total CO2 POC Base Excess ABG pH (Temp Correct) ABG pCO2 (Temp Corrct POC ABG pO2 at Pt Temp POC ABG O2 Sat Keron Test O2 Delivery Device POC O2 Rate Minute Ventilation POC FiO2 Tidal Volume PEEP POC Sodium Sodium POC Potassium Potassium Chloride Carbon Dioxide Anion Gap BUN Creatinine Est Cr Clr Drug Dosing Est GFR ( Amer) Est GFR (Non-Af Amer) BUN/Creatinine Ratio Glucose POC Glucose (other) 144 H 137 H 132 H Calcium Phosphorus Magnesium 01/19/21 01/19/21 01/19/21 02:01 02:01 02:01 WBC 20.18 H RBC 3.95 L Hgb 12.9 L POC Hgb Hct 39.2 L POC Hct MCV 99.2 MCH 32.7 MCHC 32.9 RDW Std Deviation 48.4 H RDW Coeff of Tatiana 13.4 Plt Count 250 MPV 11.3 H Immature Gran % (Auto) 2.1 Neut % (Auto) 89.9 Lymph % (Auto) 6.0 Will % (Auto) 1.8 Eos % (Auto) 0.1 Baso % (Auto) 0.1 Neut # (Auto) 18.11 H Lymph # (Auto) 1.22 Will # (Auto) 0.37 Eos # (Auto) 0.02 Baso # (Auto) 0.03 Immature Gran # (Auto) 0.43 H Toxic Granulation 2+ Basophilic Stippling 1+ Pappenheimer Bodies 1+ Ovalocytes 1+ Echinocytes 1+ APTT 53.5 H* PTT Ratio 2.0 Sample Site POC pH POC pCO2 POC pO2 POC HCO3 POC Total CO2 POC Base Excess ABG pH (Temp Correct) ABG pCO2 (Temp Corrct POC ABG pO2 at Pt Temp POC ABG O2 Sat Keron Test O2 Delivery Device POC O2 Rate Minute Ventilation POC FiO2 Tidal Volume PEEP POC Sodium Sodium 136 POC Potassium Potassium 3.8 Chloride 100 Carbon Dioxide 31 Anion Gap 5.0 BUN 44 H Creatinine 0.90 Est Cr Clr Drug Dosing 81.3 Est GFR ( Amer) 99.9 Est GFR (Non-Af Amer) 86.2 BUN/Creatinine Ratio 49.4 H Glucose 133 H POC Glucose (other) Calcium 7.9 L Phosphorus 2.9 Magnesium 2.5 H 01/19/21 01/19/21 01/19/21 03:19 06:02 11:21 WBC RBC Hgb POC Hgb 12.9 L Hct POC Hct 38 L MCV MCH MCHC RDW Std Deviation RDW Coeff of Tatiana Plt Count MPV Immature Gran % (Auto) Neut % (Auto) Lymph % (Auto) Will % (Auto) Eos % (Auto) Baso % (Auto) Neut # (Auto) Lymph # (Auto) Will # (Auto) Eos # (Auto) Baso # (Auto) Immature Gran # (Auto) Toxic Granulation Basophilic Stippling Pappenheimer Bodies Ovalocytes Echinocytes APTT PTT Ratio Sample Site Art Line POC pH 7.40 POC pCO2 53 H POC pO2 59 L POC HCO3 33 H POC Total CO2 34 H POC Base Excess 8.0 H ABG pH (Temp Correct) 7.403 ABG pCO2 (Temp Corrct 52 H POC ABG pO2 at Pt Temp 58 POC ABG O2 Sat 90.0 Keron Test NA O2 Delivery Device Ventilator POC O2 Rate 30 Minute Ventilation 13.5 POC FiO2 50 Tidal Volume 450 PEEP 10 POC Sodium 136 Sodium POC Potassium 3.7 Potassium Chloride Carbon Dioxide Anion Gap BUN Creatinine Est Cr Clr Drug Dosing Est GFR ( Amer) Est GFR (Non-Af Amer) BUN/Creatinine Ratio Glucose POC Glucose (other) 144 H 135 H Calcium Phosphorus Magnesium 01/19/21 01/19/21 15:26 16:18 WBC RBC Hgb POC Hgb Hct POC Hct MCV MCH MCHC RDW Std Deviation RDW Coeff of Tatiana Plt Count MPV Immature Gran % (Auto) Neut % (Auto) Lymph % (Auto) Will % (Auto) Eos % (Auto) Baso % (Auto) Neut # (Auto) Lymph # (Auto) Will # (Auto) Eos # (Auto) Baso # (Auto) Immature Gran # (Auto) Toxic Granulation Basophilic Stippling Pappenheimer Bodies Ovalocytes Echinocytes APTT PTT Ratio Sample Site POC pH POC pCO2 POC pO2 POC HCO3 POC Total CO2 POC Base Excess ABG pH (Temp Correct) ABG pCO2 (Temp Corrct POC ABG pO2 at Pt Temp POC ABG O2 Sat Keron Test O2 Delivery Device POC O2 Rate Minute Ventilation POC FiO2 Tidal Volume PEEP POC Sodium Sodium POC Potassium Potassium Chloride Carbon Dioxide Anion Gap BUN Creatinine Est Cr Clr Drug Dosing Est GFR ( Amer) Est GFR (Non-Af Amer) BUN/Creatinine Ratio Glucose POC Glucose (other) 168 H 172 H Calcium Phosphorus Magnesium Diagnostic Findings Telemetry personally reviewed. Currently in AFib with RVR. Has intermittent brief episodes of sinus rhythm. ECG personally reviewed 01/07/2021 at 11:50 a.m.: Sinus rhythm 97 beats per minute. RBBB. Anteroseptal infarct. ECG 01/15/2021 1827: AFib with RVR 174 beats per minute. RBBB. Anteroseptal infarct. Cardiac catheterization and echo reports reviewed as noted above in HPI. Chest x-ray 01/19/2021: No change in patchy bilateral airspace opacities, likely representing pneumonia. CTA chest 01/07/2021: Suggested thrombus within the LV apex. Emphysema with chronic fibrotic changes. Intermixed ground-glass opacities with interlobular septal thickening. Mediastinal and hilar adenopathy. No PE. Medications Administered Current Inpatient Medications Acetaminophen (Acetaminophen 325 Mg Tab) 650 mg PO Q4H PRN PRN Reason: Pain or Fever Stop: 02/06/21 17:29 Last Admin: 01/17/21 16:04 Dose: 650 mg Documented by: Al Hydrox/Mg Hydrox/Simethicone (Aluminum/Magnesium Susp 30 Ml Udc) 15 ml PO Q4H PRN PRN Reason: Dyspepsia Stop: 02/06/21 17:29 Albuterol (Albuterol Hfa 8 Gm Inhaler) 2 puffs INH Q4R PRN PRN Reason: Wheezing Stop: 02/11/21 10:44 Aspirin (Aspirin 81 Mg Chew) 81 mg PO DAILY KIM Stop: 02/13/21 08:59 Last Admin: 01/19/21 07:19 Dose: 81 mg Documented by: Atorvastatin Calcium (Atorvastatin 40 Mg Tab) 80 mg PO DAILY KIM Stop: 02/07/21 08:59 Last Admin: 01/19/21 07:19 Dose: 80 mg Documented by: Dextrose (Dextrose 50% 50 Ml Syringe) 25 - 50 ml IV UD PRN; Protocol PRN Reason: Hypoglycemia Protocol Stop: 02/12/21 10:59 Last Admin: 01/17/21 01:12 Dose: 25 ml Documented by: Fentanyl Citrate (Fentanyl Bolus From Bag) 50 mcg IV Q60M PRN PRN Reason: Pain or Agitation Stop: 01/27/21 04:29 Last Admin: 01/17/21 01:35 Dose: 50 mcg Documented by: Fluticasone Propionate (Fluticasone Propionate Na Spr 16 Gm Btl) 2 sprays NA BID PRN PRN Reason: allergies Stop: 02/06/21 17:29 Last Admin: 01/09/21 21:03 Dose: 2 sprays Documented by: Glucagon (Glucagon For Inj 1 Mg Vial) 1 mg SQ UD PRN; Protocol PRN Reason: Hypoglycemia Protocol Stop: 02/12/21 10:59 Glucose (Glucose 40% Gel 15 Gm Tube) 15 - 30 gm PO UD PRN; Protocol PRN Reason: Hypoglycemia Protocol Stop: 02/12/21 10:59 Glucose (Glucose 10 Tabs/Tube) 4 - 8 tabs PO UD PRN; Protocol PRN Reason: Hypoglycemia Protocol Stop: 02/12/21 10:59 Fentanyl Citrate (Fentanyl Drip) 1,250 mcg in 250 mls @ 20 mls/hr IV .[id number] KIM; Protocol Stop: 01/27/21 04:29 Last Admin: 01/19/21 10:44 Dose: 100 mcg/hr, 20 mls/hr Documented by: Heparin Sodium/Dextrose (Heparin Sodium/Dextrose) 25,000 units in 500 mls @ 16 mls/hr IV .Q24H KIM; Protocol Stop: 02/12/21 11:14 Last Admin: 01/19/21 10:52 Dose: 800 units/hr, 16 mls/hr Documented by: Pantoprazole Sodium 40 mg/ (Syringe) 10 mls @ 5 mls/min IV DAILY@1100 [facility] Stop: 02/12/21 10:59 Last Admin: 01/19/21 10:39 Dose: 5 mls/min Documented by: Norepinephrine Bitartrate (Levophed/D5w) 16 mg in 500 mls @ 19.553 mls/hr IV .Q24H KIM; Protocol Stop: 02/12/21 18:39 Last Titration: 01/19/21 10:53 Dose: Infused Documented by: Insulin Human Regular 250 (units/ Sodium Chloride) 250 mls @ 1.3 mls/hr IV .Q24H [facility]; Protocol Stop: 02/13/21 10:29 Last Titration: 01/19/21 16:58 Dose: 0 units/hr, 0 mls/hr Documented by: Vasopressin 20 units/ Sodium (Chloride) 101 mls @ 12.12 mls/hr IV .Q8H20M [facility] Stop: 02/13/21 14:59 Last Admin: 01/19/21 10:45 Dose: Not Given Documented by: Ceftriaxone Sodium 2,000 mg/ (Dextrose) 70 mls @ 140 mls/hr IV Q24H [facility] Stop: 01/22/21 11:59 Last Infusion: 01/19/21 11:55 Dose: Infused Documented by: Amiodarone HCl/Dextrose (Nexterone / D5w) 360 mg in 200 mls @ 16.667 mls/hr IV .Q12H [facility] Stop: 02/15/21 00:44 Last Admin: 01/19/21 10:45 Dose: 0.5 mg/min, 16.7 mls/hr Documented by: Propofol (Diprivan) 1,000 mg in 100 mls @ 10.104 mls/hr IV .Q9H54M [facility]; Protocol Stop: 01/21/21 13:29 Last Admin: 01/19/21 15:15 Dose: 20 mcg/kg/min, 10.1 mls/hr Documented by: Phenylephrine HCl 20 mg/ (Dextrose) 502 mls @ 90.977 mls/hr IV .Q5H32M [facility]; Protocol Stop: 02/18/21 10:29 Last Admin: 01/19/21 16:57 Dose: Not Given Documented by: Insulin Aspart (Insulin Aspart 100 Units/Ml 3 Ml Pen) 0 units SC ACHS [facility] Stop: 02/13/21 11:29 Last Admin: 01/19/21 10:46 Dose: Not Given Documented by: Magnesium Hydroxide (Magnesium Hydroxide Susp 30 Ml Udc) 30 ml PO Q12H PRN PRN Reason: Constipation Stop: 02/06/21 17:29 Metoprolol Succinate (Metoprolol Succ 50mg Ext Rel Tab) 100 mg PO DAILY [facility] Stop: 02/07/21 08:59 Last Admin: 01/14/21 07:57 Dose: 100 mg Documented by: Metoprolol Tartrate (Metoprolol Tartrate 1 Mg/Ml Vial) 5 mg IV Q4 [facility] Stop: 02/15/21 03:59 Last Admin: 01/18/21 01:23 Dose: Not Given Documented by: Midazolam HCl (Midazolam Hcl 1 Mg/Ml 2ml Vial) 1 mg IV Q2H PRN PRN Reason: RASS goal -1 Stop: 02/14/21 10:11 Midazolam HCl (Midazolam Hcl 1 Mg/Ml 2ml Vial) 2 mg IV Q2H PRN PRN Reason: RASS goal -1 Stop: 02/14/21 10:11 Last Admin: 01/17/21 03:39 Dose: 2 mg Documented by: Miscellaneous (Carbohydrates For Hypoglycemia ) 15 - 30 gm PO UD PRN PRN Reason: Hypoglycemia Treatment Stop: 02/12/21 10:59 Miscellaneous (Insulin Infusion~Pending Order) 1 ea N/A QS KIM Stop: 02/18/21 15:59 Last Admin: 01/19/21 15:13 Dose: 1 ea Documented by: Miscellaneous Information (Pharmacy Glycemic Mgmt Consult) 1 ea N/A UD PRN PRN Reason: Consult Stop: 02/18/21 09:45 Multi-Ingredient Cream (Artificial Tears Op Oint 3.5 Gm Tube) 1 appln OP Q4 KIM Stop: 02/16/21 04:59 Last Admin: 01/19/21 15:12 Dose: 1 appln Documented by: Multivitamins/Minerals (Multi Vit W/Minerals Liquid 15 Ml Udp) 15 ml PO DAILY KIM Stop: 02/13/21 08:59 Last Admin: 01/19/21 07:18 Dose: 15 ml Documented by: Nutritional Formula (Peptamen Intense Vhp 1.0 Red 1,000 Ml Bag) 1,000 ml OG UD [facility]; Protocol Stop: 02/17/21 11:29 Last Admin: 01/18/21 13:23 Dose: 1,000 ml Documented by: Ondansetron HCl (Ondansetron Inj 2 Mg/Ml 2 Ml Vial) 4 mg IV Q6H PRN PRN Reason: Nausea Stop: 02/06/21 17:29 Polyethylene Glycol (Polyethylene (Miralax) 17 Gm Pack) 17 gm PO DAILY PRN PRN Reason: Constipation Stop: 02/06/21 17:29 Propofol (Propofol Bolus From Bag) 20 mg IV Q5M PRN PRN Reason: Sedation Stop: 01/21/21 13:25 Sterile Water (Tube Feeding Water Flush) 30 ml OG Q4H KIM Stop: 02/17/21 11:44 Last Admin: 01/19/21 15:12 Dose: 30 ml Documented by: Ticagrelor (Ticagrelor 90 Mg Tab) 90 mg PO BID IKM Stop: 02/13/21 20:59 Last Admin: 01/19/21 07:18 Dose: 90 mg Documented by: Vitamin D (Cholecalciferol 1,000 Units 25 Mcg Tab) 1,000 units PO DAILY KIM Stop: 02/07/21 08:59 Last Admin: 01/19/21 07:19 Dose: 1,000 units Documented by: PG Care Time/CCT Total # of Minutes Spent Total Time Spent with Patient: Total time spent is greater than 50% in coordination of care (as documented) at patient's floor/unit and/or counseling patient: Critical Care Time: Yes Total Critical Care Time: 50 Coding Level of Care Code None Diagnoses Atrial fibrillation with rapid ventricular response I48.91 CAD (coronary artery disease) I25.10 Ischemic cardiomyopathy I25.5 Left ventricular apical thrombus I51.3 Chronic HFrEF (heart failure with reduced ejection fraction) I50.22 Additional Codes Critical Care Time - Critical Care Time: Yes ([id number]) Time Spent (min) 50 Comment Critical Care time [id number]
--- NOTE | 2021-01-19 18:08 | Hospitalist Progress Note ---
Date of Service January 19, 2021 Assessment & Plan (1) Left ventricular apical thrombus: (2) Sepsis: (3) Acute respiratory failure with hypoxia: Plan: 70-year-old male with PMH of CAD, chronic HFrEF, nonischemic CM, HTN, HLD, prediabetes presented to the ED 01/07 secondary to URI for 9 days [employer] and hypoxic in the clinic on the day of arrival. He is not vaccinated against Covid and was found to have Covid in the ED and required 15 L nonrebreather. Is currently in the critical care unit for the following: #. Sepsis with shock requiring pressors #. COVID Pneumonia #. Acute Hypoxic Respiratory failure #. Leukocytosis, pro-Red uptrended 01/13 Patient meets sepsis criteria. 01/13 AM, patient desaturated and was tachypneic on high flow nasal cannula, became lethargic, and was intubated, currently on mechanical ventilation. Patient on Levophed Admitting CXR: Chronic emphysema and scaring without evidence of acute abnormality. Admitting CTA chest: No PE, emphysema with chronic fibrotic changes, findings suggestive of pulmonary edema versus inflammatory pneumonitis, cardiomegaly with left ventricular apex thrombus up to 1.9 cm. Admitting echo: Technically difficult study. Grossly normal LV size with mild to moderate reduced systolic function. EF 40 to 45%. Akinetic apex with small laminated apical thrombus. Status post remdesivir and Tocilizumab [01/07 CRP 13.7> trended down to 1.71 on 01/12], continue with dexamethasone 01/08 Continue with supportive management. On IV antibiotics Cefepime 01/14--- 01/15 ceftriaxone. Patient down to 1 pressor. Tube feeding started 01/18. Management per ICU care. #. CHARMAINE #. ATN Baseline creatinine around one, creatinine up trended to 3, downtrending UA revealing granular casts suggestive of ATN, patient making urine and creatinine improving Nephrology on board #. Apical thrombus See imaging above Patient on heparin drip 01/13. #. Afib RVR Patient on amiodarone drip, received digoxin and amiodarone bolus today. Plan to do cardioversion if his heart rate not controlled. Case discussed with critical care doctor. #. CAD #. Chronic heart failure with reduced ejection fraction #. Ischemic cardiomyopathy Anterior STEMI 04/2018 with PCI and 2 KHRIS to proximal to mid LAD; staged PCI to circumflex/OM Echo 04/2019 EF 40 to 45% Admitting BNP 1061, lower than the previous BNP. Follows [facility] cardiology Currently being managed for sepsis criteria. Hold antihypertensives. #. Prediabetes 12/21/2020 A1c 6.4 Insulin drip changed to sliding scale. #. DVT prophylaxis: Patient on heparin drip Disposition: Continue critical care Full code Patient currently in amiodarone drip, heparin drip, fentanyl, propofol, L evophed. He has urinary catheter in situ, NG tube in situ, intubated, supine position. Multisystem organ failure, guarded prognosis. Management per critical care team. Patient's Constanza was updated on patient's condition on 01/13 and voiced understanding and agreement with plan of care. Per critical care's discussion with the family, he is DNR/DNI for any new events but wants everything done at present. Palliative care on board. Admission and Anticipated Discharge Date Admission Date: January 07, 2021 Subjective Patient was examined at bedside in critical care unit. Patient was lying supine, sedated, intubated, mechanically ventilated. ROS N/A. Physical Exam Physical Exam: GENERAL: Mechanical ventilation, sedation HEENT: No pallor, no icterus. Pupils equal, round. Oral mucosa dry. NECK: No JVD, no neck masses. HEART: S1 and S2 heard. Regular rate and rhythm. No murmur, no gallop. RESPIRATORY SYSTEM: Normal AP diameter. No accessory muscle use. No wheezing. Decreased breath sounds bilateral. ABDOMEN: Soft, bowel sounds present, no distention. Neuro: Patient sedated. EXTREMITIES: No edema, no erythema seen. 01/13 left IJ and right radial art line. 01/13 mechanical ventilation and enteric tube placement NG in situ; trickle feeds started 01/18 at 10 mL an hour-->to 20ml/hr today. Results & Data Results & Data ([facility]) Vital Signs (Past 12 Hours) Vital Signs Temp Pulse Resp BP Pulse Ox 01/19/21 17:35 36.4 C L 137 H 89/66 L 85 L 01/19/21 17:03 36.4 C L 87 18 88 L 01/19/21 17:01 36.4 C L 139 H 75/46 L 85 L 01/19/21 16:01 36.7 C 116 H 66/44 L 89 L 01/19/21 15:40 132 H 28 H 91 01/19/21 15:33 36.8 C 122 H 56/40 L 93 01/19/21 15:02 36.8 C 132 H 84/61 L 84 L 01/19/21 14:02 36.6 C 135 H 89/64 L 85 L 01/19/21 13:03 36.5 C 135 H 87 L 01/19/21 12:57 138 H 01/19/21 12:52 36.4 C L 134 H 104/77 89 L 01/19/21 12:30 36.6 C 132 H 69/52 L 90 01/19/21 12:03 36.6 C 133 H 83 L 01/19/21 11:36 103 H 24 88 L 01/19/21 11:19 36.8 C 127 H 99/68 L 92 01/19/21 11:03 36.8 C 125 H 77/53 L 87 L 01/19/21 10:02 36.8 C 122 H 96/56 L 88 L 01/19/21 09:11 36.8 C 103 H 87/58 L 87 L 01/19/21 08:10 36.7 C 151 H 150/100 H 89 L 01/19/21 08:07 130 H 30 H 89 L 01/19/21 07:24 36.5 C 135 H 161/98 H 92
[2021-01-19] MEDS ORDERED: DIGOXIN 250 MCG in SYRINGE 9 ML IV STA (19:12)
--- NOTE | 2021-01-19 22:13 | Communication Note ---
Date of Service: January 19, 2021 Patient has a remained in A. fib RVR this evening with heart rate 140s. He has become increasingly hypoxic and hypotensive. He remains on amiodarone drip and metoprolol was administered earlier without success and rate control. He was also given digoxin x2 doses today. Decision was made to proceed with synchronized cardioversion. Patient was initially cardioverted with 150 J to normal sinus rhythm. His blood pressure did show improvement following conversion to normal sinus rhythm, however he reentered A. fib RVR a few minutes later. He received an additional synchronized cardioversion and again converted to normal sinus rhythm. At this time, patient remains in NSR. We will continue amiodarone drip and beta-jose. CRITICAL CARE TIME - I have personally spent 20 minutes of critical care time in the direct management of this patient. This is a life/limb threatening event. This includes time spent evaluating patient, direct bedside care, chart review, placing orders, interpretation of diagnostic studies, discussion with consultants, patient, and family members, as well as other required patient management activities. This time is exclusive of all separately billable procedures, and teaching time and separate from and in addition to any other critical care service time. Coding Level of Care Code Critical Care ea addt'l 30 min
--- NOTE | 2021-01-19 22:54 | Electrocardiogram Report ---
Test Reason : Blood Pressure : / mmHG Vent. Rate : 160 BPM Atrial Rate : 138 BPM P-R Int : 000 ms QRS Dur : 130 ms QT Int : 304 ms P-R-T Axes : 000 067 022 degrees QTc Int : 496 ms Atrial fibrillation with rapid ventricular response Right bundle branch block Anterior infarct Abnormal ECG When compared with ECG of 15-JAN-2021 18:27, No significant change was found Confirmed by Darrick Dalton ([id number]) on 01/19/2021 10:54:24 PM Referred By: REFERRED SELF Confirmed By:Darrick Dalton
[2021-01-20] MEDS: INSULIN ASPART 100 UNITS/ML 3 ML PEN SC SCH ×6 (00:01→20:22)
[2021-01-20] MEDS: propofoL 1,000 MG/100 ML VIAL IV SCH ×9 (00:02→23:43)
[2021-01-20] MEDS: Double Conc 32mcg/mL; 16mg in 500mL IV SCH ×3 (01:30→16:05)
[2021-01-20] MEDS: PHENYLEPHRINE HCL 20 MG in DEXTROSE 5% 500 ML IV SCH ×6 (02:49→18:39)
[2021-01-20] MEDS: VASOPRESSIN 20 UNITS in 0.9 % SODIUM CHLORIDE 100 ML IV SCH (02:51)
[2021-01-20 03:36] LABS: iSTAT Art Bld Gas pCO2 Correct 61 mmHg (35-46); iSTAT Art Bld Gas pH Corrected 7.357 (7.35-7.45); iSTAT Arterial Blood Gas HCO3 34 meg/L (19-24); iSTAT Arterial Blood Gas pCO2 62 mmHg (35-46); iSTAT Arterial Blood Gas pH 7.35 (7.35-7.45); iSTAT Arterial Blood Gas pO2 90 mmHg (80-95); iSTAT Arterial Blood Gas pO2 C 88; iSTAT Carbon Dioxide 36 mmol/L (24-31); iSTAT FiO2 90 %; iSTAT Hematocrit 40 % (42-52); iSTAT Hemoglobin 13.6 g/dl (14.0-18.0); iSTAT Site Art Line; iSTAT Sodium 133 mmol/L (135-144)
[2021-01-20] MEDS: TUBE FEEDING WATER FLUSH OG SCH ×6 (04:59→23:44)
[2021-01-20] MEDS: ARTIFICIAL TEARS OP OINT 3.5 GM TUBE OP SCH ×7 (05:00→23:46)
[2021-01-20 05:21] LABS: Hematocrit (blood only) 39.5 % (42-52); Hemoglobin 13.1 g/dL (14.0-18.0); Mean Corpuscular Hemoglobin 32.3 pg (25-34); Mean Corpuscular Hgb Conc 33.2 g/dL (32-36); Mean Corpuscular Volume 97.5 fL (80-100); Mean Platelet Volume 11.2 fL (7.4-10.4); Nucleated RBC # (auto) 0.19 K/uL (0-0); Nucleated RBC % (auto) 0.8 %; Platelet Count 222 K/uL (130-400); RDW Coefficient of Variation 13.6 % (11.5-14.5); RDW Standard Deviation 48.5 fL (36.4-46.3); Red Blood Count 4.05 M/uL (4.7-6.1); White Blood Count 23.05 K/uL (4.8-10.8)
[2021-01-20 05:39] LABS: BUN Creatinine Ratio 40.6 (10-20); Calcium 8.1 mg/dl (8.5-10.1); Creatinine Clr Calc Pharmacy 73.2 ml/min; Est GFR (Non-African American) 75.9 ml/min; Magnesium 2.1 mg/dl (1.8-2.4); Potassium 3.9 mmol/L (3.5-5.1)
[2021-01-20 05:40] LABS: Phosphorus 2.8 mg/dl (2.5-4.9)
[2021-01-20 05:41] LABS: Partial Thromboplastin Ratio 1.9
[2021-01-20] MEDS: PEPTAMEN INTENSE VHP 1.0 CAL 1,000 ML BAG OG SCH (05:59)
[2021-01-20 06:07] LABS: Basophils # (auto) 0.12 K/uL (0-0.2); Basophils % (auto) 0.5 %; Eosinophils # (auto) 0.17 K/uL (0-0.5); Eosinophils % (auto) 0.7 %; Immature Granulocytes # (auto) 1.08 K/uL (0.00-0.02); Immature Granulocytes % (auto) 4.7 %; Lymphocytes # (auto) 0.93 K/uL (1.2-3.4); Monocytes # (auto) 0.37 K/uL (0.11-0.59); Monocytes % (auto) 1.6 %; Neutrophils # (auto) 20.38 K/uL (1.4-6.5); Neutrophils % (auto) 88.5 %; Toxic Granulation 1+
[2021-01-20] MEDS ORDERED: POTASSIUM CHLORIDE / WTR 10 MEQ/100 ML PLCT IV ONE (07:00)
--- NOTE | 2021-01-20 07:49 | XRay Report ---
XR chest 1V portable INDICATION: Hypoxia. TECHNIQUE: Single frontal radiograph of the chest was obtained. Comparison: Comparison is made to chest one view 01/19/2021 FINDINGS: Lines and tubes are stable. The cardiomediastinal silhouette is stable. Redemonstration of diffuse ai rspace opacities. Small bilateral pleural effusions, unchanged from prior exam. No pneumothorax. IMPRESSION: 1. Stable diffuse airspace opacities compatible with pneumonia. 2. Stable small pleural effusions. ACT 112: Negative or not required by law. Electronically signed by: Wilfredo Holbrook M.D. 01/20/2021 7:47 AM
[2021-01-20] MEDS ORDERED: FUROSEMIDE 40 MG in SYRINGE 0 ML IV ONE ×2 (08:00→19:00)
[2021-01-20] MEDS ORDERED: FUROSEMIDE 40 MG/4 ML VIAL IV ONE (08:02)
[2021-01-20] MEDS: CHOLECALCIFEROL 1,000 UNITS 25 MCG TAB PO SCH (08:03)
[2021-01-20] MEDS: TICAGRELOR 90 MG TAB PO SCH (08:03)
[2021-01-20] MEDS: ATORVASTATIN 40 MG TAB PO SCH (08:03)
[2021-01-20] MEDS: ASPIRIN 81 MG CHEW PO SCH (08:04)
[2021-01-20] MEDS: MULTI VIT W/MINERALS LIQUID 15 ML UDP PO SCH (08:04)
--- NOTE | 2021-01-20 10:07 | Cardiology Progress Note ---
Date of Service January 20, 2021 Assessment & Plan (1) Atrial fibrillation with rapid ventricular response: (2) CAD (coronary artery disease): (3) Ischemic cardiomyopathy: (4) Left ventricular apical thrombus: (5) Chronic HFrEF (heart failure with reduced ejection fraction): Plan: ASSESSMENT/PLAN: 1. Atrial fibrillation with RVR s/p cardioversion: Newly diagnosed this hospital stay. Now in sinus rhythm following cardioversion x2 on 01/19/2021, while on amiodarone drip. Continue amiodarone drip. Would continue amiodarone certainly throughout this acute hospital stay as he is quite ill and has high likelihood of recurrent AFib. Continue anticoagulation for stroke risk reduction; currently on heparin. 2. Left ventricular apical thrombus: He is on anticoagulation therapy for AFib and had completed outpatient course of anticoagulation therapy in the past for LV thrombus. 3. Ischemic cardiomyopathy: Most recent LV systolic function was mildly to moderately reduced with evidence of prior LAD infarct. Usual cardiomyopathy/heart failure medications have been held as he is requiring pressor support. 4. Chronic heart failure with reduced EF: Difficult to know his volume status, but has been receiving fluids with multiple drips. Agree with diuresis as arranged by critical care team to hopefully improve his oxygenation. 5. Multivessel CAD s/p LAD, Cx, RCA PCI: Continue aspirin 81 mg daily. Can hold/DC Brilinta, especially while using anticoagulation therapy. Continue statin therapy. No acute issue. 6. Acute respiratory /COVID-19 pneumonia: As per critical care team. 7. Disposition: Patient care communicated with Dr. Coles. Please call with other questions or concerns. Admission and Anticipated Discharge Date Admission Date: January 07, 2021 Subjective Patient was seen this morning. He remains sedated on mechanical ventilator. Sedation is being weaned somewhat to see if he wakes up to some degree. Critical care team is trying to transition from Levophed to phenylephrine. Last night, he was cardioverted by the critical care team due to issues with oxygenation, hypotension, and continued AFib with RVR. First cardioversion was successful but he reverted back to AFib and required a second cardioversion. He has since maintained sinus rhythm and continues with amiodarone drip. Review of systems unobtainable due to patient's sedated and ventilated state. Physical Exam Physical Exam: Gen.: No acute distress. Sedated on mechanical ventilator. Neck: No appreciable JVD, but difficult exam. Cardiac: No ventricular heave. Regular. Normal S1-S2. No murmurs, rubs, or gallops. Pulmonary: Decreased breath sounds, but otherwise clear to anterior auscultation. Abdomen: Soft, nondistended, with hypoactive bowel sounds. No bruits noted. Extremities: Right radial arterial line. 1+ left radial pulse. 1+ dorsalis pedis pulses bilaterally. No significant pitting edema. Psychiatric: Cannot assess. Results & Data ([facility]) Vital Signs (Past 12 Hours) Vital Signs Temp Pulse Resp BP Pulse Ox 01/20/21 08:05 85 29 H 89 L 01/20/21 06:00 36.8 C 86 97/55 L 90 01/20/21 05:00 36.8 C 89 92/54 L 90 01/20/21 04:00 36.5 C 107 H 135/72 90 01/20/21 03:05 90 26 H 89 L 01/20/21 03:00 36.6 C 96 H 127/70 91 01/20/21 02:00 36.7 C 92 H 117/54 L 92 01/20/21 01:00 36.6 C 88 99/56 L 91 01/20/21 00:00 36.8 C 94 H 94/55 L 91 01/19/21 23:20 94 H 28 H 91 01/19/21 23:00 36.9 C 98 H 87/55 L 91 Intake & Output 01/18/21 01/19/21 01/20/21 01/21/21 06:59 06:59 06:59 06:59 Intake Total 3834.150 / 3834.372 3019.690 / 3019.690 3612.469 / 3612.469 856.023 / 856.023 Output Total 1576 / 1576 1974 / 19745 / 2225 Balance 2258.150 / 2258.372 1044.690 / 6335.244 4607.469 / 1387.469 856.023 / 856.023 Weight 185 lb 10.067 oz 190 lb 4.143 oz 192 lb 14.472 oz Laboratory Results Laboratory Results - last 24 hr 01/19/21 01/19/21 01/19/21 11:21 15:26 16:18 WBC RBC Hgb POC Hgb Hct POC Hct MCV MCH MCHC RDW Std Deviation RDW Coeff of Tatiana Plt Count MPV Immature Gran % (Auto) Neut % (Auto) Lymph % (Auto) [place] % (Auto) Eos % (Auto) Baso % (Auto) Neut # (Auto) Lymph # (Auto) [place] # (Auto) Eos # (Auto) Baso # (Auto) Immature Gran # (Auto) Absolute Nucleated RBC Nucleated RBC % (auto) Toxic Granulation APTT PTT Ratio Sample Site POC pH POC pCO2 POC pO2 POC HCO3 POC Total CO2 POC Base Excess ABG pH (Temp Correct) ABG pCO2 (Temp Corrct POC ABG pO2 at Pt Temp POC ABG O2 Sat Keron Test O2 Delivery Device POC O2 Rate Minute Ventilation POC FiO2 Tidal Volume PEEP POC Sodium Sodium POC Potassium Potassium Chloride Carbon Dioxide Anion Gap BUN Creatinine Est Cr Clr Drug Dosing Est GFR ( Amer) Est GFR (Non-Af Amer) BUN/Creatinine Ratio Glucose POC Glucose POC Glucose (other) 135 H 168 H 172 H Calcium Phosphorus Magnesium 01/19/21 01/19/21 01/20/21 20:00 23:50 02:51 WBC RBC Hgb POC Hgb 13.6 L Hct POC Hct 40 L MCV MCH MCHC RDW Std Deviation RDW Coeff of Tatiana Plt Count MPV Immature Gran % (Auto) Neut % (Auto) Lymph % (Auto) [place] % (Auto) Eos % (Auto) Baso % (Auto) Neut # (Auto) Lymph # (Auto) [place] # (Auto) Eos # (Auto) Baso # (Auto) Immature Gran # (Auto) Absolute Nucleated RBC Nucleated RBC % (auto) Toxic Granulation APTT PTT Ratio Sample Site Art Line POC pH 7.35 POC pCO2 62 H POC pO2 90 POC HCO3 34 H POC Total CO2 36 H POC Base Excess 9.0 H ABG pH (Temp Correct) 7.357 ABG pCO2 (Temp Corrct 61 H POC ABG pO2 at Pt Temp 88 POC ABG O2 Sat 96.0 H Keron Test NA O2 Delivery Device Ventilator POC O2 Rate 24 Minute Ventilation 11.0 POC FiO2 90 Tidal Volume 450 PEEP 12 POC Sodium 133 L Sodium POC Potassium 4.0 Potassium Chloride Carbon Dioxide Anion Gap BUN Creatinine Est Cr Clr Drug Dosing Est GFR ( Amer) Est GFR (Non-Af Amer) BUN/Creatinine Ratio Glucose POC Glucose POC Glucose (other) 163 H 135 H Calcium Phosphorus Magnesium 01/20/21 01/20/21 01/20/21 04:57 05:03 05:03 WBC 23.05 H RBC 4.05 L Hgb 13.1 L POC Hgb Hct 39.5 L POC Hct MCV 97.5 MCH 32.3 MCHC 33.2 RDW Std Deviation 48.5 H RDW Coeff of Tatiana 13.6 Plt Count 222 MPV 11.2 H Immature Gran % (Auto) 4.7 Neut % (Auto) 88.5 Lymph % (Auto) 4.0 [place] % (Auto) 1.6 Eos % (Auto) 0.7 Baso % (Auto) 0.5 Neut # (Auto) 20.38 H Lymph # (Auto) 0.93 L [place] # (Auto) 0.37 Eos # (Auto) 0.17 Baso # (Auto) 0.12 Immature Gran # (Auto) 1.08 H Absolute Nucleated RBC 0.19 H Nucleated RBC % (auto) 0.8 Toxic Granulation 1+ APTT 49.0 H* PTT Ratio 1.9 Sample Site POC pH POC pCO2 POC pO2 POC HCO3 POC Total CO2 POC Base Excess ABG pH (Temp Correct) ABG pCO2 (Temp Corrct POC ABG pO2 at Pt Temp POC ABG O2 Sat Keron Test O2 Delivery Device POC O2 Rate Minute Ventilation POC FiO2 Tidal Volume PEEP POC Sodium Sodium POC Potassium Potassium Chloride Carbon Dioxide Anion Gap BUN Creatinine Est Cr Clr Drug Dosing Est GFR ( Amer) Est GFR (Non-Af Amer) BUN/Creatinine Ratio Glucose POC Glucose POC Glucose (other) 159 H Calcium Phosphorus Magnesium 01/20/21 01/20/21 05:03 08:24 WBC RBC Hgb POC Hgb Hct POC Hct MCV MCH MCHC RDW Std Deviation RDW Coeff of Tatiana Plt Count MPV Immature Gran % (Auto) Neut % (Auto) Lymph % (Auto) [place] % (Auto) Eos % (Auto) Baso % (Auto) Neut # (Auto) Lymph # (Auto) [place] # (Auto) Eos # (Auto) Baso # (Auto) Immature Gran # (Auto) Absolute Nucleated RBC Nucleated RBC % (auto) Toxic Granulation APTT PTT Ratio Sample Site POC pH POC pCO2 POC pO2 POC HCO3 POC Total CO2 POC Base Excess ABG pH (Temp Correct) ABG pCO2 (Temp Corrct POC ABG pO2 at Pt Temp POC ABG O2 Sat Keron Test O2 Delivery Device POC O2 Rate Minute Ventilation POC FiO2 Tidal Volume PEEP POC Sodium Sodium 129 L D POC Potassium Potassium 3.9 Chloride 96 L Carbon Dioxide 31 Anion Gap 2.0 L BUN 40 H Creatinine 1.00 Est Cr Clr Drug Dosing 73.2 Est GFR ( Amer) 88.0 Est GFR (Non-Af Amer) 75.9 BUN/Creatinine Ratio 40.6 H Glucose 159 H POC Glucose 122 H POC Glucose (other) Calcium 8.1 L Phosphorus 2.8 Magnesium 2.1 Diagnostic Findings Telemetry personally reviewed: Has remained in sinus rhythm since second cardioversion last night (01/19/2021). No further arrhythmia. Chest x-ray 01/20/2021: Stable diffuse airspace opacities compatible with pneumonia per Radiology. Small stable pleural effusions. Medications Administered Current Inpatient Medications Acetaminophen (Acetaminophen 325 Mg Tab) 650 mg PO Q4H PRN PRN Reason: Pain or Fever Stop: 02/06/21 17:29 Last Admin: 01/17/21 16:04 Dose: 650 mg Documented by: Al Hydrox/Mg Hydrox/Simethicone (Aluminum/Magnesium Susp 30 Ml Udc) 15 ml PO Q4H PRN PRN Reason: Dyspepsia Stop: 02/06/21 17:29 Albuterol (Albuterol Hfa 8 Gm Inhaler) 2 puffs INH Q4R PRN PRN Reason: Wheezing Stop: 02/11/21 10:44 Aspirin (Aspirin 81 Mg Chew) 81 mg PO DAILY KIM Stop: 02/13/21 08:59 Last Admin: 01/20/21 08:04 Dose: 81 mg Documented by: Atorvastatin Calcium (Atorvastatin 40 Mg Tab) 80 mg PO DAILY KIM Stop: 02/07/21 08:59 Last Admin: 01/20/21 08:03 Dose: 80 mg Documented by: Dextrose (Dextrose 50% 50 Ml Syringe) 25 - 50 ml IV UD PRN; Protocol PRN Reason: Hypoglycemia Protocol Stop: 02/12/21 10:59 Last Admin: 01/17/21 01:12 Dose: 25 ml Documented by: Fentanyl Citrate (Fentanyl Bolus From Bag) 50 mcg IV Q60M PRN PRN Reason: Pain or Agitation Stop: 01/27/21 04:29 Last Admin: 01/17/21 01:35 Dose: 50 mcg Documented by: Fluticasone Propionate (Fluticasone Propionate Na Spr 16 Gm Btl) 2 sprays NA BID PRN PRN Reason: allergies Stop: 02/06/21 17:29 Last Admin: 01/09/21 21:03 Dose: 2 sprays Documented by: Glucagon (Glucagon For Inj 1 Mg Vial) 1 mg SQ UD PRN; Protocol PRN Reason: Hypoglycemia Protocol Stop: 02/12/21 10:59 Glucose (Glucose 40% Gel 15 Gm Tube) 15 - 30 gm PO UD PRN; Protocol PRN Reason: Hypoglycemia Protocol Stop: 02/12/21 10:59 Glucose (Glucose 10 Tabs/Tube) 4 - 8 tabs PO UD PRN; Protocol PRN Reason: Hypoglycemia Protocol Stop: 02/12/21 10:59 Fentanyl Citrate (Fentanyl Drip) 1,250 mcg in 250 mls @ 15 mls/hr IV .[id number] KIM; Protocol Stop: 01/27/21 04:29 Last Titration: 01/20/21 09:00 Dose: 75 mcg/hr, 15 mls/hr Documented by: Heparin Sodium/Dextrose (Heparin Sodium/Dextrose) 25,000 units in 500 mls @ 16 mls/hr IV .Q24H KIM; Protocol Stop: 02/12/21 11:14 Last Titration: 01/20/21 07:09 Dose: 800 units/hr, 16 mls/hr Documented by: Pantoprazole Sodium 40 mg/ (Syringe) 10 mls @ 5 mls/min IV DAILY@1100 KIM Stop: 02/12/21 10:59 Last Admin: 01/19/21 10:39 Dose: 5 mls/min Documented by: Norepinephrine Bitartrate (Levophed/D5w) 16 mg in 500 mls @ 0 mls/hr IV .Q0M KIM; Protocol Stop: 02/12/21 18:39 Last Titration: 01/20/21 09:00 Dose: 0 mcg/kg/min, 0 mls/hr Documented by: Ceftriaxone Sodium 2,000 mg/ (Dextrose) 70 mls @ 140 mls/hr IV Q24H [facility] Stop: 01/22/21 11:59 Last Infusion: 01/19/21 11:55 Dose: Infused Documented by: Amiodarone HCl/Dextrose (Nexterone / D5w) 360 mg in 200 mls @ 16.667 mls/hr IV .Q12H KIM Stop: 02/15/21 00:44 Last Infusion: 01/20/21 09:00 Dose: 0.5 mg/min, 16.7 mls/hr Documented by: Propofol (Diprivan) 1,000 mg in 100 mls @ 10.104 mls/hr IV .[id number] [facility]; Protocol Stop: 01/21/21 13:29 Last Titration: 01/20/21 09:00 Dose: 20 mcg/kg/min, 10.1 mls/hr Documented by: Phenylephrine HCl 20 mg/ (Dextrose) 502 mls @ 32.492 mls/hr IV .[id number] [facility]; Protocol Stop: 02/18/21 10:29 Last Admin: 01/20/21 09:01 Dose: 0.25 mcg/kg/min, 32.5 mls/hr Documented by: Insulin Aspart (Insulin Aspart 100 Units/Ml 3 Ml Pen) 0 units SC Q4 [facility] Stop: 02/18/21 17:29 Last Admin: 01/20/21 09:00 Dose: Not Given Documented by: Magnesium Hydroxide (Magnesium Hydroxide Susp 30 Ml Udc) 30 ml PO Q12H PRN PRN Reason: Constipation Stop: 02/06/21 17:29 Metoprolol Succinate (Metoprolol Succ 50mg Ext Rel Tab) 100 mg PO DAILY [facility] Stop: 02/07/21 08:59 Last Admin: 01/14/21 07:57 Dose: 100 mg Documented by: Metoprolol Tartrate (Metoprolol Tartrate 1 Mg/Ml Vial) 5 mg IV Q4 [facility] Stop: 02/15/21 03:59 Last Admin: 01/18/21 01:23 Dose: Not Given Documented by: Midazolam HCl (Midazolam Hcl 1 Mg/Ml 2ml Vial) 1 mg IV Q2H PRN PRN Reason: RASS goal -1 Stop: 02/14/21 10:11 Midazolam HCl (Midazolam Hcl 1 Mg/Ml 2ml Vial) 2 mg IV Q2H PRN PRN Reason: RASS goal -1 Stop: 02/14/21 10:11 Last Admin: 01/17/21 03:39 Dose: 2 mg Documented by: Miscellaneous (Carbohydrates For Hypoglycemia ) 15 - 30 gm PO UD PRN PRN Reason: Hypoglycemia Treatment Stop: 02/12/21 10:59 Miscellaneous Information (Pharmacy Glycemic Mgmt Consult) 1 ea N/A UD PRN PRN Reason: Consult Stop: 02/18/21 09:45 Multi-Ingredient Cream (Artificial Tears Op Oint 3.5 Gm Tube) 1 appln OP Q4 KIM Stop: 02/16/21 04:59 Last Admin: 01/20/21 08:05 Dose: 1 appln Documented by: Multivitamins/Minerals (Multi Vit W/Minerals Liquid 15 Ml Udp) 15 ml PO DAILY KIM Stop: 02/13/21 08:59 Last Admin: 01/20/21 08:04 Dose: 15 ml Documented by: Nutritional Formula (Peptamen Intense Vhp 1.0 Red 1,000 Ml Bag) 1,000 ml OG UD [facility]; Protocol Stop: 02/17/21 11:29 Last Admin: 01/20/21 05:59 Dose: 1,000 ml Documented by: Ondansetron HCl (Ondansetron Inj 2 Mg/Ml 2 Ml Vial) 4 mg IV Q6H PRN PRN Reason: Nausea Stop: 02/06/21 17:29 Polyethylene Glycol (Polyethylene (Miralax) 17 Gm Pack) 17 gm PO DAILY PRN PRN Reason: Constipation Stop: 02/06/21 17:29 Propofol (Propofol Bolus From Bag) 20 mg IV Q5M PRN PRN Reason: Sedation Stop: 01/21/21 13:25 Sterile Water (Tube Feeding Water Flush) 30 ml OG Q4H KIM Stop: 02/17/21 11:44 Last Admin: 01/20/21 08:04 Dose: 30 ml Documented by: Ticagrelor (Ticagrelor 90 Mg Tab) 90 mg PO BID KIM Stop: 02/13/21 20:59 Last Admin: 01/20/21 08:03 Dose: 90 mg Documented by: Vitamin D (Cholecalciferol 1,000 Units 25 Mcg Tab) 1,000 units PO DAILY KIM Stop: 02/07/21 08:59 Last Admin: 01/20/21 08:03 Dose: 1,000 units Documented by: PG Care Time/CCT Total # of Minutes Spent Total Time Spent with Patient: Total time spent is greater than 50% in coordination of care (as documented) at patient's floor/unit and/or counseling patient: Coding Level of Care Code 09008 Subseq Hosp Care Lvl 3 Diagnoses Atrial fibrillation with rapid ventricular response I48.91 CAD (coronary artery disease) I25.10 Ischemic cardiomyopathy I25.5 Left ventricular apical thrombus I51.3 Chronic HFrEF (heart failure with reduced ejection fraction) I50.22
[2021-01-20] MEDS ORDERED: INSULIN GLARGINE SOLOSTAR 100 UNITS/ML 3 ML PEN SC ONE ×2 (10:30→21:00)
[2021-01-20] MEDS: AMIODARONE / D5W 360 MG/200 ML BAG IV SCH ×2 (10:33→22:20)
[2021-01-20] MEDS: fentaNYL DRIP 1,250 MCG/250 ML BAG IV SCH ×4 (10:33→13:29)
[2021-01-20] MEDS: PANTOprazole 40 MG in SYRINGE 0 ML IV SCH (10:35)
--- NOTE | 2021-01-20 11:24 | Critical Care Progress Note ---
Date of Service January 20, 2021 Assessment & Plan (1) Pneumonia due to COVID-19 virus: (2) COVID-19: (3) Acute respiratory failure with hypoxia: (4) Chronic HFrEF (heart failure with reduced ejection fraction): (5) Left ventricular apical thrombus: (6) Acute kidney injury: Plan: Reason Critically Ill: 70-year-old male with COVID-19 pneumonia and worsening hypoxic respiratory failure requiring emergent endotracheal intubation for ongoing management of underlying illness. NEURO - Sedation : On fentanyl and propofol -Neuromuscular blockade with cis atracurium discontinued 01/19/2021 CARDIAC/VASCULAR - Coronary artery disease: Status post PTCI with KHRIS x4. Continue current medications. Echocardiogram earlier this visits demonstrates EF of 40 to 45% with apical thrombus. Ventricular apical thrombus On anticoagulation Monitor on telemetry. Atrial fibrillation with rapid ventricular response -S/p synchronized cardioversion 01/11/2021 with 150 J -Amiodarone infusion, s/p digoxin bolus 01/19/2021 -Metoprolol 5 mg IV every 4 hours as needed Labile blood pressure Bouts of hypotension with episodic hypotension --> could be from underlying COVID-19 as well as sedation -On norepinephrine to keep MAP greater than 65 -Random cortisol 37 on 01/13 RESPIRATORY - Acute hypoxic respiratory failure in the setting of COVID-19 pneumonia: Patient intubated 01/13 Patient has already received Tocilizumab, remdesivir, and Decadron. Ventilator settings reviewed: ARDSnet guidelines high PEEP low FiO2 -Pronation therapy with neuromuscular blockade started 01/17 GI/NUTRITION - Trickle feeds RENAL/LYTES - Acute kidney injury Baseline appears to be 1.0: Improved - consented for temporary HD catheter Replace electrolytes as needed - Strict I&Os. ENDO - No history of diabetes or thyroid disease BSGs per unit protocol. ISS --> gtt per unit policy. HEME - Stable H&H DVT prophylaxis: Heparin ID - COVID-19 pneumonia: Recently finished remdesivir. Received Tocilizumab earlier in visit. Febrile illness -S/p 5 days of Rocephin Culture 01/14/2021 negative to date --Prophylaxis VTE: Heparin drip --> Lovenox therapeutic GI: Protonix Lines: Right IJ, right radial, positive Silva Diet: Tube feeds Plan: In/out: +2 L, urine output 2225 AB.35/62/90 on 12 PEEP, 90% I was able to go down on the FiO2 to 65%. Patient is still having breath stacking. I will try to increase the sedation. Hopefully will not have to go back on paralysis. 40mg of lasix given. I will see how the output is and give another 20 mg of Lasix in the evening Patient still having labile blood pressure on and off. Continue with Levophed. Patient is hyponatremic today. Could be from the volume that he got. Continue with diuretics and repeat BMP tomorrow Change heparin to Lovenox WBC still trending up. Patient will complete 5 days of Rocephin today. Patient's Constanza Mejia [phone] I have personally spent 36 minutes of critical care time in the direct management of this patient. This is a life/limb threatening event. This includes time spent evaluating patient, direct bedside care, chart review, placing orders, interpretation of diagnostic studies, discussion with consultants, patient, and family members, as well as other required patient management activities. This time is exclusive of all separately billable procedures, and teaching time and separate from and in addition to any other critical care service time. Please note the above document was generated using voice recognition software. It may contain grammatical, syntax or spelling errors. Admission and Anticipated Discharge Date Admission Date: January 07, 2021 Subjective Patient seen. No acute distress, no adverse events overnight Patient is on propofol and fentanyl Has been off Nimbex since yesterday He did get cardioverted with 150 J x 2 yesterday and he is in sinus rhythm since then On low-dose of Levophed Patient was on 12 of PEEP, 60% saturating 87% I went up on FiO2 to 60% Review of Systems Review of Systems: Unobtainable due to endotracheal tube Physical Exam Physical Exam: Constitutional: No acute distress HEENT: PERRLA, positive ETT Respiratory system: Decreased air entry bilaterally, no wheeze, rhonchi, positive crackles bilaterally CVS: S1-S2 positive, no murmurs or gallops Abdomen: Soft, nontender, nondistended, positive bowel sounds x4 Extremities: +2 pulses bilaterally radialis/ dorsalis pedis, no cyanosis, no edema Neuro: Sedated, breathing over the vent Psych: Unable to assess G/U: Positive Silva Skin: no rashes, warm and dry Lymphatic: no cervical or axillary lymphadenopathy Results & Data Results & Data ([facility]) Vital Signs (Past 12 Hours) Vital Signs Temp Pulse Resp BP Pulse Ox 01/20/21 10:38 90 30 H 88 L 01/20/21 08:05 85 29 H 89 L 01/20/21 08:00 91/43 L 01/20/21 06:00 36.8 C 86 97/55 L 90 01/20/21 05:00 36.8 C 89 92/54 L 90 01/20/21 04:00 36.5 C 107 H 135/72 90 01/20/21 03:05 90 26 H 89 L 01/20/21 03:00 36.6 C 96 H 127/70 91 01/20/21 02:00 36.7 C 92 H 117/54 L 92 01/20/21 01:00 36.6 C 88 99/56 L 91 01/20/21 00:00 36.8 C 94 H 94/55 L 91 01/20/21 05:03 01/20/21 05:03 Coding Level of Care Code Critical Care 1st 30-74 mins Diagnoses Pneumonia due to COVID-19 virus U07.1; J12.82 COVID-19 U07.1 Acute respiratory failure with hypoxia J96.01 Chronic HFrEF (heart failure with reduced ejection fraction) I50.22 Left ventricular apical thrombus I51.3 Acute kidney injury N17.9 Time Spent (min) 36
[2021-01-20] MEDS: ENOXAPARIN 100 MG/1ML SYR SQ SCH ×2 (11:43→23:45)
--- NOTE | 2021-01-20 14:48 | Pharmacy Report ---
Pharmacy Glycemic Short Note 2 - Date of Service January 20, 2021 - Glycemic Short BSG Results (Last 24 hours): 01/19/21 01/19/21 01/19/21 15:26 16:18 20:00 Glucose POC Glucose POC Glucose (other) 168 H 172 H 163 H 01/19/21 01/20/21 01/20/21 23:50 04:57 05:03 Glucose 159 H POC Glucose POC Glucose (other) 135 H 159 H 01/20/21 01/20/21 08:24 11:49 Glucose POC Glucose 122 H 117 H POC Glucose (other) OUTPATIENT ANTIDIABETIC REGIMEN: * N/a * A1c 6.4% 12/21/20 ASSESSMENT: 01/20 * Patient transitioned off of insulin infusoin yesterday afternoon, BSGs con tinue to be steady below 180 mg/dL * Will split lantus dosing BID in case need arises to increase/decrease depending on new stressors etc. * Continue current novolog parameters 01/19 * Pt has been maintained on insulin infusion for the past four days, rates have been steady at 1.9 units/hr with BSGs in goal range * Will stop nimbex today, still requiring pressors and tachycardic. * Will give 1x dose of lantus this morning, may wean off insulin infusion if able, however low tolerance to restart/continue as patient still with significant pressor doses. PLAN FOR INPATIENT GLYCEMIC CONTROL: * Hold outpatient oral diabetes medications * Basal insulin * Lantus 18 units this morning, scale for PM * Bolus insulin * NovoLog per scale ACHS or Q6hrs while NPO * Goal Range: Low 120 mg/dL - High 160 mg/dL * Correction Factor: 20 mg/dL/unit * Nutritional / Prandial insulin per carb ratio of 1 unit per 9 grams CHO consumed
--- NOTE | 2021-01-20 17:43 | Hospitalist Progress Note ---
Date of Service January 20, 2021 Assessment & Plan (1) Left ventricular apical thrombus: (2) Sepsis: (3) Acute respiratory failure with hypoxia: Plan: 70-year-old male with PMH of CAD, chronic HFrEF, nonischemic CM, HTN, HLD, prediabetes presented to the ED 01/07 secondary to URI for 9 days [employer] and hypoxic in the clinic on the day of arrival. He is not vaccinated against Covid and was found to have Covid in the ED and required 15 L nonrebreather. Is currently in the critical care unit for the following: #. Sepsis with shock requiring pressors #. COVID Pneumonia #. Acute Hypoxic Respiratory failure #. Leukocytosis, pro-Red uptrended 01/13 Patient meets sepsis criteria. 01/13 AM, patient desaturated and was tachypneic on high flow nasal cannula, became lethargic, and was intubated, currently on mechanical ventilation. Patient on Levophed Admitting CXR: Chronic emphysema and scaring without evidence of acute abnormality. Admitting CTA chest: No PE, emphysema with chronic fibrotic changes, findings suggestive of pulmonary edema versus inflammatory pneumonitis, cardiomegaly with left ventricular apex thrombus up to 1.9 cm. Admitting echo: Technically difficult study. Grossly normal LV size with mild to moderate reduced systolic function. EF 40 to 45%. Akinetic apex with small laminated apical thrombus. Status post remdesivir and Tocilizumab [01/07 CRP 13.7> trended down to 1.71 on 01/12], continue with dexamethasone 01/08 Continue with supportive management. On IV antibiotics Cefepime 01/14--- 01/15 ceftriaxone. Patient down to 1 pressor. Tube feeding started 01/18. Management per ICU care. Remains sedated on mechanical ventilator Prognosis remains poor Appreciate steel inspector and palliative care input and recommendation Plan to continue current management feels no improvement within the next day or 2 will put him on comfort care #. CHARMAINE #. ATN Baseline creatinine around one, creatinine up trended to 3, downtrending UA revealing granular casts suggestive of ATN, patient making urine and creatinine improving Nephrology on board #. Apical thrombus See imaging above Patient on heparin drip 01/13. #. Afib RVR Patient on amiodarone drip, received digoxin and amiodarone bolus today. Plan to do cardioversion if his heart rate not controlled. Case discussed with critical care doctor. #. CAD #. Chronic heart failure with reduced ejection fraction #. Ischemic cardiomyopathy Anterior STEMI 04/2018 with PCI and 2 KHRIS to proximal to mid LAD; staged PCI to circumflex/OM Echo 04/2019 EF 40 to 45% Admitting BNP 1061, lower than the previous BNP. Follows [facility] Currently being managed for sepsis criteria. Hold antihypertensives. #. Prediabetes 12/21/2020 A1c 6.4 Insulin drip changed to sliding scale. #. DVT prophylaxis: Patient on heparin drip Disposition: Continue critical care Full code Patient currently in amiodarone drip, heparin drip, fentanyl, propofol, Levophed. He has urinary catheter in situ, NG tube in situ, intubated, supine position. Multisystem organ failure, guarded prognosis. Management per critical care team. Patient's Constanza was updated on patient's condition on 01/13 and voiced understanding and agreement with plan of care. Per critical care's discussion with the family, he is DNR/DNI for any new events but wants everything done at present. Palliative care on board. Critical care team is keeping in touch with the and updating about condition We will continue current aggressive management and if there is no improvement within the next day or 2 will put him for comfort care Admission and Anticipated Discharge Date Admission Date: January 07, 2021 Subjective 01/08/2021 The patient was seen and examined in telemetry unit and in the Covid room He has been feeling much better but is still requiring high flow nasal cannula oxygen to maintain saturation Still has cough and very shortness of breath with minimal exertion 01/09/2021 The patient was seen and examined in telemetry unit and in the Covid room He has been feeling much better but is still requiring high flow oxygen of 50 L/min Still has cough and generalized weakness No fever and no chills 01/10/2021 The patient was seen and examined in telemetry unit and in the Covid room He says that he feels much better but still requiring 50 L/min and 100% FiO2 to maintain saturation He has cough with nonproductive cough Denies any chest pain and/or palpitation 01/11/2021 The patient was seen and examined in telemetry unit and in the Covid room He has been feeling well today and is still requiring high flow nasal cannula at 6 L/min to maintain saturation Any kind of activities make the saturation to go down to 70s Denies any pain in the chest, any abdominal pain, nausea and or vomiting 01/12/2021 The patient was seen and examined in telemetry unit and in the Covid room His condition has not improved and is still requiring high flow nasal cannula oxygen to maintain saturation He is saturation improves with prone position Denies any fever and/or chills and clinically feels better at rest and doing nothing 01/20/2021 The patient was seen and examined in ICU He remains intubated and sedated Review of Systems Review of Systems: Unobtainable due to endotracheal tube Physical Exam Physical Exam: Remains sedated on mechanical ventilator Constitutional: well developed, well nourished and + ill appearing Eyes: PERRL, conjunctivae normal, anicteric sclerae ENMT: external ear and nose normal, oropharynx normal Neck: trachea midline, no thyromegaly Respiratory: + respiratory distress Auscultation: + diminished lung sounds and + crackles (Bibasilar crackles) Cardiovascular: Rate/Rhythm: regular rate and regular rhythm; not tachycardic Heart Sounds: normal S1 and normal S2; no murmur Extremities: no edema Gastrointestinal (Abdomen): Inspection/Auscultation: normal bowel sounds; abdomen not distended Percussion/Palpation: abdomen soft; abdomen nontender Psychiatric: A+Ox3, euthymic affect Lymphatic: no cervical or axillary lymphadenopathy Results & Data Results & Data ([facility]) Vital Signs (Past 12 Hours) Vital Signs Temp Pulse Resp BP Pulse Ox 01/20/21 16:00 80 100/46 L 01/20/21 15:46 36.5 C 80 88/49 L 87 L 01/20/21 15:31 36.5 C 80 81/51 L 88 L 01/20/21 15:20 80 24 89 L 01/20/21 15:16 36.5 C 79 94/52 L 88 L 01/20/21 15:01 36.5 C 81 97/51 L 88 L 01/20/21 14:46 36.5 C 79 96/54 L 87 L 01/20/21 14:31 36.5 C 80 97/54 L 88 L 01/20/21 14:16 36.5 C 80 95/54 L 87 L 01/20/21 14:01 36.5 C 80 88/59 L 88 L 01/20/21 13:46 36.5 C 81 81/47 L 88 L 01/20/21 13:31 36.5 C 83 91/47 L 89 L 01/20/21 13:16 36.5 C 84 85/50 L 88 L 01/20/21 13:01 36.5 C 86 89/52 L 88 L 01/20/21 12:51 24 01/20/21 12:46 36.5 C 93 H 104/58 L 88 L 01/20/21 12:31 36.5 C 94 H 109/57 L 88 L 01/20/21 12:16 36.5 C 86 97/52 L 87 L 01/20/21 12:01 36.5 C 86 97/54 L 88 L 01/20/21 11:46 36.6 C 88 70/41 L 86 L 01/20/21 11:31 36.6 C 84 83/47 L 85 L 01/20/21 11:22 103/46 L 01/20/21 11:16 36.6 C 84 82/50 L 85 L 01/20/21 11:01 36.7 C 84 89/48 L 86 L 01/20/21 10:46 36.7 C 82 80/44 L 88 L 01/20/21 10:38 90 30 H 88 L 01/20/21 10:31 36.8 C 90 76/45 L 86 L 01/20/21 10:16 36.8 C 89 75/45 L 86 L 01/20/21 10:01 36.8 C 93 H 72/53 L 87 L 01/20/21 09:46 36.8 C 102 H 82/43 L 86 L 01/20/21 09:31 36.8 C 99 H 83/52 L 87 L 01/20/21 09:16 36.7 C 97 H 103/56 L 88 L 01/20/21 09:01 36.7 C 89 99/49 L 89 L 01/20/21 08:46 36.8 C 80 97/58 L 91 01/20/21 08:31 36.8 C 84 94/54 L 90 01/20/21 08:05 85 29 H 89 L 01/20/21 08:00 36.8 C 85 100/52 L 91 01/20/21 07:00 36.8 C 86 102/57 L 91 01/20/21 06:00 36.8 C 86 97/55 L 90 Laboratory Results Short CBC 01/20/21 Range/Units 05:03 WBC 23.05 H (4.8-10.8) K/uL Hgb 13.1 L (14.0-18.0) g/dL Hct 39.5 L (42-52) % Plt Count 222 (130-400) K/uL BMP 01/20/21 05:03 Sodium 129 L D Potassium 3.9 Chloride 96 L Carbon Dioxide 31 BUN 40 H Creatinine 1.00 Glucose 159 H Calcium 8.1 L Medications Administered Current Inpatient Medications Acetaminophen (Acetaminophen 325 Mg Tab) 650 mg PO Q4H PRN PRN Reason: Pain or Fever Stop: 02/06/21 17:29 Last Admin: 01/17/21 16:04 Dose: 650 mg Documented by: Al Hydrox/Mg Hydrox/Simethicone (Aluminum/Magnesium Susp 30 Ml Udc) 15 ml PO Q4H PRN PRN Reason: Dyspepsia Stop: 02/06/21 17:29 Albuterol (Albuterol Hfa 8 Gm Inhaler) 2 puffs INH Q4R PRN PRN Reason: Wheezing Stop: 02/11/21 10:44 Aspirin (Aspirin 81 Mg Chew) 81 mg PO DAILY [facility] Stop: 02/13/21 08:59 Last Admin: 01/20/21 08:04 Dose: 81 mg Documented by: Atorvastatin Calcium (Atorvastatin 40 Mg Tab) 80 mg PO DAILY KIM Stop: 02/07/21 08:59 Last Admin: 01/20/21 08:03 Dose: 80 mg Documented by: Dextrose (Dextrose 50% 50 Ml Syringe) 25 - 50 ml IV UD PRN; Protocol PRN Reason: Hypoglycemia Protocol Stop: 02/12/21 10:59 Last Admin: 01/17/21 01:12 Dose: 25 ml Documented by: Enoxaparin Sodium (Enoxaparin 100 Mg/1ml Syr) 90 mg SQ Q12H KIM Stop: 02/19/21 10:59 Last Admin: 01/20/21 11:43 Dose: 90 mg Documented by: Fentanyl Citrate (Fentanyl Bolus From Bag) 50 mcg IV Q60M PRN PRN Reason: Pain or Agitation Stop: 01/27/21 04:29 Last Admin: 01/17/21 01:35 Dose: 50 mcg Documented by: Fluticasone Propionate (Fluticasone Propionate Na Spr 16 Gm Btl) 2 sprays NA BID PRN PRN Reason: allergies Stop: 02/06/21 17:29 Last Admin: 01/09/21 21:03 Dose: 2 sprays Documented by: Glucagon (Glucagon For Inj 1 Mg Vial) 1 mg SQ UD PRN; Protocol PRN Reason: Hypoglycemia Protocol Stop: 02/12/21 10:59 Glucose (Glucose 40% Gel 15 Gm Tube) 15 - 30 gm PO UD PRN; Protocol PRN Reason: Hypoglycemia Protocol Stop: 02/12/21 10:59 Glucose (Glucose 10 Tabs/Tube) 4 - 8 tabs PO UD PRN; Protocol PRN Reason: Hypoglycemia Protocol Stop: 02/12/21 10:59 Fentanyl Citrate (Fentanyl Drip) 1,250 mcg in 250 mls @ 20 mls/hr IV .[id number] KIM; Protocol Stop: 01/27/21 04:29 Last Admin: 01/20/21 13:29 Dose: 100 mcg/hr, 20 mls/hr Documented by: Pantoprazole Sodium 40 mg/ (Syringe) 10 mls @ 5 mls/min IV DAILY@1100 KIM Stop: 02/12/21 10:59 Last Admin: 01/20/21 10:35 Dose: 5 mls/min Documented by: Norepinephrine Bitartrate (Levophed/D5w) 16 mg in 500 mls @ 28.514 mls/hr IV .[id number] KIM; Protocol Stop: 02/12/21 18:39 Last Titration: 01/20/21 16:15 Dose: 0.175 mcg/kg/min, 28.5 mls/hr Documented by: Amiodarone HCl/Dextrose (Nexterone / D5w) 360 mg in 200 mls @ 16.667 mls/hr IV .Q12H KIM Stop: 02/15/21 00:44 Last Admin: 01/20/21 10:33 Dose: 0.5 mg/min, 16.7 mls/hr Documented by: Propofol (Diprivan) 1,000 mg in 100 mls @ 20.208 mls/hr IV .Q4H57M KIM; Protocol Stop: 01/22/21 13:29 Last Admin: 01/20/21 16:05 Dose: Not Given Documented by: Phenylephrine HCl 20 mg/ (Dextrose) 502 mls @ 64.984 mls/hr IV .Q7H44M [facility]; Protocol Stop: 02/18/21 10:29 Last Titration: 01/20/21 11:44 Dose: Infused Documented by: Insulin Aspart (Insulin Aspart 100 Units/Ml 3 Ml Pen) 0 units SC Q4 [facility] Stop: 02/18/21 17:29 Last Admin: 01/20/21 16:15 Dose: Not Given Documented by: Insulin Glargine (Insulin Glargine Solostar 100 Units/Ml 3 Ml Pen) 0 units SC HS ONE; Protocol Stop: 01/20/21 21:01 Magnesium Hydroxide (Magnesium Hydroxide Susp 30 Ml Udc) 30 ml PO Q12H PRN PRN Reason: Constipation Stop: 02/06/21 17:29 Metoprolol Succinate (Metoprolol Succ 50mg Ext Rel Tab) 100 mg PO DAILY [facility] Stop: 02/07/21 08:59 Last Admin: 01/14/21 07:57 Dose: 100 mg Documented by: Metoprolol Tartrate (Metoprolol Tartrate 1 Mg/Ml Vial) 5 mg IV Q4 [facility] Stop: 02/15/21 03:59 Last Admin: 01/18/21 01:23 Dose: Not Given Documented by: Midazolam HCl (Midazolam Hcl 1 Mg/Ml 2ml Vial) 1 mg IV Q2H PRN PRN Reason: RASS goal -1 Stop: 02/14/21 10:11 Midazolam HCl (Midazolam Hcl 1 Mg/Ml 2ml Vial) 2 mg IV Q2H PRN PRN Reason: RASS goal -1 Stop: 02/14/21 10:11 Last Admin: 01/17/21 03:39 Dose: 2 mg Documented by: Miscellaneous (Carbohydrates For Hypoglycemia ) 15 - 30 gm PO UD PRN PRN Reason: Hypoglycemia Treatment Stop: 02/12/21 10:59 Miscellaneous Information (Pharmacy Glycemic Mgmt Consult) 1 ea N/A UD PRN PRN Reason: Consult Stop: 02/18/21 09:45 Multi-Ingredient Cream (Artificial Tears Op Oint 3.5 Gm Tube) 1 appln OP Q4 [facility] Stop: 02/16/21 04:59 Last Admin: 01/20/21 16:05 Dose: 1 appln Documented by: Multivitamins/Minerals (Multi Vit W/Minerals Liquid 15 Ml Udp) 15 ml PO DAILY KIM Stop: 02/13/21 08:59 Last Admin: 01/20/21 08:04 Dose: 15 ml Documented by: Nutritional Formula (Peptamen Intense Vhp 1.0 Red 1,000 Ml Bag) 1,000 ml OG UD [facility]; Protocol Stop: 02/17/21 11:29 Last Admin: 01/20/21 05:59 Dose: 1,000 ml Documented by: Ondansetron HCl (Ondansetron Inj 2 Mg/Ml 2 Ml Vial) 4 mg IV Q6H PRN PRN Reason: Nausea Stop: 02/06/21 17:29 Polyethylene Glycol (Polyethylene (Miralax) 17 Gm Pack) 17 gm PO DAILY PRN PRN Reason: Constipation Stop: 02/06/21 17:29 Propofol (Propofol Bolus From Bag) 20 mg IV Q5M PRN PRN Reason: Sedation Stop: 01/21/21 13:25 Sterile Water (Tube Feeding Water Flush) 30 ml OG Q4H KIM Stop: 02/17/21 11:44 Last Admin: 01/20/21 16:05 Dose: 30 ml Documented by: Ticagrelor (Ticagrelor 90 Mg Tab) 90 mg PO BID KIM Stop: 02/13/21 20:59 Last Admin: 01/20/21 08:03 Dose: 90 mg Documented by: Vitamin D (Cholecalciferol 1,000 Units 25 Mcg Tab) 1,000 units PO DAILY KIM Stop: 02/07/21 08:59 Last Admin: 01/20/21 08:03 Dose: 1,000 units Documented by:
[2021-01-21] MEDS: Double Conc 32mcg/mL; 16mg in 500mL IV SCH ×2 (00:02→15:51)
[2021-01-21] MEDS: INSULIN ASPART 100 UNITS/ML 3 ML PEN SC SCH ×2 (00:04→05:51)
[2021-01-21] MEDS: fentaNYL DRIP 1,250 MCG/250 ML BAG IV SCH ×3 (04:05→15:51)
[2021-01-21] MEDS: propofoL 1,000 MG/100 ML VIAL IV SCH ×4 (05:03→19:32)
[2021-01-21 05:15] LABS: iSTAT Art Bld Gas pCO2 Correct 61 mmHg (35-46); iSTAT Art Bld Gas pH Corrected 7.367 (7.35-7.45); iSTAT Arterial Blood Gas HCO3 35 meg/L (19-24); iSTAT Arterial Blood Gas pCO2 60 mmHg (35-46); iSTAT Arterial Blood Gas pH 7.37 (7.35-7.45); iSTAT Arterial Blood Gas pO2 76 mmHg (80-95); iSTAT Arterial Blood Gas pO2 C 77; iSTAT Carbon Dioxide 37 mmol/L (24-31); iSTAT Hematocrit 37 % (42-52); iSTAT Hemoglobin 12.6 g/dl (14.0-18.0); iSTAT Potassium 4.1 mmol/L (3.3-5.0); iSTAT Site Art Line; iSTAT Sodium 132 mmol/L (135-144)
[2021-01-21 05:18] LABS: Hematocrit (blood only) 36.6 % (42-52); Hemoglobin 12.4 g/dL (14.0-18.0); Mean Corpuscular Hemoglobin 32.9 pg (25-34); Mean Corpuscular Hgb Conc 33.9 g/dL (32-36); Mean Corpuscular Volume 97.1 fL (80-100); Nucleated RBC # (auto) 0.23 K/uL (0-0); Platelet Count 206 K/uL (130-400); RDW Coefficient of Variation 13.8 % (11.5-14.5); RDW Standard Deviation 48.1 fL (36.4-46.3); Red Blood Count 3.77 M/uL (4.7-6.1); White Blood Count 23.35 K/uL (4.8-10.8)
[2021-01-21 05:44] LABS: BUN Creatinine Ratio 40.7 (10-20); Calcium 8.2 mg/dl (8.5-10.1); Creatinine Clr Calc Pharmacy 67.8 ml/min; Est GFR (African American) 80.2 ml/min; Est GFR (Non-African American) 69.2 ml/min; Magnesium 2.3 mg/dl (1.8-2.4); Phosphorus 3.2 mg/dl (2.5-4.9); Potassium 4.2 mmol/L (3.5-5.1)
[2021-01-21] MEDS: PHENYLEPHRINE HCL 20 MG in DEXTROSE 5% 500 ML IV SCH (05:50)
[2021-01-21] MEDS: TUBE FEEDING WATER FLUSH OG SCH ×6 (05:51→23:56)
[2021-01-21] MEDS: ARTIFICIAL TEARS OP OINT 3.5 GM TUBE OP SCH ×5 (05:51→21:13)
[2021-01-21 05:55] LABS: Basophils # (auto) 0.06 K/uL (0-0.2); Basophils % (auto) 0.3 %; Eosinophils # (auto) 0.16 K/uL (0-0.5); Eosinophils % (auto) 0.7 %; Immature Granulocytes # (auto) 0.91 K/uL (0.00-0.02); Immature Granulocytes % (auto) 3.9 %; Lymphocytes # (auto) 0.65 K/uL (1.2-3.4); Lymphocytes % (auto) 2.8 %; Monocytes # (auto) 0.38 K/uL (0.11-0.59); Monocytes % (auto) 1.6 %; Neutrophils # (auto) 21.19 K/uL (1.4-6.5); Neutrophils % (auto) 90.7 %; Polychromasia 1+
--- NOTE | 2021-01-21 07:23 | XRay Report ---
XR chest 1V portable HISTORY: 70 years-old Male Resp failure acute respiratory failure COMPARISON: Chest radiograph 01/20/2021 TECHNIQUE: Portable AP view of the chest FINDINGS: Cardiac silhouette is normal in size. Coronary arterial stent. Endotracheal tube overlies the midline , 2.8 cm superior to the leroy. Left IJ central venous catheter is unchanged with distal tip in the region of the brachiocephalic vein. Enteric tube courses below the diaphragm outside the [id number]. No pneumothorax. Small layering pleural effusions. Emphysema with chronic fibrotic changes. Right greater than left multifocal bilateral airspace opacities redemonstrated, mildly progressed within th e right lung base. No acute fracture. IMPRESSION: 1. Lines and tubes as above. 2. Small pleural effusions with multifocal pneumonia, mildly progressed within the right lung base. 3. Emphysema. ACT 112: Negative or not required by law. The above report was generated using voice recognition software. It may contain grammatical, syntax o r spelling errors. Electronically signed by: Jm Timmons M.D. 01/21/2021 7:21 AM
[2021-01-21] MEDS ORDERED: INSULIN GLARGINE SOLOSTAR 100 UNITS/ML 3 ML PEN SC ONE ×2 (08:00→21:00)
[2021-01-21] MEDS: MULTI VIT W/MINERALS LIQUID 15 ML UDP PO SCH (08:11)
[2021-01-21] MEDS: ASPIRIN 81 MG CHEW PO SCH (08:12)
[2021-01-21] MEDS: CHOLECALCIFEROL 1,000 UNITS 25 MCG TAB PO SCH (08:12)
[2021-01-21] MEDS: ATORVASTATIN 40 MG TAB PO SCH (08:12)
[2021-01-21] MEDS ORDERED: FUROSEMIDE 40 MG in SYRINGE 0 ML IV ONE (08:30)
[2021-01-21] MEDS ORDERED: STAT IV Infusion **Titration per Protocol STA (10:16)
[2021-01-21] MEDS: VASOPRESSIN 20 UNITS in 0.9 % SODIUM CHLORIDE 100 ML IV SCH ×2 (10:30→15:51)
[2021-01-21] MEDS: AMIODARONE / D5W 360 MG/200 ML BAG IV SCH (10:30)
[2021-01-21] MEDS: ENOXAPARIN 100 MG/1ML SYR SQ SCH ×2 (10:33→23:56)
[2021-01-21] MEDS: PANTOprazole 40 MG in SYRINGE 0 ML IV SCH (10:33)
--- NOTE | 2021-01-21 10:50 | Critical Care Progress Note ---
Date of Service January 21, 2021 Assessment & Plan (1) Pneumonia due to COVID-19 virus: (2) COVID-19: (3) Acute respiratory failure with hypoxia: (4) Chronic HFrEF (heart failure with reduced ejection fraction): (5) Left ventricular apical thrombus: (6) Acute kidney injury: Plan: Reason Critically Ill: 70-year-old male with COVID-19 pneumonia and worsening hypoxic respiratory failure requiring emergent endotracheal intubation for ongoing management of underlying illness. NEURO - Sedation : On fentanyl and propofol -Neuromuscular blockade with cis atracurium discontinued 01/19/2021 CARDIAC/VASCULAR - Coronary artery disease: Status post PTCI with KHRIS x4. Continue current medications. Echocardiogram earlier this visits demonstrates EF of 40 to 45% with apical thrombus. Ventricular apical thrombus On anticoagulation Monitor on telemetry. Atrial fibrillation with rapid ventricular response -S/p synchronized cardioversion 01/11/2021 with 150 J -Amiodarone infusion, s/p digoxin bolus 01/19/2021 -Metoprolol 5 mg IV every 4 hours as needed Labile blood pressure Bouts of hypotension with episodic hypotension --> could be from underlying COVID-19 as well as sedation -On norepinephrine to keep MAP greater than 65 -Random cortisol 37 on 01/13 RESPIRATORY - Acute hypoxic respiratory failure in the setting of COVID-19 pneumonia: Patient intubated 01/13 Patient has already received Tocilizumab, remdesivir, and Decadron. Ventilator settings reviewed: ARDSnet guidelines high PEEP low FiO2 -Pronation therapy with neuromuscular blockade started 01/17 GI/NUTRITION - Trickle feeds RENAL/LYTES - Acute kidney injury Baseline appears to be 1.0: Improved - consented for temporary HD catheter Replace electrolytes as needed - Strict I&Os. ENDO - No history of diabetes or thyroid disease BSGs per unit protocol. ISS --> gtt per unit policy. HEME - Stable H&H DVT prophylaxis: Heparin ID - COVID-19 pneumonia: Recently finished remdesivir. Received Tocilizumab earlier in visit. Febrile illness -S/p 5 days of Rocephin Culture 01/14/2021 negative to date --Prophylaxis VTE: Heparin drip --> Lovenox therapeutic GI: Protonix Lines: Right IJ, right radial, positive Silva Diet: Tube feeds Plan: In/out: +707, urine output 1635 AB.37/60/76 on PEEP of 1290% Patient's FiO2 requirement has been going up since last couple of days. His heart rate is more in sinus now and it is more controlled but patient still having bouts of hypotension. Patient was given 40 mg of Lasix twice yesterday. 40 mg of Lasix again given today. Continue with Levophed. I will add vasopressin given the increase requirements of vasopressors. 40mg of lasix given. I will see how the output is and give another 20 mg of Lasix in the evening Completed 5 dose of Rocephin We will repeat sputum culture today WBC is stable around 23.3. No clear source of infection. We will repeat UA Patient's Constanza Mejia [phone] was called and updated regarding patient's condition. All questions inquiries of the patient's answered in depth I have personally spent 41 minutes of critical care time in the direct management of this patient. This is a life/limb threatening event. This includes time spent evaluating patient, direct bedside care, chart review, placing orders, interpretation of diagnostic studies, discussion with consultants, patient, and family members, as well as other required patient management activities. This time is exclusive of all separately billable procedures, and teaching time and separate from and in addition to any other critical care service time. Please note the above document was generated using voice recognition software. It may contain grammatical, syntax or spelling errors. Admission and Anticipated Discharge Date Admission Date: January 07, 2021 Subjective Patient seen and examined at bedside. No distress Patient did get hypoxic for which to go up on his FiO2 Patient still having bouts of hypotension He is on Levophed 0.2. 40 of propofol 100 of fentanyl Afebrile. Review of Systems Review of Systems: Unobtainable due to endotracheal tube Physical Exam Physical Exam: Constitutional: No acute distress HEENT: PERRLA, positive ETT Respiratory system: Decreased air entry bilaterally, no wheeze, rhonchi, positive crackles bilaterally CVS: S1-S2 positive, no murmurs or gallops Abdomen: Soft, nontender, nondistended, positive bowel sounds x4 Extremities: +2 pulses bilaterally radialis/ dorsalis pedis, no cyanosis, no e peri Neuro: Sedated, breathing over the vent Psych: Unable to assess G/U: Positive Silva Skin: no rashes, warm and dry Lymphatic: no cervical or axillary lymphadenopathy Results & Data Results & Data ([facility]) Vital Signs (Past 12 Hours) Vital Signs Temp Pulse Resp BP Pulse Ox 01/21/21 08:30 36.9 C 79 89 L 01/21/21 08:00 37.0 C 79 26 H 92/44 L 91 01/21/21 07:30 37.0 C 81 90 01/21/21 07:00 37.0 C 81 90 01/21/21 06:45 37.0 C 81 89 L 01/21/21 04:45 37.2 C 85 89 L 01/21/21 04:30 37.2 C 85 89 L 01/21/21 04:16 37.2 C 84 90 01/21/21 04:01 37.1 C 84 89 L 01/21/21 04:00 85 97/45 L 01/21/21 03:46 92/55 L 01/21/21 03:30 37.1 C 83 89 L 01/21/21 03:20 24 01/21/21 03:15 37.0 C 82 89 L 01/21/21 03:00 37.0 C 81 89 L 01/21/21 02:45 36.9 C 80 88 L 01/21/21 02:31 36.9 C 80 88 L 01/21/21 02:16 93/54 L 01/21/21 01:30 36.9 C 100 H 89 L 01/21/21 01:15 36.9 C 77 88 L 01/21/21 01:00 36.9 C 77 88 L 01/21/21 00:45 36.9 C 78 89 L 01/21/21 00:30 36.9 C 79 88 L 01/21/21 00:15 36.8 C 80 88 L 01/21/21 00:00 36.8 C 81 27 H 100/57 L 89 L 01/20/21 23:30 36.8 C 79 86 L 01/20/21 23:15 36.8 C 89 87 L 01/20/21 23:00 36.8 C 78 87 L 01/20/21 22:45 36.8 C 80 87 L 01/21/21 05:11 01/21/21 05:11 Coding Level of Care Code Critical Care 1st 30-74 mins Diagnoses Pneumonia due to COVID-19 virus U07.1; J12.82 COVID-19 U07.1 Acute respiratory failure with hypoxia J96.01 Chronic HFrEF (heart failure with reduced ejection fraction) I50.22 Left ventricular apical thrombus I51.3 Acute kidney injury N17.9 Time Spent (min) 41
[2021-01-21 10:52] LABS: Appearance Urine Clear (Clear); Bacteria Urine Automated Negative (Negative); Bilirubin Urine Negative (Negative); Blood Urine Negative (Negative); Color Urine Yellow; Glucose Urine UA Negative (Negative); Ketones Urine Negative (Negative); Leukocyte Esterase Urine Negative (Negative); Nitrite Urine Negative (Negative); Protein Urine Trace (Negative); RBC Urine Automated 0-4 /hpf (0-4); Specific Gravity Urine 1.018 (1.000-1.030); Urobilinogen Urine Negative (Negative)
[2021-01-21 11:02] LABS: Epithelial Cell Urine Auto 0-5 /lpf (0-5)
[2021-01-21] MEDS: SENNOSIDES 8.8 MG/5 ML UDC PO SCH (11:47)
[2021-01-21] MEDS: DOCUSATE SODIUM SYRUP 100 MG/10 ML UDC NG SCH ×2 (11:47→21:21)
[2021-01-21] MEDS: INSULIN HUMAN REGULAR SC SCH ×2 (12:01→17:36)
--- NOTE | 2021-01-21 12:38 | Cardiology Progress Note ---
Date of Service January 21, 2021 Assessment & Plan (1) Atrial fibrillation with rapid ventricular response: (2) CAD (coronary artery disease): (3) Ischemic cardiomyopathy: (4) Left ventricular apical thrombus: (5) Chronic HFrEF (heart failure with reduced ejection fraction): Plan: ASSESSMENT/PLAN: 1. Atrial fibrillation with RVR s/p cardioversion: Newly diagnosed this hospital stay. Now in sinus rhythm following cardioversion x2 on 01/19/2021, while on amiodarone drip. Can convert amiodarone to p.o.. Start amiodarone 400 mg p.o. b.i.d. x6 days and then 200 mg daily. Continue anticoagulation for stroke risk reduction. 2. Left ventricular apical thrombus: He is on anticoagulation therapy for AFib and had completed outpatient course of anticoagulation therapy in the past for LV thrombus. 3. Ischemic cardiomyopathy: Most recent LV systolic function was mildly to moderately reduced with evidence of prior LAD infarct. Usual cardiomyopathy/heart failure medications have been held as he is requiring pressor support. 4. Chronic heart failure with reduced EF: Difficult to know his volume status, but has been receiving fluids with multiple drips. Agree with diuresis as arranged by critical care team to hopefully improve his oxygenation. No suggestion of azotemia. 5. Multivessel CAD s/p LAD, Cx, RCA PCI: Continue aspirin 81 mg daily. Can hold/DC Brilinta, especially while using anticoagulation therapy. Continue statin therapy. No acute issue. 6. Acute respiratory /COVID-19 pneumonia: As per critical care team. 7. Disposition: Please call with other questions or concerns. Admission and Anticipated Discharge Date Admission Date: January 07, 2021 Subjective Patient was seen this morning. He remains sedated on a ventilator. Per nursing staff, he is now requiring more support with his mechanical ventilator. Nursing staff reports that with diuretic therapy, he becomes more hypotensive. Review of systems unobtainable. Physical Exam Physical Exam: Gen.: No acute distress. Sedated on mechanical ventilator. Neck: No appreciable JVD, but difficult exam. Cardiac: No ventricular heave. Regular. No ectopy. Normal S1-S2. No murmurs, rubs, or gallops. Pulmonary: Decreased breath sounds, but otherwise clear to anterior auscultation. Abdomen: Soft, nondistended, with hypoactive bowel sounds. No bruits noted. Extremities: Right radial arterial line. 1+ left radial pulse. 1+ dorsalis pedis pulses bilaterally. No significant pitting edema. Psychiatric: Cannot assess. Results & Data ([facility]) Vital Signs (Past 12 Hours) Vital Signs Temp Pulse Resp BP Pulse Ox 01/21/21 11:37 79 110/48 L 01/21/21 11:25 65 27 H 88 L 01/21/21 08:30 36.9 C 79 89 L 01/21/21 08:00 37.0 C 79 26 H 92/44 L 91 01/21/21 07:30 37.0 C 81 90 01/21/21 07:00 37.0 C 81 90 01/21/21 06:45 37.0 C 81 89 L 01/21/21 04:45 37.2 C 85 89 L 01/21/21 04:30 37.2 C 85 89 L 01/21/21 04:16 37.2 C 84 90 01/21/21 04:01 37.1 C 84 89 L 01/21/21 04:00 85 97/45 L 01/21/21 03:46 92/55 L 01/21/21 03:30 37.1 C 83 89 L 01/21/21 03:20 24 01/21/21 03:15 37.0 C 82 89 L 01/21/21 03:00 37.0 C 81 89 L 01/21/21 02:45 36.9 C 80 88 L 01/21/21 02:31 36.9 C 80 88 L 01/21/21 02:16 93/54 L 01/21/21 01:30 36.9 C 100 H 89 L 01/21/21 01:15 36.9 C 77 88 L 01/21/21 01:00 36.9 C 77 88 L 01/21/21 00:45 36.9 C 78 89 L Intake & Output 01/19/21 01/20/21 01/21/21 01/22/21 06:59 06:59 06:59 06:59 Intake Total 3019.690 / 3019.690 3612.469 / 3612.469 2954.548 / 2954.548 502.12 / 502.12 Output Total 1974 2225 / 2225 1635 / 1635 Balance 1044.690 / 7631.400 9553.469 / 5445.601 4077.548 / 1319.548 502.12 / 502.12 Weight 190 lb 4.143 oz 192 lb 14.472 oz 192 lb 14.472 oz Laboratory Results Laboratory Results - last 24 hr 01/20/21 01/20/21 01/21/21 16:13 20:22 00:03 WBC RBC Hgb POC Hgb Hct POC Hct MCV MCH MCHC RDW Std Deviation RDW Coeff of Tatiana Plt Count MPV Immature Gran % (Auto) Neut % (Auto) Lymph % (Auto) Lake % (Auto) Eos % (Auto) Baso % (Auto) Neut # (Auto) Lymph # (Auto) Lake # (Auto) Eos # (Auto) Baso # (Auto) Immature Gran # (Auto) Absolute Nucleated RBC Nucleated RBC % (auto) Polychromasia Sample Site POC pH POC pCO2 POC pO2 POC HCO3 POC Total CO2 POC Base Excess ABG pH (Temp Correct) ABG pCO2 (Temp Corrct POC ABG pO2 at Pt Temp POC ABG O2 Sat Keron Test O2 Delivery Device POC O2 Rate Tidal Volume PEEP POC Sodium Sodium POC Potassium Potassium Chloride Carbon Dioxide Anion Gap BUN Creatinine Est Cr Clr Drug Dosing Est GFR ( Amer) Est GFR (Non-Af Amer) BUN/Creatinine Ratio Glucose POC Glucose 130 H POC Glucose (other) 119 H 116 H Calcium Phosphorus Magnesium Triglycerides Urine Color Urine Appearance Urine pH Ur Specific [place] Urine Protein Urine Glucose (UA) Urine Ketones Urine Blood Urine Nitrite Urine Bilirubin Urine Urobilinogen Ur Leukocyte Esterase Urine WBC (Auto) Urine RBC (Auto) U Hyaline Cast (Auto) U Epithel Cells (Auto) Urine Bacteria (Auto) Granular Casts 01/21/21 01/21/21 01/21/21 05:02 05:08 05:11 WBC 23.35 H RBC 3.77 L Hgb 12.4 L POC Hgb 12.6 L Hct 36.6 L POC Hct 37 L MCV 97.1 MCH 32.9 MCHC 33.9 RDW Std Deviation 48.1 H RDW Coeff of Tatiana 13.8 Plt Count 206 MPV 11.0 H Immature Gran % (Auto) 3.9 Neut % (Auto) 90.7 Lymph % (Auto) 2.8 Lake % (Auto) 1.6 Eos % (Auto) 0.7 Baso % (Auto) 0.3 Neut # (Auto) 21.19 H Lymph # (Auto) 0.65 L Lake # (Auto) 0.38 Eos # (Auto) 0.16 Baso # (Auto) 0.06 Immature Gran # (Auto) 0.91 H Absolute Nucleated RBC 0.23 H Nucleated RBC % (auto) 1.0 Polychromasia 1+ Sample Site Art Line POC pH 7.37 POC pCO2 60 H POC pO2 76 L POC HCO3 35 H POC Total CO2 37 H POC Base Excess 9.0 H ABG pH (Temp Correct) 7.367 ABG pCO2 (Temp Corrct 61 H POC ABG pO2 at Pt Temp 77 POC ABG O2 Sat 94.0 Keron Test NA O2 Delivery Device Ventilator POC O2 Rate 24 Tidal Volume 500 PEEP 12 POC Sodium 132 L Sodium POC Potassium 4.1 Potassium Chloride Carbon Dioxide Anion Gap BUN Creatinine Est Cr Clr Drug Dosing Est GFR ( Amer) Est GFR (Non-Af Amer) BUN/Creatinine Ratio Glucose POC Glucose POC Glucose (other) 115 H Calcium Phosphorus Magnesium Triglycerides Urine Color Urine Appearance Urine pH Ur Specific [place] Urine Protein Urine Glucose (UA) Urine Ketones Urine Blood Urine Nitrite Urine Bilirubin Urine Urobilinogen Ur Leukocyte Esterase Urine WBC (Auto) Urine RBC (Auto) U Hyaline Cast (Auto) U Epithel Cells (Auto) Urine Bacteria (Auto) Granular Casts 01/21/21 01/21/21 01/21/21 05:11 09:42 11:54 WBC RBC Hgb POC Hgb Hct POC Hct MCV MCH MCHC RDW Std Deviation RDW Coeff of Tatiana Plt Count MPV Immature Gran % (Auto) Neut % (Auto) Lymph % (Auto) Lake % (Auto) Eos % (Auto) Baso % (Auto) Neut # (Auto) Lymph # (Auto) Lake # (Auto) Eos # (Auto) Baso # (Auto) Immature Gran # (Auto) Absolute Nucleated RBC Nucleated RBC % (auto) Polychromasia Sample Site POC pH POC pCO2 POC pO2 POC HCO3 POC Total CO2 POC Base Excess ABG pH (Temp Correct) ABG pCO2 (Temp Corrct POC ABG pO2 at Pt Temp POC ABG O2 Sat Keron Test O2 Delivery Device POC O2 Rate Tidal Volume PEEP POC Sodium Sodium 132 L POC Potassium Potassium 4.2 Chloride 95 L Carbon Dioxide 32 Anion Gap 5.0 BUN 44 H Creatinine 1.08 Est Cr Clr Drug Dosing 67.8 Est GFR ( Amer) 80.2 Est GFR (Non-Af Amer) 69.2 BUN/Creatinine Ratio 40.7 H Glucose 119 H POC Glucose 119 H POC Glucose (other) Calcium 8.2 L Phosphorus 3.2 Magnesium 2.3 Triglycerides 95 Urine Color Yellow Urine Appearance Clear Urine pH 5.0 Ur Specific [place] 1.018 Urine Protein Trace H Urine Glucose (UA) Negative Urine Ketones Negative Urine Blood Negative Urine Nitrite Negative Urine Bilirubin Negative Urine Urobilinogen Negative Ur Leukocyte Esterase Negative Urine WBC (Auto) 1-5 Urine RBC (Auto) 0-4 U Hyaline Cast (Auto) 10-30 H U Epithel Cells (Auto) 0-5 Urine Bacteria (Auto) Negative Granular Casts 5-10 H Diagnostic Findings Telemetry personally reviewed: Sinus rhythm. Medications Administered Current Inpatient Medications Acetaminophen (Acetaminophen 325 Mg Tab) 650 mg PO Q4H PRN PRN Reason: Pain or Fever Stop: 02/06/21 17:29 Last Admin: 01/17/21 16:04 Dose: 650 mg Documented by: Al Hydrox/Mg Hydrox/Simethicone (Aluminum/Magnesium Susp 30 Ml Udc) 15 ml PO Q4H PRN PRN Reason: Dyspepsia Stop: 02/06/21 17:29 Albuterol (Albuterol Hfa 8 Gm Inhaler) 2 puffs INH Q4R PRN PRN Reason: Wheezing Stop: 02/11/21 10:44 Aspirin (Aspirin 81 Mg Chew) 81 mg PO DAILY [facility] Stop: 02/13/21 08:59 Last Admin: 01/21/21 08:12 Dose: 81 mg Documented by: Atorvastatin Calcium (Atorvastatin 40 Mg Tab) 80 mg PO DAILY KIM Stop: 02/07/21 08:59 Last Admin: 01/21/21 08:12 Dose: 80 mg Documented by: Dextrose (Dextrose 50% 50 Ml Syringe) 25 - 50 ml IV UD PRN; Protocol PRN Reason: Hypoglycemia Protocol Stop: 02/12/21 10:59 Last Admin: 01/17/21 01:12 Dose: 25 ml Documented by: Docusate Sodium (Docusate Sodium Syrup 100 Mg/10 Ml Udc) 100 mg NG BID [facility] Stop: 02/20/21 11:59 Last Admin: 01/21/21 11:47 Dose: 100 mg Documented by: Enoxaparin Sodium (Enoxaparin 100 Mg/1ml Syr) 90 mg SQ Q12H KIM Stop: 02/19/21 10:59 Last Admin: 01/21/21 10:33 Dose: 90 mg Documented by: Fentanyl Citrate (Fentanyl Bolus From Bag) 50 mcg IV Q60M PRN PRN Reason: Pain or Agitation Stop: 01/27/21 04:29 Last Admin: 01/17/21 01:35 Dose: 50 mcg Documented by: Fluticasone Propionate (Fluticasone Propionate Na Spr 16 Gm Btl) 2 sprays NA BID PRN PRN Reason: allergies Stop: 02/06/21 17:29 Last Admin: 01/09/21 21:03 Dose: 2 sprays Documented by: Glucagon (Glucagon For Inj 1 Mg Vial) 1 mg SQ UD PRN; Protocol PRN Reason: Hypoglycemia Protocol Stop: 02/12/21 10:59 Glucose (Glucose 40% Gel 15 Gm Tube) 15 - 30 gm PO UD PRN; Protocol PRN Reason: Hypoglycemia Protocol Stop: 02/12/21 10:59 Glucose (Glucose 10 Tabs/Tube) 4 - 8 tabs PO UD PRN; Protocol PRN Reason: Hypoglycemia Protocol Stop: 02/12/21 10:59 Heparin Sodium (Beef Lung) (Heparin 10 Unit/Ml 5 Ml Flush) 5 ml FLUSH PRN PRN PRN Reason: Flush Stop: 02/20/21 07:31 Fentanyl Citrate (Fentanyl Drip) 1,250 mcg in 250 mls @ 20 mls/hr IV .[id number] KIM; Protocol Stop: 01/27/21 04:29 Last Admin: 01/21/21 04:05 Dose: 100 mcg/hr, 20 mls/hr Documented by: Pantoprazole Sodium 40 mg/ (Syringe) 10 mls @ 5 mls/min IV DAILY@1100 [facility]IM Stop: 02/12/21 10:59 Last Admin: 01/21/21 10:33 Dose: 5 mls/min Documented by: Norepinephrine Bitartrate (Levophed/D5w) 16 mg in 500 mls @ 32.588 mls/hr IV .[id number] KIM; Protocol Stop: 02/12/21 18:39 Last Titration: 01/21/21 10:32 Dose: 0.225 mcg/kg/min, 36.7 mls/hr Documented by: Amiodarone HCl/Dextrose (Nexterone / D5w) 360 mg in 200 mls @ 16.667 mls/hr IV .Q12H [facility] Stop: 02/15/21 00:44 Last Admin: 01/21/21 10:30 Dose: 0.5 mg/min, 16.7 mls/hr Documented by: Propofol (Diprivan) 1,000 mg in 100 mls @ 20.208 mls/hr IV .Q4H57M [facility]; Protocol Stop: 01/24/21 13:29 Last Admin: 01/21/21 09:48 Dose: 40 mcg/kg/min, 20.2 mls/hr Documented by: Vasopressin 20 units/ Sodium (Chloride) 101 mls @ 12.12 mls/hr IV .Q8H20M [facility] Stop: 02/20/21 10:29 Last Admin: 01/21/21 10:30 Dose: 0.04 unit/min, 12.1 mls/hr Documented by: Insulin Human Regular (Insulin Human Regular) 0 units SC Q6 [facility] Stop: 02/20/21 11:59 Last Admin: 01/21/21 12:01 Dose: 2 units Documented by: Magnesium Hydroxide (Magnesium Hydroxide Susp 30 Ml Udc) 30 ml PO Q12H PRN PRN Reason: Constipation Stop: 02/06/21 17:29 Metoprolol Succinate (Metoprolol Succ 50mg Ext Rel Tab) 100 mg PO DAILY [facility] Stop: 02/07/21 08:59 Last Admin: 01/14/21 07:57 Dose: 100 mg Documented by: Metoprolol Tartrate (Metoprolol Tartrate 1 Mg/Ml Vial) 5 mg IV Q4 [facility] Stop: 02/15/21 03:59 Last Admin: 01/18/21 01:23 Dose: Not Given Documented by: Midazolam HCl (Midazolam Hcl 1 Mg/Ml 2ml Vial) 1 mg IV Q2H PRN PRN Reason: RASS goal -1 Stop: 02/14/21 10:11 Midazolam HCl (Midazolam Hcl 1 Mg/Ml 2ml Vial) 2 mg IV Q2H PRN PRN Reason: RASS goal -1 Stop: 02/14/21 10:11 Last Admin: 01/17/21 03:39 Dose: 2 mg Documented by: Miscellaneous (Carbohydrates For Hypoglycemia ) 15 - 30 gm PO UD PRN PRN Reason: Hypoglycemia Treatment Stop: 02/12/21 10:59 Miscellaneous Information (Pharmacy Glycemic Mgmt Consult) 1 ea N/A UD PRN PRN Reason: Consult Stop: 02/18/21 09:45 Multi-Ingredient Cream (Artificial Tears Op Oint 3.5 Gm Tube) 1 appln OP Q4 [facility]IM Stop: 02/16/21 04:59 Last Admin: 01/21/21 11:47 Dose: 1 appln Documented by: Multivitamins/Minerals (Multi Vit W/Minerals Liquid 15 Ml Udp) 15 ml PO DAILY [facility] Stop: 02/13/21 08:59 Last Admin: 01/21/21 08:11 Dose: 15 ml Documented by: Nutritional Formula (Peptamen Intense Vhp 1.0 Red 1,000 Ml Bag) 1,000 ml OG UD [facility]; Protocol Stop: 02/17/21 11:29 Last Admin: 01/20/21 05:59 Dose: 1,000 ml Documented by: Ondansetron HCl (Ondansetron Inj 2 Mg/Ml 2 Ml Vial) 4 mg IV Q6H PRN PRN Reason: Nausea Stop: 02/06/21 17:29 Polyethylene Glycol (Polyethylene (Miralax) 17 Gm Pack) 17 gm PO DAILY PRN PRN Reason: Constipation Stop: 02/06/21 17:29 Propofol (Propofol Bolus From Bag) 20 mg IV Q5M PRN PRN Reason: Sedation Stop: 01/21/21 13:25 Sennosides (Sennosides 8.8 Mg/5 Ml Udc) 17.6 mg PO DAILY [facility]IM Stop: 02/20/21 11:59 Last Admin: 01/21/21 11:47 Dose: 17.6 mg Documented by: Sterile Water (Tube Feeding Water Flush) 30 ml OG Q4H [facility] Stop: 02/17/21 11:44 Last Admin: 01/21/21 11:47 Dose: 30 ml Documented by: Ticagrelor (Ticagrelor 90 Mg Tab) 90 mg PO BID [facility] Stop: 02/13/21 20:59 Last Admin: 01/20/21 08:03 Dose: 90 mg Documented by: Vitamin D (Cholecalciferol 1,000 Units 25 Mcg Tab) 1,000 units PO DAILY [facility] Stop: 02/07/21 08:59 Last Admin: 01/21/21 08:12 Dose: 1,000 units Documented by: PG Care Time/CCT Total # of Minutes Spent Total Time Spent with Patient: Total time spent is greater than 50% in coordination of care (as documented) at patient's floor/unit and/or counseling patient: Coding Level of Care Code 00890 Subseq Hosp Care Lvl 3 Diagnoses Atrial fibrillation with rapid ventricular response I48.91 CAD (coronary artery disease) I25.10 Ischemic cardiomyopathy I25.5 Left ventricular apical thrombus I51.3 Chronic HFrEF (heart failure with reduced ejection fraction) I50.22
--- NOTE | 2021-01-21 12:55 | Palliative Care Progress Note ---
Date of Service January 21, 2021 Assessment & Plan (1) Palliative care encounter: Plan: I spoke with Mrs. Mejia on the phone. She tells me that she has been trying to stay busy to keep her mind off Drake's illness. She feels that she has good support from neighbors and friends. She was able to talk with Dr. Coles this morning for update and did not have any particular questions or concerns. She remains hopeful for Drake's recovery and is relying on her christa. She did say that she would be agreeable to tracheostomy if indicated. She is agreeable to periodic f/u with palliative care for support and assistance with decision making. (2) COVID-19: (3) Atrial fibrillation with rapid ventricular response: (4) Acute on chronic renal failure: (5) Sepsis: Admission and Anticipated Discharge Date Admission Date: January 07, 2021 Subjective Remains on vent support with increased FiO2 and PEEP. Also remains on pressor support. Appears comfortable at rest Review of Systems Review of Systems: Unobtainable due to endotracheal tube and Unobtainable due to reduced consciousness Palliative Performance Score 10% Physical Exam Constitutional: + ill appearing and + mechanically ventilated Respiratory: FiO2 90%, PEEP 14 Cardiovascular: Rate/Rhythm: regular rate and regular rhythm s/p cardioversion Neurologic: + obtunded Genitourinary: Silva catheter Results & Data ([facility]) Vital Signs (Past 12 Hours) Vital Signs Temp Pulse Resp BP Pulse Ox 01/21/21 11:37 79 110/48 L 01/21/21 11:25 65 27 H 88 L 01/21/21 08:30 98.4 F 79 89 L 01/21/21 08:00 98.6 F 79 26 H 92/44 L 91 01/21/21 07:30 98.6 F 81 90 01/21/21 07:00 98.6 F 81 90 01/21/21 06:45 98.6 F 81 89 L 01/21/21 04:45 99.0 F 85 89 L 01/21/21 04:30 99.0 F 85 89 L 01/21/21 04:16 99.0 F 84 90 01/21/21 04:01 98.8 F 84 89 L 01/21/21 04:00 85 97/45 L 01/21/21 03:46 92/55 L 01/21/21 03:30 98.8 F 83 89 L 01/21/21 03:20 24 01/21/21 03:15 98.6 F 82 89 L 01/21/21 03:00 98.6 F 81 89 L 01/21/21 02:45 98.4 F 80 88 L 01/21/21 02:31 98.4 F 80 88 L 01/21/21 02:16 93/54 L 01/21/21 01:30 98.4 F 100 H 89 L 01/21/21 01:15 98.4 F 77 88 L 01/21/21 01:00 98.4 F 77 88 L PG Care Time/CCT Total # of Minutes Spent Total Time Spent: 36 Total Time Spent with Patient: Total time spent is greater than 50% in coordination of care (as documented) at patient's floor/unit and/or counseling patient:goals of care, family update and support Coding Level of Care Code 52031 Subseq Hosp Care Lvl 3 Diagnoses Palliative care encounter Z51.5 COVID-19 U07.1 Atrial fibrillation with rapid ventricular response I48.91 Acute on chronic renal failure N17.9; N18.9 Sepsis A41.9
--- NOTE | 2021-01-21 13:27 | Hospitalist Progress Note ---
Date of Service January 21, 2021 Assessment & Plan (1) Left ventricular apical thrombus: Plan: Current Inpatient Medications Acetaminophen (Acetaminophen 325 Mg Tab) 650 mg PO Q4H PRN PRN Reason: Pain or Fever Stop: 02/06/21 17:29 Last Admin: 01/17/21 16:04 Dose: 650 mg Documented by: Al Hydrox/Mg Hydrox/Simethicone (Aluminum/Magnesium Susp 30 Ml Udc) 15 ml PO Q4H PRN PRN Reason: Dyspepsia Stop: 02/06/21 17:29 Albuterol (Albuterol Hfa 8 Gm Inhaler) 2 puffs INH Q4R PRN PRN Reason: Wheezing Stop: 02/11/21 10:44 Amiodarone HCl (Amiodarone 200 Mg Tab) 400 mg PO BIDM KIM Stop: 02/20/21 16:59 Aspirin (Aspirin 81 Mg Chew) 81 mg PO DAILY KIM Stop: 02/13/21 08:59 Last Admin: 01/21/21 08:12 Dose: 81 mg Documented by: Atorvastatin Calcium (Atorvastatin 40 Mg Tab) 80 mg PO DAILY KIM Stop: 02/07/21 08:59 Last Admin: 01/21/21 08:12 Dose: 80 mg Documented by: Dextrose (Dextrose 50% 50 Ml Syringe) 25 - 50 ml IV UD PRN; Protocol PRN Reason: Hypoglycemia Protocol Stop: 02/12/21 10:59 Last Admin: 01/17/21 01:12 Dose: 25 ml Documented by: Docusate Sodium (Docusate Sodium Syrup 100 Mg/10 Ml Udc) 100 mg NG BID KIM Stop: 02/20/21 11:59 Last Admin: 01/21/21 11:47 Dose: 100 mg Documented by: Enoxaparin Sodium (Enoxaparin 100 Mg/1ml Syr) 90 mg SQ Q12H KIM Stop: 02/19/21 10:59 Last Admin: 01/21/21 10:33 Dose: 90 mg Documented by: Fentanyl Citrate (Fentanyl Bolus From Bag) 50 mcg IV Q60M PRN PRN Reason: Pain or Agitation Stop: 01/27/21 04:29 Last Admin: 01/17/21 01:35 Dose: 50 mcg Documented by: Fluticasone Propionate (Fluticasone Propionate Na Spr 16 Gm Btl) 2 sprays NA BID PRN PRN Reason: allergies Stop: 02/06/21 17:29 Last Admin: 01/09/21 21:03 Dose: 2 sprays Documented by: Glucagon (Glucagon For Inj 1 Mg Vial) 1 mg SQ UD PRN; Protocol PRN Reason: Hypoglycemia Protocol Stop: 02/12/21 10:59 Glucose (Glucose 40% Gel 15 Gm Tube) 15 - 30 gm PO UD PRN; Protocol PRN Reason: Hypoglycemia Protocol Stop: 02/12/21 10:59 Glucose (Glucose 10 Tabs/Tube) 4 - 8 tabs PO UD PRN; Protocol PRN Reason: Hypoglycemia Protocol Stop: 02/12/21 10:59 Heparin Sodium (Beef Lung) (Heparin 10 Unit/Ml 5 Ml Flush) 5 ml FLUSH PRN PRN PRN Reason: Flush Stop: 02/20/21 07:31 Fentanyl Citrate (Fentanyl Drip) 1,250 mcg in 250 mls @ 20 mls/hr IV .[id number] KIM; Protocol Stop: 01/27/21 04:29 Last Admin: 01/21/21 04:05 Dose: 100 mcg/hr, 20 mls/hr Documented by: Pantoprazole Sodium 40 mg/ (Syringe) 10 mls @ 5 mls/min IV DAILY@1100 KIM Stop: 02/12/21 10:59 Last Admin: 01/21/21 10:33 Dose: 5 mls/min Documented by: Norepinephrine Bitartrate (Levophed/D5w) 16 mg in 500 mls @ 32.588 mls/hr IV .[id number] KIM; Protocol Stop: 02/12/21 18:39 Last Titration: 01/21/21 10:32 Dose: 0.225 mcg/kg/min, 36.7 mls/hr Documented by: Amiodarone HCl/Dextrose (Nexterone / D5w) 360 mg in 200 mls @ 16.667 mls/hr IV .Q12H KIM Stop: 01/21/21 21:00 Last Admin: 01/21/21 10:30 Dose: 0.5 mg/min, 16.7 mls/hr Documented by: Propofol (Diprivan) 1,000 mg in 100 mls @ 20.208 mls/hr IV .Q4H57M KIM; Protocol Stop: 01/24/21 13:29 Last Admin: 01/21/21 09:48 Dose: 40 mcg/kg/min, 20.2 mls/hr Documented by: Vasopressin 20 units/ Sodium (Chloride) 101 mls @ 12.12 mls/hr IV .Q8H20M [facility] Stop: 02/20/21 10:29 Last Admin: 01/21/21 10:30 Dose: 0.04 unit/min, 12.1 mls/hr Documented by: Insulin Human Regular (Insulin Human Regular) 0 units SC Q6 KIM Stop: 02/20/21 11:59 Last Admin: 01/21/21 12:01 Dose: 2 units Documented by: Magnesium Hydroxide (Magnesium Hydroxide Susp 30 Ml Udc) 30 ml PO Q12H PRN PRN Reason: Constipation Stop: 02/06/21 17:29 Metoprolol Succinate (Metoprolol Succ 50mg Ext Rel Tab) 100 mg PO DAILY [facility] Stop: 02/07/21 08:59 Last Admin: 01/14/21 07:57 Dose: 100 mg Documented by: Metoprolol Tartrate (Metoprolol Tartrate 1 Mg/Ml Vial) 5 mg IV Q4 [facility] Stop: 02/15/21 03:59 Last Admin: 01/18/21 01:23 Dose: Not Given Documented by: Midazolam HCl (Midazolam Hcl 1 Mg/Ml 2ml Vial) 1 mg IV Q2H PRN PRN Reason: RASS goal -1 Stop: 02/14/21 10:11 Midazolam HCl (Midazolam Hcl 1 Mg/Ml 2ml Vial) 2 mg IV Q2H PRN PRN Reason: RASS goal -1 Stop: 02/14/21 10:11 Last Admin: 01/17/21 03:39 Dose: 2 mg Documented by: Miscellaneous (Carbohydrates For Hypoglycemia ) 15 - 30 gm PO UD PRN PRN Reason: Hypoglycemia Treatment Stop: 02/12/21 10:59 Miscellaneous Information (Pharmacy Glycemic Mgmt Consult) 1 ea N/A UD PRN PRN Reason: Consult Stop: 02/18/21 09:45 Multi-Ingredient Cream (Artificial Tears Op Oint 3.5 Gm Tube) 1 appln OP Q4 [facility] Stop: 02/16/21 04:59 Last Admin: 01/21/21 11:47 Dose: 1 appln Documented by: Multivitamins/Minerals (Multi Vit W/Minerals Liquid 15 Ml Udp) 15 ml PO DAILY [facility] Stop: 02/13/21 08:59 Last Admin: 01/21/21 08:11 Dose: 15 ml Documented by: Nutritional Formula (Peptamen Intense Vhp 1.0 Red 1,000 Ml Bag) 1,000 ml OG UD KIM; Protocol Stop: 02/17/21 11:29 Last Admin: 01/20/21 05:59 Dose: 1,000 ml Documented by: Ondansetron HCl (Ondansetron Inj 2 Mg/Ml 2 Ml Vial) 4 mg IV Q6H PRN PRN Reason: Nausea Stop: 02/06/21 17:29 Polyethylene Glycol (Polyethylene (Miralax) 17 Gm Pack) 17 gm PO DAILY PRN PRN Reason: Constipation Stop: 02/06/21 17:29 Sennosides (Sennosides 8.8 Mg/5 Ml Udc) 17.6 mg PO DAILY KIM Stop: 02/20/21 11:59 Last Admin: 01/21/21 11:47 Dose: 17.6 mg Documented by: Sterile Water (Tube Feeding Water Flush) 30 ml OG Q4H KIM Stop: 02/17/21 11:44 Last Admin: 01/21/21 11:47 Dose: 30 ml Documented by: Ticagrelor (Ticagrelor 90 Mg Tab) 90 mg PO BID KIM Stop: 02/13/21 20:59 Last Admin: 01/20/21 08:03 Dose: 90 mg Documented by: Vitamin D (Cholecalciferol 1,000 Units 25 Mcg Tab) 1,000 units PO DAILY KIM Stop: 02/07/21 08:59 Last Admin: 01/21/21 08:12 Dose: 1,000 units Documented by: (2) Sepsis: (3) Acute respiratory failure with hypoxia: Plan: 70-year-old male with PMH of CAD, chronic HFrEF, nonischemic CM, HTN, HLD, prediabetes presented to the ED 01/07 secondary to URI for 9 days [facility] and hypoxic in the clinic on the day of arrival. He is not vaccinated against Covid and was found to have Covid in the ED and required 15 L nonrebreather. Is currently in the critical care unit for the following: #. Sepsis with shock requiring pressors #. COVID Pneumonia #. Acute Hypoxic Respiratory failure #. Leukocytosis, pro-Red uptrended 01/13 Patient meets sepsis criteria. 9/22 AM, patient desaturated and was tachypneic on high flow nasal cannula, became lethargic, and was intubated, currently on mechanical ventilation. Patient on Levophed Admitting CXR: Chronic emphysema and scaring without evidence of acute abnormality. Admitting CTA chest: No PE, emphysema with chronic fibrotic changes, findings suggestive of pulmonary edema versus inflammatory pneumonitis, cardiomegaly with left ventricular apex thrombus up to 1.9 cm. Admitting echo: Technically difficult study. Grossly normal LV size with mild to moderate reduced systolic function. EF 40 to 45%. Akinetic apex with small laminated apical thrombus. Status post remdesivir and Tocilizumab [01/07 CRP 13.7> trended down to 1.71 on 01/12], continue with dexamethasone 01/08 Continue with supportive management. On IV antibiotics Cefepime 01/14--- 01/15 ceftriaxone. Patient down to 1 pressor. Tube feeding started 01/18. Management per ICU care. Remains sedated on mechanical ventilator Prognosis remains poor Appreciate icu manager and palliative care input and recommendation Plan to continue current management feels no improvement within the next day or 2 will put him on comfort care Condition has been deteriorating and requiring additional pressor support to maintain blood pressure and increasing oxygen administration to maintain saturation Palliative care and the icu manager are keeping in touch with the family member especially the to update the patient's condition #. CHARMAINE #. ATN Baseline creatinine around one, creatinine up trended to 3, downtrending UA revealing granular casts suggestive of ATN, patient making urine and creatinine improving Nephrology on board #. Apical thrombus See imaging above Patient on heparin drip 01/13. #. Afib RVR Patient on amiodarone drip, received digoxin and amiodarone bolus today. Plan to do cardioversion if his heart rate not controlled. Case discussed with critical care doctor. #. CAD #. Chronic heart failure with reduced ejection fraction #. Ischemic cardiomyopathy Anterior STEMI 04/2018 with PCI and 2 KHRIS to proximal to mid LAD; staged PCI to circumflex/OM Echo 04/2019 EF 40 to 45% Admitting BNP 1061, lower than the previous BNP. Follows [facility] Currently being managed for sepsis criteria. Hold antihypertensives. #. Prediabetes 12/21/2020 A1c 6.4 Insulin drip changed to sliding scale. #. DVT prophylaxis: Patient on heparin drip Disposition: Continue critical care Full code Patient currently in amiodarone drip, heparin drip, fentanyl, propofol, Levophed. He has urinary catheter in situ, NG tube in situ, intubated, supine position. Multisystem organ failure, guarded prognosis. Management per critical care team. Patient's Constanza was updated on patient's condition on 01/13 and voiced understanding and agreement with plan of care. Per critical care's discussion with the family, he is DNR/DNI for any new events but wants everything done at present. Palliative care on board. Critical care team is keeping in touch with the and updating about condition We will continue current aggressive management and if there is no improvement within the next day or 2 will put him for comfort care Prognosis remains poor Admission and Anticipated Discharge Date Admission Date: January 07, 2021 Subjective 01/08/2021 The patient was seen and examined in telemetry unit and in the Covid room He has been feeling much better but is still requiring high flow nasal cannula oxygen to maintain saturation Still has cough and very shortness of breath with minimal exertion 01/09/2021 The patient was seen and examined in telemetry unit and in the Covid room He has been feeling much better but is still requiring high flow oxygen of 50 L/min Still has cough and generalized weakness No fever and no chills 01/10/2021 The patient was seen and examined in telemetry unit and in the Covid room He says that he feels much better but still requiring 50 L/min and 100% FiO2 to maintain saturation He has cough with nonproductive cough Denies any chest pain and/or palpitation 01/11/2021 The patient was seen and examined in telemetry unit and in the Covid room He has been feeling well today and is still requiring high flow nasal cannula at 6 L/min to maintain saturation Any kind of activities make the saturation to go down to 70s Denies any pain in the chest, any abdominal pain, nausea and or vomiting 01/12/2021 The patient was seen and examined in telemetry unit and in the Covid room His condition has not improved and is still requiring high flow nasal cannula oxygen to maintain saturation He is saturation improves with prone position Denies any fever and/or chills and clinically feels better at rest and doing n othing 01/20/2021 The patient was seen and examined in ICU He remains intubated and sedated 01/21/2021 The patient was seen and examined in ICU He remains intubated and sedated Review of Systems Review of Systems: Unobtainable due to endotracheal tube Physical Exam Physical Exam: Remains sedated on mechanical ventilator Constitutional: well developed, well nourished and + ill appearing Eyes: PERRL, conjunctivae normal, anicteric sclerae ENMT: external ear and nose normal, oropharynx normal Neck: trachea midline, no thyromegaly Respiratory: Auscultation: + diminished lung sounds and + crackles (Bibasilar crackles) Cardiovascular: Rate/Rhythm: regular rate and regular rhythm; not tachycardic Heart Sounds: normal S1 and normal S2; no murmur Extremities: no edema Gastrointestinal (Abdomen): Inspection/Auscultation: normal bowel sounds; abdomen not distended Percussion/Palpation: abdomen soft; abdomen nontender Neurologic: Remains sedated on mechanical ventilator Lymphatic: no cervical or axillary lymphadenopathy Results & Data Results & Data ([facility]) Vital Signs (Past 12 Hours) Vital Signs Temp Pulse Resp BP Pulse Ox 01/21/21 11:37 79 110/48 L 01/21/21 11:25 65 27 H 88 L 01/21/21 08:30 36.9 C 79 89 L 01/21/21 08:00 37.0 C 79 26 H 92/44 L 91 01/21/21 07:30 37.0 C 81 90 01/21/21 07:00 37.0 C 81 90 01/21/21 06:45 37.0 C 81 89 L 01/21/21 04:45 37.2 C 85 89 L 01/21/21 04:30 37.2 C 85 89 L 01/21/21 04:16 37.2 C 84 90 01/21/21 04:01 37.1 C 84 89 L 01/21/21 04:00 85 97/45 L 01/21/21 03:46 92/55 L 01/21/21 03:30 37.1 C 83 89 L 01/21/21 03:20 24 01/21/21 03:15 37.0 C 82 89 L 01/21/21 03:00 37.0 C 81 89 L 01/21/21 02:45 36.9 C 80 88 L 01/21/21 02:31 36.9 C 80 88 L 01/21/21 02:16 93/54 L 01/21/21 01:30 36.9 C 100 H 89 L Laboratory Results Short CBC 01/21/21 Range/Units 05:11 WBC 23.35 H (4.8-10.8) K/uL Hgb 12.4 L (14.0-18.0) g/dL Hct 36.6 L (42-52) % Plt Count 206 (130-400) K/uL BMP 01/21/21 05:11 Sodium 132 L Potassium 4.2 Chloride 95 L Carbon Dioxide 32 BUN 44 H Creatinine 1.08 Glucose 119 H Calcium 8.2 L Urine 01/21/21 Range/Units 09:42 Urine Color Yellow Urine Appearance Clear (Clear) Urine pH 5.0 (4.5-7.5) Ur Specific Jackson 1.018 (1.000-1.030) Urine Protein Trace H (Negative) Urine Glucose (UA) Negative (Negative)
[2021-01-21] MEDS: AMIODARONE 200 MG TAB PO SCH (17:25)
[2021-01-21 18:03] LABS: iSTAT Art Bld Gas pCO2 Correct 59 mmHg (35-46); iSTAT Art Bld Gas pH Corrected 7.369 (7.35-7.45); iSTAT Arterial Blood Gas HCO3 34 meg/L (19-24); iSTAT Arterial Blood Gas pCO2 59 mmHg (35-46); iSTAT Arterial Blood Gas pH 7.37 (7.35-7.45); iSTAT Arterial Blood Gas pO2 61 mmHg (80-95); iSTAT Arterial Blood Gas pO2 C 62; iSTAT Carbon Dioxide 36 mmol/L (24-31); iSTAT Hematocrit 37 % (42-52); iSTAT Hemoglobin 12.6 g/dl (14.0-18.0); iSTAT Potassium 4.3 mmol/L (3.3-5.0); iSTAT Site Art Line; iSTAT Sodium 130 mmol/L (135-144)
[2021-01-21 20:16] LABS: BUN Creatinine Ratio 43.8 (10-20); Calcium 7.7 mg/dl (8.5-10.1); Creatinine Clr Calc Pharmacy 65.4 ml/min; Est GFR (African American) 76.7 ml/min; Est GFR (Non-African American) 66.2 ml/min; Magnesium 2.4 mg/dl (1.8-2.4); Phosphorus 3.7 mg/dl (2.5-4.9); Potassium 4.4 mmol/L (3.5-5.1)
[2021-01-21] MEDS ORDERED: FUROSEMIDE 20 MG in SYRINGE 0 ML IV ONE (21:15)
[2021-01-21] MEDS ORDERED: FUROSEMIDE 40 MG/4 ML VIAL IV ONE (21:19)
[2021-01-21 23:04] LABS: iSTAT Art Bld Gas pCO2 Correct 57 mmHg (35-46); iSTAT Art Bld Gas pH Corrected 7.386 (7.35-7.45); iSTAT Arterial Blood Gas HCO3 34 meg/L (19-24); iSTAT Arterial Blood Gas pCO2 57 mmHg (35-46); iSTAT Arterial Blood Gas pH 7.38 (7.35-7.45); iSTAT Arterial Blood Gas pO2 44 mmHg (80-95); iSTAT Arterial Blood Gas pO2 C 44; iSTAT Carbon Dioxide 36 mmol/L (24-31); iSTAT FiO2 100 %; iSTAT Hematocrit 38 % (42-52); iSTAT Hemoglobin 12.9 g/dl (14.0-18.0); iSTAT Potassium 4.4 mmol/L (3.3-5.0); iSTAT Site Art Line; iSTAT Sodium 130 mmol/L (135-144)
--- NOTE | 2021-01-21 23:25 | Communication Note ---
Date of Service: January 21, 2021 2235: Approached by nursing staff as patient noted to develop abrupt onset of hypoxia. Currently, RT is bagging the patient. I immediately placed order for stat CXR prior to entering the room. On evaluation, it is difficult to assess breath sounds on either side. Chest rise is equal. Patient bags easily. I took over bagging while RT ran ABG which was concerning for hypoxia with a PaO2 of 44. SaO2 noted to be between the 60s and 70s. CXR was reviewed by myself on portable X-ray machine to demonstrate large RIGHT sided pneumothorax. There does not appear to be significant mediastinal shifting. I exited the room and immediately contacted Dr. Coles. 2251: Phoned Sanket to provide update and need for chest tube placement. He is in route to the ICU. 2323: Called (Constanza, ) and provided update. She is agreeable to emergent placement of RIGHT sided chest tube. Dr. Coles presented to bedside. RIGHT sided pigtail catheter placed. Patient's saturations have improved to near baseline. 0025: Called to provide update. Currently, ventilator settings are a PEEP of 10 and FiO2 of 100%. I have personally spent 55 minutes of critical care time in the direct management of this patient. This is a life/limb threatening event. This includes time spent evaluating patient, direct bedside care, chart review, placing orders, interpretation of diagnostic studies, discussion with consultants, patient, and family members, as well as other required patient management activities. This time is exclusive of all separately billable procedures, and teaching time and separate from and in addition to any other critical care service time. Coding Level of Care Code Critical Care ea addt'l 30 min Time Spent (min) 55
[2021-01-22] MEDS: INSULIN HUMAN REGULAR SC SCH ×4 (00:01→16:48)
[2021-01-22] MEDS: ARTIFICIAL TEARS OP OINT 3.5 GM TUBE OP SCH ×6 (00:01→20:52)
[2021-01-22] MEDS: VASOPRESSIN 20 UNITS in 0.9 % SODIUM CHLORIDE 100 ML IV SCH ×2 (00:01→09:13)
--- NOTE | 2021-01-22 00:01 | Procedure Note ---
Procedure Note Date of Service January 22, 2021 Note Procedure: Pigtail chest tube insertion Developing Machine Tender: Dr. Iesha Coles Indication: Tension pneumothorax Consent: Emergent consent was applied Anesthesia: General anesthesia Procedure: Appropriate imaging studies were reviewed prior to the procedure. Patient was placed in a seated position. Appropriate site above the diaphragm on the right midaxillary line fourth intercostal space for chest tube insertion was selected. The skin was prepped and draped in normal sterile fashion. Lidocaine was used for local analgesia. Fluid was aspirated via the finder needle. A small skin dru was made with the scalpel and the catheter over the needle apparatus was advanced over the rib into the pleural space. With the help of guidewire and Seldinger technique, 14 [place]ian pigtail catheter was inserted and connected to Pleur-evac. Not bubbling was appreciated in the Pleur-evac postprocedure. Patient still had intermittent leak after a minute being on suction -40 Chest x-ray to follow The patient tolerated the procedure without obvious complication Complications: None Blood loss: Less than 2 cc. Coding CPT Codes Pulmonary/Thoracic - Pulmonary and Thoracic: 32827 Tube thoracostomy ([id number]) [facility] [place]odes ([place]arges) Pulmonary/Thoracic Procedure 1: Pulmonary and Thoracic: 15725 Tube thoracostomy
[2021-01-22] MEDS: propofoL 1,000 MG/100 ML VIAL IV SCH ×8 (00:03→21:52)
[2021-01-22] MEDS: PEPTAMEN INTENSE VHP 1.0 CAL 1,000 ML BAG OG SCH (01:10)
[2021-01-22] MEDS: fentaNYL DRIP 1,250 MCG/250 ML BAG IV SCH ×3 (03:33→16:00)
[2021-01-22] MEDS: TUBE FEEDING WATER FLUSH OG SCH ×6 (04:07→22:50)
[2021-01-22] MEDS: Double Conc 32mcg/mL; 16mg in 500mL IV SCH ×2 (05:14→09:13)
[2021-01-22 05:51] LABS: Hematocrit (blood only) 35.3 % (42-52); Hemoglobin 11.8 g/dL (14.0-18.0); Mean Corpuscular Hemoglobin 32.4 pg (25-34); Mean Corpuscular Hgb Conc 33.4 g/dL (32-36); Mean Platelet Volume 11.4 fL (7.4-10.4); Nucleated RBC # (auto) 0.06 K/uL (0-0); Nucleated RBC % (auto) 0.3 %; Platelet Count 212 K/uL (130-400); RDW Standard Deviation 48.1 fL (36.4-46.3); Red Blood Count 3.64 M/uL (4.7-6.1); White Blood Count 24.62 K/uL (4.8-10.8)
[2021-01-22 05:57] LABS: iSTAT Art Bld Gas pCO2 Correct 50 mmHg (35-46); iSTAT Art Bld Gas pH Corrected 7.425 (7.35-7.45); iSTAT Arterial Blood Gas HCO3 33 meg/L (19-24); iSTAT Arterial Blood Gas pCO2 52 mmHg (35-46); iSTAT Arterial Blood Gas pH 7.42 (7.35-7.45); iSTAT Arterial Blood Gas pO2 52 mmHg (80-95); iSTAT Arterial Blood Gas pO2 C 51; iSTAT Carbon Dioxide 35 mmol/L (24-31); iSTAT FiO2 100 %; iSTAT Hematocrit 35 % (42-52); iSTAT Hemoglobin 11.9 g/dl (14.0-18.0); iSTAT Potassium 4.1 mmol/L (3.3-5.0); iSTAT Site Art Line; iSTAT Sodium 131 mmol/L (135-144)
[2021-01-22 06:24] LABS: Albumin Level 1.6 gm/dl (3.4-5.0); BUN Creatinine Ratio 51.6 (10-20); Calcium 8.4 mg/dl (8.5-10.1); Creatinine Clr Calc Pharmacy 84.1 ml/min; Est GFR (African American) 101.3 ml/min; Est GFR (Non-African American) 87.4 ml/min; Magnesium 2.2 mg/dl (1.8-2.4)
[2021-01-22 06:34] LABS: Albumin Globulin Ratio 0.4 (0.9-2); Bilirubin,Total 0.9 mg/dl (0.2-1); Globulin 3.8 gm/dl (2.5-4.0); Phosphorus 2.8 mg/dl (2.5-4.9); Total Protein 5.4 gm/dl (6.4-8.2)
[2021-01-22 06:40] LABS: Basophils # (auto) 0.04 K/uL (0-0.2); Basophils % (auto) 0.2 %; Eosinophils # (auto) 0.15 K/uL (0-0.5); Eosinophils % (auto) 0.6 %; Immature Granulocytes # (auto) 0.61 K/uL (0.00-0.02); Immature Granulocytes % (auto) 2.5 %; Lymphocytes # (auto) 0.65 K/uL (1.2-3.4); Lymphocytes % (auto) 2.6 %; Monocytes # (auto) 0.38 K/uL (0.11-0.59); Monocytes % (auto) 1.5 %; Neutrophils # (auto) 22.79 K/uL (1.4-6.5); Neutrophils % (auto) 92.6 %; Toxic Granulation 1+
--- NOTE | 2021-01-22 07:05 | XRay Report ---
XR chest 1V portable HISTORY: acute hypoxia COMPARISON: Chest 01/21/2021. FINDINGS: Large right pneumothorax. Small right pleural effusion. Patchy airspace opacities within th e mid to lower lung zones. Nasogastric tube terminates in the stomach. Left jugular central venous ca theter terminates in the distal left brachiocephalic vein. Endotracheal tube terminates 2 cm from the leroy. IMPRESSION: 1. Large right pneumothorax. 2. Satisfactory support line placement. 3. Bilateral airspace opacities. This favors a viral pneumonia. ACT 112: Negative or not required by law. Electronically signed by: Jimmie Gonzales M.D. 01/22/2021 7:04 AM
--- NOTE | 2021-01-22 08:21 | XRay Report ---
XR chest 1V portable HISTORY: Chest tube placement COMPARISON: Chest 01/21/2021. FINDINGS: Interval placement of a right basilar chest tube with significant decrease in size in the s mall right pneumothorax. This demonstrates a maximal pleural gap of 1.6 cm. The heart is normal in si ze. There are small bilateral pleural effusions. Patchy by lateral airspace opacities, right greater the left are again noted. There is mild diffuse interstitial thickening. Nasogastric tube and left ju gular central venous catheter are unchanged in position. Endotracheal tube terminates 2.1 cm from the leroy. IMPRESSION: 1. Significant decrease in size in the small right pneumothorax status post right chest tube placemen t. 2. Satisfactory support line placement. 3. Bilateral airspace opacities and small bilateral pleural effusions. This could be due to a viral p neumonia or pulmonary edema. ACT 112: Negative or not required by law. Electronically signed by: Jimmie Gonzales M.D. 01/22/2021 8:20 AM
[2021-01-22] MEDS: CHOLECALCIFEROL 1,000 UNITS 25 MCG TAB PO SCH (09:14)
[2021-01-22] MEDS: ATORVASTATIN 40 MG TAB PO SCH (09:14)
[2021-01-22] MEDS: MULTI VIT W/MINERALS LIQUID 15 ML UDP PO SCH (09:14)
[2021-01-22] MEDS: DOCUSATE SODIUM SYRUP 100 MG/10 ML UDC NG SCH ×2 (09:14→20:52)
[2021-01-22] MEDS: AMIODARONE 200 MG TAB PO SCH ×2 (09:14→15:59)
[2021-01-22] MEDS: SENNOSIDES 8.8 MG/5 ML UDC PO SCH (09:14)
[2021-01-22] MEDS: ASPIRIN 81 MG CHEW PO SCH (09:15)
[2021-01-22] MEDS ORDERED: LACTULOSE SYRUP 30 GM/45 ML UDP PO ONE (11:30)
[2021-01-22] MEDS: ENOXAPARIN 100 MG/1ML SYR SQ SCH ×2 (11:39→22:06)
[2021-01-22] MEDS: PANTOprazole 40 MG in SYRINGE 0 ML IV SCH (11:39)
--- NOTE | 2021-01-22 12:21 | Cardiology Progress Note ---
Date of Service January 22, 2021 Assessment & Plan (1) Atrial fibrillation with rapid ventricular response: (2) CAD (coronary artery disease): (3) Ischemic cardiomyopathy: (4) Left ventricular apical thrombus: (5) Chronic HFrEF (heart failure with reduced ejection fraction): Plan: ASSESSMENT/PLAN: 1. Atrial fibrillation with RVR s/p cardioversion: Newly diagnosed this hospital stay. Now in sinus rhythm following cardioversion x2 on 01/19/2021, while on amiodarone drip. Placed on amiodarone p.o. on 01/21/2021. Plan was to continue amiodarone load for an additional 6 days from 01/21/2021 and then 200 mg daily. Continue anticoagulation for stroke risk reduction. 2. Left ventricular apical thrombus: He is on anticoagulation therapy for AFib and had completed outpatient course of anticoagulation therapy in the past for LV thrombus. 3. Ischemic cardiomyopathy: Most recent LV systolic function was mildly to moderately reduced with evidence of prior LAD infarct. Usual cardiomyopathy/heart failure medications have been held as he has required p ressor support. If blood pressure remains suitable without pressor support, could resume medical therapy when able. 4. Chronic heart failure with reduced EF: Difficult exam. He has positive 9.6 L during the hospital stay according to charted fluid balance. Would try to maintain negative daily balance if blood pressure allows. Diuretics are being managed by critical care team. 5. Multivessel CAD s/p LAD, Cx, RCA PCI: Continue aspirin 81 mg daily. Can hold/DC Brilinta, especially while using anticoagulation therapy. Continue statin therapy. No acute issue. 6. Acute respiratory /COVID-19 pneumonia: As per critical care team. 7. Disposition: Please call with other questions or concerns. I will be away from the hospital for the next several days. Please call on-call administrative fellow for any questions or concerns. His primary administrative fellow is Dr. Singh. Admission and Anticipated Discharge Date Admission Date: January 07, 2021 Subjective Patient was seen this morning. He was sedated on mechanical ventilator. There was no response to verbal stimuli. Pressors had just been discontinued when I had entered the room per nursing staff. Overnight, he had a right-sided pneumothorax and underwent placement of a right-sided pigtail catheter. Physical Exam Physical Exam: Gen.: No acute distress. Sedated on mechanical ventilator. Neck: No appreciable JVD, but difficult exam. Cardiac: No ventricular heave. Regular, without ectopy. Normal S1-S2. No murmurs, rubs, or gallops. Pulmonary: Decreased breath sounds, but otherwise clear to anterior ausculta tion. Abdomen: Soft, nondistended, with hypoactive bowel sounds. No bruits noted. Extremities: Right radial arterial line. 1+ left radial pulse. 1+ dorsalis pedis pulses bilaterally. Trace bilateral lower extremity edema. Psychiatric: Cannot assess. Results & Data ([facility]) Vital Signs (Past 12 Hours) Vital Signs Temp Pulse Resp BP Pulse Ox 01/22/21 11:20 75 28 H 90 01/22/21 08:15 62 27 H 90 01/22/21 07:04 36.7 C 58 L 130/64 87 L 01/22/21 06:49 36.7 C 59 L 133/63 88 L 01/22/21 06:34 36.6 C 60 133/64 87 L 01/22/21 06:19 36.6 C 60 135/68 87 L 01/22/21 06:04 36.6 C 60 130/70 87 L 01/22/21 05:45 36.5 C 57 L 86 L 01/22/21 05:42 36.5 C 58 L 87 L 01/22/21 05:26 36.5 C 57 L 143/71 H 87 L 01/22/21 05:11 36.5 C 61 148/73 H 89 L 01/22/21 04:56 36.5 C 61 152/74 H 91 01/22/21 04:41 36.5 C 61 148/75 H 90 01/22/21 04:26 36.5 C 61 148/72 H 90 01/22/21 04:11 36.5 C 62 149/72 H 90 01/22/21 04:00 58 L 130/64 01/22/21 03:56 36.5 C 61 149/76 H 91 01/22/21 03:41 36.5 C 60 145/69 H 89 L 01/22/21 03:26 36.5 C 60 142/83 H 90 01/22/21 03:12 36.6 C 62 157/77 H 92 01/22/21 02:57 36.6 C 59 L 107/62 87 L 01/22/21 02:41 36.5 C 62 26 H 142/70 H 90 01/22/21 02:26 36.5 C 61 139/69 90 01/22/21 02:11 36.5 C 61 134/67 91 01/22/21 01:56 36.6 C 60 129/66 90 01/22/21 01:41 36.5 C 59 L 131/66 92 01/22/21 01:26 36.6 C 59 L 131/63 91 01/22/21 01:11 36.6 C 59 L 127/71 89 L 01/22/21 00:56 36.6 C 60 125/64 89 L 01/22/21 00:41 36.6 C 61 122/67 89 L 01/22/21 00:26 36.5 C 60 116/63 89 L Intake & Output 01/20/21 01/21/21 01/22/21 01/23/21 06:59 06:59 06:59 06:59 Intake Total 3612.469 / 3612.469 2954.548 / 2954.548 3020.198 / 3020.198 308.327 / 308.327 Output Total 2225 / 2225 1635 / 1635 1440 / 1440 Balance 1387.469 / 9911.618 8883.548 / 7763.504 3663.198 / 1580.198 308.327 / 308.327 Weight 192 lb 14.472 oz 192 lb 14.472 oz 192 lb 14.472 oz Laboratory Results Laboratory Results - last 24 hr 01/21/21 01/21/21 01/21/21 17:31 17:50 19:38 WBC RBC Hgb POC Hgb 12.6 L Hct POC Hct 37 L MCV MCH MCHC RDW Std Deviation RDW Coeff of Tatiana Plt Count MPV Immature Gran % (Auto) Neut % (Auto) Lymph % (Auto) Mcmullen % (Auto) Eos % (Auto) Baso % (Auto) Neut # (Auto) Lymph # (Auto) Mcmullen # (Auto) Eos # (Auto) Baso # (Auto) Immature Gran # (Auto) Absolute Nucleated RBC Nucleated RBC % (auto) Toxic Granulation Sample Site Art Line POC pH 7.37 POC pCO2 59 H POC pO2 61 L POC HCO3 34 H POC Total CO2 36 H POC Base Excess 9.0 H ABG pH (Temp Correct) 7.369 ABG pCO2 (Temp Corrct 59 H POC ABG pO2 at Pt Temp 62 POC ABG O2 Sat 90.0 Keron Test NA O2 Delivery Device Ventilator POC O2 Rate 22 POC FiO2 Tidal Volume 500 PEEP 14 POC Sodium 130 L Sodium 131 L POC Potassium 4.3 Potassium 4.4 Chloride 94 L Carbon Dioxide 31 Anion Gap 6.0 BUN 49 H Creatinine 1.12 Est Cr Clr Drug Dosing 65.4 Est GFR ( Amer) 76.7 Est GFR (Non-Af Amer) 66.2 BUN/Creatinine Ratio 43.8 H Glucose 141 H POC Glucose 142 H POC Glucose (other) Calcium 7.7 L Phosphorus 3.7 Magnesium 2.4 Total Bilirubin AST ALT Alkaline Phosphatase Total Protein Albumin Globulin Albumin/Globulin Ratio 01/21/21 01/21/21 01/21/21 21:32 22:47 23:50 WBC RBC Hgb POC Hgb 12.9 L Hct POC Hct 38 L MCV MCH MCHC RDW Std Deviation RDW Coeff of Tatiana Plt Count MPV Immature Gran % (Auto) Neut % (Auto) Lymph % (Auto) Mcmullen % (Auto) Eos % (Auto) Baso % (Auto) Neut # (Auto) Lymph # (Auto) Mcmullen # (Auto) Eos # (Auto) Baso # (Auto) Immature Gran # (Auto) Absolute Nucleated RBC Nucleated RBC % (auto) Toxic Granulation Sample Site Art Line POC pH 7.38 POC pCO2 57 H POC pO2 44 L POC HCO3 34 H POC Total CO2 36 H POC Base Excess 9.0 H ABG pH (Temp Correct) 7.386 ABG pCO2 (Temp Corrct 57 H POC ABG pO2 at Pt Temp 44 POC ABG O2 Sat 78.0 L Keron Test NA O2 Delivery Device BagValve POC O2 Rate POC FiO2 100 Tidal Volume PEEP 20 POC Sodium 130 L Sodium POC Potassium 4.4 Potassium Chloride Carbon Dioxide Anion Gap BUN Creatinine Est Cr Clr Drug Dosing Est GFR ( Amer) Est GFR (Non-Af Amer) BUN/Creatinine Ratio Glucose POC Glucose 133 H 140 H POC Glucose (other) Calcium Phosphorus Magnesium Total Bilirubin AST ALT Alkaline Phosphatase Total Protein Albumin Globulin Albumin/Globulin Ratio 01/22/21 01/22/21 01/22/21 05:27 05:27 05:32 WBC 24.62 H RBC 3.64 L Hgb 11.8 L POC Hgb Hct 35.3 L POC Hct MCV 97.0 MCH 32.4 MCHC 33.4 RDW Std Deviation 48.1 H RDW Coeff of Tatiana 14.0 Plt Count 212 MPV 11.4 H Immature Gran % (Auto) 2.5 Neut % (Auto) 92.6 Lymph % (Auto) 2.6 Mcmullen % (Auto) 1.5 Eos % (Auto) 0.6 Baso % (Auto) 0.2 Neut # (Auto) 22.79 H Lymph # (Auto) 0.65 L Mcmullen # (Auto) 0.38 Eos # (Auto) 0.15 Baso # (Auto) 0.04 Immature Gran # (Auto) 0.61 H Absolute Nucleated RBC 0.06 H Nucleated RBC % (auto) 0.3 Toxic Granulation 1+ Sample Site POC pH POC pCO2 POC pO2 POC HCO3 POC Total CO2 POC Base Excess ABG pH (Temp Correct) ABG pCO2 (Temp Corrct POC ABG pO2 at Pt Temp POC ABG O2 Sat Keron Test O2 Delivery Device POC O2 Rate POC FiO2 Tidal Volume PEEP POC Sodium Sodium 129 L POC Potassium Potassium 4.0 Chloride 93 L Carbon Dioxide 30 Anion Gap 6.0 BUN 45 H Creatinine 0.87 Est Cr Clr Drug Dosing 84.1 Est GFR ( Amer) 101.3 Est GFR (Non-Af Amer) 87.4 BUN/Creatinine Ratio 51.6 H Glucose 130 H POC Glucose 131 H POC Glucose (other) Calcium 8.4 L Phosphorus 2.8 Magnesium 2.2 Total Bilirubin 0.9 AST 61 H ALT 42 Alkaline Phosphatase 105 Total Protein 5.4 L Albumin 1.6 L Globulin 3.8 Albumin/Globulin Ratio 0.4 L 01/22/21 01/22/21 05:43 11:54 WBC RBC Hgb POC Hgb 11.9 L Hct POC Hct 35 L MCV MCH MCHC RDW Std Deviation RDW Coeff of Tatiana Plt Count MPV Immature Gran % (Auto) Neut % (Auto) Lymph % (Auto) Mcmullen % (Auto) Eos % (Auto) Baso % (Auto) Neut # (Auto) Lymph # (Auto) Mcmullen # (Auto) Eos # (Auto) Baso # (Auto) Immature Gran # (Auto) Absolute Nucleated RBC Nucleated RBC % (auto) Toxic Granulation Sample Site Art Line POC pH 7.42 POC pCO2 52 H POC pO2 52 L POC HCO3 33 H POC Total CO2 35 H POC Base Excess 9.0 H ABG pH (Temp Correct) 7.425 ABG pCO2 (Temp Corrct 50 H POC ABG pO2 at Pt Temp 51 POC ABG O2 Sat 86.0 L Keron Test NA O2 Delivery Device Ventilator POC O2 Rate 26 POC FiO2 100 Tidal Volume 500 PEEP 5 POC Sodium 131 L Sodium POC Potassium 4.1 Potassium Chloride Carbon Dioxide Anion Gap BUN Creatinine Est Cr Clr Drug Dosing Est GFR ( Amer) Est GFR (Non-Af Amer) BUN/Creatinine Ratio Glucose POC Glucose POC Glucose (other) 125 H Calcium Phosphorus Magnesium Total Bilirubin AST ALT Alkaline Phosphatase Total Protein Albumin Globulin Albumin/Globulin Ratio Diagnostic Findings Telemetry personally reviewed: Predominantly sinus rhythm. Nonsustained atrial run. ECG personally reviewed 01/22/2021: Sinus rhythm 60 beats per minute. RBBB. Anteroseptal infarct. Acceptable QT. Medications Administered Current Inpatient Medications Acetaminophen (Acetaminophen 325 Mg Tab) 650 mg PO Q4H PRN PRN Reason: Pain or Fever Stop: 02/06/21 17:29 Last Admin: 01/17/21 16:04 Dose: 650 mg Documented by: Al Hydrox/Mg Hydrox/Simethicone (Aluminum/Magnesium Susp 30 Ml Udc) 15 ml PO Q4H PRN PRN Reason: Dyspepsia Stop: 02/06/21 17:29 Albuterol (Albuterol Hfa 8 Gm Inhaler) 2 puffs INH Q4R PRN PRN Reason: Wheezing Stop: 02/11/21 10:44 Amiodarone HCl (Amiodarone 200 Mg Tab) 400 mg PO BIDM KIM Stop: 02/20/21 16:59 Last Admin: 01/22/21 09:14 Dose: 400 mg Documented by: Aspirin (Aspirin 81 Mg Chew) 81 mg PO DAILY KIM Stop: 02/13/21 08:59 Last Admin: 01/22/21 09:15 Dose: 81 mg Documented by: Atorvastatin Calcium (Atorvastatin 40 Mg Tab) 80 mg PO DAILY KIM Stop: 02/07/21 08:59 Last Admin: 01/22/21 09:14 Dose: 80 mg Documented by: Dextrose (Dextrose 50% 50 Ml Syringe) 25 - 50 ml IV UD PRN; Protocol PRN Reason: Hypoglycemia Protocol Stop: 02/12/21 10:59 Last Admin: 01/17/21 01:12 Dose: 25 ml Documented by: Docusate Sodium (Docusate Sodium Syrup 100 Mg/10 Ml Udc) 100 mg NG BID KIM Stop: 02/20/21 11:59 Last Admin: 01/22/21 09:14 Dose: 100 mg Documented by: Enoxaparin Sodium (Enoxaparin 100 Mg/1ml Syr) 90 mg SQ Q12H KIM Stop: 02/19/21 10:59 Last Admin: 01/22/21 11:39 Dose: 90 mg Documented by: Fentanyl Citrate (Fentanyl Bolus From Bag) 50 mcg IV Q60M PRN PRN Reason: Pain or Agitation Stop: 01/27/21 04:29 Last Admin: 01/17/21 01:35 Dose: 50 mcg Documented by: Fluticasone Propionate (Fluticasone Propionate Na Spr 16 Gm Btl) 2 sprays NA BID PRN PRN Reason: allergies Stop: 02/06/21 17:29 Last Admin: 01/09/21 21:03 Dose: 2 sprays Documented by: Glucagon (Glucagon For Inj 1 Mg Vial) 1 mg SQ UD PRN; Protocol PRN Reason: Hypoglycemia Protocol Stop: 02/12/21 10:59 Glucose (Glucose 40% Gel 15 Gm Tube) 15 - 30 gm PO UD PRN; Protocol PRN Reason: Hypoglycemia Protocol Stop: 02/12/21 10:59 Glucose (Glucose 10 Tabs/Tube) 4 - 8 tabs PO UD PRN; Protocol PRN Reason: Hypoglycemia Protocol Stop: 02/12/21 10:59 Heparin Sodium (Beef Lung) (Heparin 10 Unit/Ml 5 Ml Flush) 5 ml FLUSH PRN PRN PRN Reason: Flush Stop: 02/20/21 07:31 Fentanyl Citrate (Fentanyl Drip) 1,250 mcg in 250 mls @ 20 mls/hr IV .[id number] KIM; Protocol Stop: 01/27/21 04:29 Last Titration: 01/22/21 07:06 Dose: 100 mcg/hr, 20 mls/hr Documented by: Pantoprazole Sodium 40 mg/ (Syringe) 10 mls @ 5 mls/min IV DAILY@1100 KIM Stop: 02/12/21 10:59 Last Admin: 01/22/21 11:39 Dose: 5 mls/min Documented by: Norepinephrine Bitartrate (Levophed/D5w) 16 mg in 500 mls @ 26.07 mls/hr IV .[id number] [facility]; Protocol Stop: 02/12/21 18:39 Last Admin: 01/22/21 09:13 Dose: Not Given Documented by: Propofol (Diprivan) 1,000 mg in 100 mls @ 15.156 mls/hr IV .Q6H36M [facility]; Protocol Stop: 01/24/21 13:29 Last Admin: 01/22/21 11:42 Dose: Not Given Documented by: Vasopressin 20 units/ Sodium (Chloride) 101 mls @ 12.12 mls/hr IV .Q8H20M [facility] Stop: 02/20/21 10:29 Last Admin: 01/22/21 09:13 Dose: 0.04 unit/min, 12.1 mls/hr Documented by: Insulin Human Regular (Insulin Human Regular) 0 units SC Q6 [facility] Stop: 02/20/21 11:59 Last Admin: 01/22/21 11:43 Dose: 1 units Documented by: Magnesium Hydroxide (Magnesium Hydroxide Susp 30 Ml Udc) 30 ml PO Q12H PRN PRN Reason: Constipation Stop: 02/06/21 17:29 Metoprolol Succinate (Metoprolol Succ 50mg Ext Rel Tab) 100 mg PO DAILY [facility] Stop: 02/07/21 08:59 Last Admin: 01/14/21 07:57 Dose: 100 mg Documented by: Metoprolol Tartrate (Metoprolol Tartrate 1 Mg/Ml Vial) 5 mg IV Q4 [facility] Stop: 02/15/21 03:59 Last Admin: 01/18/21 01:23 Dose: Not Given Documented by: Midazolam HCl (Midazolam Hcl 1 Mg/Ml 2ml Vial) 1 mg IV Q2H PRN PRN Reason: RASS goal -1 Stop: 02/14/21 10:11 Midazolam HCl (Midazolam Hcl 1 Mg/Ml 2ml Vial) 2 mg IV Q2H PRN PRN Reason: RASS goal -1 Stop: 02/14/21 10:11 Last Admin: 01/17/21 03:39 Dose: 2 mg Documented by: Miscellaneous (Carbohydrates For Hypoglycemia ) 15 - 30 gm PO UD PRN PRN Reason: Hypoglycemia Treatment Stop: 02/12/21 10:59 Miscellaneous Information (Pharmacy Glycemic Mgmt Consult) 1 ea N/A UD PRN PRN Reason: Consult Stop: 02/18/21 09:45 Multi-Ingredient Cream (Artificial Tears Op Oint 3.5 Gm Tube) 1 appln OP Q4 KIM Stop: 02/16/21 04:59 Last Admin: 01/22/21 11:39 Dose: 1 appln Documented by: Multivitamins/Minerals (Multi Vit W/Minerals Liquid 15 Ml Udp) 15 ml PO DAILY KIM Stop: 02/13/21 08:59 Last Admin: 01/22/21 09:14 Dose: 15 ml Documented by: Nutritional Formula (Peptamen Intense Vhp 1.0 Red 1,000 Ml Bag) 1,000 ml OG UD [facility]; Protocol Stop: 02/17/21 11:29 Last Admin: 01/22/21 01:10 Dose: 1,000 ml Documented by: Ondansetron HCl (Ondansetron Inj 2 Mg/Ml 2 Ml Vial) 4 mg IV Q6H PRN PRN Reason: Nausea Stop: 02/06/21 17:29 Polyethylene Glycol (Polyethylene (Miralax) 17 Gm Pack) 17 gm PO DAILY PRN PRN Reason: Constipation Stop: 02/06/21 17:29 Sennosides (Sennosides 8.8 Mg/5 Ml Udc) 17.6 mg PO DAILY KIM Stop: 02/20/21 11:59 Last Admin: 01/22/21 09:14 Dose: 17.6 mg Documented by: Sterile Water (Tube Feeding Water Flush) 30 ml OG Q4H KIM Stop: 02/17/21 11:44 Last Admin: 01/22/21 11:39 Dose: 30 ml Documented by: Ticagrelor (Ticagrelor 90 Mg Tab) 90 mg PO BID KIM Stop: 02/13/21 20:59 Last Admin: 01/20/21 08:03 Dose: 90 mg Documented by: Vitamin D (Cholecalciferol 1,000 Units 25 Mcg Tab) 1,000 units PO DAILY KIM Stop: 02/07/21 08:59 Last Admin: 01/22/21 09:14 Dose: 1,000 units Documented by: PG Care Time/CCT Total # of Minutes Spent Total Time Spent with Patient: Total time spent is greater than 50% in coordination of care (as documented) at patient's floor/unit and/or counseling patient: Coding Level of Care Code 60201 Subseq Hosp Care Lvl 3 Diagnoses Atrial fibrillation with rapid ventricular response I48.91 CAD (coronary artery disease) I25.10 Ischemic cardiomyopathy I25.5 Left ventricular apical thrombus I51.3 Chronic HFrEF (heart failure with reduced ejection fraction) I50.22
--- NOTE | 2021-01-22 14:22 | Critical Care Progress Note ---
Date of Service January 22, 2021 Assessment & Plan (1) Pneumonia due to COVID-19 virus: (2) COVID-19: (3) Acute respiratory failure with hypoxia: (4) Chronic HFrEF (heart failure with reduced ejection fraction): (5) Left ventricular apical thrombus: (6) Acute kidney injury: Plan: Reason Critically Ill: 70-year-old male with COVID-19 pneumonia and worsening hypoxic respiratory failure requiring emergent endotracheal intubation for ongoing management of underlying illness. NEURO - Sedation : On fentanyl and propofol -Neuromuscular blockade with cis atracurium discontinued 01/19/2021 CARDIAC/VASCULAR - Coronary artery disease: Status post PTCI with KHRIS x4. Continue current medications. Echocardiogram earlier this visits demonstrates EF of 40 to 45% with apical thrombus. Ventricular apical thrombus On anticoagulation Monitor on telemetry. Atrial fibrillation with rapid ventricular response -S/p synchronized cardioversion 01/11/2021 with 150 J -Amiodarone infusion, s/p digoxin bolus 01/19/2021 -Metoprolol 5 mg IV every 4 hours as needed Labile blood pressure Bouts of hypotension with episodic hypotension --> could be from underlying C OVID-19 as well as sedation -On norepinephrine to keep MAP greater than 65 -Random cortisol 37 on 01/13 RESPIRATORY - Acute hypoxic respiratory failure in the setting of COVID-19 pneumonia: Patient intubated 01/13 Patient has already received Tocilizumab, remdesivir, and Decadron. Ventilator settings reviewed: ARDSnet guidelines high PEEP low FiO2 -Pronation therapy with neuromuscular blockade started 01/17 --Spontaneous right-sided pneumothorax S/p pigtail catheter 01/21/2021 GI/NUTRITION - Trickle feeds RENAL/LYTES - Acute kidney injury Baseline appears to be 1.0: Improved - consented for temporary HD catheter Replace electrolytes as needed - Strict I&Os. ENDO - No history of diabetes or thyroid disease BSGs per unit protocol. ISS --> gtt per unit policy. HEME - Stable H&H DVT prophylaxis: Heparin ID - COVID-19 pneumonia: Recently finished remdesivir. Received Tocilizumab earlier in visit. Febrile illness -S/p 5 days of Rocephin Culture 01/14/2021 negative to date Repeat UA 01/21/2021 negative for bacteria and leukocytes --Prophylaxis VTE: Heparin drip --> Lovenox therapeutic GI: Protonix Lines: Right IJ, right radial, positive Silva Diet: Tube feeds Plan: In/out: +1830, urine output 1440 Patient is on 100% FiO2 still saturating 88% Patient is on Levophed as well. Chest tube has intermittent air leak. Overall prognosis of the patient is poor given the worsening clinical deterioration in the last 24-48 hours I think palliative care in the next 24 to 48 hours with no improvement should be thought of Patient's Constanza Mejia [phone] I have personally spent 38 minutes of critical care time in the direct manageme nt of this patient. This is a life/limb threatening event. This includes time spent evaluating tayler ent, direct bedside care, chart review, placing orders, interpretation of diagnostic studies, discussion with consultants, patient, and family members, as well as other required patient management activities. This time is exclusive of all separately billable procedures, and teaching time and separate from and in addition to any other critical care service time. Please note the above document was generated using voice recognition software. It may contain grammatical, syntax or spelling errors. Admission and Anticipated Discharge Date Admission Date: January 07, 2021 Subjective Patient seen and examined at bedside. No acute distress Overnight developed spontaneous tension pneumothorax on the right side. Pigtail catheter was placed Patient is still requiring 100% FiO2 to maintain a saturation greater than 88 Patient is on low-dose of Levophed On propofol and fentanyl for sedation Review of Systems Review of Systems: Unobtainable due to endotracheal tube Physical Exam Physical Exam: Constitutional: No acute distress HEENT: PERRLA, positive ETT Respiratory system: Decreased air entry bilaterally, no wheeze, rhonchi, positive crackles bilaterally CVS: S1-S2 positive, no murmurs or gallops Abdomen: Soft, nontender, nondistended, positive bowel sounds x4 Extremities: +2 pulses bilaterally radialis/ dorsalis pedis, no cyanosis, no edema Neuro: RASS -2, breathing over the vent Psych: Unable to assess G/U: Positive Silva Right sided pigtail catheter in place Skin: no rashes, warm and dry Lymphatic: no cervical or axillary lymphadenopathy Results & Data Results & Data ([facility]) Vital Signs (Past 12 Hours) Vital Signs Temp Pulse Resp BP Pulse Ox 01/22/21 12:59 37.1 C 86 93/52 L 90 01/22/21 11:59 36.9 C 87 111/60 89 L 01/22/21 11:20 75 28 H 90 01/22/21 10:59 36.7 C 74 92/50 L 90 01/22/21 10:00 36.7 C 68 91 01/22/21 09:10 36.7 C 62 102/49 L 87 L 01/22/21 08:15 62 27 H 90 01/22/21 08:10 36.6 C 62 108/53 L 83 L 01/22/21 07:04 36.7 C 58 L 130/64 87 L 01/22/21 06:49 36.7 C 59 L 133/63 88 L 01/22/21 06:34 36.6 C 60 133/64 87 L 01/22/21 06:19 36.6 C 60 135/68 87 L 01/22/21 06:04 36.6 C 60 130/70 87 L 01/22/21 05:45 36.5 C 57 L 86 L 01/22/21 05:42 36.5 C 58 L 87 L 01/22/21 05:26 36.5 C 57 L 143/71 H 87 L 01/22/21 05:11 36.5 C 61 148/73 H 89 L 01/22/21 04:56 36.5 C 61 152/74 H 91 01/22/21 04:41 36.5 C 61 148/75 H 90 01/22/21 04:26 36.5 C 61 148/72 H 90 01/22/21 04:11 36.5 C 62 149/72 H 90 01/22/21 04:00 58 L 130/64 01/22/21 03:56 36.5 C 61 149/76 H 91 01/22/21 03:41 36.5 C 60 145/69 H 89 L 01/22/21 03:26 36.5 C 60 142/83 H 90 01/22/21 03:12 36.6 C 62 157/77 H 92 01/22/21 02:57 36.6 C 59 L 107/62 87 L 01/22/21 02:41 36.5 C 62 26 H 142/70 H 90 01/22/21 02:26 36.5 C 61 139/69 90 01/22/21 05:27 01/22/21 05:27 Coding Level of Care Code Critical Care 1st 30-74 mins Diagnoses Pneumonia due to COVID-19 virus U07.1; J12.82 COVID-19 U07.1 Acute respiratory failure with hypoxia J96.01 Chronic HFrEF (heart failure with reduced ejection fraction) I50.22 Left ventricular apical thrombus I51.3 Acute kidney injury N17.9 Time Spent (min) 38
--- NOTE | 2021-01-22 14:39 | Pharmacy Report ---
Pharmacy Glycemic Short Note 2 - Date of Service January 22, 2021 - Glycemic Short BSG Results (Last 24 hours): 01/21/21 01/21/21 01/21/21 17:31 19:38 21:32 Glucose 141 H POC Glucose 142 H 133 H POC Glucose (other) 01/21/21 01/22/21 01/22/21 23:50 05:27 05:32 Glucose 130 H POC Glucose 140 H 131 H POC Glucose (other) 01/22/21 11:54 Glucose POC Glucose POC Glucose (other) 125 H OUTPATIENT ANTIDIABETIC REGIMEN: * N/a * A1c 6.4% 12/21/20 ASSESSMENT: 01/22 * Changed to regular insulin q6H to cover tube feeds, BSGS 115-142 mg/dL yesterday with 20 units of basal and 8 units of TF coverage * Patient's A1c outpatient indicates prediabetes, pressor requirements have gone down today, will continue to decrease lantus today as blood sugars have been stable. 01/20 * Patient transitioned off of insulin infusion yesterday afternoon, BSGs continue to be steady below 180 mg/dL * Will split lantus dosing BID in case need arises to increase/decrease depending on new stressors etc. * Continue current novolog parameters 01/19 * Pt has been maintained on insulin infusion for the past four days, rates have been steady at 1.9 units/hr with BSGs in goal range * Will stop nimbex today, still requiring pressors and tachycardic. * Will give 1x dose of lantus this morning, may wean off insulin infusion if able, however low tolerance to restart/continue as patient still with significant pressor doses. PLAN FOR INPATIENT GLYCEMIC CONTROL: * Hold outpatient oral diabetes medications * Basal insulin * Lantus 10/15 units this evening * Bolus insulin * NovoLog per scale ACHS or Q6hrs while NPO * Goal Range: Low 120 mg/dL - High 160 mg/dL * Correction Factor: 20 mg/dL/unit * Nutritional / Prandial insulin per carb ratio of 1 unit per 9 grams CHO consumed
--- NOTE | 2021-01-22 16:07 | Hospitalist Progress Note ---
Date of Service January 22, 2021 Assessment & Plan (1) Left ventricular apical thrombus: (2) Sepsis: (3) Acute respiratory failure with hypoxia: Plan: 70-year-old male with PMH of CAD, chronic HFrEF, nonischemic CM, HTN, HLD, prediabetes presented to the ED 01/07 secondary to URI for 9 days [employer] and hypoxic in the clinic on the day of arrival. He is not vaccinated against Covid and was found to have Covid in the ED and required 15 L nonrebreather. Is currently in the critical care unit for the following: #. Sepsis with shock requiring pressors #. COVID Pneumonia #. Acute Hypoxic Respiratory failure #. Leukocytosis, pro-Red uptrended 01/13 Patient meets sepsis criteria. 01/13 AM, patient desaturated and was tachypneic on high flow nasal cannula, became lethargic, and was intubated, currently on mechanical ventilation. Patient on Levophed Admitting CXR: Chronic emphysema and scaring without evidence of acute abnormality. Admitting CTA chest: No PE, emphysema with chronic fibrotic changes, findings suggestive of pulmonary edema versus inflammatory pneumonitis, cardiomegaly with left ventricular apex thrombus up to 1.9 cm. Admitting echo: Technically difficult study. Grossly normal LV size with mild to moderate reduced systolic function. EF 40 to 45%. Akinetic apex with small laminated apical thrombus. Status post remdesivir and Tocilizumab [01/07 CRP 13.7> trended down to 1.71 on 01/12], continue with dexamethasone 01/08 Continue with supportive management. On IV antibiotics Cefepime 01/14--- 01/15 ceftriaxone. Patient down to 1 pressor. Tube feeding started 01/18. Management per ICU care. Remains sedated on mechanical ventilator Prognosis remains poor Appreciate applicator sprayer and palliative care input and recommendation Plan to continue current management feels no improvement within the next day or 2 will put him on comfort care Condition has been deteriorating and requiring additional pressor support to maintain blood pressure and increasing oxygen administration to maintain saturation Palliative care and the applicator sprayer are keeping in touch with the family member especially the to update the patient's condition Condition has been deteriorating and is still requiring high flow oxygen to maintain saturation and pressor resents to maintain blood pressure Awaiting further evaluation by the palliative care #. CHARMAINE #. ATN Baseline creatinine around one, creatinine up trended to 3, downtrending UA revealing granular casts suggestive of ATN, patient making urine and creatinine improving Nephrology on board #. Apical thrombus See imaging above Patient on heparin drip 01/13. #. Afib RVR Patient on amiodarone drip, received digoxin and amiodarone bolus today. Plan to do cardioversion if his heart rate not controlled. Case discussed with critical care doctor. #. CAD #. Chronic heart failure with reduced ejection fraction #. Ischemic cardiomyopathy Anterior STEMI 04/2018 with PCI and 2 KHRIS to proximal to mid LAD; staged PCI to circumflex/OM Echo 04/2019 EF 40 to 45% Admitting BNP 1061, lower than the previous BNP. Follows [facility] Currently being managed for sepsis criteria. Hold antihypertensives. Has been on pressor resents to maintain blood pressure #. Prediabetes 12/21/2020 A1c 6.4 Insulin drip changed to sliding scale. #. DVT prophylaxis: Patient on heparin drip Disposition: Continue critical care Full code Patient currently in amiodarone drip, heparin drip, fentanyl, propofol, Levophed. He has urinary catheter in situ, NG tube in situ, intubated, supine position. Multisystem organ failure, guarded prognosis. Management per critical care team. Patient's Constanza was updated on patient's condition on 01/13 and voiced understanding and agreement with plan of care. Per critical care's discussion with the family, he is DNR/DNI for any new events but wants everything done at present. Palliative care on board. Critical care team is keeping in touch with the and updating about condition We will continue current aggressive management and if there is no improvement within the next day or 2 will put him for comfort care Prognosis remains poor Admission and Anticipated Discharge Date Admission Date: January 07, 2021 Subjective 01/08/2021 The patient was seen and examined in telemetry unit and in the Covid room He has been feeling much better but is still requiring high flow nasal cannula oxygen to maintain saturation Still has cough and very shortness of breath with minimal exertion 01/09/2021 The patient was seen and examined in telemetry unit and in the Covid room He has been feeling much better but is still requiring high flow oxygen of 50 L/min Still has cough and generalized weakness No fever and no chills 01/10/2021 The patient was seen and examined in telemetry unit and in the Covid room He says that he feels much better but still requiring 50 L/min and 100% FiO2 to maintain saturation He has cough with nonproductive cough Denies any chest pain and/or palpitation 01/11/2021 The patient was seen and examined in telemetry unit and in the Covid room He has been feeling well today and is still requiring high flow nasal cannula at 6 L/min to maintain saturation Any kind of activities make the saturation to go down to 70s Denies any pain in the chest, any abdominal pain, nausea and or vomiting 01/12/2021 The patient was seen and examined in telemetry unit and in the Covid room His condition has not improved and is still requiring high flow nasal cannula oxygen to maintain saturation He is saturation improves with prone position Denies any fever and/or chills and clinically feels better at rest and doing nothing 01/20/2021 The patient was seen and examined in ICU He remains intubated and sedated 01/21/2021 The patient was seen and examined in ICU He remains intubated and sedated 01/22/2021 The patient was seen and examined in ICU He remains intubated and sedated His condition has been deteriorating Review of Systems Review of Systems: All systems reviewed and are unremarkable except as noted below Physical Exam Physical Exam: Remains sedated on mechanical ventilator Constitutional: well developed, well nourished and + ill appearing Eyes: PERRL, conjunctivae normal, anicteric sclerae ENMT: external ear and nose normal, oropharynx normal Neck: trachea midline, no thyromegaly Respiratory: no respiratory distress Auscultation: + diminished lung sounds and + crackles (Bibasilar crackles) Cardiovascular: Rate/Rhythm: regular rate and regular rhythm; not tachycardic Heart Sounds: normal S1 and normal S2; no murmur Extremities: no edema Gastrointestinal (Abdomen): Inspection/Auscultation: normal bowel sounds; abdomen not distended Percussion/Palpation: abdomen soft; abdomen nontender Neurologic: Remains sedated on mechanical ventilator Psychiatric: A+Ox3, euthymic affect Lymphatic: no cervical or axillary lymphadenopathy Results & Data Results & Data ([facility]) Vital Signs (Past 12 Hours) Vital Signs Temp Pulse Resp BP Pulse Ox 01/22/21 14:59 37.3 C 89 92/49 L 87 L 01/22/21 13:59 37.2 C 87 81/49 L 88 L 01/22/21 12:59 37.1 C 86 93/52 L 90 01/22/21 11:59 36.9 C 87 111/60 89 L 01/22/21 11:20 75 28 H 90 01/22/21 10:59 36.7 C 74 92/50 L 90 01/22/21 10:00 36.7 C 68 91 01/22/21 09:10 36.7 C 62 102/49 L 87 L 01/22/21 08:15 62 27 H 90 01/22/21 08:10 36.6 C 62 108/53 L 83 L 01/22/21 07:04 36.7 C 58 L 130/64 87 L 01/22/21 06:49 36.7 C 59 L 133/63 88 L 01/22/21 06:34 36.6 C 60 133/64 87 L 01/22/21 06:19 36.6 C 60 135/68 87 L 01/22/21 06:04 36.6 C 60 130/70 87 L 01/22/21 05:45 36.5 C 57 L 86 L 01/22/21 05:42 36.5 C 58 L 87 L 01/22/21 05:26 36.5 C 57 L 143/71 H 87 L 01/22/21 05:11 36.5 C 61 148/73 H 89 L 01/22/21 04:56 36.5 C 61 152/74 H 91 01/22/21 04:41 36.5 C 61 148/75 H 90 01/22/21 04:26 36.5 C 61 148/72 H 90 01/22/21 04:11 36.5 C 62 149/72 H 90 Laboratory Results Short CBC 01/22/21 Range/Units 05:27 WBC 24.62 H (4.8-10.8) K/uL Hgb 11.8 L (14.0-18.0) g/dL Hct 35.3 L (42-52) % Plt Count 212 (130-400) K/uL BMP 01/21/21 01/22/21 19:38 05:27 Sodium 131 L 129 L Potassium 4.4 4.0 Chloride 94 L 93 L Carbon Dioxide 31 30 BUN 49 H 45 H Creatinine 1.12 0.87 Glucose 141 H 130 H Calcium 7.7 L 8.4 L Liver Function 01/22/21 Range/Units 05:27 Total Bilirubin 0.9 (0.2-1) mg/dl AST 61 H (15-37) U/L ALT 42 (12-78) U/L Alkaline Phosphatase 105 (45-117) U/L Albumin 1.6 L (3.4-5.0) gm/dl Medications Administered Current Inpatient Medications Acetaminophen (Acetaminophen 325 Mg Tab) 650 mg PO Q4H PRN PRN Reason: Pain or Fever Stop: 02/06/21 17:29 Last Admin: 01/17/21 16:04 Dose: 650 mg Documented by: Al Hydrox/Mg Hydrox/Simethicone (Aluminum/Magnesium Susp 30 Ml Udc) 15 ml PO Q4H PRN PRN Reason: Dyspepsia Stop: 02/06/21 17:29 Albuterol (Albuterol Hfa 8 Gm Inhaler) 2 puffs INH Q4R PRN PRN Reason: Wheezing Stop: 02/11/21 10:44 Amiodarone HCl (Amiodarone 200 Mg Tab) 400 mg PO BIDM KIM Stop: 02/20/21 16:59 Last Admin: 01/22/21 15:59 Dose: 400 mg Documented by: Aspirin (Aspirin 81 Mg Chew) 81 mg PO DAILY [facility] Stop: 02/13/21 08:59 Last Admin: 01/22/21 09:15 Dose: 81 mg Documented by: Atorvastatin Calcium (Atorvastatin 40 Mg Tab) 80 mg PO DAILY KIM Stop: 02/07/21 08:59 Last Admin: 01/22/21 09:14 Dose: 80 mg Documented by: Dextrose (Dextrose 50% 50 Ml Syringe) 25 - 50 ml IV UD PRN; Protocol PRN Reason: Hypoglycemia Protocol Stop: 02/12/21 10:59 Last Admin: 01/17/21 01:12 Dose: 25 ml Documented by: Docusate Sodium (Docusate Sodium Syrup 100 Mg/10 Ml Udc) 100 mg NG BID KIM Stop: 02/20/21 11:59 Last Admin: 01/22/21 09:14 Dose: 100 mg Documented by: Enoxaparin Sodium (Enoxaparin 100 Mg/1ml Syr) 90 mg SQ Q12H KIM Stop: 02/19/21 10:59 Last Admin: 01/22/21 11:39 Dose: 90 mg Documented by: Fentanyl Citrate (Fentanyl Bolus From Bag) 50 mcg IV Q60M PRN PRN Reason: Pain or Agitation Stop: 01/27/21 04:29 Last Admin: 01/17/21 01:35 Dose: 50 mcg Documented by: Fluticasone Propionate (Fluticasone Propionate Na Spr 16 Gm Btl) 2 sprays NA BID PRN PRN Reason: allergies Stop: 02/06/21 17:29 Last Admin: 01/09/21 21:03 Dose: 2 sprays Documented by: Glucagon (Glucagon For Inj 1 Mg Vial) 1 mg SQ UD PRN; Protocol PRN Reason: Hypoglycemia Protocol Stop: 02/12/21 10:59 Glucose (Glucose 40% Gel 15 Gm Tube) 15 - 30 gm PO UD PRN; Protocol PRN Reason: Hypoglycemia Protocol Stop: 02/12/21 10:59 Glucose (Glucose 10 Tabs/Tube) 4 - 8 tabs PO UD PRN; Protocol PRN Reason: Hypoglycemia Protocol Stop: 02/12/21 10:59 Heparin Sodium (Beef Lung) (Heparin 10 Unit/Ml 5 Ml Flush) 5 ml FLUSH PRN PRN PRN Reason: Flush Stop: 02/20/21 07:31 Fentanyl Citrate (Fentanyl Drip) 1,250 mcg in 250 mls @ 15 mls/hr IV .[id number] KIM; Protocol Stop: 01/27/21 04:29 Last Admin: 01/22/21 16:00 Dose: 75 mcg/hr, 15 mls/hr Documented by: Pantoprazole Sodium 40 mg/ (Syringe) 10 mls @ 5 mls/min IV DAILY@1100 KIM Stop: 02/12/21 10:59 Last Admin: 01/22/21 11:39 Dose: 5 mls/min Documented by: Norepinephrine Bitartrate (Levophed/D5w) 16 mg in 500 mls @ 6.518 mls/hr IV .Q24H KIM; Protocol Stop: 02/12/21 18:39 Last Titration: 01/22/21 10:30 Dose: 0.04 mcg/kg/min, 6.5 mls/hr Documented by: Propofol (Diprivan) 1,000 mg in 100 mls @ 15.156 mls/hr IV .Q6H36M [facility]; Protocol Stop: 01/24/21 13:29 Last Admin: 01/22/21 16:00 Dose: 30 mcg/kg/min, 15.2 mls/hr Documented by: Vasopressin 20 units/ Sodium (Chloride) 101 mls @ 0 mls/hr IV .Q0M [facility] Stop: 02/20/21 10:29 Last Infusion: 01/22/21 10:00 Dose: 0 unit/min, 0 mls/hr Documented by: Insulin Glargine (Insulin Glargine Solostar 100 Units/Ml 3 Ml Pen) 0 units SC HS [facility]; Protocol Stop: 02/21/21 20:59 Insulin Human Regular (Insulin Human Regular) 0 units SC Q6 [facility] Stop: 02/20/21 11:59 Last Admin: 01/22/21 11:43 Dose: 1 units Documented by: Magnesium Hydroxide (Magnesium Hydroxide Susp 30 Ml Udc) 30 ml PO Q12H PRN PRN Reason: Constipation Stop: 02/06/21 17:29 Metoprolol Succinate (Metoprolol Succ 50mg Ext Rel Tab) 100 mg PO DAILY [facility] Stop: 02/07/21 08:59 Last Admin: 01/14/21 07:57 Dose: 100 mg Documented by: Metoprolol Tartrate (Metoprolol Tartrate 1 Mg/Ml Vial) 5 mg IV Q4 [facility] Stop: 02/15/21 03:59 Last Admin: 01/18/21 01:23 Dose: Not Given Documented by: Midazolam HCl (Midazolam Hcl 1 Mg/Ml 2ml Vial) 1 mg IV Q2H PRN PRN Reason: RASS goal -1 Stop: 02/14/21 10:11 Midazolam HCl (Midazolam Hcl 1 Mg/Ml 2ml Vial) 2 mg IV Q2H PRN PRN Reason: RASS goal -1 Stop: 02/14/21 10:11 Last Admin: 01/17/21 03:39 Dose: 2 mg Documented by: Miscellaneous (Carbohydrates For Hypoglycemia ) 15 - 30 gm PO UD PRN PRN Reason: Hypoglycemia Treatment Stop: 02/12/21 10:59 Miscellaneous Information (Pharmacy Glycemic Mgmt Consult) 1 ea N/A UD PRN PRN Reason: Consult Stop: 02/18/21 09:45 Multi-Ingredient Cream (Artificial Tears Op Oint 3.5 Gm Tube) 1 appln OP Q4 KIM Stop: 02/16/21 04:59 Last Admin: 01/22/21 15:59 Dose: 1 appln Documented by: Multivitamins/Minerals (Multi Vit W/Minerals Liquid 15 Ml Udp) 15 ml PO DAILY KIM Stop: 02/13/21 08:59 Last Admin: 01/22/21 09:14 Dose: 15 ml Documented by: Nutritional Formula (Peptamen Intense Vhp 1.0 Red 1,000 Ml Bag) 1,000 ml OG UD KIM; Protocol Stop: 02/17/21 11:29 Last Admin: 01/22/21 01:10 Dose: 1,000 ml Documented by: Ondansetron HCl (Ondansetron Inj 2 Mg/Ml 2 Ml Vial) 4 mg IV Q6H PRN PRN Reason: Nausea Stop: 02/06/21 17:29 Polyethylene Glycol (Polyethylene (Miralax) 17 Gm Pack) 17 gm PO DAILY PRN PRN Reason: Constipation Stop: 02/06/21 17:29 Sennosides (Sennosides 8.8 Mg/5 Ml Udc) 17.6 mg PO DAILY KIM Stop: 02/20/21 11:59 Last Admin: 01/22/21 09:14 Dose: 17.6 mg Documented by: Sterile Water (Tube Feeding Water Flush) 30 ml OG Q4H KIM Stop: 02/17/21 11:44 Last Admin: 01/22/21 15:59 Dose: 30 ml Documented by: Ticagrelor (Ticagrelor 90 Mg Tab) 90 mg PO BID KIM Stop: 02/13/21 20:59 Last Admin: 01/20/21 08:03 Dose: 90 mg Documented by: Vitamin D (Cholecalciferol 1,000 Units 25 Mcg Tab) 1,000 units PO DAILY KIM Stop: 02/07/21 08:59 Last Admin: 01/22/21 09:14 Dose: 1,000 units Documented by:
[2021-01-22] MEDS ORDERED: FUROSEMIDE 40 MG in SYRINGE 0 ML IV ONE (17:40)
[2021-01-22] MEDS ORDERED: INSULIN GLARGINE SOLOSTAR 100 UNITS/ML 3 ML PEN SC SCH (21:00)
[2021-01-22] MEDS: INSULIN GLARGINE SOLOSTAR 100 UNITS/ML 3 ML PEN SC SCH (21:23)
--- NOTE | 2021-01-22 22:06 | Communication Note ---
Date of Service: January 22, 2021 2204: Called patient's , Constanza ([phone]) to provide update on patient's status. No answer. Will attempt to contact in the AM regarding worsending condition and ongoing decline. Coding Level of Care Code None
--- NOTE | 2021-01-22 22:35 | Electrocardiogram Report ---
Test Reason : Blood Pressure : / mmHG Vent. Rate : 060 BPM Atrial Rate : 060 BPM P-R Int : 142 ms QRS Dur : 128 ms QT Int : 450 ms P-R-T Axes : 083 050 047 degrees QTc Int : 450 ms Normal sinus rhythm Right bundle branch block Anteroseptal infarct (cited on or before 09-MAY-2018) Abnormal ECG When compared with ECG of 18-JAN-2021 11:56, Sinus rhythm has replaced Atrial fibrillation Vent. rate has decreased BY 100 BPM Confirmed by Darrick Dalton ([id number]) on 01/22/2021 10:34:58 PM Referred By: REFERRED SELF Confirmed By:Darrick Dalton
[2021-01-23] MEDS: ARTIFICIAL TEARS OP OINT 3.5 GM TUBE OP SCH ×7 (00:31→23:00)
[2021-01-23] MEDS: INSULIN HUMAN REGULAR SC SCH ×4 (00:35→16:48)
[2021-01-23] MEDS: TUBE FEEDING WATER FLUSH OG SCH ×6 (03:48→23:00)
[2021-01-23] MEDS: propofoL 1,000 MG/100 ML VIAL IV SCH ×4 (04:30→22:55)
[2021-01-23 05:16] LABS: Hematocrit (blood only) 34.2 % (42-52); Hemoglobin 11.5 g/dL (14.0-18.0); Mean Corpuscular Hemoglobin 32.4 pg (25-34); Mean Corpuscular Hgb Conc 33.6 g/dL (32-36); Mean Corpuscular Volume 96.3 fL (80-100); Mean Platelet Volume 11.4 fL (7.4-10.4); Platelet Count 186 K/uL (130-400); RDW Coefficient of Variation 14.4 % (11.5-14.5); RDW Standard Deviation 47.8 fL (36.4-46.3); Red Blood Count 3.55 M/uL (4.7-6.1); White Blood Count 22.18 K/uL (4.8-10.8)
[2021-01-23 05:30] LABS: iSTAT Art Bld Gas pCO2 Correct 45 mmHg (35-46); iSTAT Art Bld Gas pH Corrected 7.471 (7.35-7.45); iSTAT Arterial Blood Gas HCO3 33 meg/L (19-24); iSTAT Arterial Blood Gas pCO2 45 mmHg (35-46); iSTAT Arterial Blood Gas pH 7.47 (7.35-7.45); iSTAT Arterial Blood Gas pO2 55 mmHg (80-95); iSTAT Arterial Blood Gas pO2 C 55; iSTAT Carbon Dioxide 34 mmol/L (24-31); iSTAT FiO2 85 %; iSTAT Hematocrit 33 % (42-52); iSTAT Hemoglobin 11.2 g/dl (14.0-18.0); iSTAT Potassium 3.6 mmol/L (3.3-5.0); iSTAT Site R Radial; iSTAT Sodium 133 mmol/L (135-144)
[2021-01-23 05:35] LABS: Albumin Globulin Ratio 0.4 (0.9-2); Albumin Level 1.6 gm/dl (3.4-5.0); BUN Creatinine Ratio 55.2 (10-20); Bilirubin,Total 0.9 mg/dl (0.2-1); Calcium 8.6 mg/dl (8.5-10.1); Creatinine Clr Calc Pharmacy 72.5 ml/min; Est GFR (African American) 86.9 ml/min; Globulin 3.8 gm/dl (2.5-4.0); Magnesium 2.3 mg/dl (1.8-2.4); Phosphorus 3.2 mg/dl (2.5-4.9); Potassium 3.6 mmol/L (3.5-5.1); Total Protein 5.4 gm/dl (6.4-8.2)
[2021-01-23 06:14] LABS: Basophilic Stippling 1+; Basophils # (auto) 0.03 K/uL (0-0.2); Basophils % (auto) 0.1 %; Eosinophils # (auto) 0.01 K/uL (0-0.5); Immature Granulocytes # (auto) 0.36 K/uL (0.00-0.02); Immature Granulocytes % (auto) 1.6 %; Lymphocytes # (auto) 0.49 K/uL (1.2-3.4); Lymphocytes % (auto) 2.2 %; Monocytes # (auto) 0.39 K/uL (0.11-0.59); Monocytes % (auto) 1.8 %; Neutrophils % (auto) 94.3 %; Polychromasia 1+
[2021-01-23] MEDS: Double Conc 32mcg/mL; 16mg in 500mL IV SCH ×3 (06:58→20:07)
[2021-01-23] MEDS: CHOLECALCIFEROL 1,000 UNITS 25 MCG TAB PO SCH (07:34)
[2021-01-23] MEDS: SENNOSIDES 8.8 MG/5 ML UDC PO SCH (07:35)
[2021-01-23] MEDS: ATORVASTATIN 40 MG TAB PO SCH (07:35)
[2021-01-23] MEDS: AMIODARONE 200 MG TAB PO SCH ×2 (07:35→16:50)
[2021-01-23] MEDS: MULTI VIT W/MINERALS LIQUID 15 ML UDP PO SCH (07:35)
[2021-01-23] MEDS: ASPIRIN 81 MG CHEW PO SCH (07:35)
[2021-01-23] MEDS: DOCUSATE SODIUM SYRUP 100 MG/10 ML UDC NG SCH ×2 (07:35→20:06)
[2021-01-23] MEDS: fentaNYL DRIP 1,250 MCG/250 ML BAG IV SCH ×3 (07:36→20:10)
[2021-01-23] MEDS: POTASSIUM CHLORIDE / WTR 20 MEQ/100 ML PLCT IV SCH ×2 (08:19→11:08)
[2021-01-23] MEDS: FUROSEMIDE 40 MG in SYRINGE 0 ML IV SCH ×2 (08:20→20:07)
--- NOTE | 2021-01-23 08:26 | Critical Care Progress Note ---
Date of Service January 23, 2021 Assessment & Plan (1) Pneumonia due to COVID-19 virus: (2) COVID-19: (3) Acute respiratory failure with hypoxia: (4) Chronic HFrEF (heart failure with reduced ejection fraction): (5) Left ventricular apical thrombus: (6) Acute kidney injury: Plan: Reason Critically Ill: 70-year-old male with COVID-19 pneumonia and worsening hypoxic respiratory failure requiring emergent endotracheal intubation for ongoing management of underlying illness. NEURO - Sedation : On fentanyl and propofol -Neuromuscular blockade with cis atracurium discontinued 01/19/2021 CARDIAC/VASCULAR - Coronary artery disease: Status post PTCI with KHRIS x4. Continue current medications. Echocardiogram earlier this visits demonstrates EF of 40 to 45% with apical thrombus. Ventricular apical thrombus On anticoagulation Monitor on telemetry. Atrial fibrillation with rapid ventricular response -S/p synchronized cardioversion 01/11/2021 with 150 J -Amiodarone infusion, s/p digoxin bolus 01/19/2021 -Metoprolol 5 mg IV every 4 hours as needed Labile blood pressure Bouts of hypotension with episodic hypotension --> could be from underlying C OVID-19 as well as sedation -On norepinephrine to keep MAP greater than 65 -Random cortisol 37 on 01/13 RESPIRATORY - Acute hypoxic respiratory failure in the setting of COVID-19 pneumonia: Patient intubated 01/13 Patient has already received Tocilizumab, remdesivir, and Decadron. Ventilator settings reviewed: ARDS[employer] guidelines high PEEP low FiO2 -Pronation therapy with neuromuscular blockade started 01/17 --Spontaneous right-sided pneumothorax S/p pigtail catheter 01/21/2021 GI/NUTRITION - Trickle feeds RENAL/LYTES - Acute kidney injury Baseline appears to be 1.0: Improved - consented for temporary HD catheter Replace electrolytes as needed - Strict I&Os. ENDO - No history of diabetes or thyroid disease BSGs per unit protocol. ISS --> gtt per unit policy. HEME - Stable H&H DVT prophylaxis: Heparin ID - COVID-19 pneumonia: Recently finished remdesivir. Received Tocilizumab earlier in visit. Febrile illness -S/p 5 days of Rocephin Blood Culture 01/14/2021 negative to date Repeat UA 01/21/2021 negative for bacteria and leukocytes Sputum culture 01/21/2021 growing Staphylococcus --> vancomycin started 01/23/21 --Prophylaxis VTE: Heparin drip --> Lovenox therapeutic GI: Protonix Lines: Right IJ, right radial, positive Silva Diet: Tube feeds Plan: In/out: -800, urine output 2700 Patient is on 85% FiO2 with PEEP of 8. Chest tube still having intermittent air leak. We will start the patient on vancomycin for Staphylococcus in the sputum Follow-up sensitivity Patient's Constanza Mejia [phone] was called and updated regarding patient's condition and clinical deterioration in the last 3-4 days. She understands but would like to continue with the current course. I did give her the option to come and see the patient through the glass window. She is going to speak with the family and then decide if they are heading towards comfort measures. I have personally spent 38 minutes of critical care time in the direct management of this patient. This is a life/limb threatening event. This includes time spent evaluating patient, direct bedside care, chart review, placing orders, interpretation of diagnostic studies, discussion with consultants, patient, and family members, as well as other required patient management activities. This time is exclusive of all separately billable procedures, and teaching time and separate from and in addition to any other critical care service time. Please note the above document was generated using voice recognition software. It may contain grammatical, syntax or spelling errors. Admission and Anticipated Discharge Date Admission Date: January 07, 2021 Subjective Patient seen and examined at bedside. No acute distress, no adverse events overnight On propofol and fentanyl Breathing over the vent Not following commands Patient did have a bowel movement today. Was on 85% Fi02 saturating 90% Review of Systems Review of Systems: Unobtainable due to endotracheal tube Physical Exam Physical Exam: Constitutional: No acute distress HEENT: PERRLA, positive ETT Respiratory system: Decreased air entry bilaterally, no wheeze, rhonchi, positive crackles bilaterally CVS: S1-S2 positive, no murmurs or gallops Abdomen: Soft, nontender, nondistended, positive bowel sounds x4 Extremities: +2 pulses bilaterally radialis/ dorsalis pedis, no cyanosis, no edema Neuro: RASS -2, breathing over the vent Psych: Unable to assess G/U: Positive Silva Right sided pigtail catheter in place Skin: no rashes, warm and dry Lymphatic: no cervical or axillary lymphadenopathy Results & Data Results & Data ([facility]) Vital Signs (Past 12 Hours) Vital Signs Temp Pulse Resp BP Pulse Ox 01/23/21 07:53 87 31 H 93 01/23/21 05:59 36.6 C 87 112/65 92 01/23/21 04:59 36.9 C 95 H 128/67 92 01/23/21 04:03 87 33 H 90 01/23/21 04:00 95 H 99/56 L 01/23/21 03:59 37.0 C 87 99/56 L 88 L 01/23/21 02:59 37.0 C 84 108/57 L 89 L 01/23/21 01:59 37.0 C 84 99/53 L 89 L 01/23/21 00:59 37.1 C 87 116/62 89 L 01/23/21 00:00 95 H 128/67 01/22/21 23:59 37.1 C 89 110/57 L 89 L 01/22/21 23:40 37.1 C 88 111/60 90 01/22/21 23:32 89 31 H 90 01/22/21 22:59 37.1 C 83 94/57 L 90 01/22/21 21:59 37.0 C 84 105/58 L 91 01/22/21 20:59 37.1 C 87 111/59 L 91 01/22/21 20:26 87 29 H 91 01/23/21 05:06 01/23/21 05:06 Coding Level of Care Code Critical Care 1st 30-74 mins Diagnoses Pneumonia due to COVID-19 virus U07.1; J12.82 COVID-19 U07.1 Acute respiratory failure with hypoxia J96.01 Chronic HFrEF (heart failure with reduced ejection fraction) I50.22 Left ventricular apical thrombus I51.3 Acute kidney injury N17.9 Time Spent (min) 38
--- NOTE | 2021-01-23 09:51 | XRay Report ---
XR chest 1V portable INDICATION: MN ^f/u . TECHNIQUE: Single frontal radiograph of the chest was obtained. Comparison: Comparison is made to chest one view 01/21/2021 FINDINGS: Lines and tubes are stable. The cardiomediastinal silhouette is normal. Bilateral lower lung predomin ant airspace opacities are seen. Interval decrease in size of right apical pneumothorax, which now me asures 8 mm compared to 16 mm in prior exam. Small bilateral pleural effusions are seen. IMPRESSION: 1. Interval slight decrease in size of right apical pneumothorax. 2. Unchanged bilateral airspace opacities and pleural effusions. ACT 112: Negative or not required by law. Electronically signed by: Wilfredo Holbrook M.D. 01/23/2021 9:49 AM
[2021-01-23] MEDS: ENOXAPARIN 100 MG/1ML SYR SQ SCH ×2 (11:08→22:07)
[2021-01-23] MEDS: PANTOprazole 40 MG in SYRINGE 0 ML IV SCH (11:09)
[2021-01-23] MEDS ORDERED: VANCOMYCIN CONSULT ACTIVE PRN (12:32)
[2021-01-23] MEDS ORDERED: VANCOMYCIN HCL 1,750 MG in SODIUM CHLORIDE 0.9% 500 ML IV ONE (13:00)
--- NOTE | 2021-01-23 13:02 | Pharmacy Report ---
Pharmacy Abx Dose Short Note - Date of Service January 23, 2021 - Assessment & Plan Assessment 70 year old M started on vancomycin this AM due to sputum cx with staph species. Admitted with COVID 19, already completed remdesivir and received Tocilizumab earlier in visit. S/p 5 days of rocephin, completed on 01/19 Plan Vancomycin * Given LD of vancomycin 1750 mg x 1 (~20 mg/kg/dose) * Plan to start vancomycin 1250 mg iv q 12 hrs to achieve estimated level ~15-20 mcg/ml. Per inside Rx dosing associated with level closer to ~20 mcg/ml, however want to be more aggressive with initial dosing. Will monitor levels and decrease dosing as needed * Plan to order level in next 24-48 hours if continued. Will follow cultures Pharmacy will continue to follow and will adjust dose/frequency as necessary. Thank you.
--- NOTE | 2021-01-23 14:30 | Hospitalist Progress Note ---
Date of Service January 23, 2021 Assessment & Plan (1) Left ventricular apical thrombus: (2) Sepsis: (3) Acute respiratory failure with hypoxia: Plan: 70-year-old male with PMH of CAD, chronic HFrEF, nonischemic CM, HTN, HLD, prediabetes presented to the ED 01/07 secondary to URI for 9 days [employer] and hypoxic in the clinic on the day of arrival. He is not vaccinated against Covid and was found to have Covid in the ED and required 15 L nonrebreather. Is currently in the critical care unit for the following: #. Sepsis with shock requiring pressors #. COVID Pneumonia #. Acute Hypoxic Respiratory failure #. Leukocytosis, pro-Red uptrended 01/13 Patient meets sepsis criteria. 01/13 AM, patient desaturated and was tachypneic on high flow nasal cannula, became lethargic, and was intubated, currently on mechanical ventilation. Patient on Levophed Admitting CXR: Chronic emphysema and scaring without evidence of acute abnormality. Admitting CTA chest: No PE, emphysema with chronic fibrotic changes, findings suggestive of pulmonary edema versus inflammatory pneumonitis, cardiomegaly with left ventricular apex thrombus up to 1.9 cm. Admitting echo: Technically difficult study. Grossly normal LV size with mild to moderate reduced systolic function. EF 40 to 45%. Akinetic apex with small laminated apical thrombus. Status post remdesivir and Tocilizumab [01/07 CRP 13.7> trended down to 1.71 on 01/12], continue with dexamethasone 01/08 Continue with supportive management. On IV antibiotics Cefepime 01/14--- 01/15 ceftriaxone. Patient down to 1 pressor. Tube feeding started 01/18. Management per ICU care. Remains sedated on mechanical ventilator Prognosis remains poor Appreciate mother baby rn and palliative care input and recommendation Plan to continue current management feels no improvement within the next day or 2 will put him on comfort care Condition has been deteriorating and requiring additional pressor support to maintain blood pressure and increasing oxygen administration to maintain saturation Palliative care and the mother baby rn are keeping in touch with the family member especially the to update the patient's condition Condition has been deteriorating and is still requiring high flow oxygen to maintain saturation and pressor resents to maintain blood pressure Awaiting further evaluation by the palliative care Further deterioration of his condition and requiring high flow oxygen to maintain saturation #. CHARMAINE #. ATN Baseline creatinine around one, creatinine up trended to 3, downtrending UA revealing granular casts suggestive of ATN, patient making urine and creati nine improving Nephrology on board #. Apical thrombus See imaging above Patient on heparin drip 01/13. #. Afib RVR Patient on amiodarone drip, received digoxin and amiodarone bolus today. Plan to do cardioversion if his heart rate not controlled. Case discussed with critical care doctor. Rate seems to be controlled now #. CAD #. Chronic heart failure with reduced ejection fraction #. Ischemic cardiomyopathy Anterior STEMI 04/2018 with PCI and 2 KHRIS to proximal to mid LAD; staged PCI to circumflex/OM Echo 04/2019 EF 40 to 45% Admitting BNP 1061, lower than the previous BNP. Follows [facility] Currently being managed for sepsis criteria. Hold antihypertensives. Has been on pressor resents to maintain blood pressure #. Prediabetes 12/21/2020 A1c 6.4 Insulin drip changed to sliding scale. #. DVT prophylaxis: Patient on heparin drip Disposition: Continue critical care Full code Patient currently in amiodarone drip, heparin drip, fentanyl, propofol, Levophed. He has urinary catheter in situ, NG tube in situ, intubated, supine position. Multisystem organ failure, guarded prognosis. Management per critical care team. Patient's Constanza was updated on patient's condition on 01/13 and voiced understanding and agreement with plan of care. Per critical care's discussion with the family, he is DNR/DNI for any new events but wants everything done at present. Palliative care on board. Critical care team is keeping in touch with the and updating about condition Prognosis remains poor-likely going towards comfort care in a day or 2 Admission and Anticipated Discharge Date Admission Date: January 07, 2021 Subjective 01/08/2021 The patient was seen and examined in telemetry unit and in the Covid room He has been feeling much better but is still requiring high flow nasal cannula oxygen to maintain saturation Still has cough and very shortness of breath with minimal exertion 01/09/2021 The patient was seen and examined in telemetry unit and in the Covid room He has been feeling much better but is still requiring high flow oxygen of 50 L/min Still has cough and generalized weakness No fever and no chills 01/10/2021 The patient was seen and examined in telemetry unit and in the Covid room He says that he feels much better but still requiring 50 L/min and 100% FiO2 to maintain saturation He has cough with nonproductive cough Denies any chest pain and/or palpitation 01/11/2021 The patient was seen and examined in telemetry unit and in the Covid room He has been feeling well today and is still requiring high flow nasal cannula at 6 L/min to maintain saturation Any kind of activities make the saturation to go down to 70s Denies any pain in the chest, any abdominal pain, nausea and or vomiting 01/12/2021 The patient was seen and examined in telemetry unit and in the Covid room His condition has not improved and is still requiring high flow nasal cannula oxygen to maintain saturation He is saturation improves with prone position Denies any fever and/or chills and clinically feels better at rest and doing nothing 01/20/2021 The patient was seen and examined in ICU He remains intubated and sedated 01/21/2021 The patient was seen and examined in ICU He remains intubated and sedated 01/22/2021 The patient was seen and examined in ICU He remains intubated and sedated His condition has been deteriorating 01/23/2021 The patient was seen and examined in ICU He remains intubated on mechanical ventilator and is sedated Condition has not been improving Review of Systems Review of Systems: All systems reviewed and are unremarkable except as noted below Physical Exam Physical Exam: Remains sedated on mechanical ventilator Constitutional: well developed, well nourished and + ill appearing Eyes: PERRL, conjunctivae normal, anicteric sclerae ENMT: external ear and nose normal, oropharynx normal Neck: trachea midline, no thyromegaly Respiratory: no respiratory distress Auscultation: + diminished lung sounds and + crackles (Bibasilar crackles) Cardiovascular: Rate/Rhythm: regular rate and regular rhythm; not tachycardic Heart Sounds: normal S1 and normal S2; no murmur Extremities: no edema Gastrointestinal (Abdomen): Inspection/Auscultation: normal bowel sounds; abdomen not distended Percussion/Palpation: abdomen soft; abdomen nontender Psychiatric: A+Ox3, euthymic affect Lymphatic: no cervical or axillary lymphadenopathy Results & Data Results & [facility] ([facility]) Vital Signs (Past 12 Hours) Vital Signs Temp Pulse Resp BP Pulse Ox 01/23/21 13:59 35.8 C L 95 H 99/67 L 81 L 01/23/21 12:59 35.7 C L 86 90/56 L 85 L 01/23/21 11:59 35.7 C L 87 91/60 L 88 L 01/23/21 11:02 92 H 30 H 89 L 01/23/21 10:59 35.7 C L 94 H 99/62 L 88 L 01/23/21 09:59 35.8 C L 90 95/69 L 89 L 01/23/21 09:01 35.3 C L 100 H 01/23/21 07:59 36.3 C L 111 H 114/69 90 01/23/21 07:53 87 31 H 93 01/23/21 06:59 36.4 C L 86 118/67 93 01/23/21 05:59 36.6 C 87 112/65 92 01/23/21 04:59 36.9 C 95 H 128/67 92 01/23/21 04:03 87 33 H 90 01/23/21 04:00 95 H 99/56 L 01/23/21 03:59 37.0 C 87 99/56 L 88 L 01/23/21 02:59 37.0 C 84 108/57 L 89 L Laboratory Results Short CBC 01/23/21 Range/Units 05:06 WBC 22.18 H (4.8-10.8) K/uL Hgb 11.5 L (14.0-18.0) g/dL Hct 34.2 L (42-52) % Plt Count 186 (130-400) K/uL BMP 01/23/21 05:06 Sodium 132 L Potassium 3.6 Chloride 96 L Carbon Dioxide 31 BUN 56 H Creatinine 1.01 Glucose 107 H Calcium 8.6 Liver Function 01/23/21 Range/Units 05:06 Total Bilirubin 0.9 (0.2-1) mg/dl AST 77 H (15-37) U/L ALT 44 (12-78) U/L Alkaline Phosphatase 116 (45-117) U/L Albumin 1.6 L (3.4-5.0) gm/dl Medications Administered Current Inpatient Medications Acetaminophen (Acetaminophen 325 Mg Tab) 650 mg PO Q4H PRN PRN Reason: Pain or Fever Stop: 02/06/21 17:29 Last Admin: 01/17/21 16:04 Dose: 650 mg Documented by: Al Hydrox/Mg Hydrox/Simethicone (Aluminum/Magnesium Susp 30 Ml Udc) 15 ml PO Q4H PRN PRN Reason: Dyspepsia Stop: 02/06/21 17:29 Albuterol (Albuterol Hfa 8 Gm Inhaler) 2 puffs INH Q4R PRN PRN Reason: Wheezing Stop: 02/11/21 10:44 Amiodarone HCl (Amiodarone 200 Mg Tab) 400 mg PO BIDM KIM Stop: 02/20/21 16:59 Last Admin: 01/23/21 07:35 Dose: 400 mg Documented by: Aspirin (Aspirin 81 Mg Chew) 81 mg PO DAILY KIM Stop: 02/13/21 08:59 Last Admin: 01/23/21 07:35 Dose: 81 mg Documented by: Atorvastatin Calcium (Atorvastatin 40 Mg Tab) 80 mg PO DAILY KIM Stop: 02/07/21 08:59 Last Admin: 01/23/21 07:35 Dose: 80 mg Documented by: Dextrose (Dextrose 50% 50 Ml Syringe) 25 - 50 ml IV UD PRN; Protocol PRN Reason: Hypoglycemia Protocol Stop: 02/12/21 10:59 Last Admin: 01/17/21 01:12 Dose: 25 ml Documented by: Docusate Sodium (Docusate Sodium Syrup 100 Mg/10 Ml Udc) 100 mg NG BID KIM Stop: 02/20/21 11:59 Last Admin: 01/23/21 07:35 Dose: 100 mg Documented by: Enoxaparin Sodium (Enoxaparin 100 Mg/1ml Syr) 90 mg SQ Q12H KIM Stop: 02/19/21 10:59 Last Admin: 01/23/21 11:08 Dose: 90 mg Documented by: Fentanyl Citrate (Fentanyl Bolus From Bag) 50 mcg IV Q60M PRN PRN Reason: Pain or Agitation Stop: 01/27/21 04:29 Last Admin: 01/17/21 01:35 Dose: 50 mcg Documented by: Fluticasone Propionate (Fluticasone Propionate Na Spr 16 Gm Btl) 2 sprays NA BID PRN PRN Reason: allergies Stop: 02/06/21 17:29 Last Admin: 01/09/21 21:03 Dose: 2 sprays Documented by: Glucagon (Glucagon For Inj 1 Mg Vial) 1 mg SQ UD PRN; Protocol PRN Reason: Hypoglycemia Protocol Stop: 02/12/21 10:59 Glucose (Glucose 40% Gel 15 Gm Tube) 15 - 30 gm PO UD PRN; Protocol PRN Reason: Hypoglycemia Protocol Stop: 02/12/21 10:59 Glucose (Glucose 10 Tabs/Tube) 4 - 8 tabs PO UD PRN; Protocol PRN Reason: Hypoglycemia Protocol Stop: 02/12/21 10:59 Heparin Sodium (Beef Lung) (Heparin 10 Unit/Ml 5 Ml Flush) 5 ml FLUSH PRN PRN PRN Reason: Flush Stop: 02/20/21 07:31 Fentanyl Citrate (Fentanyl Drip) 1,250 mcg in 250 mls @ 20 mls/hr IV .[id number] KIM; Protocol Stop: 01/27/21 04:29 Last Admin: 01/23/21 11:41 Dose: Not Given Documented by: Pantoprazole Sodium 40 mg/ (Syringe) 10 mls @ 5 mls/min IV DAILY@1100 KIM Stop: 02/12/21 10:59 Last Admin: 01/23/21 11:09 Dose: 5 mls/min Documented by: Norepinephrine Bitartrate (Levophed/D5w) 16 mg in 500 mls @ 13.035 mls/hr IV .Q24H KIM; Protocol Stop: 02/12/21 18:39 Last Titration: 01/23/21 14:10 Dose: 0.08 mcg/kg/min, 13 mls/hr Documented by: Propofol (Diprivan) 1,000 mg in 100 mls @ 15.156 mls/hr IV .Q6H36M [facility]; Protocol Stop: 01/24/21 13:29 Last Admin: 01/23/21 11:10 Dose: 30 mcg/kg/min, 15.2 mls/hr Documented by: Vasopressin 20 units/ Sodium (Chloride) 101 mls @ 0 mls/hr IV .Q0M KIM Stop: 02/20/21 10:29 Last Infusion: 01/22/21 10:00 Dose: 0 unit/min, 0 mls/hr Documented by: Furosemide 40 mg/ Syringe 4 mls @ 4 mls/min IV Q12 KIM Stop: 02/22/21 08:59 Last Admin: 01/23/21 08:20 Dose: 4 mls/min Documented by: Vancomycin HCl 1,750 mg/ (Sodium Chloride) 535 mls @ 200 mls/hr IV NOW ONE Stop: 01/23/21 15:40 Last Admin: 01/23/21 13:19 Dose: 200 mls/hr Documented by: Vancomycin HCl 1,250 mg/ (Sodium Chloride) 275 mls @ 200 mls/hr IV Q12H [facility] Stop: 01/31/21 00:00 Insulin Glargine (Insulin Glargine Solostar 100 Units/Ml 3 Ml Pen) 5 units SC HS KIM Stop: 02/21/21 20:59 Last Admin: 01/22/21 21:23 Dose: 5 units Documented by: Insulin Human Regular (Insulin Human Regular) 0 units SC Q6 [facility] Stop: 02/20/21 11:59 Last Admin: 01/23/21 11:42 Dose: Not Given Documented by: Magnesium Hydroxide (Magnesium Hydroxide Susp 30 Ml Udc) 30 ml PO Q12H PRN PRN Reason: Constipation Stop: 02/06/21 17:29 Metoprolol Succinate (Metoprolol Succ 50mg Ext Rel Tab) 100 mg PO DAILY [facility] Stop: 02/07/21 08:59 Last Admin: 01/14/21 07:57 Dose: 100 mg Documented by: Metoprolol Tartrate (Metoprolol Tartrate 1 Mg/Ml Vial) 5 mg IV Q4 KIM Stop: 02/15/21 03:59 Last Admin: 01/18/21 01:23 Dose: Not Given Documented by: Midazolam HCl (Midazolam Hcl 1 Mg/Ml 2ml Vial) 1 mg IV Q2H PRN PRN Reason: RASS goal -1 Stop: 02/14/21 10:11 Midazolam HCl (Midazolam Hcl 1 Mg/Ml 2ml Vial) 2 mg IV Q2H PRN PRN Reason: RASS goal -1 Stop: 02/14/21 10:11 Last Admin: 01/17/21 03:39 Dose: 2 mg Documented by: Miscellaneous (Carbohydrates For Hypoglycemia ) 15 - 30 gm PO UD PRN PRN Reason: Hypoglycemia Treatment Stop: 02/12/21 10:59 Miscellaneous Information (Pharmacy Glycemic Mgmt Consult) 1 ea N/A UD PRN PRN Reason: Consult Stop: 02/18/21 09:45 Miscellaneous Information (Vancomycin Consult Active) 1 ea N/A UD PRN PRN Reason: Consult Stop: 02/22/21 12:31 Multi-Ingredient Cream (Artificial Tears Op Oint 3.5 Gm Tube) 1 appln OP Q4 KIM Stop: 02/16/21 04:59 Last Admin: 01/23/21 11:10 Dose: 1 appln Documented by: Multivitamins/Minerals (Multi Vit W/Minerals Liquid 15 Ml Udp) 15 ml PO DAILY KIM Stop: 02/13/21 08:59 Last Admin: 01/23/21 07:35 Dose: 15 ml Documented by: Nutritional Formula (Peptamen Intense Vhp 1.0 Red 1,000 Ml Bag) 1,000 ml OG UD [facility]; Protocol Stop: 02/17/21 11:29 Last Admin: 01/22/21 01:10 Dose: 1,000 ml Documented by: Ondansetron HCl (Ondansetron Inj 2 Mg/Ml 2 Ml Vial) 4 mg IV Q6H PRN PRN Reason: Nausea Stop: 02/06/21 17:29 Polyethylene Glycol (Polyethylene (Miralax) 17 Gm Pack) 17 gm PO DAILY PRN PRN Reason: Constipation Stop: 02/06/21 17:29 Sennosides (Sennosides 8.8 Mg/5 Ml Udc) 17.6 mg PO DAILY KIM Stop: 02/20/21 11:59 Last Admin: 01/23/21 07:35 Dose: 17.6 mg Documented by: Sterile Water (Tube Feeding Water Flush) 30 ml OG Q4H KIM Stop: 02/17/21 11:44 Last Admin: 01/23/21 11:09 Dose: 30 ml Documented by: Ticagrelor (Ticagrelor 90 Mg Tab) 90 mg PO BID KIM Stop: 02/13/21 20:59 Last Admin: 01/20/21 08:03 Dose: 90 mg Documented by: Vitamin D (Cholecalciferol 1,000 Units 25 Mcg Tab) 1,000 units PO DAILY KIM Stop: 02/07/21 08:59 Last Admin: 01/23/21 07:34 Dose: 1,000 units Documented by:
--- NOTE | 2021-01-23 15:06 | XRay Report ---
XR chest 1V portable INDICATION: [place] ^f/u . TECHNIQUE: Single frontal radiograph of the chest was obtained. Comparison: Comparison is made to chest one view 01/23/2021 FINDINGS: Lines and tubes are stable. The cardiomediastinal silhouette is normal. Diffuse bilateral airspace op acities are again seen. Interval increase in size of right pneumothorax. IMPRESSION: Interval increase in size right pneumothorax which is now [id number] in size. ACT 112: Negative or not required by law. Electronically signed by: Wilfredo Holbrook M.D. 01/23/2021 3:05 PM
--- NOTE | 2021-01-23 17:40 | XRay Report ---
XR chest 1V portable INDICATION: [place] ^f/u . TECHNIQUE: Single frontal radiograph of the chest was obtained. Comparison: Comparison is made to chest one view 01/23/2021 at 1433 hours FINDINGS: Right pigtail catheter is again seen. Remaining lines and tubes are stable. The cardiomediastinal kriss houette is normal. Redemonstration of bilateral airspace opacities. The right pneumothorax is approximately unchanged fr om prior exam. IMPRESSION: 1. The right pneumothorax is approximately unchanged from prior exam. 2. Stable bilateral airspace opacities. ACT 112: Negative or not required by law. Electronically signed by: Wilfredo Holbrook M.D. 01/23/2021 5:39 PM
[2021-01-23] MEDS: PEPTAMEN INTENSE VHP 1.0 CAL 1,000 ML BAG OG SCH (20:08)
[2021-01-23] MEDS: INSULIN GLARGINE SOLOSTAR 100 UNITS/ML 3 ML PEN SC SCH (21:27)
[2021-01-24] MEDS ORDERED: VANCOMYCIN HCL 1,250 MG in SODIUM CHLORIDE 0.9% 250 ML IV SCH
[2021-01-24] MEDS: INSULIN HUMAN REGULAR SC SCH ×3 (00:37→12:31)
[2021-01-24] MEDS: ARTIFICIAL TEARS OP OINT 3.5 GM TUBE OP SCH ×3 (03:55→11:32)
[2021-01-24] MEDS: propofoL 1,000 MG/100 ML VIAL IV SCH ×4 (03:55→10:37)
[2021-01-24] MEDS: TUBE FEEDING WATER FLUSH OG SCH ×3 (03:55→11:32)
[2021-01-24 05:51] LABS: Basophils # (auto) 0.02 K/uL (0-0.2); Basophils % (auto) 0.1 %; Eosinophils # (auto) 0.05 K/uL (0-0.5); Eosinophils % (auto) 0.3 %; Hemoglobin 10.6 g/dL (14.0-18.0); Immature Granulocytes # (auto) 0.25 K/uL (0.00-0.02); Immature Granulocytes % (auto) 1.6 %; Lymphocytes # (auto) 0.37 K/uL (1.2-3.4); Lymphocytes % (auto) 2.4 %; Mean Corpuscular Hemoglobin 32.5 pg (25-34); Mean Corpuscular Hgb Conc 33.1 g/dL (32-36); Mean Corpuscular Volume 98.2 fL (80-100); Mean Platelet Volume 11.4 fL (7.4-10.4); Monocytes # (auto) 0.42 K/uL (0.11-0.59); Monocytes % (auto) 2.7 %; Neutrophils # (auto) 14.28 K/uL (1.4-6.5); Neutrophils % (auto) 92.9 %; Nucleated RBC # (auto) 0.03 K/uL (0-0); Nucleated RBC % (auto) 0.2 %; Platelet Count 186 K/uL (130-400); RDW Coefficient of Variation 14.6 % (11.5-14.5); RDW Standard Deviation 50.6 fL (36.4-46.3); Red Blood Count 3.26 M/uL (4.7-6.1); White Blood Count 15.39 K/uL (4.8-10.8)
[2021-01-24 05:57] LABS: iSTAT Art Bld Gas pCO2 Correct 55 mmHg (35-46); iSTAT Art Bld Gas pH Corrected 7.371 (7.35-7.45); iSTAT Arterial Blood Gas HCO3 32 meg/L (19-24); iSTAT Arterial Blood Gas pCO2 55 mmHg (35-46); iSTAT Arterial Blood Gas pH 7.37 (7.35-7.45); iSTAT Arterial Blood Gas pO2 58 mmHg (80-95); iSTAT Arterial Blood Gas pO2 C 58; iSTAT Carbon Dioxide 33 mmol/L (24-31); iSTAT FiO2 100 %; iSTAT Hematocrit 31 % (42-52); iSTAT Hemoglobin 10.5 g/dl (14.0-18.0); iSTAT Potassium 4.5 mmol/L (3.3-5.0); iSTAT Site Art Line; iSTAT Sodium 132 mmol/L (135-144)
[2021-01-24 06:33] LABS: Albumin Globulin Ratio 0.4 (0.9-2); Albumin Level 1.4 gm/dl (3.4-5.0); BUN Creatinine Ratio 57.1 (10-20); Bilirubin,Total 0.7 mg/dl (0.2-1); Calcium 8.2 mg/dl (8.5-10.1); Creatinine Clr Calc Pharmacy 73.2 ml/min; Est GFR (Non-African American) 75.9 ml/min; Globulin 3.8 gm/dl (2.5-4.0); Magnesium 2.3 mg/dl (1.8-2.4); Phosphorus 3.3 mg/dl (2.5-4.9); Potassium 4.7 mmol/L (3.5-5.1); Total Protein 5.2 gm/dl (6.4-8.2)
[2021-01-24] MEDS: FUROSEMIDE 40 MG in SYRINGE 0 ML IV SCH (08:00)
[2021-01-24] MEDS: ATORVASTATIN 40 MG TAB PO SCH (08:00)
[2021-01-24] MEDS: DOCUSATE SODIUM SYRUP 100 MG/10 ML UDC NG SCH (08:00)
[2021-01-24] MEDS: CHOLECALCIFEROL 1,000 UNITS 25 MCG TAB PO SCH (08:00)
[2021-01-24] MEDS: MULTI VIT W/MINERALS LIQUID 15 ML UDP PO SCH (08:00)
[2021-01-24] MEDS: SENNOSIDES 8.8 MG/5 ML UDC PO SCH (08:01)
[2021-01-24] MEDS: ASPIRIN 81 MG CHEW PO SCH (08:01)
[2021-01-24] MEDS: AMIODARONE 200 MG TAB PO SCH (08:01)
[2021-01-24] MEDS: fentaNYL DRIP 1,250 MCG/250 ML BAG IV SCH ×2 (08:14→10:37)
--- NOTE | 2021-01-24 09:46 | XRay Report ---
XR chest 1V portable INDICATION: [place] ^f/u . TECHNIQUE: Single frontal radiograph of the chest was obtained. Comparison: Comparison is made to chest one view 01/23/2021 FINDINGS: Lines and tubes are stable. The cardiomediastinal silhouette is normal. Redemonstration of multifocal airspace opacities predominantly in the lower lungs. Interval decrease in size of right pneumothorax with approximately 11 mm pneumothorax remaining in the right apex. IMPRESSION: Interval decrease in size of right pneumothorax. Stable multifocal airspace opacities. ACT 112: Negative or not required by law. Electronically signed by: Wilfredo Holbrook M.D. 01/24/2021 9:45 AM
[2021-01-24] MEDS ORDERED: cefTRIAXone SODIUM 2,000 MG in DEXTROSE 5% 50 ML IV SCH (10:00)
--- NOTE | 2021-01-24 11:04 | Critical Care Progress Note ---
Date of Service January 24, 2021 Assessment & Plan (1) Pneumonia due to COVID-19 virus: (2) COVID-19: (3) Acute respiratory failure with hypoxia: (4) Chronic HFrEF (heart failure with reduced ejection fraction): (5) Left ventricular apical thrombus: (6) Acute kidney injury: Plan: Reason Critically Ill: 70-year-old male with COVID-19 pneumonia and worsening hypoxic respiratory failure requiring emergent endotracheal intubation for ongoing management of underlying illness. NEURO - Sedation : On fentanyl and propofol -Neuromuscular blockade with cis atracurium discontinued 01/19/2021 CARDIAC/VASCULAR - Coronary artery disease: Status post PTCI with KHRIS x4. Continue current medications. Echocardiogram earlier this visits demonstrates EF of 40 to 45% with apical thrombus. Ventricular apical thrombus On anticoagulation Monitor on telemetry. Atrial fibrillation with rapid ventricular response -S/p synchronized cardioversion 01/11/2021 with 150 J -Amiodarone infusion, s/p digoxin bolus 01/19/2021 -Metoprolol 5 mg IV every 4 hours as needed Labile blood pressure Bouts of hypotension with episodic hypotension --> could be from underlying C OVID-19 as well as sedation -On norepinephrine to keep MAP greater than 65 -Random cortisol 37 on 01/13 RESPIRATORY - Acute hypoxic respiratory failure in the setting of COVID-19 pneumonia: Patient intubated 01/13 Patient has already received Tocilizumab, remdesivir, and Decadron. Ventilator settings reviewed: ARDSnet guidelines high PEEP low FiO2 -Pronation therapy with neuromuscular blockade started 01/17 --Spontaneous right-sided pneumothorax S/p pigtail catheter 01/21/2021 GI/NUTRITION - Trickle feeds RENAL/LYTES - Acute kidney injury Baseline appears to be 1.0: Improved - consented for temporary HD catheter Replace electrolytes as needed - Strict I&Os. ENDO - No history of diabetes or thyroid disease BSGs per unit protocol. ISS --> gtt per unit policy. HEME - --Epistaxis from the left nose as well as bleeding from the right-sided chest tube Lovenox on hold Monitor H&H ID - COVID-19 pneumonia: Recently finished remdesivir. Received Tocilizumab earlier in visit. Febrile illness -S/p 5 days of Rocephin completed 01/19/2021 Blood Culture 01/14/2021 negative to date Repeat UA 01/21/2021 negative for bacteria and leukocytes Sputum culture 01/21/2021 growing Staphylococcus MSSA --> will give Rocephin for 5 days more --Prophylaxis VTE: Lovenox therapeutic (on hold) GI: Protonix Lines: Right IJ, right radial, positive Silva Diet: Tube feeds Plan: In/out: +848, urine output 2150 CXR from today shows decrease in size of right Pneumothorax Patient was still saturating 83-84% 100% FiO2 and 10 of PEEP. He was fighting the vent. I went up on the propofol and fentanyl. Patient is requiring higher doses of Levophed as well Patient chest tube was flushed and suctioned with small clot removed. Lovenox on hold for epistaxis Patient's Constanza Mejia [phone] was called again today and updated regarding patient deteriorating condition. She wanted to come in and talk to us in person. Will allow family to visit given the terminal condition the patient is in. All questions inquiries of the patient's answered in depth I have personally spent 40 minutes of critical care time in the direct management of this patient. This is a life/limb threatening event. This includes time spent evaluating patient, direct bedside care, chart review, placing orders, interpretation of diagnostic studies, discussion with consultants, patient, and family members, as well as other required patient management activities. This time is exclusive of all separately billable procedures, and teaching time and separate from and in addition to any other critical care service time. Please note the above document was generated using voice recognition software. It may contain grammatical, syntax or spelling errors. Admission and Anticipated Discharge Date Admission Date: January 07, 2021 Subjective Patient seen and examined at bedside. No acute distress Yesterday patient had clogged his chest tube. It was flushed and clots were able to be retracted and he started to work again Sputum culture is growing staph MSSA. Low-grade fever. Review of Systems Review of Systems: Unobtainable due to endotracheal tube Physical Exam Physical Exam: Constitutional: No acute distress HEENT: PERRLA, positive ETT Respiratory system: Decreased air entry bilaterally, no wheeze, rhonchi, positive crackles bilaterally CVS: S1-S2 positive, no murmurs or gallops Abdomen: Soft, nontender, nondistended, positive bowel sounds x4 Extremities: +2 pulses bilaterally radialis/ dorsalis pedis, no cyanosis, no edema Neuro: RASS -2, breathing over the vent Psych: Unable to assess G/U: Positive Silva Right sided pigtail catheter in place Skin: no rashes, warm and dry Lymphatic: no cervical or axillary lymphadenopathy Results & Data Results & Data ([facility]) Vital Signs (Past 12 Hours) Vital Signs Temp Pulse Resp BP Pulse Ox 01/24/21 10:01 37.2 C 97 H 91/50 L 83 L 01/24/21 09:01 37.2 C 100 H 97/54 L 82 L 01/24/21 08:30 37.1 C 95 H 96/55 L 83 L 01/24/21 07:59 36.9 C 100 H 109/65 83 L 01/24/21 07:58 82 32 H 86 L 01/24/21 07:29 37.1 C 97 H 107/63 84 L 01/24/21 06:59 37.1 C 96 H 115/62 86 L 01/24/21 06:20 37.0 C 92 H 112/64 88 L 01/24/21 05:59 36.9 C 91 H 102/56 L 87 L 01/24/21 05:29 36.9 C 91 H 107/55 L 88 L 01/24/21 04:59 36.9 C 89 99/55 L 88 L 01/24/21 04:29 36.9 C 88 101/56 L 88 L 01/24/21 04:00 92 H 112/64 01/24/21 03:59 36.9 C 88 110/57 L 89 L 01/24/21 03:29 36.9 C 88 99/58 L 89 L 01/24/21 02:59 36.8 C 89 97/54 L 89 L 01/24/21 02:52 88 29 H 89 L 01/24/21 02:29 36.8 C 90 100/55 L 90 01/24/21 01:59 36.8 C 87 100/60 91 01/24/21 01:29 36.8 C 92 H 100/57 L 91 01/24/21 00:59 36.8 C 93 H 105/61 90 01/24/21 00:19 36.8 C 92 H 127/64 91 01/24/21 00:04 36.7 C 86 107/59 L 93 01/24/21 00:00 84 113/46 L 01/23/21 23:49 36.7 C 86 99/57 L 92 01/23/21 23:34 36.7 C 86 99/60 L 92 01/23/21 23:26 85 30 H 93 01/23/21 23:19 36.7 C 86 104/57 L 93 01/23/21 23:04 36.7 C 85 101/59 L 94 01/24/21 05:20 01/24/21 05:20 Coding Level of Care Code Critical Care 1st 30-74 mins Diagnoses Pneumonia due to COVID-19 virus U07.1; J12.82 COVID-19 U07.1 Acute respiratory failure with hypoxia J96.01 Chronic HFrEF (heart failure with reduced ejection fraction) I50.22 Left ventricular apical thrombus I51.3 Acute kidney injury N17.9 Time Spent (min) 40
[2021-01-24] MEDS: PANTOprazole 40 MG in SYRINGE 0 ML IV SCH (11:34)
--- NOTE | 2021-01-24 14:05 | Hospitalist Progress Note ---
Date of Service January 24, 2021 Assessment & Plan (1) Left ventricular apical thrombus: (2) Sepsis: (3) Acute respiratory failure with hypoxia: Plan: 70-year-old male with PMH of CAD, chronic HFrEF, nonischemic CM, HTN, HLD, prediabetes presented to the ED 01/07 secondary to URI for 9 days [employer] and hypoxic in the clinic on the day of arrival. He is not vaccinated against Covid and was found to have Covid in the ED and required 15 L nonrebreather. Is currently in the critical care unit for the following: #. Sepsis with shock requiring pressors #. COVID Pneumonia #. Acute Hypoxic Respiratory failure #. Leukocytosis, pro-Red uptrended 01/13 Patient meets sepsis criteria. 01/13 AM, patient desaturated and was tachypneic on high flow nasal cannula, became lethargic, and was intubated, currently on mechanical ventilation. Patient on Levophed Admitting CXR: Chronic emphysema and scaring without evidence of acute abnormality. Admitting CTA chest: No PE, emphysema with chronic fibrotic changes, findings suggestive of pulmonary edema versus inflammatory pneumonitis, cardiomegaly with left ventricular apex thrombus up to 1.9 cm. Admitting echo: Technically difficult study. Grossly normal LV size with mild to moderate reduced systolic function. EF 40 to 45%. Akinetic apex with small laminated apical thrombus. Status post remdesivir and Tocilizumab [01/07 CRP 13.7> trended down to 1.71 on 01/12], continue with dexamethasone 01/08 Continue with supportive management. On IV antibiotics Cefepime 01/14--- 01/15 ceftriaxone. Patient down to 1 pressor. Tube feeding started 01/18. Management per ICU care. Remains sedated on mechanical ventilator Prognosis remains poor Appreciate floor winder and palliative care input and recommendation Plan to continue current management feels no improvement within the next day or 2 will put him on comfort care Condition has been deteriorating and requiring additional pressor support to maintain blood pressure and increasing oxygen administration to maintain saturation Palliative care and the floor winder are keeping in touch with the family member especially the to update the patient's condition Condition has been deteriorating and is still requiring high flow oxygen to maintain saturation and pressor resents to maintain blood pressure Awaiting further evaluation by the palliative care Further deterioration of his condition and requiring high flow oxygen to maintain saturation Condition has been deteriorating- is being updated by the floor winder #. CHARMAINE #. ATN Baseline creatinine around one, creatinine up trended to 3, downtrending UA revealing granular casts suggestive of ATN, patient making urine and creatinine improving Nephrology on board- Kidney function remains stable #. Apical thrombus See imaging above Patient on heparin drip 01/13. #. Afib RVR Patient on amiodarone drip, received digoxin and amiodarone bolus today. Plan to do cardioversion if his heart rate not controlled. Case discussed with critical care doctor. Remains tachycardic #. CAD #. Chronic heart failure with reduced ejection fraction #. Ischemic cardiomyopathy Anterior STEMI 04/2018 with PCI and 2 KHRIS to proximal to mid LAD; staged PCI to circumflex/OM Echo 04/2019 EF 40 to 45% Admitting BNP 1061, lower than the previous BNP. Follows [facility] Currently being managed for sepsis criteria. Hold antihypertensives. Has been on pressor resents to maintain blood pressure #. Prediabetes 12/21/2020 A1c 6.4 Insulin drip changed to sliding scale. #. DVT prophylaxis: Patient on heparin drip Anticoagulation has been discontinued due to bleeding from the chest tube Disposition: Continue critical care Full code Patient currently in amiodarone drip, heparin drip, fentanyl, propofol, Levophed. He has urinary catheter in situ, NG tube in situ, intubated, supine position. Multisystem organ failure, guarded prognosis. Management per critical care team. Patient's Constanza was updated on patient's condition on 01/13 and voiced understanding and agreement with plan of care. Per critical care's discussion with the family, he is DNR/DNI for any new events but wants everything done at present. Palliative care on board. Critical care team is keeping in touch with the and updating about condition Prognosis remains poor-likely going towards comfort care in a day or 2 Director Of Financial Aid and the palliative team have been updating the and other family members Admission and Anticipated Discharge Date Admission Date: January 07, 2021 Subjective 01/08/2021 The patient was seen and examined in telemetry unit and in the Covid room He has been feeling much better but is still requiring high flow nasal cannula oxygen to maintain saturation Still has cough and very shortness of breath with minimal exertion 01/09/2021 The patient was seen and examined in telemetry unit and in the Covid room He has been feeling much better but is still requiring high flow oxygen of 50 L/min Still has cough and generalized weakness No fever and no chills 01/10/2021 The patient was seen and examined in telemetry unit and in the Covid room He says that he feels much better but still requiring 50 L/min and 100% FiO2 to maintain saturation He has cough with nonproductive cough Denies any chest pain and/or palpitation 01/11/2021 The patient was seen and examined in telemetry unit and in the Covid room He has been feeling well today and is still requiring high flow nasal cannula at 6 L/min to maintain saturation Any kind of activities make the saturation to go down to 70s Denies any pain in the chest, any abdominal pain, nausea and or vomiting 01/12/2021 The patient was seen and examined in telemetry unit and in the Covid room His condition has not improved and is still requiring high flow nasal cannula oxygen to maintain saturation He is saturation improves with prone position Denies any fever and/or chills and clinically feels better at rest and doing nothing 01/20/2021 The patient was seen and examined in ICU He remains intubated and sedated 01/21/2021 The patient was seen and examined in ICU He remains intubated and sedated 01/22/2021 The patient was seen and examined in ICU He remains intubated and sedated His condition has been deteriorating 01/23/2021 The patient was seen and examined in ICU He remains intubated on mechanical ventilator and is sedated Condition has not been improving 01/24/2021 The patient was seen and examined in ICU His condition has been deteriorating and remains on mechanical ventilator with sedation Review of Systems Review of Systems: Unobtainable due to endotracheal tube Physical Exam Physical Exam: Remains sedated on mechanical ventilator Constitutional: well developed, well nourished and + ill appearing Eyes: PERRL, conjunctivae normal, anicteric sclerae ENMT: external ear and nose normal, oropharynx normal Neck: trachea midline, no thyromegaly Respiratory: no respiratory distress Auscultation: + diminished lung sounds and + crackles (Bibasilar crackles) Cardiovascular: Rate/Rhythm: regular rate and regular rhythm; not tachycardic Heart Sounds: normal S1 and normal S2; no murmur Extremities: no edema Gastrointestinal (Abdomen): Inspection/Auscultation: normal bowel sounds; abdomen not distended Percussion/Palpation: abdomen soft; abdomen nontender Neurologic: Sedated and requiring increasing FiO2 to maintain saturation Psychiatric: A+Ox3, euthymic affect Lymphatic: no cervical or axillary lymphadenopathy Results & Data Results & Data ([facility]) Vital Signs (Past 12 Hours) Vital Signs Temp Pulse Resp BP Pulse Ox 01/24/21 12:01 37.0 C 103 H 110/57 L 82 L 01/24/21 11:23 101 H 33 H 81 L 01/24/21 11:01 37.1 C 103 H 106/57 L 81 L 01/24/21 10:01 37.2 C 97 H 91/50 L 83 L 01/24/21 09:01 37.2 C 100 H 97/54 L 82 L 01/24/21 08:30 37.1 C 95 H 96/55 L 83 L 01/24/21 07:59 36.9 C 100 H 109/65 83 L 01/24/21 07:58 82 32 H 86 L 01/24/21 07:29 37.1 C 97 H 107/63 84 L 01/24/21 06:59 37.1 C 96 H 115/62 86 L 01/24/21 06:20 37.0 C 92 H 112/64 88 L 01/24/21 05:59 36.9 C 91 H 102/56 L 87 L 01/24/21 05:29 36.9 C 91 H 107/55 L 88 L 01/24/21 04:59 36.9 C 89 99/55 L 88 L 01/24/21 04:29 36.9 C 88 101/56 L 88 L 01/24/21 04:00 92 H 112/64 01/24/21 03:59 36.9 C 88 110/57 L 89 L 01/24/21 03:29 36.9 C 88 99/58 L 89 L 01/24/21 02:59 36.8 C 89 97/54 L 89 L 01/24/21 02:52 88 29 H 89 L 01/24/21 02:29 36.8 C 90 100/55 L 90 Laboratory Results Short CBC 01/24/21 Range/Units 05:20 WBC 15.39 H (4.8-10.8) K/uL Hgb 10.6 L (14.0-18.0) g/dL Hct 32.0 L (42-52) % Plt Count 186 (130-400) K/uL BMP 01/24/21 05:20 Sodium 133 L Potassium 4.7 D Chloride 98 Carbon Dioxide 29 BUN 57 H Creatinine 1.00 Glucose 99 Calcium 8.2 L Liver Function 01/24/21 Range/Units 05:20 Total Bilirubin 0.7 (0.2-1) mg/dl AST 73 H (15-37) U/L ALT 40 (12-78) U/L Alkaline Phosphatase 107 (45-117) U/L Albumin 1.4 L (3.4-5.0) gm/dl Medications Administered Current Inpatient Medications Acetaminophen (Acetaminophen 325 Mg Tab) 650 mg PO Q4H PRN PRN Reason: Pain or Fever Stop: 02/06/21 17:29 Last Admin: 01/17/21 16:04 Dose: 650 mg Documented by: Al Hydrox/Mg Hydrox/Simethicone (Aluminum/Magnesium Susp 30 Ml Udc) 15 ml PO Q4H PRN PRN Reason: Dyspepsia Stop: 02/06/21 17:29 Albuterol (Albuterol Hfa 8 Gm Inhaler) 2 puffs INH Q4R PRN PRN Reason: Wheezing Stop: 02/11/21 10:44 Amiodarone HCl (Amiodarone 200 Mg Tab) 400 mg PO BIDM KIM Stop: 02/20/21 16:59 Last Admin: 01/24/21 08:01 Dose: 400 mg Documented by: Aspirin (Aspirin 81 Mg Chew) 81 mg PO DAILY KIM Stop: 02/13/21 08:59 Last Admin: 01/24/21 08:01 Dose: 81 mg Documented by: Atorvastatin Calcium (Atorvastatin 40 Mg Tab) 80 mg PO DAILY [facility] Stop: 02/07/21 08:59 Last Admin: 01/24/21 08:00 Dose: 80 mg Documented by: Dextrose (Dextrose 50% 50 Ml Syringe) 25 - 50 ml IV UD PRN; Protocol PRN Reason: Hypoglycemia Protocol Stop: 02/12/21 10:59 Last Admin: 01/17/21 01:12 Dose: 25 ml Documented by: Docusate Sodium (Docusate Sodium Syrup 100 Mg/10 Ml Udc) 100 mg NG BID KIM Stop: 02/20/21 11:59 Last Admin: 01/24/21 08:00 Dose: 100 mg Documented by: Enoxaparin Sodium (Enoxaparin 100 Mg/1ml Syr) 90 mg SQ Q12H KIM Stop: 02/19/21 10:59 Last Admin: 01/23/21 22:07 Dose: Not Given Documented by: Fentanyl Citrate (Fentanyl Bolus From Bag) 50 mcg IV Q60M PRN PRN Reason: Pain or Agitation Stop: 01/27/21 04:29 Last Admin: 01/17/21 01:35 Dose: 50 mcg Documented by: Fluticasone Propionate (Fluticasone Propionate Na Spr 16 Gm Btl) 2 sprays NA BID PRN PRN Reason: allergies Stop: 02/06/21 17:29 Last Admin: 01/09/21 21:03 Dose: 2 sprays Documented by: Glucagon (Glucagon For Inj 1 Mg Vial) 1 mg SQ UD PRN; Protocol PRN Reason: Hypoglycemia Protocol Stop: 02/12/21 10:59 Glucose (Glucose 40% Gel 15 Gm Tube) 15 - 30 gm PO UD PRN; Protocol PRN Reason: Hypoglycemia Protocol Stop: 02/12/21 10:59 Glucose (Glucose 10 Tabs/Tube) 4 - 8 tabs PO UD PRN; Protocol PRN Reason: Hypoglycemia Protocol Stop: 02/12/21 10:59 Heparin Sodium (Beef Lung) (Heparin 10 Unit/Ml 5 Ml Flush) 5 ml FLUSH PRN PRN PRN Reason: Flush Stop: 02/20/21 07:31 Last Admin: 01/24/21 08:02 Dose: 5 ml Documented by: Fentanyl Citrate (Fentanyl Drip) 1,250 mcg in 250 mls @ 20 mls/hr IV .[id number] KIM; Protocol Stop: 01/27/21 04:29 Last Titration: 01/24/21 12:32 Dose: 100 mcg/hr, 20 mls/hr Documented by: Pantoprazole Sodium 40 mg/ (Syringe) 10 mls @ 5 mls/min IV DAILY@1100 KIM Stop: 02/12/21 10:59 Last Admin: 01/24/21 11:34 Dose: 5 mls/min Documented by: Norepinephrine Bitartrate (Levophed/D5w) 16 mg in 500 mls @ 26.07 mls/hr IV .[id number] [facility]; Protocol Stop: 02/12/21 18:39 Last Titration: 01/24/21 12:32 Dose: 0.16 mcg/kg/min, 26.1 mls/hr Documented by: Vasopressin 20 units/ Sodium (Chloride) 101 mls @ 0 mls/hr IV .Q0M [facility] Stop: 02/20/21 10:29 Last Infusion: 01/22/21 10:00 Dose: 0 unit/min, 0 mls/hr Documented by: Furosemide 40 mg/ Syringe 4 mls @ 4 mls/min IV Q12 [facility] Stop: 02/22/21 08:59 Last Admin: 01/24/21 08:00 Dose: 4 mls/min Documented by: Ceftriaxone Sodium 2,000 mg/ (Dextrose) 70 mls @ 100 mls/hr IV Q24H [facility]; Protocol Stop: 01/27/21 10:41 Last Infusion: 01/24/21 12:32 Dose: Infused Documented by: Insulin Glargine (Insulin Glargine Solostar 100 Units/Ml 3 Ml Pen) 5 units SC HS [facility] Stop: 02/21/21 20:59 Last Admin: 01/23/21 21:27 Dose: 5 units Documented by: Insulin Human Regular (Insulin Human Regular) 0 units SC Q6 [facility] Stop: 02/20/21 11:59 Last Admin: 01/24/21 12:31 Dose: 1 units Documented by: Magnesium Hydroxide (Magnesium Hydroxide Susp 30 Ml Udc) 30 ml PO Q12H PRN PRN Reason: Constipation Stop: 02/06/21 17:29 Metoprolol Succinate (Metoprolol Succ 50mg Ext Rel Tab) 100 mg PO DAILY [facility] Stop: 02/07/21 08:59 Last Admin: 01/14/21 07:57 Dose: 100 mg Documented by: Metoprolol Tartrate (Metoprolol Tartrate 1 Mg/Ml Vial) 5 mg IV Q4 [facility] Stop: 02/15/21 03:59 Last Admin: 01/18/21 01:23 Dose: Not Given Documented by: Midazolam HCl (Midazolam Hcl 1 Mg/Ml 2ml Vial) 1 mg IV Q2H PRN PRN Reason: RASS goal -1 Stop: 02/14/21 10:11 Midazolam HCl (Midazolam Hcl 1 Mg/Ml 2ml Vial) 2 mg IV Q2H PRN PRN Reason: RASS goal -1 Stop: 02/14/21 10:11 Last Admin: 01/17/21 03:39 Dose: 2 mg Documented by: Miscellaneous (Carbohydrates For Hypoglycemia ) 15 - 30 gm PO UD PRN PRN Reason: Hypoglycemia Treatment Stop: 02/12/21 10:59 Miscellaneous Information (Pharmacy Glycemic Mgmt Consult) 1 ea N/A UD PRN PRN Reason: Consult Stop: 02/18/21 09:45 Multi-Ingredient Cream (Artificial Tears Op Oint 3.5 Gm Tube) 1 appln OP Q4 KIM Stop: 02/16/21 04:59 Last Admin: 01/24/21 11:32 Dose: 1 appln Documented by: Multivitamins/Minerals (Multi Vit W/Minerals Liquid 15 Ml Udp) 15 ml PO DAILY KIM Stop: 02/13/21 08:59 Last Admin: 01/24/21 08:00 Dose: 15 ml Documented by: Nutritional Formula (Peptamen Intense Vhp 1.0 Red 1,000 Ml Bag) 1,000 ml OG UD [facility]; Protocol Stop: 02/17/21 11:29 Last Admin: 01/23/21 20:08 Dose: 1,000 ml Documented by: Ondansetron HCl (Ondansetron Inj 2 Mg/Ml 2 Ml Vial) 4 mg IV Q6H PRN PRN Reason: Nausea Stop: 02/06/21 17:29 Polyethylene Glycol (Polyethylene (Miralax) 17 Gm Pack) 17 gm PO DAILY PRN PRN Reason: Constipation Stop: 02/06/21 17:29 Sennosides (Sennosides 8.8 Mg/5 Ml Udc) 17.6 mg PO DAILY KIM Stop: 02/20/21 11:59 Last Admin: 01/24/21 08:01 Dose: 17.6 mg Documented by: Sterile Water (Tube Feeding Water Flush) 30 ml OG Q4H KIM Stop: 02/17/21 11:44 Last Admin: 01/24/21 11:32 Dose: 30 ml Documented by: Ticagrelor (Ticagrelor 90 Mg Tab) 90 mg PO BID KIM Stop: 02/13/21 20:59 Last Admin: 01/20/21 08:03 Dose: 90 mg Documented by: Vitamin D (Cholecalciferol 1,000 Units 25 Mcg Tab) 1,000 units PO DAILY KIM Stop: 02/07/21 08:59 Last Admin: 01/24/21 08:00 Dose: 1,000 units Documented by:
--- NOTE | 2021-01-24 14:56 | Communication Note ---
Date of Service: January 24, 2021 Critical CARE addendum: Patient's Mrs. Perez Apodaca along with patient's sister and brother in law visited outside the room. I discussed the current condition again as well as the clinical deterioration that the patient has had in the last 48-72 hours. Family understands and would not like to prolong and lean towards comfort measures. All questions inquiries of the patient's family were answered in depth We will pursue with extubation the patient comfortable Please note the above document was generated using voice recognition software. It may contain grammatical, syntax or spelling errors.Any formal questions or concerns about the content, text or information contained within the body of this dictation should be directly addressed to the provider for clarification. Coding Level of Care Code None
--- NOTE | 2021-01-24 15:23 | Communication Note ---
Date of Service: January 24, 2021 Critical CARE addendum: PRONOUNCEMENT NOTE:- Date: 01/24/2021 Time: 15:10 Assessment: I presented to the patients room for evaluation. Upon assessment, the patient was found to be in a terminal state. Pupils were fixed and dilated without response. No palpable pulses appreciated. No spontaneous breaths noted. Heart sounds were absent. No response to painful stimuli. Time of : 15:10 as pronounced by myself. Family was in the waiting room. Appropriate response to grief appreciated. Condolences provided. Questions were addressed and emotional support was provided. Patients primary service was contacted and made aware of patient demise. Please note the above document was generated using voice recognition software. It may contain grammatical, syntax or spelling errors.Any formal questions or concerns about the content, text or information contained within the body of this dictation should be directly addressed to the provider for clarification. Coding Level of Care Code None
--- NOTE | 2021-01-25 08:46 | Discharge Summary ---
Date of Service January 25, 2021 Admission HPI Per Admitting Provider Chief Complaint: URI sx x 9 days. Primary Care Provider: Robert Garcia MD This is a 70-year-old male who has significant past medical history of CAD, chronic HFrEF, nonischemic cardiomyopathy, HTN, HLD, prediabetes who presents to ED secondary to URI x9 days. He complains of cough, occasionally productive, shortness of breath with exertion, wheezing, myalgias, fatigue and loss of appetite. He denies any documented fever, as well as chills, sweats, chest pain, lightheadedness, dizziness, hemoptysis, nausea, vomiting, abdominal pain, loss of taste or smell, change in his bowel or urinary habits. He was seen in clinic today due to URI symptoms and found to be hypoxic. He is not vaccinated and suspicion was high for Covid pneumonia; therefore directed to ED. He denies any known exposure or known sick contacts. He lives at home with his . In ED patient was found to be hypoxic requiring 15 L nonrebreather. Chest x-ray showed emphysematous changes but no acute cardiopulmonary disease. Chest CTA reveals intermixed ground glass opacities with interlobular septal thickening suggestive of pulmonary edema versus nonspecific infectious or inflammatory pneumonitis, mediastinal and hilar adenopathy, cardiomegaly with suggested thrombus of the left ventricular apex measuring up to 1.9 cm. In ED he received 125 mg dexamethasone as well as albuterol. He feels mildly improved since being in ED Admission Exam Per Admitting Provider Physical Exam: Constitutional: WD/WN, vitals as above, NAD, sitting up in bed, pleasant, nontoxic but apprehensive, conversing easily Head: Normocephalic, Atraumatic Eyes: PERRL, conjunctivae normal, anicteric sclerae ENMT: external ear and nose normal, oropharynx normal Neck: trachea midline, no thyromegaly normal visual inspection Respiratory: on 15L non rebreather, normal respiratory effort, lungs clear to auscultation, bibasilar rales, no wheeze, or rhonchi. Normal insp/exp effort, no accessory muscle use Cardiovascular: RRR, no murmur, no edema Vessels: no JVD or carotid bruit Chest: normal inspection of chest Abdomen: normal bowel sounds, soft, nontender, no hepatosplenomegaly Musculoskeletal: no cyanosis or clubbing, extremities motor strength 5/5 Skin: no rashes, warm and dry normal turgor Neurologic: PERRL, EOMI, accommodation nl, no face palsy, no dysarthria CN's II-XI intact bilaterally and moves all extremities Psychiatric: A+Ox3, euthymic affect Lymphatic: no cervical or axillary lymphadenopathy : deferred Principal Diagnosis The Patient : Covid 19 Virus Infection Pneumonia due to Covid 19 Ischemic Cardiomyopathy Atrial Fibrillation Discharge Exam Constitutional well developed, well nourished and + ill appearing Eyes PERRL, conjunctivae normal, anicteric sclerae ENMT external ear and nose normal, oropharynx normal Neck trachea midline, no thyromegaly Respiratory no respiratory distress Auscultation: + diminished lung sounds and + crackles (Bibasilar crackles) Cardiovascular Rate/Rhythm: regular rate and regular rhythm; not tachycardic Heart Sounds: normal S1 and normal S2; no murmur Extremities: no edema Gastrointestinal (Abdomen) Inspection/Auscultation: normal bowel sounds; abdomen not distended Percussion/Palpation: abdomen soft; abdomen nontender Psychiatric A+Ox3, euthymic affect Lymphatic no cervical or axillary lymphadenopathy Discharge Data Allergies Allergy/AdvReac Type Severity Reaction Status Date / Time No Known Drug Allergies Allergy nkda Verified 01/07/21 12:57 Consultations 01/07/21 14:00 ED Decision to Admit Stat 01/13/21 03:11 Consult Medical Clinic Manager Routine 01/14/21 10:00 Consult Nephrology Routine 01/18/21 07:00 Consult Palliative Care Routine 01/19/21 14:26 Consult Cardiology Routine Ordered Studies 01/07/21 12:34 CT angio chest PE protocol Stat 01/13/21 04:33 US point of care ultrasound Urgent Hospital Course (1) Left ventricular apical thrombus: (2) Sepsis: (3) Acute respiratory failure with hypoxia: 70-year-old male with PMH of CAD, chronic HFrEF, nonischemic CM, HTN, HLD, prediabetes presented to the ED 01/07 secondary to URI for 9 days [employer]ICE [employer] and hypoxic in the clinic on the day of arrival. He is not vaccinated against Covid and was found to have Covid in the ED and required 15 L nonrebreather. Is currently in the critical care unit for the following: #. Sepsis with shock requiring pressors #. COVID Pneumonia #. Acute Hypoxic Respiratory failure #. Leukocytosis, pro-Red uptrended 01/13 Patient meets sepsis criteria. 01/13 AM, patient desaturated and was tachypneic on high flow nasal cannula, became lethargic, and was intubated, currently on mechanical ventilation. Patient on Levophed Admitting CXR: Chronic emphysema and scaring without evidence of acute abnormality. Admitting CTA chest: No PE, emphysema with chronic fibrotic changes, findings suggestive of pulmonary edema versus inflammatory pneumonitis, cardiomegaly with left ventricular apex thrombus up to 1.9 cm. Admitting echo: Technically difficult study. Grossly normal LV size with mild to moderate reduced systolic function. EF 40 to 45%. Akinetic apex with small laminated apical thrombus. Status post remdesivir and Tocilizumab [01/07 CRP 13.7> trended down to 1.71 on 01/12], continue with dexamethasone 01/08 Continue with supportive management. On IV antibiotics Cefepime 01/14--- 01/15 ceftriaxone. Patient down to 1 pressor. Tube feeding started 01/18. Management per ICU care. Remains sedated on mechanical ventilator Prognosis remains poor Appreciate parking lot spotter and palliative care input and recommendation Plan to continue current management feels no improvement within the next day or 2 will put him on comfort care Condition has been deteriorating and requiring additional pressor support to maintain blood pressure and increasing oxygen administration to maintain saturation Palliative care and the parking lot spotter are keeping in touch with the family member especially the to update the patient's condition Condition has been deteriorating and is still requiring high flow oxygen to maintain saturation and pressor resents to maintain blood pressure Awaiting further evaluation by the palliative care Further deterioration of his condition and requiring high flow oxygen to maintain saturation Condition has been deteriorating- is being updated by the parking lot spotter #. CHARMAINE #. ATN Baseline creatinine around one, creatinine up trended to 3, downtrending UA revealing granular casts suggestive of ATN, patient making urine and creatinine improving Nephrology on board- Kidney function remains stable #. Apical thrombus See imaging above Patient on heparin drip 01/13. #. Afib RVR Patient on amiodarone drip, received digoxin and amiodarone bolus today. Plan to do cardioversion if his heart rate not controlled. Case discussed with critical care doctor. Remains tachycardic #. CAD #. Chronic heart failure with reduced ejection fraction #. Ischemic cardiomyopathy Anterior STEMI 04/2018 with PCI and 2 KHRIS to proximal to mid LAD; staged PCI to circumflex/OM Echo 04/2019 EF 40 to 45% Admitting BNP 1061, lower than the previous BNP. Follows [facility] Currently being managed for sepsis criteria. Hold antihypertensives. Has been on pressor resents to maintain blood pressure #. Prediabetes 12/21/2020 A1c 6.4 Insulin drip changed to sliding scale. #. DVT prophylaxis: Patient on heparin drip Anticoagulation has been discontinued due to bleeding from the chest tube Disposition: Continue critical care Full code Patient currently in amiodarone drip, heparin drip, fentanyl, propofol, Levophed. He has urinary catheter in situ, NG tube in situ, intubated, supine position. Multisystem organ failure, guarded prognosis. Management per critical care team. Patient's Constanza was updated on patient's condition on 01/13 and voiced und erstanding and agreement with plan of care. Per critical care's discussion with the family, he is DNR/DNI for any new events but wants everything done at present. Palliative care on board. Critical care team is keeping in touch with the and updating about condition Prognosis remains poor-likely going towards comfort care in a day or 2 Medical Clinic Manager and the palliative team have been updating the and other family members Total Time Total Time Spent Total Time Spent (In Minutes): 35 minutes Discharge Plan Discharge Items Patient Disposition: Other Date/Time: 01/24/21 18:30
== END 2021-01-24 18:15 | disposition expired | DRG 870 ==
LOC: ED 11:36 → SUATTDRO 14:01 → 2E 14:01 → 1E 01-13 11:17